=== PATIENT | female | born 1925 | race Caucasian/White ===

== ENCOUNTER 2016-10-29 12:15 | Inpatient (IN) ==
[2016-10-29] MEDS ORDERED: SODIUM CHLORIDE 0.9% 500 ML IV STA ×2 (12:40→15:45)
--- NOTE | 2016-10-29 12:51 | CT Report ---
CT of the head without contrast. Indication: Mental status change. Comparison: October 08, 2016. There is heavy calcific plaque present within the intracranial internal carotid arteries and also at the vertebral arteries. There is generalized prominence of the ventricles and sulci consistent with atrophy of aging. There is no mass effect, midline shift, or area of hemorrhage. There is basal ganglial calcification. There are prominent areas of low density in the periventricular white matter there are lacunar infarcts within the basal ganglia. There is remote cortical infarct in the right parietal lobe. Right cerebellar infarct also suspected. No new areas of infarction are identified. The calvarium is intact. The included paranasal sinuses and the mastoid air cells are clear. Impression: 1. Diffuse atrophy. 2. White matter changes likely attributable to chronic microvascular ischemia, and quite prominent. 3. Bilateral basal ganglial lacunar infarcts. 4. 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 The CT exam was performed using one or more of the following dose reduction techniques: Automated exposure control, adjustment of the mA and/or kV according to patient size, or use of iterative reconstruction technique. PROCEDURE INTERPRETED AT [facility] DEPARTMENT OF RADIOLOGY Final Report Signed by: Dr. Billie Pacheco
--- NOTE | 2016-10-29 12:54 | XRay Report ---
Portable chest Date: 10/29/2016 Clinical history: Alteration of consciousness Comparison: 09/24/2016 Technique: Portable AP sitting chest Findings: Stable cardiomegaly with uncoiling of the aorta. Diffuse arterial calcifications. Chronic scarring in the lungs with decreased parenchymal findings when compared to previous exam. Osteopenia with degenerative changes. Chronic deformity of the right shoulder. Impression: Persistent cardiomegaly with improved CHF/pneumonitis. Underlying chronic interstitial lung disease. PROCEDURE INTERPRETED AT [facility] DEPARTMENT OF RADIOLOGY Final Report Signed by: Dr. Anne Anderson
--- NOTE | 2016-10-29 12:54 | Emergency Department Note ---
Suzie Webb Gwan, am scribing for, and in the presence of, Turner Benitez MD 12:46 . Eli Webb James D, MD, personally performed the services described in this documentation, ascribed by Bethany Larsen in my presence, and it is both accurate and complete . Arrival - Arrival Chief Complaint: Altered Mental Status ED Nursing Triage Note: pt fell this am about 0200. pt has alt loc. Mode of Arrival: Stretcher Limitations: Altered Mental Status Source: Family (daughter), Old Records Reviewed, RN Notes Reviewed Time Seen by Provider: 10/29/16 12:22 - History of Present Illness HPI Narrative: Pt is a 89 y/o female who was brought into the ED via EMS for further evaluation of AMS s/p fall this 0200 this morning. Patient is a poor historian and is accompanied by family. Daughter said that pt fell last night and EMS was alerted but pt did not report to ED. Daughter then stated that pt appeared to have a constant decline prompting their visit to ED today. Patient's daughter confirmed that pt has had sxs of decreased appetite, dry cough and being lethargic with an onset of several days ago. Family continued to note that pt was dx with UTI and is currently finishing up her antibiotics. Patient is followed by Dr. Engle and Dr. Wallace. Pt has a PMHx of CHF, HTN, TIA, NIDDM and demenita. No other problems/complaints reported in ED. Onset (ago): hour(s) Consistency: constant Severity: moderate Allergies/Adverse Reactions: Allergies Allergy/AdvReac Type Severity Reaction Status Date / Time Penicillins Allergy Severe Swelling Verified 10/08/16 02:03 of Lip/Tongue/Throat zinc Allergy Severe Swelling Verified 10/08/16 02:03 of Lip/Tongue/Throat grapefruit Allergy Intermediate RASH Verified 10/08/16 02:03 Home Medications: Home Medications Medication Instructions Recorded Confirmed Type Carvedilol 6.25 mg PO BID W/MEALS 10/10/14 10/29/16 History Cholestyramine [Questran] 4 gm PO TID 10/10/14 10/29/16 History Esomeprazole Magnesium [Nexium] 40 mg PO BEDTIME 10/10/14 10/29/16 History Fenofibric Acid (Choline) 135 mg PO DAILY 10/10/14 10/29/16 History [Trilipix] Ferrous Sulfate 325 mg PO DAILY 10/10/14 10/29/16 History Furosemide 40 mg PO DAILY 10/10/14 10/29/16 History Memantine HCl [Namenda] 20 mg PO DAILY 10/10/14 10/29/16 History PARoxetine HCl [Paroxetine HCl] 30 mg PO BID 10/10/14 10/29/16 History Potassium Chloride [Klor-Con M20] 10 meq PO DAILY 10/10/14 10/29/16 History Simvastatin 40 mg PO BEDTIME 10/10/14 10/29/16 History sitaGLIPtin [Januvia] 100 mg PO BEDTIME 10/10/14 10/29/16 History Cyanocobalamin Inj [Vitamin B12 1,000 mcg IM Q30D 05/22/16 10/29/16 History Inj] clonazePAM [Klonopin] 1 mg PO BEDTIME 05/22/16 10/29/16 History Diclofenac 1% Gel [Voltaren 1% Gel] 1 applic TOP BID PRN 08/13/16 10/29/16 History Diphenoxylate HCl/Atropine 1 tablet PO BID 08/13/16 10/29/16 History [Diphenoxylate/Atropine 2.5-0.025 mg Tab] Levothyroxine Tab [Synthroid Tab] 50 mcg PO QAM 08/13/16 10/29/16 History Sulfameth/Trimeth 800-160 Tab 1 tablet PO MOWEFR 08/13/16 10/29/16 History [Bactrim DS Tab] Ascorbic Acid [Vitamin C] 1,000 mg PO QPM 09/07/16 10/29/16 History Calcium (Carb)/Vit D 600-400 1 tablet PO BID 09/07/16 10/29/16 History [Caltrate 600 + D] Ergocalciferol (Vitamin D2) 2,000 unit PO DAILY 09/07/16 10/29/16 History [Vitamin D2] Gluc Perez/Chondro Perez A/Vit C/Mn 1 each PO BID 09/07/16 10/29/16 History [Glucosamine Chondroitin Tab] Isosorbide Mononitrate [Isosorbide 30 mg PO DAILY 09/07/16 10/29/16 History Mononitrate ER] Multivit-Min/FA/Lycopen/Lutein 1 each PO DAILY 09/07/16 10/29/16 History [Centrum Silver Tablet] Selenium [Selenium Tab] 400 mcg PO DAILY 09/07/16 10/29/16 History Ubidecarenone [Coenzyme Q10] 400 mg PO QPM 09/07/16 10/29/16 History Vitamin E Cap 1,000 unit PO DAILY 09/07/16 10/29/16 History levETIRAcetam TAB [Keppra Tab] 500 mg PO BID #60 tablet 09/07/16 10/29/16 Rx Levofloxacin Tab [Levaquin Tab] 250 mg PO DAILY #7 tablet 09/24/16 10/29/16 Rx Aspirin 325 mg PO QAM 10/29/16 10/29/16 History Temazepam [Restoril] 30 mg PO BEDTIME PRN 10/29/16 10/29/16 History Review of System - Review of System ROS unobtainable: due to mental status Medical,Surgical,& Family Hx - Medical History Cardio: History of: CHF, Hypertension Neurology: History of: Dementia, TIA No history of: Seizures HEENT: History of: Ear Problem (macular degeneration), Glaucoma Endocrine: History of: Diabetes Mellitus (NIDDM) - Surgical History HEENT Surgeries: Surgical HX of: Tonsilectomy & Adenoidectomy Abdominal Surgeries: Surgical HX of: Abdominal Surgery (tummy tuck), Appendectomy Reproductive Surgeries: Surgical HX of;: Hysterectomy - Social History Smoking Status: Never smoker Frequency of Alcohol Use: None Type of Drug Use: None Exam Physical Examination: GENERAL: This is a ill-appearing white female in no apparent distress but appears to be temporal wasted and non-verbal. Patient does follow commands. VITAL SIGNS: HEENT: Head is normocephalic and atraumatic. Pupils are equally round and reactive to light. Extraocular movement are intact. Oropharynx is benign with dry mucous membranes. NECK: Neck is soft and supple without tenderness. There are no masses. There is no lymphadenopathy. LUNGS: Lungs are clear to auscultation bilaterally. Chest rises symmetrically. There is no chest wall tenderness. CV: Heart is regular rate and rhythm without murmurs, rubs, or gallops. ABDOMEN: Abdomen is soft, non-tender to palpation. There are no abnormal masses palpated. There is no organomegaly. Bowel sounds are present and active. SKIN: Skin is warm and dry. No rash. EXTREMITIES: Patient has full range of motion without tenderness. There is no pedal edema. NEUROLOGIC: Awake, alert, and oriented x4. Cranial nerves II through XII are grossly intact. There are no motorsensory deficits. PSYCHIATRIC: Normal affect. Normal mood. Vital Signs: Vital Signs Temperature 98.0 F 10/29/16 12:18 Pulse Rate 82 10/29/16 12:18 Respiratory Rate 18 10/29/16 12:18 Blood Pressure 125/58 10/29/16 12:18 O2 Sat by Pulse Oximetry 97 10/29/16 12:18 Course - Consultations Consultation #1: Discussed with hospitalist. Patient will be admitted to their service. Time: 15:46 Results - Labs CBC & BMP: 10/29/16 14:20 10/29/16 14:20 Lab Results: I have reviewed the patients labs Labs: Laboratory Tests 10/29/16 10/29/16 10/29/16 14:20 14:20 14:20 WBC 7.4 RBC 3.04 L Hgb 9.0 L Hct 29.0 L MCHC 31.0 L Plt Count 139 Neut % (Auto) 79.2 H Lymph % (Auto) 8.1 L Lymph # (Auto) 0.6 L INR 1.2 PT Patient/Control Mix 13.1 Circ Anticoag PTT 29.2 Sodium Potassium Chloride Carbon Dioxide BUN Creatinine BUN/Creatinine Ratio Glucose Calculated Osmolality AST ALT Troponin I Total Protein Albumin Albumin/Globulin Ratio Urine pH 5.0 Ur Specific [place] 1.011 Urine Protein 30 Urine Urobilinogen < 2.0 H Urine WBC <1 Laboratory Tests 10/29/16 14:20 Sodium 141 Potassium 4.1 Chloride 105 Carbon Dioxide 28 BUN 66 H Creatinine 2.20 H BUN/Creatinine Ratio 30.00 H Glucose 146 H Calcium 7.4 L AST 79 H ALT 90 H Troponin I 6.500 H Total Protein 5.2 L Albumin 2.4 L Albumin/Globulin Ratio 0.8 L Laboratory Tests 10/29/16 14:20 Urine pH 5.0 Ur Specific [place] 1.011 Urine Protein 30 Urine Urobilinogen < 2.0 H - Diagnostic Findings Procedure: Chest x-ray: image reviewed by me (Increased pulmonary markings bilaterally), CT: report reviewed by me, image reviewed by me (1. Diffuse atrophy. 2. White matter changes likely attribute to chronic microvascular ischemia, and quite prominent. 3. Bilateral basal gangdial lacunar infarcts. 4. Old infarct in the right parietal lobe and cerebellar hemispehere.) Disposition Clinical Impression: Dementia, Acute renal failure, Altered mental status Case discussed with: patient's family Disposition: Still a Patient Condition: Stable
[2016-10-29 14:31] LABS: Eosinophils # 0.2 10*3/uL (0.0-0.87); Eosinophils % 2.4 % (0.00-10.9); Immature Granulocytes % 1.5 %; Immature Granulocytes Absolute 0.11 #; Lymphocytes # 0.6 10*3/uL (1.4-4.0); Lymphocytes % 8.1 % (21.3-54.2); Mean Corpuscular Hemoglobin 30 PG (27-34); Mean Corpuscular Volume 95.4 FL (87-102); Mean Platelet Volume 11.6 FL (9.6-12.0); Monocytes # 0.7 10*3/uL (0.11-0.8); Monocytes % 8.8 % (1.7-12.7); NRBC # 0.02 10*3/uL; Neutrophils # 5.9 10*3/uL (1.4-7.4); Neutrophils % 79.2 % (38.7-73.9); Platelet Count 139 T/CUMM (130-400); Red Blood Count 3.04 MC/CUMM (3.8-5.5); Red Cell Distribution Width 14.1 % (9.3-17.3); White Blood Count 7.4 T/CUMM (4-12)
[2016-10-29 14:40] LABS: Apearance,Urine Slightly Hazy (Clear); Bacteria,Urine Occasional /HPF (Few); Bilirubin,Urine Negative (Negative); Blood, Urine Negative (Negative); Glucose,Urine (UA) Negative (Negative); Ketones,Urine Negative (Negative); Mucus,Urine Occasional /LPF (Occasional); Nitrite,Urine Negative (Negative); Protein,Urine 30 MG/DL; Urine Color Yellow (Yellow); Urine Specific Gravity 1.011 (1.001-1.035); Urine Urobilinogen < 2.0 EU/DL (0.2-1.0); WBC,Urine <1 /HPF (0-6)
[2016-10-29 14:46] LABS: INR 1.2; PT Patient Result 13.1 SECS; Partial Thromboplastin Time 29.2 SECS (0-40)
[2016-10-29 14:54] LABS: Alanine Aminotransferase 90 U/L (13-56); Albumin 2.4 G/DL (3.4-5.0); Alkaline Phosphatase 61 U/L (45-117); Aspartate Amino Transferase 79 U/L (0-37); Bilirubin,Total < 0.39 MG/DL (0.2-1.0); Blood Urea Nitrogen 66 MG/DL (7-18); Calcium 7.4 MG/DL (8.5-10.1); Glucose 146 MG/DL (74-106); Osmolality,Calculated 302.3 MOS/KG (273-304); Potassium 4.1 MMOL/L (3.5-5.1); Sodium 141 MMOL/L (136-145); Total Protein 5.2 G/DL (6.4-8.3)
[2016-10-29] MEDS ORDERED: LEVOFLOXACIN INJ 500 MG in PREMIX 1 EACH IV STA (15:45)
[2016-10-29] MEDS ORDERED: DEXTROSE 50% 25 GM/50 ML VIAL IV PRN (16:33)
[2016-10-29] MEDS ORDERED: GLUCAGON 1 MG VIAL IM PRN (16:33)
[2016-10-29] MEDS ORDERED: ACETAMINOPHEN 325 MG TABLET PO PRN (16:33)
[2016-10-29] MEDS ORDERED: DICLOFENAC 1% GEL 100 GM TUBE TOP PRN (16:41)
--- NOTE | 2016-10-29 16:46 | Hospitalist History & Physical ---
Assessment and Plan (1) Bump in troponins Status: Acute Current Visit: Yes (2) Recent urinary tract infection Status: Acute Current Visit: Yes (3) Acute renal failure Status: Acute Current Visit: Yes (4) Altered mental status Status: Acute Current Visit: Yes (5) Dementia Status: Acute Assessment and plan: Our plan for this patient will be admission to a monitored bed. I am going to draw serial cardiac enzymes. She does have a bump in troponin without symptoms. Will order EKG. Put her on some Lovenox and aspirin. She has no symptoms of acute coronary syndrome. Her altered mental status has been waxing and waning for a week and a half. There is no acute findings on CT scan of her head. We will get a culture her urine. I will continue with antibiotics for urinary tract infection that seems to be the main culprit. This could be waxing and waning of her dementia. Since she does have a troponin of 6.5 going to trend out the troponins. Will consult cardiology. Secondary to her advanced age mental status and physical ability do not feel that she would be appropriate for intervention. Current Visit: Yes History of Present Illness Chief complaint: Waxing and waning altered mental status History of present illness: Ms. Barron is a 89 year old female with multiple medical problems including heart failure, hypertension, diabetes and dementia who presents to our ER today. Apparently patient fell this morning. The fall was not the reason they came in today though. Family reports that patient for the last 2 weeks has been going to periods of decline where 1 day she is okay ambulating and eating and then the next day she is complaining about weakness and with mental status decline. Patient's family reports that it seems like it started over Easter weekend which is approximately 1-1/2 weeks ago. Seem like she recovered from her illness. But then at times patient's mental status waxes and wanes. Cornea family she has not complained about any chest pain shortness of breath or diaphoresis. At times she will go totally incoherent like she was this morning. She is currently sleeping and is a poor historian per my evaluation. She has had a cough and she has been recently treated by her her doctor for urinary tract infection. I was consulted to admit her. I am admitting her through the emergency room Home Medications Medication Instructions Recorded Confirmed Type Carvedilol 6.25 mg PO BID W/MEALS 10/10/14 10/29/16 History Cholestyramine [Questran] 4 gm PO TID 10/10/14 10/29/16 History Esomeprazole Magnesium [Nexium] 40 mg PO BEDTIME 10/10/14 10/29/16 History Fenofibric Acid (Choline) 135 mg PO DAILY 10/10/14 10/29/16 History [Trilipix] Ferrous Sulfate 325 mg PO DAILY 10/10/14 10/29/16 History Furosemide 40 mg PO DAILY 10/10/14 10/29/16 History Memantine HCl [Namenda] 20 mg PO DAILY 10/10/14 10/29/16 History PARoxetine HCl [Paroxetine HCl] 30 mg PO BID 10/10/14 10/29/16 History Potassium Chloride [Klor-Con M20] 10 meq PO DAILY 10/10/14 10/29/16 History Simvastatin 40 mg PO BEDTIME 10/10/14 10/29/16 History sitaGLIPtin [Januvia] 100 mg PO BEDTIME 10/10/14 10/29/16 History Cyanocobalamin Inj [Vitamin B12 1,000 mcg IM Q30D 05/22/16 10/29/16 History Inj] clonazePAM [Klonopin] 1 mg PO BEDTIME 05/22/16 10/29/16 History Diclofenac 1% Gel [Voltaren 1% Gel] 1 applic TOP BID PRN 08/13/16 10/29/16 History Diphenoxylate HCl/Atropine 1 tablet PO BID 08/13/16 10/29/16 History [Diphenoxylate/Atropine 2.5-0.025 mg Tab] Levothyroxine Tab [Synthroid Tab] 50 mcg PO QAM 08/13/16 10/29/16 History Sulfameth/Trimeth 800-160 Tab 1 tablet PO MOWEFR 08/13/16 10/29/16 History [Bactrim DS Tab] Ascorbic Acid [Vitamin C] 1,000 mg PO QPM 09/07/16 10/29/16 History Calcium (Carb)/Vit D 600-400 1 tablet PO BID 09/07/16 10/29/16 History [Caltrate 600 + D] Ergocalciferol (Vitamin D2) 2,000 unit PO DAILY 09/07/16 10/29/16 History [Vitamin D2] Gluc Perez/Chondro Perez A/Vit C/Mn 1 each PO BID 09/07/16 10/29/16 History [Glucosamine Chondroitin Tab] Isosorbide Mononitrate [Isosorbide 30 mg PO DAILY 09/07/16 10/29/16 History Mononitrate ER] Multivit-Min/FA/Lycopen/Lutein 1 each PO DAILY 09/07/16 10/29/16 History [Centrum Silver Tablet] Selenium [Selenium Tab] 400 mcg PO DAILY 09/07/16 10/29/16 History Ubidecarenone [Coenzyme Q10] 400 mg PO QPM 09/07/16 10/29/16 History Vitamin E Cap 1,000 unit PO DAILY 09/07/16 10/29/16 History levETIRAcetam TAB [Keppra Tab] 500 mg PO BID #60 tablet 09/07/16 10/29/16 Rx Levofloxacin Tab [Levaquin Tab] 250 mg PO DAILY #7 tablet 09/24/16 10/29/16 Rx Aspirin 325 mg PO QAM 10/29/16 10/29/16 History Temazepam [Restoril] 30 mg PO BEDTIME PRN 10/29/16 10/29/16 History Allergies Allergy/AdvReac Type Severity Reaction Status Date / Time Penicillins Allergy Severe Swelling Verified 10/08/16 02:03 of Lip/Tongue/Throat zinc Allergy Severe Swelling Verified 10/08/16 02:03 of Lip/Tongue/Throat grapefruit Allergy Intermediate RASH Verified 10/08/16 02:03 Medical,Surgical,& Family Hx - Medical History Cardio: History of: CHF, Hypertension Neurology: History of: Dementia, TIA No history of: Seizures HEENT: History of: Ear Problem (macular degeneration), Glaucoma Endocrine: History of: Diabetes Mellitus (NIDDM) - Surgical History HEENT Surgeries: Surgical HX of: Tonsilectomy & Adenoidectomy Abdominal Surgeries: Surgical HX of: Abdominal Surgery (tummy tuck), Appendectomy Reproductive Surgeries: Surgical HX of;: Hysterectomy - Family History Family History: Reports;: Family Cancer, Family Diabetes, Family Heart Disease, Family Hypertension - Social History Smoking Status: Never smoker Frequency of Alcohol Use: None Type of Drug Use: None ROS unobtainable: due to mental status Exam - Constitutional Vitals: Period Temp Pulse Resp BP Sys/[place] Pulse Ox Last 24 Hr 98.0 F 82 18 125/58 97 General appearance: normal weight - Head Head exam: Present: normal inspection - Eye Eye exam: Present: EOMI Pupils: Present: KRISTEN - ENT ENT exam: Present: normal exam - Neck Neck exam: Present: normal inspection - Respiratory Respiratory exam: Present: clear to auscultation bilaterally - Cardiovascular Cardiovascular exam: Present: regular rate and rhythm - GI/Abdominal GI/Abdominal exam: Present: normal bowel sounds - Extremities Exam Extremities exam: Present: normal inspection - Back Exam Back exam: Present: normal inspection - Neurological Exam Neurological exam: Present: other (Patient is currently sleepy) - Psychiatric Psychiatric exam: Present: flat affect - Skin Skin exam: Present: normal color Results - Labs CBC & BMP: 10/29/16 14:20 10/29/16 14:20
[2016-10-29] MEDS ORDERED: LEVOFLOXACIN INJ 100 ML IV ONE (16:57)
[2016-10-29] MEDS ORDERED: TEMAZEPAM 15 MG CAPSULE PO PRN (17:30)
[2016-10-29] MEDS: SODIUM CHLORIDE 0.9% 1,000 ML IV SCH (19:17)
[2016-10-29] MEDS: ASPIRIN 325 MG TABLET PO SCH (19:17)
[2016-10-29] MEDS: CARVEDILOL 6.25 MG TABLET PO SCH (19:17)
[2016-10-29] MEDS ORDERED: NON-FORMULARY MEDICATION (Gluc Su/Chondro Su A/Vit C/Mn [Glucosamine Chondroitin Tab] 1 EA PO SCH (21:00)
[2016-10-29] MEDS: PARoxetine 10 MG TABLET PO SCH (21:13)
[2016-10-29] MEDS: PANTOPRAZOLE 40 MG TABLET PO SCH (21:13)
[2016-10-29] MEDS: SIMVASTATIN 40 MG TABLET PO SCH (21:13)
[2016-10-29] MEDS: levETIRAcetam 500 MG TABLET PO SCH (21:13)
[2016-10-29] MEDS: clonazePAM 0.5 MG TABLET PO SCH (21:13)
[2016-10-29] MEDS: INSULIN REGULAR 100 UNIT/ML SUBCUT SCH (21:14)
[2016-10-29] MEDS: ENOXAPARIN 30 MG/0.3 ML SYRINGE SUBCUT SCH (21:14)
[2016-10-29] MEDS: DIPHENOXYLATE/ATROPINE 2.5-0.025 MG TABLET PO SCH (21:14)
[2016-10-29] MEDS: CHOLESTYRAMINE 4 GM PACK PO SCH (21:15)
[2016-10-29] MEDS: ASCORBIC ACID 500 MG TABLET PO SCH (21:15)
[2016-10-30 00:09] LABS: CKMB % 3.4 %
[2016-10-30 00:38] LABS: Troponin I Only 5.81 NG/ML (0.00-0.045)
[2016-10-30 06:33] LABS: Eosinophils # 0.3 10*3/uL (0.0-0.87); Eosinophils % 6.5 % (0.00-10.9); Hematocrit 29.1 VOL% (35.7-47.0); Hemoglobin 8.9 GM/DL (12.0-16.0); Immature Granulocytes % 1.9 %; Lymphocytes % 18.1 % (21.3-54.2); Mean Corpuscular HGB Conc 30.6 GM/DL (32-36); Mean Corpuscular Hemoglobin 29 PG (27-34); Mean Corpuscular Volume 95.7 FL (87-102); Mean Platelet Volume 11.6 FL (9.6-12.0); Monocytes # 0.7 10*3/uL (0.11-0.8); Monocytes % 12.6 % (1.7-12.7); Neutrophils # 3.2 10*3/uL (1.4-7.4); Neutrophils % 60.9 % (38.7-73.9); Platelet Count 139 T/CUMM (130-400); Red Blood Count 3.04 MC/CUMM (3.8-5.5); Red Cell Distribution Width 14.2 % (9.3-17.3); White Blood Count 5.3 T/CUMM (4-12)
[2016-10-30 07:19] LABS: Calcium 7.5 MG/DL (8.5-10.1); Osmolality,Calculated 296.5 MOS/KG (273-304); Potassium 4.5 MMOL/L (3.5-5.1)
--- NOTE | 2016-10-30 07:25 | EKG Report ---
Stationary ECG Study [facility] ER Test Date: 10/29/2016 4:58:45 PM Pat Name: WAYLON HERBERT Department: Room: 433 Gender: F Dandy Tender: : 1925 Requested by: Turner Garrison Order Number: [id number] Reading MD: TERE KHAN Intervals [place] Rate: 58 P: 56 NC: 226 QRS: -72 QRSD: 164 T: 91 QT: 507 QTc: 505 Interpretive Statements SINUS RHYTHM WITH PROLONGED NC INTERVAL POSSIBLE LEFT ATRIAL ENLARGEMENT RIGHT BUNDLE BRANCH BLOCK LEFT ANTERIOR FASCICULAR BLOCK POSSIBLE ANTERIOR MYOCARDIAL INFARCTION, OF INDETERMINATE AGE Electronically Signed On 10-31-16 15:15:35 CDT by TERE KHAN [email or web address]
[2016-10-30] MEDS: INSULIN REGULAR 100 UNIT/ML SUBCUT SCH ×3 (08:09→17:42)
[2016-10-30] MEDS: LEVOTHYROXINE 50 MCG TABLET PO SCH (09:03)
[2016-10-30] MEDS: ASPIRIN 325 MG TABLET PO SCH (09:04)
[2016-10-30] MEDS: PARoxetine 10 MG TABLET PO SCH ×2 (09:05→22:10)
[2016-10-30] MEDS: DIPHENOXYLATE/ATROPINE 2.5-0.025 MG TABLET PO SCH (09:05)
[2016-10-30] MEDS: MEMANTINE 10 MG TABLET PO SCH (09:08)
[2016-10-30] MEDS: CARVEDILOL 6.25 MG TABLET PO SCH ×2 (09:09→17:44)
[2016-10-30] MEDS: FUROSEMIDE 40 MG TABLET PO SCH (09:09)
[2016-10-30] MEDS: levETIRAcetam 500 MG TABLET PO SCH ×2 (09:11→22:14)
[2016-10-30] MEDS: FENOFIBRATE 145 MG TABLET PO SCH (09:14)
[2016-10-30] MEDS: SELENIUM 200 MCG TABLET PO SCH (09:15)
[2016-10-30] MEDS: MULTIVITAMIN (CENTRUM) TABLET PO SCH (09:17)
[2016-10-30] MEDS: FERROUS SULFATE 325 MG TABLET PO SCH (09:18)
[2016-10-30] MEDS: ISOSORBIDE MONONITRATE 30 MG TABLET PO SCH (09:19)
[2016-10-30] MEDS: POTASSIUM CHLORIDE 20 MEQ TABLET PO SCH (09:21)
--- NOTE | 2016-10-30 10:16 | XRay Report ---
XR chest 1V portable Indication: Shortness of breath Comparison: Chest x-ray 10/29/2016 Technique: Portable AP chest was performed. Findings: Cardiomediastinal silhouette is stable. Coarsened linear and reticular interstitial markings as well as scattered airspace opacities in the left lung base remain present with little suggested interval change. Trace fluid is now present within the minor fissure. Bones and soft tissues are stable. Impression: 1. Appearance of the lung parenchyma could reflect evidence of pulmonary edema and/or infection. Trace amount of fluid is now present within the minor fissure. 10/30/2016 10:13 AM PROCEDURE INTERPRETED AT [facility] DEPARTMENT OF RADIOLOGY Final Report Signed by: Dr. Gen Wilson
--- NOTE | 2016-10-30 10:18 | Hospitalist Progress Note ---
Hospitalist: Subjective Interval history: Daughter reports pt is less lethargic and confused today. No BM since 10/28. Lomotil given this am. No abd pain. No nausea or vomiting. Pt denies cp or SOB. She does not use oxygen at home. Exam - Constitutional Vitals: Period Temp Pulse Resp BP Sys/[place] Pulse Ox Last 24 Hr 96.3 F-98.1 F 52-62 16-21 92-128/47-61 92-99 Exam: Awake, alert, confused, saying a few words. NAD. Appears figitity RRR CTAB nonlabored, diminished at the bases Soft, NT, ND, +BS Warm no c/c/e. Moves all extremities Results - Labs CBC & BMP: 10/30/16 06:24 10/30/16 06:24 - Impressions (1) Elevated troponin r/o ACS Status: Acute Current Visit: Yes -troponin trending downward. Cont telemetry. Serial labs. Check ECHO and TSH. Cardiology to see. (2) Recent urinary tract infection Status: Acute Current Visit: Yes - F/U UCx. Was on antibiotics prior to admission (3) Acute renal failure- improving Status: Acute Current Visit: Yes - Avoid nephrotoxic agents - IVF -Serial labs (4) Acute metabolic and possible toxic encephalopathy in a patient with known dementia Status: Acute Current Visit: Yes - Possibly due to above. Improving per family. Follow up workup as described above. There is no acute findings on CT scan of her head. We will get a culture her urine. I will continue with antibiotics for urinary tract infection that seems to be the main culprit. This could be waxing and waning of her dementia. (5) Dementia Status: Chronic Current Visit: Yes D/W nurse and daughter at bedside. All questions answered. Specialty Discharge - Follow Up or Referrals Follow up with: Stefan Nesbitt MD [Physician] - 11/12/16 10:30 am (HAVE LAB WORK DONE AT DR CLIFFORD OFFICE ON .NOVEMBER 05 ANYTIME BETWEEN 730AM -330PM)
[2016-10-30] MEDS ORDERED: SKIN HEALING OINT (AQUAPHOR) 50 GM TUBE TOP PRN (10:19)
[2016-10-30] MEDS: CHOLESTYRAMINE 4 GM PACK PO SCH ×2 (11:01→15:01)
[2016-10-30] MEDS: SODIUM CHLORIDE 0.9% 1,000 ML IV SCH (15:31)
[2016-10-30] MEDS: LEVOFLOXACIN INJ 250 MG in PREMIX 1 EACH IV SCH (18:09)
[2016-10-30] MEDS: ALBUTEROL/IPRATROPIUM 3 ML NEB RESP TX SCH ×2 (18:10)
--- NOTE | 2016-10-30 18:14 | ECHO Report ---
Anne Barron Exam Date: 10/30/2016 15:25 Referring Physician: Technologist: Bing Dietz Age: 89 Ht (in): 64 Wt (lb): 144 Gender: F Exam Location: [facility] Echo Indications: increase troponin, CHF, UTI, acute renal failure BP: 128 / 61 HR: 56 Rhythm: Sinus Technical Quality: Good IMPRESSIONS Severely increased septal wall thickness. Moderately increased posterior wall thickness. Mild - moderate concentric left ventricular hypertrophy with diastolic dysfunction. Moderately decreased left ventricular systolic function, left ventricular ejection fraction is estimated at 40 %--in PS /LA view; in apical view, >55%. The right atrium is mildly -2+ enlarged. Severely increased left atrial diameter. Mild mitral valve sclerosis. Mild-moderate mitral valve regurgitation. Mild aortic valve sclerosis. Mild aortic valve regurgitation. Mild tricuspid valve sclerosis. Moderate tricuspid valve regurgitation. Tricuspid regurgitation velocities suggest a PAP of 33.9 mmHg + RAP. MEASUREMENTS (Male / Female) Normal Values 2D ECHO LV Diastolic Diameter PLAX 3.6 cm 4.2 - 5.9 / 3.9 - 5.3 cm LV Systolic Diameter PLAX 3.0 cm LV Fractional Shortening PLAX 15.3 % IVS Diastolic Thickness 1.9 cm 0.6 - 1.0 / 0.6 - 0.9 cm LVPW Diastolic Thickness 1.5 cm 0.6 - 1.0 / 0.6 - 0.9 cm Aortic Root Diameter 2.1 cm LA Systolic Diameter LX 5.1 cm 3.0 - 4.0 / 2.7 - 3.8 cm DOPPLER TR Peak Velocity 291.0 cm/s TR Peak Gradient 33.9 mmHg FINDINGS Left Ventricle Severely increased septal wall thickness. Moderately increased posterior wall thickness. Mild - moderate concentric left ventricular hypertrophy with diastolic dysfunction.moderately increased left ventricular cavity size. Moderately decreased left ventricular systolic function, left ventricular ejection fraction is estimated at 40 %--in PS /LA view; in apical view, >55%. Right Ventricle Mildly increased right ventricular size. Right Atrium The right atrium is mildly -2+ enlarged. Left Atrium Severely increased left atrial diameter. Mitral Valve Mild mitral valve sclerosis. Mild-moderate mitral valve regurgitation. Aortic Valve Mild aortic valve sclerosis. Mild aortic valve regurgitation. Tricuspid Valve Mild tricuspid valve sclerosis. Moderate tricuspid valve regurgitation. Tricuspid regurgitation velocities suggest a PAP of 33.9 mmHg + RAP. Pulmonic Valve Pulmonic valve not well visualized. Pericardium No pericardial effusion. Aorta Normal size aortic root and proximal ascending aorta. Flynn Geiger MD (Electronically Signed) Final Date: 30 October 2016 18:13
--- NOTE | 2016-10-30 21:23 | Cardiology Consult Note ---
I, Denise Moser RN, am scribing for, and in the presence of, Flynn Geiger MD 21:22. Assessment and Plan - Time spent with patient Time spent with patient: Greater than 30 minutes (Due to assessment, planning, documentation, medication review) (1) Bump in troponins Status: Acute Assessment and plan: She is having no symptoms of angina but he did have an increase in troponin and has known CAD. She could have had a non-STEMI. However, given her poor health , her age, multiple coronary morbidities at her AMS, she will be a poor candidate for invasive evaluation and therapy. Plan/recommendations: Conservative therapy for CAD In the course of the evaluation, it was decided the patient needed to have an echocardiogram for the pts management. It was ordered. I will review it. Using aspirin, beta-florentino, statin, if she is not contraindicated to have these Albumin is low. could be for multiple reasons. One could be from poor overall nutrition. Another from liver disease. As mentioned, will treat medically. Prognosis is guarded. I will follow along with you. I discussed the above with the patient's daughter. Thank you for allowing me to participate in this patient's care Current Visit: Yes (2) Altered mental status Status: Acute Current Visit: Yes (3) Dementia Status: Chronic Current Visit: Yes (4) Recent urinary tract infection Status: Acute Current Visit: Yes History of Present Illness - Data of Consult Patient: new to practice (Seen Dr. Guzmán in the remote past) Consult date: 10/29/16 Requesting Physician: Brian Michele - Consult Narrative Reason for consult: Elevated troponin History of present illness: Senior Clinical Consultant: Has seen Dr. Guzmán in the remote past Ms. Barron is a 89 year old female who was seen Dr. Guzmán in the remote past. She does not respond the [place] of the history is taken from the daughter. She had a history of ischemic cardiomyopathy, CAD, dyslipidemia, hypertension, TIAs , seizure, UTI, NIDDM, neuropathy, dementia, and macular degeneration. She had a heart cath Dr. Guzmán in 2010. She was noted to have single-vessel obstructive coronary artery disease with an unsuccessful attempt at PCI on the right coronary artery. There was noted to be collateral filling of this vessel from the left. Echo done in 2010 with ejection fraction of 40-45%. Other surgical history includes lip surgery, tummy tack, tonsillectomy, cholecystectomy, appendectomy, and hysterectomy. Surgical history is positive for hypertension in her brother, diabetes in sister, heart disease throughout the family, and cancer in siblings and daughter. Daughter reports she does not currently smoke, states she quit about 30 years ago. The daughter reports she had a seizure about a month ago and since that time her dementia has gotten worse. She says that 5 days ago she began not eating and was not able to walk. Also reports she has been very weak. She reports yesterday when they brought her and that she was completely incoherent. Currently she is resting in bed in no acute distress. She arouses when I talk to her, but does not wake it. The daughter reports she has been awake earlier and talking and complaining. The daughter says she has not complained of any chest pain, shortness of breath, palpitations, or dizziness. The daughter tells me that she is on blood thinner but is unsure why. She says the only known heart rhythm issue that she has ever had has been tachycardia. The daughter tells me she has had numerous falls recently, but states she has had no new non-syncope or near syncope. 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 Echocardiogram has been ordered. Vital signs have been stable. Her H&H is low at 8.9 and 29.1. Her creatinine was elevated at 2.2 on admission, it has bumped down to 1.9 today. BNP is elevated 2262. Troponin has been elevated 6.5 on admission, 5.810 last night, 4.790 this morning. She is on aspirin p.o. and Lovenox subcu. CC: Jennifer Pierce MD - Home Medications and Allergies Home Medications: Home Medications Medication Instructions Recorded Confirmed Type Carvedilol 6.25 mg PO BID W/MEALS 10/10/14 10/29/16 History Cholestyramine [Questran] 4 gm PO TID 10/10/14 10/29/16 History Esomeprazole Magnesium [Nexium] 40 mg PO BEDTIME 10/10/14 10/29/16 History Fenofibric Acid (Choline) 135 mg PO DAILY 10/10/14 10/29/16 History [Trilipix] Ferrous Sulfate 325 mg PO DAILY 10/10/14 10/29/16 History Furosemide 40 mg PO DAILY 10/10/14 10/29/16 History Memantine HCl [Namenda] 20 mg PO DAILY 10/10/14 10/29/16 History PARoxetine HCl [Paroxetine HCl] 30 mg PO BID 10/10/14 10/29/16 History Potassium Chloride [Klor-Con M20] 10 meq PO DAILY 10/10/14 10/29/16 History Simvastatin 40 mg PO BEDTIME 10/10/14 10/29/16 History sitaGLIPtin [Januvia] 100 mg PO BEDTIME 10/10/14 10/29/16 History Cyanocobalamin Inj [Vitamin B12 1,000 mcg IM Q30D 05/22/16 10/29/16 History Inj] clonazePAM [Klonopin] 1 mg PO BEDTIME 05/22/16 10/29/16 History Diclofenac 1% Gel [Voltaren 1% Gel] 1 applic TOP BID PRN 08/13/16 10/29/16 History Diphenoxylate HCl/Atropine 1 tablet PO BID 08/13/16 10/29/16 History [Diphenoxylate/Atropine 2.5-0.025 mg Tab] Levothyroxine Tab [Synthroid Tab] 50 mcg PO QAM 08/13/16 10/29/16 History Sulfameth/Trimeth 800-160 Tab 1 tablet PO MOWEFR 08/13/16 10/29/16 History [Bactrim DS Tab] Ascorbic Acid [Vitamin C] 1,000 mg PO QPM 09/07/16 10/29/16 History Calcium (Carb)/Vit D 600-400 1 tablet PO BID 09/07/16 10/29/16 History [Caltrate 600 + D] Ergocalciferol (Vitamin D2) 2,000 unit PO DAILY 09/07/16 10/29/16 History [Vitamin D2] Gluc Perez/Chondro Perez A/Vit C/Mn 1 each PO BID 09/07/16 10/29/16 History [Glucosamine Chondroitin Tab] Isosorbide Mononitrate [Isosorbide 30 mg PO DAILY 09/07/16 10/29/16 History Mononitrate ER] Multivit-Min/FA/Lycopen/Lutein 1 each PO DAILY 09/07/16 10/29/16 History [Centrum Silver Tablet] Selenium [Selenium Tab] 400 mcg PO DAILY 09/07/16 10/29/16 History Ubidecarenone [Coenzyme Q10] 400 mg PO QPM 09/07/16 10/29/16 History Vitamin E Cap 1,000 unit PO DAILY 09/07/16 10/29/16 History levETIRAcetam TAB [Keppra Tab] 500 mg PO BID #60 tablet 09/07/16 10/29/16 Rx Aspirin 325 mg PO QAM 10/29/16 10/29/16 History Temazepam [Restoril] 30 mg PO BEDTIME PRN 10/29/16 10/29/16 History Allergies/Adverse Reactions: Allergies Allergy/AdvReac Type Severity Reaction Status Date / Time Penicillins Allergy Severe Swelling Verified 10/08/16 02:03 of Lip/Tongue/Throat zinc Allergy Severe Swelling Verified 10/08/16 02:03 of Lip/Tongue/Throat grapefruit Allergy Intermediate RASH Verified 10/08/16 02:03 ROS unobtainable: due to mental status - Constitutional Constitutional: Present: as per HPI Medical,Surgical,& Family Hx - Medical History Cardio: History of: CHF, CAD, Hypertension Neurology: History of: Dementia, Seizures, TIA HEENT: History of: Ear Problem (macular degeneration), Glaucoma Endocrine: History of: Diabetes Mellitus (NIDDM) Musculoskeletal: Comment Only: Musculoskeletal Problems (Arthritis) - Surgical History Cardiac Surgeries: Sugical HX of: Cardiac Catheterization (2010) HEENT Surgeries: Surgical HX of: Tonsilectomy & Adenoidectomy Abdominal Surgeries: Surgical HX of: Abdominal Surgery (tummy tuck), Appendectomy, Cholecystectomy Reproductive Surgeries: Surgical HX of;: Hysterectomy - Family History Family History: Reports;: Family Cancer (Sisters, daughters, brother), Family Diabetes (Sisters), Family Heart Disease (Throughout the family), Family Hypertension (Brothers) - Social History Smoking Status: Former smoker (Reportedly quit 30 years ago) Have you smoked in the last 12 months: No Frequency of Alcohol Use: None Type of Drug Use: None Lives With:: Children Functional capacity: uses cane/walker Physical Examination Vital Signs Temp Pulse Resp BP Pulse Ox 98.0 F 82 18 125/58 97 10/29/16 12:18 10/29/16 12:18 10/29/16 12:18 10/29/16 12:18 10/29/16 12:18 General: Present: No Apparent Distress, Other (He will appear) HEENT: Present: PERRL, Mucus Membranes Moist Neck: Present: Supple Neck, Midline Trachea Cardiac: Present: Reg Rate and Rhythm, No Murmur, Bradycardia Lungs: Present: Normal Breath Sounds, No Wheeze, Rales, Rhonchi Neuro: Absent: Resting Tremor, Essential Tremor Abdomen: Present: Soft, Active Bowel Sounds Musculoskeletal: Present: Decreased Range of Motion, Pain in Joint Extremities: Present: No Edema, Normal Upper Extr. Pulses, Normal Lower Extr. Pulses Result/EKG - Labs CBC & BMP: 10/30/16 06:24 10/30/16 06:24 Lab Results: I have reviewed the past 24 hour labs Labs: Laboratory Results - last 24 hr 10/29/16 10/29/16 10/30/16 19:44 23:01 06:24 WBC 5.3 RBC 3.04 L Hgb 8.9 L Hct 29.1 L MCV 95.7 MCH 29 MCHC 30.6 L RDW 14.2 Plt Count 139 MPV 11.6 Neut % (Auto) 60.9 Lymph % (Auto) 18.1 L [place] % (Auto) 12.6 Eos % (Auto) 6.5 Baso % (Auto) 0.0 Neut # (Auto) 3.2 Lymph # (Auto) 1.0 L [place] # (Auto) 0.7 Eos # (Auto) 0.3 Baso # (Auto) 0.0 Immature Gran % 1.9 Nucleated RBC % 0.0 Immature Gran # 0.10 Nucleated RBCs # 0.00 Sodium Potassium Chloride Carbon Dioxide Anion Gap BUN Creatinine GFR Calculation BUN/Creatinine Ratio Glucose POC Glucose 156 H Calculated Osmolality Calcium Total Creatine Kinase 151 CK-MB (CK-2) 5.1 H CK and CKMB Interp 3.4 Troponin I 5.810 H B-Natriuretic Peptide 10/30/16 10/30/16 10/30/16 06:24 06:24 06:24 WBC RBC Hgb Hct MCV MCH MCHC RDW Plt Count MPV Neut % (Auto) Lymph % (Auto) [place] % (Auto) Eos % (Auto) Baso % (Auto) Neut # (Auto) Lymph # (Auto) [place] # (Auto) Eos # (Auto) Baso # (Auto) Immature Gran % Nucleated RBC % Immature Gran # Nucleated RBCs # Sodium 139 Potassium 4.5 Chloride 107 Carbon Dioxide 27 Anion Gap 9.5 BUN 59 H Creatinine 1.90 H GFR Calculation 23 BUN/Creatinine Ratio 31.00 H Glucose 159 H POC Glucose Calculated Osmolality 296.5 Calcium 7.5 L Total Creatine Kinase 109 D CK-MB (CK-2) 3.9 H CK and CKMB Interp Troponin I 4.790 H B-Natriuretic Peptide 2262 H 10/30/16 07:50 WBC RBC Hgb Hct MCV MCH MCHC RDW Plt Count MPV Neut % (Auto) Lymph % (Auto) [place] % (Auto) Eos % (Auto) Baso % (Auto) Neut # (Auto) Lymph # (Auto) [place] # (Auto) Eos # (Auto) Baso # (Auto) Immature Gran % Nucleated RBC % Immature Gran # Nucleated RBCs # Sodium Potassium Chloride Carbon Dioxide Anion Gap BUN Creatinine GFR Calculation BUN/Creatinine Ratio Glucose POC Glucose 143 H Calculated Osmolality Calcium Total Creatine Kinase CK-MB (CK-2) CK and CKMB Interp Troponin I B-Natriuretic Peptide - EKG EKG results: interpreted by me EKG shows: bradycardia, sinus rhythm Specialty Discharge - Follow Up or Referrals Follow up with: Rojelio Guzmán MD [Physician] - Juanjo Webb Dale, MD, personally performed the services described in this documentation, ascribed by Denise Moser RN in my presence, and it is both accurate and complete .
[2016-10-30] MEDS: PANTOPRAZOLE 40 MG TABLET PO SCH (22:12)
[2016-10-30] MEDS: SIMVASTATIN 40 MG TABLET PO SCH (22:12)
[2016-10-30] MEDS: ASCORBIC ACID 500 MG TABLET PO SCH (22:14)
[2016-10-30] MEDS: clonazePAM 0.5 MG TABLET PO SCH (22:14)
[2016-10-30] MEDS: ENOXAPARIN 30 MG/0.3 ML SYRINGE SUBCUT SCH (22:18)
[2016-10-31] MEDS: ALBUTEROL/IPRATROPIUM 3 ML NEB RESP TX SCH ×4 (00:26→20:40)
[2016-10-31 05:45] LABS: Basophils % 0.1 % (0.0-0.8); Eosinophils # 0.3 10*3/uL (0.0-0.87); Eosinophils % 4.5 % (0.00-10.9); Hematocrit 29.3 VOL% (35.7-47.0); Hemoglobin 8.7 GM/DL (12.0-16.0); Immature Granulocytes % 1.9 %; Immature Granulocytes Absolute 0.13 #; Lymphocytes # 1.5 10*3/uL (1.4-4.0); Lymphocytes % 21.9 % (21.3-54.2); Mean Corpuscular HGB Conc 29.7 GM/DL (32-36); Mean Corpuscular Hemoglobin 29 PG (27-34); Mean Corpuscular Volume 96.7 FL (87-102); Mean Platelet Volume 11.6 FL (9.6-12.0); Monocytes # 0.9 10*3/uL (0.11-0.8); Monocytes % 12.9 % (1.7-12.7); Neutrophils # 4.1 10*3/uL (1.4-7.4); Neutrophils % 58.7 % (38.7-73.9); Platelet Count 157 T/CUMM (130-400); Red Blood Count 3.03 MC/CUMM (3.8-5.5); Red Cell Distribution Width 14.3 % (9.3-17.3)
[2016-10-31 06:29] LABS: Albumin 2.3 G/DL (3.4-5.0); Calcium 7.7 MG/DL (8.5-10.1); Free T4 (Free Thyroxine) 1.09 NG/DL (0.76-1.46); Osmolality,Calculated 293.4 MOS/KG (273-304); Phosphorous 3.4 MG/DL (2.5-4.9); Potassium 4.4 MMOL/L (3.5-5.1); Thyroid Stimulating Hormone 2.76 uIU/ml (0.358-3.74)
[2016-10-31] MEDS: LEVOTHYROXINE 50 MCG TABLET PO SCH (06:45)
[2016-10-31] MEDS: INSULIN REGULAR 100 UNIT/ML SUBCUT SCH ×5 (08:15→21:58)
[2016-10-31] MEDS: CHOLESTYRAMINE 4 GM PACK PO SCH ×2 (08:16→09:40)
[2016-10-31] MEDS: DIPHENOXYLATE/ATROPINE 2.5-0.025 MG TABLET PO SCH ×2 (08:16→09:40)
[2016-10-31] MEDS: PARoxetine 10 MG TABLET PO SCH ×2 (09:12→22:06)
[2016-10-31] MEDS: ISOSORBIDE MONONITRATE 30 MG TABLET PO SCH (09:13)
[2016-10-31] MEDS: CARVEDILOL 6.25 MG TABLET PO SCH ×2 (09:14→18:15)
[2016-10-31] MEDS: FUROSEMIDE 40 MG TABLET PO SCH (09:15)
[2016-10-31] MEDS: ASPIRIN 325 MG TABLET PO SCH (09:15)
[2016-10-31] MEDS: MEMANTINE 10 MG TABLET PO SCH (09:16)
[2016-10-31] MEDS: FERROUS SULFATE 325 MG TABLET PO SCH (09:17)
[2016-10-31] MEDS: levETIRAcetam 500 MG TABLET PO SCH ×2 (09:17→22:12)
[2016-10-31] MEDS: SELENIUM 200 MCG TABLET PO SCH (09:19)
[2016-10-31] MEDS: POTASSIUM CHLORIDE 20 MEQ TABLET PO SCH (09:20)
[2016-10-31] MEDS: FENOFIBRATE 145 MG TABLET PO SCH (09:39)
[2016-10-31] MEDS: MULTIVITAMIN (CENTRUM) TABLET PO SCH (09:39)
--- NOTE | 2016-10-31 14:03 | Hospitalist Progress Note ---
Hospitalist: Subjective Interval history: Daughter states she has eaten better today than she has in days. She is more awake and alert. Daughter states she is back to her baseline. Good UOP with clear urine. No abd pain. No BM since admission. Exam - Constitutional Vitals: Period Temp Pulse Resp BP Sys/Alvarado Pulse Ox Last 24 Hr 96 F-97.8 F 55-72 16-20 108-142/50-68 92-992 Exam: Awake, alert, oriented to person, speaking freely. NAD. Less figitity RRR CTAB nonlabored, diminished at the bases Soft, NT, ND, +BS Warm no c/c/e. Moves all extremities Results - Labs CBC & BMP: 10/31/16 04:33 10/31/16 04:34 - Impressions (1) Elevated troponin possibly due to a non-ST elevation SC in a patient with known coronary artery disease Status: Acute Current Visit: Yes -troponin trending downward. Cont telemetry. Serial labs. -ECHO showed severe diastolic dysfunction with significant LVH and an EF of 40% posteriorly and 55% anteriorly with biatrial enlargement and severe mitral and tricuspid regurgitation and an RSVP of 33. - TSH was normal. Cardiology following and input appreciated. -Continue medical management with antiplatelet therapy, beta-florentino and statin/ fenofibrate and Imdur. (2) chronic systolic and diastolic congestive heart failure with an EF of 40/55 % and moderate to severe mitral and tricuspid regurgitation -Continue beta-florentino, no TAMERA or ARB due to elevated creatinine, holding Lasix for now due to elevated creatinine. Strict I's and O's and daily weights. (3) recent urinary tract infection Status: Acute Current Visit: Yes - F/U blood and UCx. Was on antibiotics prior to admission. On Levaquin currently. (3) Acute renal failure- improving Status: Acute Current Visit: Yes - Avoid nephrotoxic agents -Gentle IVF -Serial labs (4) Acute metabolic and possible toxic encephalopathy in a patient with known dementia Status: Acute Current Visit: Yes - Possibly due to above. Improving per family. Follow up workup as described above. There is no acute findings on CT scan of her head. Follow-up urine and blood cultures and continue empiric IV Levaquin. Quinolones could cause altered mental status in elderly patient so will watch for this as well. This could be waxing and waning of her dementia. (5) Dementia Status: Chronic Current Visit: Yes (6) chronic hypothyroidism -Continue Synthroid (7) chronic diarrhea -holding Lomotil and Questran for now since she has not had a bowel movement since admission -Follow clinically D/W nurse, pt, daughters and other family at bedside. All questions answered. Specialty Discharge - Follow Up or Referrals Follow up with: Rojelio Guzmán MD [Physician] -
[2016-10-31] MEDS: SODIUM CHLORIDE 0.9% 1,000 ML IV SCH (14:32)
[2016-10-31] MEDS: LEVOFLOXACIN INJ 250 MG in PREMIX 1 EACH IV SCH (18:13)
--- NOTE | 2016-10-31 21:01 | Cardiology Progress Note ---
I, Denise Moser RN, am scribing for, and in the presence of, Flynn Geiger MD 21:00. Assessment and Plan (1) Bump in troponins Status: Acute Assessment and plan: Initial assessment and plan 10/30/2016: She is having no symptoms of angina but he did have an increase in troponin and has known CAD. She could have had a non-STEMI. However, given her poor health , her age, multiple coronary morbidities at her AMS, she will be a poor candidate for invasive evaluation and therapy. Plan/recommendations: Conservative therapy for CAD In the course of the evaluation, it was decided the patient needed to have an echocardiogram for the pts management. It was ordered. I will review it. Using aspirin, beta-florentino, statin, if she is not contraindicated to have these Albumin is low. could be for multiple reasons. One could be from poor overall nutrition. Another from liver disease. As mentioned, will treat medically. Prognosis is guarded. I will follow along with you. I discussed the above with the patient's daughter. Assessment and plan 10/31/2016: No angina. Less shortness of breath. More alert. Complains of lack of taste for food We will try the original Ms Dash I discouraged her from eating or adding much salt to her diet. For her elevated troponins, she is a medical management candidate. I rediscussed this with the patient, her daughter, and her son-in-law her overall status, the plan. They voiced understanding. Current Visit: Yes (2) Altered mental status Status: Acute Current Visit: Yes (3) Dementia Status: Chronic Current Visit: Yes (4) Recent urinary tract infection Status: Acute Current Visit: Yes (5) Chronic renal insufficiency, stage III (moderate) Status: Acute Current Visit: Yes (6) CAD (coronary artery disease) Status: Acute Current Visit: Yes (7) Advanced age Status: Acute Current Visit: Yes (8) Debility Status: Acute Current Visit: Yes (9) Physical debility Status: Acute Current Visit: Yes Cardiology - PN: Subj Interval history: Manager Summer: Dr. Guzmán in the remote past Ms. Barron is seen resting in bed in no acute distress. She is awake and alert today and does talk to me. She knows who she is and that she is in [facility]. She denies any complaints of pain. She says her breathing is okay , oxygen is in use via nasal cannula. Her vital signs been stable, last blood pressure was 132/61. Today's labs are unremarkable. Echo done yesterday with ejection fraction of 40-55%. Telemetry monitoring currently is sinus rhythm with heart rates in the 60s. Exam (Progress Note) - Constitutional Vitals: Period Temp Pulse Resp BP Sys/Alvarado Pulse Ox Last 24 Hr 96 F-97.8 F 55-72 16-20 108-142/50-68 92-992 General appearance: no acute distress, under weight, other (Ill-appearing) - Head Head exam: Absent: abrasion, hematoma - Eye Eye exam: Absent: periorbital swelling, laceration to eyelids - Respiratory Respiratory exam: Present: clear to auscultation bilaterally, other (Oxygen via nasal cannula). Absent: accessory muscle use, chest wall tenderness - Cardiovascular Cardiovascular exam: Present: regular rate and rhythm. Absent: tachycardia - GI/Abdominal GI/Abdominal exam: Present: normal bowel sounds, soft. Absent: distended, tenderness - Extremities Exam Extremities exam: Absent: edema - Neurological Exam Neurological exam: Present: alert, oriented X3 - Psychiatric Psychiatric exam: Present: flat affect - Skin Skin exam: Present: warm, dry Result/EKG - Labs CBC & BMP: 10/31/16 04:33 10/31/16 04:34 Lab Results: I have reviewed the past 24 hour labs Labs: Laboratory Results - last 24 hr 10/30/16 10/30/16 10/30/16 11:46 16:19 19:41 WBC RBC Hgb Hct MCV MCH MCHC RDW Plt Count MPV Neut % (Auto) Lymph % (Auto) [place] % (Auto) Eos % (Auto) Baso % (Auto) Neut # (Auto) Lymph # (Auto) [place] # (Auto) Eos # (Auto) Baso # (Auto) Immature Gran % Nucleated RBC % Immature Gran # Nucleated RBCs # Sodium Potassium Chloride Carbon Dioxide Anion Gap BUN Creatinine GFR Calculation BUN/Creatinine Ratio Glucose POC Glucose 253 H 276 H 87 Calculated Osmolality Calcium Phosphorus Albumin Free T4 TSH 3rd Generation 10/31/16 10/31/16 10/31/16 04:33 04:34 08:16 WBC 7.0 D RBC 3.03 L Hgb 8.7 L Hct 29.3 L MCV 96.7 MCH 29 MCHC 29.7 L RDW 14.3 Plt Count 157 MPV 11.6 Neut % (Auto) 58.7 Lymph % (Auto) 21.9 [place] % (Auto) 12.9 H Eos % (Auto) 4.5 Baso % (Auto) 0.1 Neut # (Auto) 4.1 Lymph # (Auto) 1.5 [place] # (Auto) 0.9 H Eos # (Auto) 0.3 Baso # (Auto) 0.0 Immature Gran % 1.9 Nucleated RBC % 0.0 Immature Gran # 0.13 Nucleated RBCs # 0.00 Sodium 140 Potassium 4.4 Chloride 105 Carbon Dioxide 28 Anion Gap 11.4 BUN 51 H Creatinine 1.90 H GFR Calculation 23 BUN/Creatinine Ratio 26.00 H Glucose 111 H POC Glucose 104 Calculated Osmolality 293.4 Calcium 7.7 L Phosphorus 3.4 Albumin 2.3 L Free T4 1.09 TSH 3rd Generation 2.760 - EKG EKG results: interpreted by me EKG shows: sinus rhythm Specialty Discharge - Follow Up or Referrals Follow up with: Rojelio Guzmán MD [Physician] - IJuanjo Dale, MD, personally performed the services described in this documentation, ascribed by Denise Moser RN in my presence, and it is both accurate and complete .
[2016-10-31] MEDS: ENOXAPARIN 30 MG/0.3 ML SYRINGE SUBCUT SCH (22:03)
[2016-10-31] MEDS: ASCORBIC ACID 500 MG TABLET PO SCH (22:07)
[2016-10-31] MEDS: clonazePAM 0.5 MG TABLET PO SCH (22:08)
[2016-10-31] MEDS: PANTOPRAZOLE 40 MG TABLET PO SCH (22:11)
[2016-10-31] MEDS: SIMVASTATIN 40 MG TABLET PO SCH (22:12)
[2016-11-01] MEDS: ALBUTEROL/IPRATROPIUM 3 ML NEB RESP TX SCH ×4 (00:55→20:09)
[2016-11-01] MEDS: LEVOTHYROXINE 50 MCG TABLET PO SCH (06:55)
[2016-11-01] MEDS: SODIUM CHLORIDE 0.9% 1,000 ML IV SCH ×2 (07:25→11:43)
[2016-11-01 07:42] LABS: Albumin 2.1 G/DL (3.4-5.0); Calcium 7.9 MG/DL (8.5-10.1); Osmolality,Calculated 293.3 MOS/KG (273-304); Phosphorous 3.3 MG/DL (2.5-4.9); Potassium 4.6 MMOL/L (3.5-5.1)
[2016-11-01] MEDS: MEMANTINE 10 MG TABLET PO SCH (09:19)
[2016-11-01] MEDS: PARoxetine 10 MG TABLET PO SCH ×2 (09:20→21:52)
[2016-11-01] MEDS: levETIRAcetam 500 MG TABLET PO SCH ×2 (09:20→21:51)
[2016-11-01] MEDS: ASPIRIN 325 MG TABLET PO SCH (09:20)
[2016-11-01] MEDS: FERROUS SULFATE 325 MG TABLET PO SCH (09:20)
[2016-11-01] MEDS: ISOSORBIDE MONONITRATE 30 MG TABLET PO SCH (09:20)
[2016-11-01] MEDS: SELENIUM 200 MCG TABLET PO SCH (09:20)
[2016-11-01] MEDS: MULTIVITAMIN (CENTRUM) TABLET PO SCH (09:21)
[2016-11-01] MEDS: FENOFIBRATE 145 MG TABLET PO SCH (09:21)
[2016-11-01] MEDS: POTASSIUM CHLORIDE 20 MEQ TABLET PO SCH (09:21)
[2016-11-01] MEDS: CARVEDILOL 6.25 MG TABLET PO SCH ×2 (09:21→18:03)
[2016-11-01] MEDS: INSULIN REGULAR 100 UNIT/ML SUBCUT SCH ×4 (09:22→21:46)
--- NOTE | 2016-11-01 13:13 | Hospitalist Progress Note ---
Hospitalist: Subjective Interval history: Pt still has not had BM so dulcolax suppository was ordered and she was found to be impacted. Nursing disimpacted pt this afternoon. She has been eating at least 75% of meals. More alert and awake and participating with therapy. Staff reports pt's family may be interested in rehab at discharge. Exam - Constitutional Vitals: Period Temp Pulse Resp BP Sys/Alvarado Pulse Ox Last 24 Hr 97.0 F-98.4 F 61-78 18-20 111-142/52-66 93-100 Exam: Awake, alert, oriented to person, speaking freely. RRR CTAB nonlabored, diminished at the bases Soft, NT, ND, +BS Warm no c/c/e. Moves all extremities Results - Labs CBC & BMP: 10/31/16 04:33 11/01/16 06:49 - Impressions (1) Elevated troponin possibly due to a non-ST elevation RI in a patient with known coronary artery disease Status: Acute Current Visit: Yes -troponin trending downward. Cont telemetry. Serial labs. -ECHO showed severe diastolic dysfunction with significant LVH and an EF of 40% posteriorly and 55% anteriorly with biatrial enlargement and severe mitral and tricuspid regurgitation and an RSVP of 33. - TSH was normal. Cardiology following and input appreciated. -Continue medical management with antiplatelet therapy, beta-florentino and statin/ fenofibrate and Imdur. (2) chronic systolic and diastolic congestive heart failure with an EF of 40/55 % and moderate to severe mitral and tricuspid regurgitation -Continue beta-florentino, no TAMERA or ARB due to elevated creatinine, holding Lasix for now due to elevated creatinine. Strict I's and O's and daily weights. (3) recent urinary tract infection Status: Acute Current Visit: Yes - F/U blood and UCx. Was on antibiotics prior to admission. On Levaquin currently. (3) Acute renal failure- improving Status: Acute Current Visit: Yes - Avoid nephrotoxic agents -Gentle IVF -Serial labs (4) Acute metabolic and possible toxic encephalopathy in a patient with known dementia Status: Acute Current Visit: Yes - Possibly due to above. Improving per family. Follow up workup as described above. There is no acute findings on CT scan of her head. Follow-up urine and blood cultures and continue empiric IV Levaquin. Quinolones could cause altered mental status in elderly patient so will watch for this as well. This could be waxing and waning of her dementia. (5) Dementia Status: Chronic Current Visit: Yes (6) chronic hypothyroidism -Continue Synthroid (7) Constipation with fecal impaction s/p disimpaction 11/01 -holding Lomotil and Questran for now. -Follow clinically D/W nurse, pt, daughter and son-in-law and All questions answered. Specialty Discharge - Follow Up or Referrals Follow up with: Rojelio Guzmán MD [Physician] -
[2016-11-01] MEDS ORDERED: BISACODYL 10 MG SUPP RECTAL PRN (13:15)
[2016-11-01] MEDS ORDERED: BISACODYL 10 MG SUPP RECTAL ONE (13:15)
[2016-11-01] MEDS ORDERED: ZINC OXIDE 16% PASTE 57 GM TUBE TOP PRN (17:44)
[2016-11-01] MEDS: LEVOFLOXACIN INJ 250 MG in PREMIX 1 EACH IV SCH (18:04)
--- NOTE | 2016-11-01 21:35 | Cardiology Progress Note ---
I, Denise Moser RN, am scribing for, and in the presence of, Flynn Geiger MD 21:34. Assessment and Plan (1) Bump in troponins Status: Acute Assessment and plan: Initial assessment and plan 10/30/2016: She is having no symptoms of angina but he did have an increase in troponin and has known CAD. She could have had a non-STEMI. However, given her poor health , her age, multiple coronary morbidities at her AMS, she will be a poor candidate for invasive evaluation and therapy. Plan/recommendations: Conservative therapy for CAD In the course of the evaluation, it was decided the patient needed to have an echocardiogram for the pts management. It was ordered. I will review it. Using aspirin, beta-florentino, statin, if she is not contraindicated to have these Albumin is low. could be for multiple reasons. One could be from poor overall nutrition. Another from liver disease. As mentioned, will treat medically. Prognosis is guarded. I will follow along with you. I discussed the above with the patient's daughter. Assessment and plan 10/31/2016: No angina. Less shortness of breath. More alert. Complains of lack of taste for food We will try the original Ms Dash I discouraged her from eating or adding much salt to her diet. For her elevated troponins, she is a medical management candidate. I rediscussed this with the patient, her daughter, and her son-in-law her overall status, the plan. They voiced understanding. 11/01/2016: Plan/recommendation: Continue antibiotics; get out of bed as tolerated; physical therapy is helping; no overt heart failure; okay with me for her being discharged to home, to a swing bed, or to [facility] rehab when you say so Current Visit: Yes (2) Altered mental status Status: Acute Current Visit: Yes (3) Dementia Status: Chronic Current Visit: Yes (4) Recent urinary tract infection Status: Acute Current Visit: Yes Cardiology - PN: Subj Interval history: Draw Frame Operator: Dr. Guzmán in the remote past Ms. Barron is seen resting in bed in no acute distress this morning. Oxygen use via nasal cannula. She is awake and alert, and she will tell me that she is in [facility]. However when I ask about pain or her breathing, all she will tell me is that she wants tap water. Vital signs have been stable. Her kidney functions continue to improve, creatinine this morning is down to 1.6. Exam (Progress Note) - Constitutional Vitals: Period Temp Pulse Resp BP Sys/Alvarado Pulse Ox Last 24 Hr 96.1 F-98.4 F 61-78 18-20 111-162/52-67 91-100 General appearance: no acute distress, under weight, other - Head Head exam: Absent: abrasion (Ill-appearing), hematoma - Eye Eye exam: Absent: periorbital swelling, laceration to eyelids - Respiratory Respiratory exam: Present: clear to auscultation bilaterally, other (Oxygen via nasal cannula). Absent: accessory muscle use, chest wall tenderness - Cardiovascular Cardiovascular exam: Present: regular rate and rhythm. Absent: tachycardia - GI/Abdominal GI/Abdominal exam: Present: normal bowel sounds, soft. Absent: distended - Extremities Exam Extremities exam: Absent: edema - Neurological Exam Neurological exam: Present: alert, oriented X3 - Psychiatric Psychiatric exam: Present: normal affect, normal mood - Skin Skin exam: Present: warm, dry Result/EKG - Labs CBC & BMP: 10/31/16 04:33 11/01/16 06:49 Lab Results: I have reviewed the past 24 hour labs Labs: Laboratory Results - last 24 hr 10/31/16 10/31/16 10/31/16 08:16 12:02 16:43 Sodium Potassium Chloride Carbon Dioxide Anion Gap BUN Creatinine GFR Calculation BUN/Creatinine Ratio Glucose POC Glucose 104 193 H 172 H Calculated Osmolality Calcium Phosphorus Albumin 10/31/16 11/01/16 20:40 06:49 Sodium 141 Potassium 4.6 Chloride 107 Carbon Dioxide 27 Anion Gap 11.6 BUN 46 H Creatinine 1.60 H GFR Calculation 28 BUN/Creatinine Ratio 28.00 H Glucose 124 H POC Glucose 166 H Calculated Osmolality 293.3 Calcium 7.9 L Phosphorus 3.3 Albumin 2.1 L Specialty Discharge - Follow Up or Referrals Follow up with: Rojelio Guzmán MD [Physician] - Juanjo Webb Dale, MD, personally performed the services described in this documentation, ascribed by Denise Moser RN in my presence, and it is both accurate and complete .
[2016-11-01] MEDS: ENOXAPARIN 30 MG/0.3 ML SYRINGE SUBCUT SCH (21:48)
[2016-11-01] MEDS: clonazePAM 0.5 MG TABLET PO SCH (21:51)
[2016-11-01] MEDS: PANTOPRAZOLE 40 MG TABLET PO SCH (21:53)
[2016-11-01] MEDS: SIMVASTATIN 40 MG TABLET PO SCH (21:53)
[2016-11-01] MEDS: ASCORBIC ACID 500 MG TABLET PO SCH (21:53)
[2016-11-02] MEDS: ALBUTEROL/IPRATROPIUM 3 ML NEB RESP TX SCH ×4 (02:06→19:30)
[2016-11-02 05:25] LABS: Basophils % 0.1 % (0.0-0.8); Eosinophils # 0.3 10*3/uL (0.0-0.87); Eosinophils % 3.5 % (0.00-10.9); Hemoglobin 8.5 GM/DL (12.0-16.0); Immature Granulocytes % 1.5 %; Immature Granulocytes Absolute 0.12 #; Lymphocytes # 1.8 10*3/uL (1.4-4.0); Lymphocytes % 23.2 % (21.3-54.2); Mean Corpuscular HGB Conc 30.4 GM/DL (32-36); Mean Corpuscular Hemoglobin 29 PG (27-34); Mean Platelet Volume 11.3 FL (9.6-12.0); Monocytes # 0.9 10*3/uL (0.11-0.8); Monocytes % 11.8 % (1.7-12.7); Neutrophils # 4.7 10*3/uL (1.4-7.4); Neutrophils % 59.9 % (38.7-73.9); Platelet Count 196 T/CUMM (130-400); Red Blood Count 2.98 MC/CUMM (3.8-5.5); Red Cell Distribution Width 14.6 % (9.3-17.3); White Blood Count 7.8 T/CUMM (4-12)
[2016-11-02 05:53] LABS: Calcium 8.3 MG/DL (8.5-10.1); Magnesium 2.1 MG/DL (1.8-2.4); Osmolality,Calculated 294.1 MOS/KG (273-304); Potassium 4.9 MMOL/L (3.5-5.1)
[2016-11-02 06:09] LABS: Albumin 2.3 G/DL (3.4-5.0); Calcium 8.2 MG/DL (8.5-10.1); Osmolality,Calculated 292.3 MOS/KG (273-304); Phosphorous 3.3 MG/DL (2.5-4.9); Potassium 4.8 MMOL/L (3.5-5.1)
[2016-11-02] MEDS: MULTIVITAMIN (CENTRUM) TABLET PO SCH (09:17)
[2016-11-02] MEDS: LEVOTHYROXINE 50 MCG TABLET PO SCH (09:17)
[2016-11-02] MEDS: MEMANTINE 10 MG TABLET PO SCH (09:17)
[2016-11-02] MEDS: ASPIRIN 325 MG TABLET PO SCH (09:17)
[2016-11-02] MEDS: PARoxetine 10 MG TABLET PO SCH ×2 (09:17→22:48)
[2016-11-02] MEDS: ISOSORBIDE MONONITRATE 30 MG TABLET PO SCH (09:18)
[2016-11-02] MEDS: SELENIUM 200 MCG TABLET PO SCH (09:18)
[2016-11-02] MEDS: FERROUS SULFATE 325 MG TABLET PO SCH (09:18)
[2016-11-02] MEDS: FENOFIBRATE 145 MG TABLET PO SCH (09:18)
[2016-11-02] MEDS: CARVEDILOL 6.25 MG TABLET PO SCH ×2 (09:18→17:12)
[2016-11-02] MEDS: POTASSIUM CHLORIDE 20 MEQ TABLET PO SCH (09:18)
[2016-11-02] MEDS: levETIRAcetam 500 MG TABLET PO SCH ×2 (09:18→22:47)
[2016-11-02] MEDS: INSULIN REGULAR 100 UNIT/ML SUBCUT SCH ×4 (10:17→22:24)
[2016-11-02] MEDS: FUROSEMIDE 40 MG TABLET PO SCH (10:21)
[2016-11-02] MEDS: SODIUM CHLORIDE 0.9% 1,000 ML IV SCH (10:21)
[2016-11-02] MEDS: DIPHENOXYLATE/ATROPINE 2.5-0.025 MG TABLET PO SCH (10:21)
[2016-11-02] MEDS: CHOLESTYRAMINE 4 GM PACK PO SCH (10:22)
--- NOTE | 2016-11-02 12:51 | Hospitalist Progress Note ---
Hospitalist: Subjective Interval history: Pt had more hard stool this am. Slept well last night. No fever. No Cp or SOB. Nursing reports she was eating well. Exam - Constitutional Vitals: Period Temp Pulse Resp BP Sys/Alvarado Pulse Ox Last 24 Hr 95.7 F-98.9 F 64-98 16-25 109-162/55-79 93-99 Exam: Awake, alert, oriented to person, speaking freely, sitting on the edge of the bed. RRR CTAB nonlabored, diminished at the bases Soft, NT, ND, +BS Warm no c/c/e. Moves all extremities Results - Labs CBC & BMP: 11/02/16 04:22 11/02/16 04:22 - Impressions (1) Elevated troponin possibly due to a non-ST elevation MT in a patient with known coronary artery disease Status: Acute Current Visit: Yes -troponin trending downward. Cont telemetry. Serial labs. -ECHO showed severe diastolic dysfunction with significant LVH and an EF of 40% posteriorly and 55% anteriorly with biatrial enlargement and severe mitral and tricuspid regurgitation and an RSVP of 33. - TSH was normal. Cardiology following and input appreciated. -Continue medical management with antiplatelet therapy, beta-florentino and statin/ fenofibrate and Imdur. (2) chronic systolic and diastolic congestive heart failure with an EF of 40/55 % and moderate to severe mitral and tricuspid regurgitation -Continue beta-florentino, no TAMERA or ARB due to elevated creatinine, holding Lasix for now due to elevated creatinine. Strict I's and O's and daily weights. (3) recent urinary tract infection Status: Acute Current Visit: Yes - F/U blood and UCx. Was on antibiotics prior to admission. On Levaquin currently. (3) Acute renal failure- improving Status: Acute Current Visit: Yes - Avoid nephrotoxic agents -Stop IVF -Serial labs (4) Acute metabolic and possible toxic encephalopathy in a patient with known dementia Status: Acute Current Visit: Yes - Possibly due to above. Improving per family. Follow up workup as described above. There is no acute findings on CT scan of her head. Follow-up urine and blood cultures and continue empiric IV Levaquin. Quinolones could cause altered mental status in elderly patient so will watch for this as well. This could be waxing and waning of her dementia. (5) Dementia Status: Chronic Current Visit: Yes (6) chronic hypothyroidism -Continue Synthroid (7) Constipation with fecal impaction s/p disimpaction 11/01 -holding Lomotil and Questran for now. -Follow clinically D/W pt, nurse and all questions answered. Specialty Discharge - Follow Up or Referrals Follow up with: Rojelio Guzmán MD [Physician] -
--- NOTE | 2016-11-02 13:04 | XRay Report ---
Exam: XR chest 1V portable Indication: Aspiration, shortness of breath Comparison study: 10/30/2016 Findings: Cardiac silhouette is enlarged, similar to prior. Diffuse interstitial prominence is slightly increased from prior and may represent chronic scarring. Patchy basilar interstitial opacities are also slightly increased from prior may related to developing interstitial infiltrates. No definite focal consolidation is identified. There is no pneumothorax or pleural effusion. Osseous structures appear stable Impression: No definite focal consolidation. Chronic interstitial changes with suggestion of superimposed interstitial edema or developing infiltrates. Similar mild cardiomegaly. PROCEDURE INTERPRETED AT [facility] DEPARTMENT OF RADIOLOGY Final Report Signed by: Forrest Donovan
[2016-11-02 13:28] LABS: ABG Base Excess -1.1 MMOL/L (-2.5-2.5); ABG HCO3 25.3 MMOL/L (20-26); ABG Oxygen Saturation 94.2 % (95-100); ABG PCO2 49.7 MM HG (35-48); ABG PH 7.324 (7.35-7.45); ABG TCO2 26.8 MMOL/L (23-27); Allen Test Positive
[2016-11-02 14:08] LABS: Apearance,Urine CLOUDY (Clear); Bacteria,Urine Occasional /HPF (Few); Bilirubin,Urine Negative (Negative); Blood, Urine Negative (Negative); Glucose,Urine (UA) Negative (Negative); Ketones,Urine Negative (Negative); Nitrite,Urine Negative (Negative); Protein,Urine 30 MG/DL; Squamous Epithelial Cell,Urine Occasional /HPF (0-10); Urine Color Yellow (Yellow); Urine Urobilinogen < 2.0 EU/DL (0.2-1.0); WBC,Urine 270 /HPF (0-6)
[2016-11-02] MEDS: CLINDAMYCIN INJ 600 MG in PREMIX 1 EACH IV SCH ×2 (14:19→22:32)
[2016-11-02] MEDS ORDERED: cefTRIAXone 1,000 MG VIAL IM SCH (15:30)
--- NOTE | 2016-11-02 16:07 | Pulmonology Consult Note ---
Assessment and Plan (1) Aspiration syndrome Status: Acute Assessment and plan: She does have some new pulmonary infiltrate. Agree with empiric antibiotics. Will add steroids. Oxygen saturation. Would not use BiPAP since she has had nausea and vomiting as it would increase the risk for further problems. Holding her n.p.o. for now. May want to use small bore feeding tube tomorrow. Current Visit: Yes (2) Altered mental status Status: Acute Assessment and plan: She has had worsening dementia. Etiology is not clear. Current Visit: Yes (3) Bump in troponins Status: Acute Assessment and plan: Apparently had a non-ST elevation myocardial infarction. Being treated medically. Not candidate for intervention. Current Visit: Yes History of Present Illness Chief complaint: Aspiration episode History of present illness: Ms. Barron is a 89 year old female who was admitted with altered mental status and has congestive heart failure. Apparently after lunch today she vomited and aspirated and had a rapid response called. They suctioned out a good bit of stuff from her oropharynx. She was moved to intensive care. Placed on a nonrebreather mask. Facemask BiPAP was ordered but the call me and I decided that we should not do that with with the patient that was vomiting. Her oxygen saturation is now up to 97% on a nonrebreathing mask. Family has decided to make her a DO NOT INTUBATE and do not do CPR. So we will treat her with oxygen and try to diurese her a bit. She does have an element of heart failure. Also will get antibiotics. Steroids Home Medications Medication Instructions Recorded Confirmed Type Carvedilol 6.25 mg PO BID W/MEALS 10/10/14 10/29/16 History Cholestyramine [Questran] 4 gm PO TID 10/10/14 10/29/16 History Esomeprazole Magnesium [Nexium] 40 mg PO BEDTIME 10/10/14 10/29/16 History Fenofibric Acid (Choline) 135 mg PO DAILY 10/10/14 10/29/16 History [Trilipix] Ferrous Sulfate 325 mg PO DAILY 10/10/14 10/29/16 History Furosemide 40 mg PO DAILY 10/10/14 10/29/16 History Memantine HCl [Namenda] 20 mg PO DAILY 10/10/14 10/29/16 History PARoxetine HCl [Paroxetine HCl] 30 mg PO BID 10/10/14 10/29/16 History Potassium Chloride [Klor-Con M20] 10 meq PO DAILY 10/10/14 10/29/16 History Simvastatin 40 mg PO BEDTIME 10/10/14 10/29/16 History sitaGLIPtin [Januvia] 100 mg PO BEDTIME 10/10/14 10/29/16 History Cyanocobalamin Inj [Vitamin B12 1,000 mcg IM Q30D 05/22/16 10/29/16 History Inj] clonazePAM [Klonopin] 1 mg PO BEDTIME 05/22/16 10/29/16 History Diclofenac 1% Gel [Voltaren 1% Gel] 1 applic TOP BID PRN 08/13/16 10/29/16 History Diphenoxylate HCl/Atropine 1 tablet PO BID 08/13/16 10/29/16 History [Diphenoxylate/Atropine 2.5-0.025 mg Tab] Levothyroxine Tab [Synthroid Tab] 50 mcg PO QAM 08/13/16 10/29/16 History Sulfameth/Trimeth 800-160 Tab 1 tablet PO MOWEFR 08/13/16 10/29/16 History [Bactrim DS Tab] Ascorbic Acid [Vitamin C] 1,000 mg PO QPM 09/07/16 10/29/16 History Calcium (Carb)/Vit D 600-400 1 tablet PO BID 09/07/16 10/29/16 History [Caltrate 600 + D] Ergocalciferol (Vitamin D2) 2,000 unit PO DAILY 09/07/16 10/29/16 History [Vitamin D2] Gluc Perez/Chondro Perez A/Vit C/Mn 1 each PO BID 09/07/16 10/29/16 History [Glucosamine Chondroitin Tab] Isosorbide Mononitrate [Isosorbide 30 mg PO DAILY 09/07/16 10/29/16 History Mononitrate ER] Multivit-Min/FA/Lycopen/Lutein 1 each PO DAILY 09/07/16 10/29/16 History [Centrum Silver Tablet] Selenium [Selenium Tab] 400 mcg PO DAILY 09/07/16 10/29/16 History Ubidecarenone [Coenzyme Q10] 400 mg PO QPM 09/07/16 10/29/16 History Vitamin E Cap 1,000 unit PO DAILY 09/07/16 10/29/16 History levETIRAcetam TAB [Keppra Tab] 500 mg PO BID #60 tablet 09/07/16 10/29/16 Rx Aspirin 325 mg PO QAM 10/29/16 10/29/16 History Temazepam [Restoril] 30 mg PO BEDTIME PRN 10/29/16 10/29/16 History Allergies Allergy/AdvReac Type Severity Reaction Status Date / Time Penicillins Allergy Severe Swelling Verified 10/08/16 02:03 of Lip/Tongue/Throat zinc Allergy Severe Swelling Verified 10/08/16 02:03 of Lip/Tongue/Throat grapefruit Allergy Intermediate RASH Verified 10/08/16 02:03 ROS unobtainable: due to mental status Exam (Pulmonay) H&P - Constitutional Vitals: Period Temp Pulse Resp BP Sys/Alvarado Pulse Ox Last 24 Hr 95.7 F-98.2 F 64-98 14-25 106-170/48-107 93-99 Exam: Afebrile blood pressure 110 systolic. Pupils react to light. Wearing facemask oxygen. Throat clear. Neck supple no bruits. Chest shows a few rhonchi equal breath sounds. Heart normal rate rhythm no murmurs. Abdomen soft nontender no masses. Extremities no clubbing cyanosis or edema. Medical,Surgical,& Family Hx - Medical History Cardio: History of: CHF, CAD, Hypertension Neurology: History of: Dementia, Seizures, TIA HEENT: History of: Ear Problem (macular degeneration), Glaucoma Endocrine: History of: Diabetes Mellitus (NIDDM) Musculoskeletal: Comment Only: Musculoskeletal Problems (Arthritis) - Surgical History Cardiac Surgeries: Sugical HX of: Cardiac Catheterization (2010) HEENT Surgeries: Surgical HX of: Tonsilectomy & Adenoidectomy Abdominal Surgeries: Surgical HX of: Abdominal Surgery (tummy tuck), Appendectomy, Cholecystectomy Reproductive Surgeries: Surgical HX of;: Hysterectomy - Family History Family History: Reports;: Family Cancer (Sisters, daughters, brother), Family Diabetes (Sisters), Family Heart Disease (Throughout the family), Family Hypertension (Brothers) - Social History Smoking Status: Former smoker (Reportedly quit 30 years ago) Frequency of Alcohol Use: None Type of Drug Use: None Results - Labs CBC & BMP: 11/02/16 04:22 11/02/16 04:22 Lab Results: I have reviewed the past 24 hour labs - Diagnostic Findings Procedure: Chest x-ray: image reviewed by me (Cardiomegaly, patchy interstitial infiltrates bilaterally.) Specialty Discharge - Follow Up or Referrals Follow up with: Rojelio Guzmán MD [Physician] -
[2016-11-02] MEDS ORDERED: cefTRIAXone 1,000 MG in SODIUM CHLORIDE 0.9% 100 ML IV SCH (17:00)
--- NOTE | 2016-11-02 19:54 | Cardiology Progress Note ---
Assessment and Plan (1) Bump in troponins Status: Acute Assessment and plan: Initial assessment and plan 10/30/2016: She is having no symptoms of angina but he did have an increase in troponin and has known CAD. She could have had a non-STEMI. However, given her poor health , her age, multiple coronary morbidities at her AMS, she will be a poor candidate for invasive evaluation and therapy. Plan/recommendations: Conservative therapy for CAD In the course of the evaluation, it was decided the patient needed to have an echocardiogram for the pts management. It was ordered. I will review it. Using aspirin, beta-florentino, statin, if she is not contraindicated to have these Albumin is low. could be for multiple reasons. One could be from poor overall nutrition. Another from liver disease. As mentioned, will treat medically. Prognosis is guarded. I will follow along with you. I discussed the above with the patient's daughter. Assessment and plan 10/31/2016: No angina. Less shortness of breath. More alert. Complains of lack of taste for food We will try the original Ms Dash I discouraged her from eating or adding much salt to her diet. For her elevated troponins, she is a medical management candidate. I rediscussed this with the patient, her daughter, and her son-in-law her overall status, the plan. They voiced understanding. 11/01/2016: Plan/recommendation: Continue antibiotics; get out of bed as tolerated; physical therapy is helping; no overt heart failure; okay with me for her being discharged to home, to a swing bed, or to [facility] rehab when you say so 11/02/16, at 10:15 AM: Plan/recommendation: Neurologically, mild confusion. I had a long discussion with the family. The family realizes she will need in the swing bed, [facility] rehab, or the [place] or [facility]. I agree with that plan. Continue to try physical therapy. Current Visit: Yes (2) Altered mental status Status: Acute Current Visit: Yes (3) Dementia Status: Chronic Current Visit: Yes (4) Recent urinary tract infection Status: Acute Current Visit: Yes Cardiology - PN: Subj Interval history: No chest pain or shortness of breath. Mild confusion. Exam (Progress Note) - Constitutional Vitals: Period Temp Pulse Resp BP Sys/Alvarado Pulse Ox Last 24 Hr 95.7 F-98.2 F 64-98 14-25 106-170/48-107 93-99 Exam: HEENT: Pupils equal, reactive to light and accommodation Neck: NoJVD or bruit Lungs clear to auscultation Heart: Regular rhythm rate with normal S1 and S2. Apical S4 Abdomen: No hepatosplenomegaly Spine/extremities: No clubbing, cyanosis, or edema Neuro: Nonfocal Psych: No depression or anxiety Result/EKG - Labs CBC & BMP: 11/02/16 04:22 11/02/16 04:22 Lab Results: I have reviewed the past 24 hour labs Labs: Laboratory Results - last 24 hr 11/01/16 11/02/16 11/02/16 19:55 04:22 04:22 WBC 7.8 RBC 2.98 L Hgb 8.5 L Hct 28.0 L MCV 94.0 MCH 29 MCHC 30.4 L RDW 14.6 Plt Count 196 D MPV 11.3 Neut % (Auto) 59.9 Lymph % (Auto) 23.2 [place] % (Auto) 11.8 Eos % (Auto) 3.5 Baso % (Auto) 0.1 Neut # (Auto) 4.7 Lymph # (Auto) 1.8 [place] # (Auto) 0.9 H Eos # (Auto) 0.3 Baso # (Auto) 0.0 Immature Gran % 1.5 Nucleated RBC % 0.0 Immature Gran # 0.12 Nucleated RBCs # 0.00 ABG pH ABG pCO2 ABG pO2 ABG HCO3 ABG Total CO2 ABG O2 Saturation ABG Base Excess FiO2 Sodium 141 Potassium 4.8 Chloride 105 Carbon Dioxide 27 Anion Gap 13.8 BUN 43 H Creatinine 1.40 H GFR Calculation 33 BUN/Creatinine Ratio 30.00 H Glucose 111 H POC Glucose 135 H Calculated Osmolality 292.3 Calcium 8.2 L Phosphorus 3.3 Magnesium Albumin 2.3 L Urine Color Urine Appearance Urine pH Ur Specific [place] Urine Protein Urine Glucose (UA) Urine Ketones Urine Blood Urine Nitrate Urine Bilirubin Urine Urobilinogen Urine Leukocytes Urine WBC Urine WBC Clumps Ur Squamous Epith Cells Urine Bacteria Ur Culture Indicated? 11/02/16 11/02/16 11/02/16 04:22 08:20 11:42 WBC RBC Hgb Hct MCV MCH MCHC RDW Plt Count MPV Neut % (Auto) Lymph % (Auto) [place] % (Auto) Eos % (Auto) Baso % (Auto) Neut # (Auto) Lymph # (Auto) [place] # (Auto) Eos # (Auto) Baso # (Auto) Immature Gran % Nucleated RBC % Immature Gran # Nucleated RBCs # ABG pH ABG pCO2 ABG pO2 ABG HCO3 ABG Total CO2 ABG O2 Saturation ABG Base Excess FiO2 Sodium 142 Potassium 4.9 Chloride 106 Carbon Dioxide 28 Anion Gap 12.9 BUN 42 H Creatinine 1.40 H GFR Calculation 33 BUN/Creatinine Ratio 30.00 H Glucose 111 H POC Glucose 109 H 194 H Calculated Osmolality 294.1 Calcium 8.3 L Phosphorus Magnesium 2.1 Albumin Urine Color Urine Appearance Urine pH Ur Specific [place] Urine Protein Urine Glucose (UA) Urine Ketones Urine Blood Urine Nitrate Urine Bilirubin Urine Urobilinogen Urine Leukocytes Urine WBC Urine WBC Clumps Ur Squamous Epith Cells Urine Bacteria Ur Culture Indicated? 11/02/16 11/02/16 11/02/16 13:20 13:25 18:30 WBC RBC Hgb Hct MCV MCH MCHC RDW Plt Count MPV Neut % (Auto) Lymph % (Auto) [place] % (Auto) Eos % (Auto) Baso % (Auto) Neut # (Auto) Lymph # (Auto) [place] # (Auto) Eos # (Auto) Baso # (Auto) Immature Gran % Nucleated RBC % Immature Gran # Nucleated RBCs # ABG pH 7.324 L ABG pCO2 49.7 H ABG pO2 81.0 ABG HCO3 25.3 ABG Total CO2 26.8 ABG O2 Saturation 94.2 L ABG Base Excess -1.1 FiO2 100.00 Sodium Potassium Chloride Carbon Dioxide Anion Gap BUN Creatinine GFR Calculation BUN/Creatinine Ratio Glucose POC Glucose 220 H Calculated Osmolality Calcium Phosphorus Magnesium Albumin Urine Color Yellow Urine Appearance Cloudy Urine pH 6.0 Ur Specific [place] 1.010 Urine Protein 30 Urine Glucose (UA) Negative Urine Ketones Negative Urine Blood Negative Urine Nitrate Negative Urine Bilirubin Negative Urine Urobilinogen < 2.0 H Urine Leukocytes Large H Urine WBC 270 Urine WBC Clumps Many Ur Squamous Epith Cells Occasional Urine Bacteria Occasional Ur Culture Indicated? Results to follow - EKG EKG results: interpreted by me Specialty Discharge - Follow Up or Referrals Follow up with: Rojelio Guzmán MD [Physician] -
[2016-11-02] MEDS: ENOXAPARIN 30 MG/0.3 ML SYRINGE SUBCUT SCH (22:34)
[2016-11-02] MEDS: clonazePAM 0.5 MG TABLET PO SCH (22:47)
[2016-11-02] MEDS: SIMVASTATIN 40 MG TABLET PO SCH (22:48)
[2016-11-02] MEDS: ASCORBIC ACID 500 MG TABLET PO SCH (22:48)
[2016-11-03] MEDS: ALBUTEROL/IPRATROPIUM 3 ML NEB RESP TX SCH ×4 (00:55→20:07)
[2016-11-03 03:42] LABS: ABG Base Excess 3.5 MMOL/L (-2.5-2.5); ABG HCO3 27.5 MMOL/L (20-26); ABG Oxygen Saturation 94.4 % (95-100); ABG PCO2 45.2 MM HG (35-48); ABG PH 7.409 (7.35-7.45); ABG TCO2 26.5 MMOL/L (23-27); Allen Test Positive; Pt O2 Delivery Device Venturi Mask
[2016-11-03 06:24] LABS: Basophils % 0.1 % (0.0-0.8); Eosinophils # 0.2 10*3/uL (0.0-0.87); Eosinophils % 1.6 % (0.00-10.9); Hematocrit 27.8 VOL% (35.7-47.0); Hemoglobin 8.4 GM/DL (12.0-16.0); Immature Granulocytes % 0.7 %; Immature Granulocytes Absolute 0.08 #; Lymphocytes # 1.2 10*3/uL (1.4-4.0); Lymphocytes % 10.6 % (21.3-54.2); Mean Corpuscular HGB Conc 30.2 GM/DL (32-36); Mean Corpuscular Hemoglobin 29 PG (27-34); Mean Corpuscular Volume 95.5 FL (87-102); Monocytes # 1.2 10*3/uL (0.11-0.8); Monocytes % 9.9 % (1.7-12.7); Neutrophils % 77.1 % (38.7-73.9); Platelet Count 179 T/CUMM (130-400); Red Blood Count 2.91 MC/CUMM (3.8-5.5); Red Cell Distribution Width 14.6 % (9.3-17.3); White Blood Count 11.7 T/CUMM (4-12)
[2016-11-03 06:47] LABS: Albumin 2.2 G/DL (3.4-5.0); Calcium 7.9 MG/DL (8.5-10.1); Osmolality,Calculated 292.1 MOS/KG (273-304); Phosphorous 3.5 MG/DL (2.5-4.9); Potassium 4.6 MMOL/L (3.5-5.1)
[2016-11-03 06:49] LABS: Magnesium 2.1 MG/DL (1.8-2.4); Osmolality,Calculated 292.1 MOS/KG (273-304); Potassium 4.6 MMOL/L (3.5-5.1)
[2016-11-03] MEDS: CLINDAMYCIN INJ 600 MG in PREMIX 1 EACH IV SCH ×3 (07:18→21:38)
[2016-11-03] MEDS: LEVOTHYROXINE 50 MCG TABLET PO SCH (07:18)
[2016-11-03] MEDS: SODIUM CHLORIDE 0.9% 1,000 ML IV SCH (07:19)
--- NOTE | 2016-11-03 07:29 | Hospitalist Progress Note ---
Assessment and Plan - Time spent with patient Time spent with patient: Less than 30 minutes (1) Aspiration syndrome Status: Acute Assessment and plan: Patient had acute aspiration yesterday and was transferred to the ICU. Pulmonary has been consulted. We are continuing empiric IV antibiotics, pulmonary toilet, IV corticosteroids. She is hemodynamically stable at this time in maintaining her oxygen saturations on 3 L by nasal cannula. We will plan speech/swallowing evaluation in the a.m. we will need to address her nutritional needs based on these results and discussion with family. We can likely transfer to the floor today. Current Visit: Yes (2) Acute renal failure Status: Acute Assessment and plan: Patient had acute renal failure which has improved from a creatinine of 2.2 total level of 1.4 and is now stable. Continue current medical regimen and avoidance of any nephrotoxic insults or agents. Current Visit: Yes (3) Bump in troponins Status: Acute Assessment and plan: Patient had elevation of troponins and is been followed by cardiology who feel that medical management is appropriate at this time. Will continue current medical regimen. Appreciate their assistance. Current Visit: Yes (4) Recent urinary tract infection Status: Chronic Assessment and plan: Patient had a recent urinary tract infection. IV antibiotics are continuing. Blood culture and urine cultures have been negative thus far. Current Visit: Yes (5) Hypothyroidism Status: Chronic Assessment and plan: Continuing current thyroid replacement therapy. Current Visit: Yes (6) Dementia Status: Chronic Assessment and plan: Patient has dementia with some fluctuation in her mental status during her stay which may be likely to medications versus infectious process. We will continue to follow. Current Visit: Yes (7) Anemia Status: Chronic Assessment and plan: Patient has anemia which is likely chronic in nature. There is been no evidence of bleeding and her hemoglobin and hematocrit have remained stable. We will continue to follow. Current Visit: Yes Hospitalist: Subjective Interval history: Patient was evaluated this morning and chart is been reviewed. She only complains of a dry mouth this time. She denies any chest pain or shortness of breath. Her O2 requirements have been weaned and she is on 3 L by nasal cannula and maintaining her saturation. She has been followed by pulmonary and cardiology. She is otherwise hemodynamically stable and can likely be transferred back to the floor today while holding n.p.o. and obtain swallowing evaluation and addressing nutritional needs in the a.m. Exam - Constitutional Vitals: Period Temp Pulse Resp BP Sys/Alvarado Pulse Ox Last 24 Hr 95.7 F-98.7 F 60-85 10-27 106-170/48-107 93-100 General appearance: no acute distress - Head Head exam: Present: normocephalic, atraumatic - Eye Eye exam: Present: EOMI Pupils: Present: RKISTEN - ENT ENT exam: Present: normal oropharynx - Neck Neck exam: Present: normal inspection - Respiratory Respiratory exam: Present: clear to auscultation bilaterally - Cardiovascular Cardiovascular exam: Present: regular rate and rhythm. Absent: tachycardia - GI/Abdominal GI/Abdominal exam: Present: normal bowel sounds, soft. Absent: mass, tenderness , rebound - Extremities Exam Extremities exam: Absent: calf tenderness, edema - Back Exam Back exam: Present: normal inspection - Neurological Exam Neurological exam: Present: alert, CN II-XII intact. Absent: motor sensory deficit - Psychiatric Psychiatric exam: Present: normal affect, normal mood. Absent: agitated, anxious - Skin Skin exam: Present: warm, dry. Absent: erythema, rash Results - Labs CBC & BMP: 11/03/16 05:01 11/03/16 05:01 Lab Results: I have reviewed the past 24 hour labs - Diagnostic Findings Procedure: Chest x-ray: image reviewed by me Specialty Discharge - Follow Up or Referrals Follow up with: Rojelio Guzmán MD [Physician] -
--- NOTE | 2016-11-03 07:36 | Pulmonology Progress Note ---
Pulmonary - PN: Subj Interval history: This 89-year-old white female had an episode of vomiting and aspiration yesterday and was moved to intensive care. We have been able to wean her down to 3 L nasal oxygen and her oxygen saturations are in the high 90s. She is more alert. She should be able to be moved to the floor today. Not clear what we need to do nutritionally. I would not feed her by mouth right now. She needs a swallowing evaluation by speech therapy. May consider nasogastric or PEG tube feedings. For now we will just leave her on some IV fluids. She does have an apparent right lung pneumonia suspect in the superior segment. She is on antibiotics. Exam (Progress Note) - Constitutional Vitals: Period Temp Pulse Resp BP Sys/Alvarado Pulse Ox Last 24 Hr 95.7 F-98.7 F 60-85 10-27 106-170/48-107 93-100 Exam: Patient responsive but confused. Vital signs normal. Nasal oxygen 3 L. Pupils react to light. Face symmetrical. Neck supple no bruits. Chest reveals some rhonchi more on the right side. Heart normal rate, irregular rhythm no murmurs. Abdomen soft nontender no masses. Extremities no clubbing cyanosis or edema. Results - Labs CBC & BMP: 11/03/16 05:01 11/03/16 05:01 Lab Results: I have reviewed the past 24 hour labs - Diagnostic Findings Procedure: Chest x-ray: image reviewed by me (Patchy infiltrate right midlung. Otherwise little change from yesterday.) Assessment and Plan (1) Aspiration syndrome Status: Acute Assessment and plan: She does have some new pulmonary infiltrate. Agree with empiric antibiotics. Will add steroids. Oxygen saturation. Would not use BiPAP since she has had nausea and vomiting as it would increase the risk for further problems. Holding her n.p.o. for now. May want to use small bore feeding tube tomorrow. 11/03/2016 O2 sats look much better. Now on nasal oxygen 3 L. It appears she does have a small area of pneumonia in the right lung superior segment right lower lobe. Will broaden antibiotic coverage Current Visit: Yes (2) Altered mental status Status: Acute Assessment and plan: She has had worsening dementia. Etiology is not clear. 11/03/2016 she is alert but confused. Current Visit: Yes (3) Bump in troponins Status: Acute Assessment and plan: Apparently had a non-ST elevation myocardial infarction. Being treated medically. Not candidate for intervention. 11/03/2016 not candidate for cardiac intervention Current Visit: Yes Specialty Discharge - Follow Up or Referrals Follow up with: Rojelio Guzmán MD [Physician] -
[2016-11-03] MEDS: INSULIN REGULAR 100 UNIT/ML SUBCUT SCH ×4 (09:22→21:38)
[2016-11-03] MEDS: LEVOFLOXACIN INJ 500 MG in PREMIX 1 EACH IV SCH (09:55)
[2016-11-03] MEDS: CARVEDILOL 6.25 MG TABLET PO SCH ×3 (09:55→16:05)
[2016-11-03] MEDS: PARoxetine 10 MG TABLET PO SCH ×2 (09:56→10:51)
[2016-11-03] MEDS: POTASSIUM CHLORIDE 20 MEQ TABLET PO SCH ×2 (09:56→10:48)
[2016-11-03] MEDS: levETIRAcetam 500 MG TABLET PO SCH ×2 (09:56→10:50)
[2016-11-03] MEDS: FUROSEMIDE 40 MG TABLET PO SCH ×2 (09:56→10:51)
[2016-11-03] MEDS: ASPIRIN 325 MG TABLET PO SCH ×2 (09:56→10:50)
[2016-11-03] MEDS: MULTIVITAMIN (CENTRUM) TABLET PO SCH ×2 (09:56→10:50)
[2016-11-03] MEDS: ISOSORBIDE MONONITRATE 30 MG TABLET PO SCH ×2 (09:56→10:50)
[2016-11-03] MEDS: MEMANTINE 10 MG TABLET PO SCH ×2 (09:56→10:49)
[2016-11-03] MEDS: FERROUS SULFATE 325 MG TABLET PO SCH ×2 (09:56→10:50)
[2016-11-03] MEDS: FENOFIBRATE 145 MG TABLET PO SCH ×2 (09:57→10:51)
[2016-11-03] MEDS: SELENIUM 200 MCG TABLET PO SCH ×2 (09:57→10:51)
[2016-11-03] MEDS: PANTOPRAZOLE 40 MG VIAL IV SCH (09:57)
[2016-11-03] MEDS ORDERED: LORazepam 2 MG/1 ML VIAL IV PRN (10:07)
[2016-11-03] MEDS: FUROSEMIDE 40 MG/4 ML VIAL IV SCH (11:16)
[2016-11-03] MEDS: NITROGLYCERIN 2% OINT 1 INCH/GM PACK TOP SCH ×2 (11:19→18:19)
--- NOTE | 2016-11-03 11:23 | Cardiology Progress Note ---
Assessment and Plan (1) Bump in troponins Status: Acute Assessment and plan: Initial assessment and plan 10/30/2016: She is having no symptoms of angina but he did have an increase in troponin and has known CAD. She could have had a non-STEMI. However, given her poor health , her age, multiple coronary morbidities at her AMS, she will be a poor candidate for invasive evaluation and therapy. Plan/recommendations: Conservative therapy for CAD In the course of the evaluation, it was decided the patient needed to have an echocardiogram for the pts management. It was ordered. I will review it. Using aspirin, beta-florentino, statin, if she is not contraindicated to have these Albumin is low. could be for multiple reasons. One could be from poor overall nutrition. Another from liver disease. As mentioned, will treat medically. Prognosis is guarded. I will follow along with you. I discussed the above with the patient's daughter. Assessment and plan 10/31/2016: No angina. Less shortness of breath. More alert. Complains of lack of taste for food We will try the original Ms Dash I discouraged her from eating or adding much salt to her diet. For her elevated troponins, she is a medical management candidate. I rediscussed this with the patient, her daughter, and her son-in-law her overall status, the plan. They voiced understanding. 11/01/2016: Plan/recommendation: Continue antibiotics; get out of bed as tolerated; physical therapy is helping; no overt heart failure; okay with me for her being discharged to home, to a swing bed, or to [facility] rehab when you say so 11/02/16, at 10:15 AM: Plan/recommendation: Neurologically, mild confusion. I had a long discussion with the family. The family realizes she will need in the swing bed, [facility] rehab, or the [facility]. I agree with that plan. Continue to try physical therapy. 11/03/16: Assessment/plan/recommendation: Events noted. Possible aspiration. She will have a swallowing test done. Will order Mucinex 600 mg p.o. twice daily to help to see if it helps mobilize secretions. Okay with me to move out of the ICU. Current Visit: Yes (2) Altered mental status Status: Acute Current Visit: Yes (3) Dementia Status: Chronic Current Visit: Yes (4) Recent urinary tract infection Status: Chronic Current Visit: Yes (5) Advanced age Status: Acute Current Visit: Yes (6) Aspiration syndrome Status: Acute Current Visit: Yes (7) CAD (coronary artery disease) Status: Acute Current Visit: Yes (8) Debility Status: Acute Current Visit: Yes Cardiology - PN: Subj Interval history: No chest pain or shortness of breath. Events of yesterday are noted. She has difficulty coughing up phlegm that is in her respiratory tree. Exam (Progress Note) - Constitutional Vitals: Period Temp Pulse Resp BP Sys/Alvarado Pulse Ox Last 24 Hr 97.9 F-98.7 F 60-85 10-27 106-170/48-107 93-100 Exam: HEENT: Pupils equal, reactive to light and accommodation Neck: NoJVD or bruit Lungs clear to auscultation Heart: Regular rhythm rate with normal S1 and S2. Apical S4 Abdomen: No hepatosplenomegaly Spine/extremities: No clubbing, cyanosis, or edema Neuro: Nonfocal Psych: No depression or anxiety Result/EKG - Labs CBC & BMP: 11/03/16 05:01 11/03/16 05:01 Lab Results: I have reviewed the past 24 hour labs Labs: Laboratory Results - last 24 hr 11/02/16 11/02/16 11/02/16 11:42 13:20 13:25 WBC RBC Hgb Hct MCV MCH MCHC RDW Plt Count MPV Neut % (Auto) Lymph % (Auto) [place] % (Auto) Eos % (Auto) Baso % (Auto) Neut # (Auto) Lymph # (Auto) [place] # (Auto) Eos # (Auto) Baso # (Auto) Immature Gran % Nucleated RBC % Immature Gran # Nucleated RBCs # ABG pH 7.324 L ABG pCO2 49.7 H ABG pO2 81.0 ABG HCO3 25.3 ABG Total CO2 26.8 ABG O2 Saturation 94.2 L ABG Base Excess -1.1 FiO2 100.00 Sodium Potassium Chloride Carbon Dioxide Anion Gap BUN Creatinine GFR Calculation BUN/Creatinine Ratio Glucose POC Glucose 194 H Calculated Osmolality Calcium Phosphorus Magnesium Albumin Urine Color Yellow Urine Appearance Cloudy Urine pH 6.0 Ur Specific [place] 1.010 Urine Protein 30 Urine Glucose (UA) Negative Urine Ketones Negative Urine Blood Negative Urine Nitrate Negative Urine Bilirubin Negative Urine Urobilinogen < 2.0 H Urine Leukocytes Large H Urine WBC 270 Urine WBC Clumps Many Ur Squamous Epith Cells Occasional Urine Bacteria Occasional Ur Culture Indicated? Results to follow 11/02/16 11/02/16 11/03/16 18:30 20:53 03:30 WBC RBC Hgb Hct MCV MCH MCHC RDW Plt Count MPV Neut % (Auto) Lymph % (Auto) [place] % (Auto) Eos % (Auto) Baso % (Auto) Neut # (Auto) Lymph # (Auto) [place] # (Auto) Eos # (Auto) Baso # (Auto) Immature Gran % Nucleated RBC % Immature Gran # Nucleated RBCs # ABG pH 7.409 ABG pCO2 45.2 ABG pO2 71.0 L ABG HCO3 27.5 H ABG Total CO2 26.5 ABG O2 Saturation 94.4 L ABG Base Excess 3.5 H FiO2 35.00 Sodium Potassium Chloride Carbon Dioxide Anion Gap BUN Creatinine GFR Calculation BUN/Creatinine Ratio Glucose POC Glucose 220 H 158 H Calculated Osmolality Calcium Phosphorus Magnesium Albumin Urine Color Urine Appearance Urine pH Ur Specific [place] Urine Protein Urine Glucose (UA) Urine Ketones Urine Blood Urine Nitrate Urine Bilirubin Urine Urobilinogen Urine Leukocytes Urine WBC Urine WBC Clumps Ur Squamous Epith Cells Urine Bacteria Ur Culture Indicated? 11/03/16 11/03/16 11/03/16 05:01 05:01 05:01 WBC 11.7 D RBC 2.91 L Hgb 8.4 L Hct 27.8 L MCV 95.5 MCH 29 MCHC 30.2 L RDW 14.6 Plt Count 179 MPV 11.0 Neut % (Auto) 77.1 H Lymph % (Auto) 10.6 L [place] % (Auto) 9.9 Eos % (Auto) 1.6 Baso % (Auto) 0.1 Neut # (Auto) 9.0 H Lymph # (Auto) 1.2 L [place] # (Auto) 1.2 H Eos # (Auto) 0.2 Baso # (Auto) 0.0 Immature Gran % 0.7 Nucleated RBC % 0.0 Immature Gran # 0.08 Nucleated RBCs # 0.00 ABG pH ABG pCO2 ABG pO2 ABG HCO3 ABG Total CO2 ABG O2 Saturation ABG Base Excess FiO2 Sodium 142 142 Potassium 4.6 4.6 Chloride 107 107 Carbon Dioxide 27 27 Anion Gap 12.6 12.6 BUN 40 H 41 H Creatinine 1.40 H 1.40 H GFR Calculation 33 33 BUN/Creatinine Ratio 28.00 H 29.00 H Glucose 95 96 POC Glucose Calculated Osmolality 292.1 292.1 Calcium 7.9 L 8.0 L Phosphorus 3.5 Magnesium 2.1 Albumin 2.2 L Urine Color Urine Appearance Urine pH Ur Specific [place] Urine Protein Urine Glucose (UA) Urine Ketones Urine Blood Urine Nitrate Urine Bilirubin Urine Urobilinogen Urine Leukocytes Urine WBC Urine WBC Clumps Ur Squamous Epith Cells Urine Bacteria Ur Culture Indicated? Specialty Discharge - Follow Up or Referrals Follow up with: Rojelio Guzmán MD [Physician] -
[2016-11-03] MEDS ORDERED: SALIVA SUBSTITUTE SPRAY 60 ML CAN SWISH/SPIT PRN (13:14)
--- NOTE | 2016-11-03 15:35 | XRay Report ---
Exam: XR chest 1V portable Indication: Aspiration pneumonia, respiratory distress Comparison study: 11/02/2016 Findings: Cardiac silhouette is mildly enlarged, similar to prior. Diffuse interstitial opacities with patchy perihilar opacities appear essentially unchanged from prior. Elevation right hemidiaphragm is also similar to prior. There is no pneumothorax. Osseous structures appear stable. Impression: No significant change. PROCEDURE INTERPRETED AT [facility] DEPARTMENT OF RADIOLOGY Final Report Signed by: Forrest Donovan
[2016-11-03] MEDS: SIMVASTATIN 40 MG TABLET PO SCH (20:27)
[2016-11-03] MEDS: ENOXAPARIN 30 MG/0.3 ML SYRINGE SUBCUT SCH (21:38)
[2016-11-04] MEDS: ALBUTEROL/IPRATROPIUM 3 ML NEB RESP TX SCH ×4 (00:14→19:56)
[2016-11-04] MEDS: NITROGLYCERIN 2% OINT 1 INCH/GM PACK TOP SCH ×4 (00:17→17:45)
[2016-11-04] MEDS: CLINDAMYCIN INJ 600 MG in PREMIX 1 EACH IV SCH ×3 (05:09→22:07)
[2016-11-04 05:36] LABS: Basophils % 0.1 % (0.0-0.8); Eosinophils # 0.2 10*3/uL (0.0-0.87); Eosinophils % 2.6 % (0.00-10.9); Hematocrit 29.4 VOL% (35.7-47.0); Immature Granulocytes % 1.1 %; Immature Granulocytes Absolute 0.08 #; Lymphocytes # 1.1 10*3/uL (1.4-4.0); Lymphocytes % 14.4 % (21.3-54.2); Mean Corpuscular HGB Conc 30.6 GM/DL (32-36); Mean Corpuscular Hemoglobin 29 PG (27-34); Mean Corpuscular Volume 94.5 FL (87-102); Mean Platelet Volume 10.8 FL (9.6-12.0); Monocytes # 0.8 10*3/uL (0.11-0.8); Neutrophils # 5.2 10*3/uL (1.4-7.4); Neutrophils % 70.8 % (38.7-73.9); Platelet Count 182 T/CUMM (130-400); Red Blood Count 3.11 MC/CUMM (3.8-5.5); Red Cell Distribution Width 14.6 % (9.3-17.3); White Blood Count 7.4 T/CUMM (4-12)
[2016-11-04 06:08] LABS: Calcium 7.8 MG/DL (8.5-10.1); Magnesium 1.9 MG/DL (1.8-2.4); Osmolality,Calculated 288.1 MOS/KG (273-304)
[2016-11-04 06:11] LABS: Calcium 7.7 MG/DL (8.5-10.1)
[2016-11-04] MEDS: LEVOTHYROXINE 100 MCG VIAL IV SCH (07:01)
--- NOTE | 2016-11-04 07:50 | Pulmonology Progress Note ---
Pulmonary - PN: Subj Interval history: This 89-year-old white female had an episode of vomiting and aspiration yesterday and was moved to intensive care. We have been able to wean her down to 3 L nasal oxygen and her oxygen saturations are in the high 90s. She is more alert. She should be able to be moved to the floor today. Not clear what we need to do nutritionally. I would not feed her by mouth right now. She needs a swallowing evaluation by speech therapy. May consider nasogastric or PEG tube feedings. For now we will just leave her on some IV fluids. She does have an apparent right lung pneumonia suspect in the superior segment. She is on antibiotics. 11/04/2016 patient has been moved to the [facility]. She is alert asking for something to eat or drink. Family member in the room says that the patient lives with her and she watches her very closely to be sure she does not get big bites of food. She thinks that the patient just tried to eat too large of a bite of lasagna the other day when she choked on it. Speech therapy is to do a bedside swallowing evaluation. Hopefully means of nutrition can be worked out there. From a pulmonary standpoint she is much better. Oxygen saturation 99% on 2 L. She is alert. I would finish out about 5 days of IV antibiotics. She did have aspiration syndrome and probably early aspiration pneumonia. Recheck chest x- ray tomorrow. Exam (Progress Note) - Constitutional Vitals: Period Temp Pulse Resp BP Sys/Alvarado Pulse Ox Last 24 Hr 97.4 F-99.1 F 64-82 13-20 125-162/56-77 92-99 Exam: Patient responsive but confused. Vital signs normal. Nasal oxygen 2 L. Pupils react to light. Face symmetrical. Neck supple no bruits. Chest reveals some rhonchi more on the right side. Heart normal rate, irregular rhythm no murmurs. Abdomen soft nontender no masses. Extremities no clubbing cyanosis or edema. Results - Labs CBC & BMP: 11/04/16 05:03 11/04/16 05:03 Lab Results: I have reviewed the past 24 hour labs Assessment and Plan (1) Aspiration syndrome Status: Acute Assessment and plan: She does have some new pulmonary infiltrate. Agree with empiric antibiotics. Will add steroids. Oxygen saturation. Would not use BiPAP since she has had nausea and vomiting as it would increase the risk for further problems. Holding her n.p.o. for now. May want to use small bore feeding tube tomorrow. 11/03/2016 O2 sats look much better. Now on nasal oxygen 3 L. It appears she does have a small area of pneumonia in the right lung superior segment right lower lobe. Will broaden antibiotic coverage 11/04/2016 much better. O2 sat 99% on 2 L. Would finish out 5 days of IV antibiotics and probably 2 more days by mouth if she is discharged. Needs swallowing evaluation and plan for nutrition. Current Visit: Yes (2) Altered mental status Status: Acute Assessment and plan: She has had worsening dementia. Etiology is not clear. 11/03/2016 she is alert but confused. 11/04/2016 she is certainly more alert this morning. Current Visit: Yes (3) Bump in troponins Status: Acute Assessment and plan: Apparently had a non-ST elevation myocardial infarction. Being treated medically. Not candidate for intervention. 11/03/2016 not candidate for cardiac intervention Current Visit: Yes (4) Urinary tract infection Status: Acute Assessment and plan: Has positive culture for gram-negative rods. Levaquin should cover but need to check cultures. Current Visit: Yes Specialty Discharge - Follow Up or Referrals Follow up with: Rojelio Guzmán MD [Physician] -
[2016-11-04] MEDS: INSULIN REGULAR 100 UNIT/ML SUBCUT SCH ×4 (08:48→21:08)
[2016-11-04] MEDS: SODIUM CHLORIDE 0.9% 1,000 ML IV SCH (09:24)
[2016-11-04] MEDS: FUROSEMIDE 40 MG/4 ML VIAL IV SCH (09:25)
[2016-11-04] MEDS: PANTOPRAZOLE 40 MG VIAL IV SCH (09:28)
[2016-11-04] MEDS: CARVEDILOL 6.25 MG TABLET PO SCH ×2 (09:33→17:48)
[2016-11-04] MEDS: LEVOFLOXACIN INJ 500 MG in PREMIX 1 EACH IV SCH (09:33)
[2016-11-04] MEDS: POTASSIUM CHLORIDE 20 MEQ TABLET PO SCH (09:33)
[2016-11-04] MEDS: MEMANTINE 10 MG TABLET PO SCH (09:34)
--- NOTE | 2016-11-04 15:26 | Physician Query Form ---
CLICK EDIT DOCUMENT TO SELECT QUERY ANSWER --> OK --> SIGN Mandy Chinchilla RN Clinical Chemical Processing Equipment Repairer W) [phone] (f) [phone] [email or web address]: Make your selection(s) from the choices in EACH section by typing an "x" and enter comments in the comment section. Please use your independent medical judgment in providing your response. This request does not imply that any particular answer is desired or expected. CLINICAL INDICATORS: (Providers should not edit this section) Based on documentation of "Acute aspiration syndrome" "Probably early aspiration pneumonia" "suctioned out a good bit of stuff from her oropharynx. She was moved to intensive care. Placed on a nonrebreather mask." "Her oxygen saturation is now up to 97% on nonrebreathing mask" If possible, please further clarify the type and acuity of respiratory diagnosis : ACUITY: (x ) Acute ( ) Chronic ( ) Acute on Chronic TYPE: ( x) Respiratory failure with hypoxia ( ) Respiratory failure with hypercapnia ( ) Respiratory Arrest ( ) Postprocedural/postoperative respiratory failure ( ) ARDS (Adult/Acute Respiratory Distress Syndrome) ( ) Other, please specify: ( ) Clinically unable to determine Recognized criteria for respiratory failure PH <7.35 or >7.45 PO2 <60 PCO2 >50 RR >24 O2 Sat <90% on RA or <95% on O2 Use of accessory muscles Unable to speak in full sentences Intubation is not required COMMENTS: Use of terms such as suspected, likely, or probable (associated with a specific diagnosis that is being evaluated, monitored, or treated as if it exists) are acceptable and can be restated in the discharge summary if not ruled out. MTDD
--- NOTE | 2016-11-04 16:37 | Hospitalist Progress Note ---
Assessment and Plan - Time spent with patient Time spent with patient: Less than 30 minutes (1) Dementia Status: Chronic Assessment and plan: Stable. Continue Memantine. Current Visit: Yes (2) Acute renal failure Status: Acute Assessment and plan: Renal function back to baseline. Monitor. Current Visit: Yes (3) Altered mental status Status: Acute Assessment and plan: Resolved Current Visit: Yes (4) Bump in troponins Status: Acute Assessment and plan: Cardiology following. No acute cardiovascular events. Remains in Sinus mech. Current Visit: Yes (5) Recent urinary tract infection Status: Chronic Assessment and plan: E. Coli isolated. On Levofloxacin. F/U Susceptibilities. Current Visit: Yes (6) Chronic renal insufficiency, stage III (moderate) Status: Chronic Assessment and plan: Stable Current Visit: Yes (7) Aspiration syndrome Status: Acute Assessment and plan: On Clinda. Continue. No overt s/s of aspiration with bedside evaluation. Can not r/o silent asp. therefore, MBS on tomorrow. Current Visit: Yes (8) Hypothyroidism Status: Chronic Assessment and plan: Stable. Continue Synthroid. Current Visit: Yes Hospitalist: Subjective Interval history: Patient lying in bed in no distress. Family at bedside. Underwent bedside swallow eval. No s/s of overt aspiration. Silent aspiration could not be r/o. MBS recommended on tomorrow. E. Coli isolated on Ucx. Susceptibilities are pending. Currently on Levofloxacin and Clindamycin. Will f/u susceptibilities. Exam - Constitutional Vitals: Period Temp Pulse Resp BP Sys/Alvarado Pulse Ox Last 24 Hr 97.2 F-98.8 F 70-83 16-20 145-162/65-71 92-99 General appearance: no acute distress, cachectic - Head Head exam: Present: normal inspection, normocephalic, atraumatic - Eye Eye exam: Present: EOMI - Respiratory Respiratory exam: Present: rales - Cardiovascular Cardiovascular exam: Present: regular rate and rhythm, systolic murmur - GI/Abdominal GI/Abdominal exam: Present: normal bowel sounds, soft. Absent: distended, tenderness - Neurological Exam Neurological exam: Present: alert, CN II-XII intact - Psychiatric Psychiatric exam: Present: normal affect, normal mood - Skin Skin exam: Present: normal color, warm, dry Results - Labs CBC & BMP: 11/04/16 05:03 05/01/17 05:03 Specialty Discharge - Follow Up or Referrals Follow up with: Rojelio Guzmán MD [Physician] -
--- NOTE | 2016-11-04 17:27 | Cardiology Progress Note ---
Shanti Webb April RN, am scribing for, and in the presence of, Katharina Vicente DO 17 :24. Assessment and Plan - Time spent with patient Time spent with patient: Greater than 30 minutes (1) Altered mental status Status: Acute Current Visit: Yes (2) Dementia Status: Chronic Current Visit: Yes (3) Recent urinary tract infection Status: Chronic Current Visit: Yes (4) CAD (coronary artery disease) Status: Chronic Current Visit: Yes Qualifiers: Coronary Disease-Associated Artery/Lesion type: king [place] artery [place] vs. transplanted heart: king salmon heart Associated angina: without angina Qualified Code(s): I25.10 - Atherosclerotic heart disease of king salmon coronary artery without angina pectoris (5) Advanced age Status: Chronic Current Visit: Yes (6) Left ventricular hypertrophy Status: Chronic Current Visit: Yes (7) Diastolic dysfunction with chronic heart failure Status: Chronic Current Visit: Yes Cardiology - PN: Subj Interval history: Chassis Driver: Dr. Guzmán in the remote past Ms. Barron has a history of ischemic cardiomyopathy, CAD, dyslipidemia, hypertension, TIAs, seizure, UTI, NIDDM, neuropathy, dementia, and macular degeneration. In 2010 she had a heart catheter Dr. Guzmán and was noted to have single-vessel obstructive coronary artery disease with an unsuccessful attempt at PCI of the right coronary artery. She was admitted last week with altered mental status, we were consulted to see for elevated troponin. Her troponin was 6.51 admission, later checks were 5.81 and 4.790. Given her poor health, age, and multiple morbidities, it was decided she would be a poor candidate for invasive evaluation therapy. Apparently on Friday she aspirated and is being held n.p.o. for now in anticipation of a swallowing evaluation later today. Currently she is resting in bed in no acute distress. Daughter is at bedside. She is responsive, but continues to be somewhat confused. She denies chest pain , shortness of breath, palpitations, or dizziness. Oxygen is in use via nasal cannula. Her only complaint is that she is thirsty. Telemetry currently shows sinus rhythm with heart rates in the 70s. I saw and examined Ms. Barron in the presence of her son-in-law who is from [place]. Also discussed with her 2 daughters. The patient denies any chest pain. I reviewed her chart she has a creatinine clearance estimated at 36 cc/h and had troponin elevation as well as BNP elevation on admission. She has known single-vessel TECHNICAL ACCOUNT EXECUTIVE of the RCA back from heart catheterization 2010 that I reviewed. She has advanced renal insufficiency. She has a relatively poor functional status. She has had recurrent UTIs we been asked to see to address her troponin elevation. She was seen by Dr. boswell initially it was felt that given her comorbidities and her severe renal insufficiency it was best that she treated medically. I concur. I reviewed her transthoracic echocardiogram report by Dr. boswell and I have reviewed those films. She has inferior posterior wall hypokinesis but overall ejection fraction appears to be greater than 55%. She has rather significant LVH. I agree with Dr. boswell's assessment of her valvular abnormalities. Medical management is the most prudent method at this time and the patient is free of angina. Exam (Progress Note) - Constitutional Vitals: Period Temp Pulse Resp BP Sys/Alvarado Pulse Ox Last 24 Hr 97.4 F-99.1 F 67-82 13-20 125-162/56-77 92-99 General appearance: no acute distress, other (Ill-appearing, she is very frail) - Head Head exam: Absent: abrasion, hematoma - Eye Eye exam: Absent: periorbital swelling, laceration to eyelids - Respiratory Respiratory exam: Present: rhonchi, other (Oxygen via nasal cannula). Absent: accessory muscle use, chest wall tenderness - Cardiovascular Cardiovascular exam: Present: regular rate and rhythm (She has a murmur of aortic sclerosis and mitral regurgitation). Absent: rubs - GI/Abdominal GI/Abdominal exam: Present: normal bowel sounds, soft. Absent: distended, tenderness - Extremities Exam Extremities exam: Absent: calf tenderness, edema - Neurological Exam Neurological exam: Present: alert. Absent: oriented X3 - Psychiatric Psychiatric exam: Present: flat affect. Absent: agitated - Skin Skin exam: Present: warm, dry - Other Additional findings: Peripheral muscular atrophy Result/EKG - Labs CBC & BMP: 11/04/16 05:03 11/04/16 05:03 Lab Results: I have reviewed the past 24 hour labs Labs: Laboratory Results - last 24 hr 11/03/16 11/03/16 11/03/16 08:27 10:58 15:23 WBC RBC Hgb Hct MCV MCH MCHC RDW Plt Count MPV Neut % (Auto) Lymph % (Auto) [place] % (Auto) Eos % (Auto) Baso % (Auto) Neut # (Auto) Lymph # (Auto) [place] # (Auto) Eos # (Auto) Baso # (Auto) Immature Gran % Nucleated RBC % Immature Gran # Nucleated RBCs # Sodium Potassium Chloride Carbon Dioxide Anion Gap BUN Creatinine GFR Calculation BUN/Creatinine Ratio Glucose POC Glucose 112 H 112 H 110 H Calculated Osmolality Calcium Magnesium 11/03/16 11/04/16 11/04/16 20:37 05:03 05:03 WBC 7.4 D RBC 3.11 L Hgb 9.0 L Hct 29.4 L MCV 94.5 MCH 29 MCHC 30.6 L RDW 14.6 Plt Count 182 MPV 10.8 Neut % (Auto) 70.8 Lymph % (Auto) 14.4 L [place] % (Auto) 11.0 Eos % (Auto) 2.6 Baso % (Auto) 0.1 Neut # (Auto) 5.2 Lymph # (Auto) 1.1 L [place] # (Auto) 0.8 Eos # (Auto) 0.2 Baso # (Auto) 0.0 Immature Gran % 1.1 Nucleated RBC % 0.0 Immature Gran # 0.08 Nucleated RBCs # 0.00 Sodium 143 Potassium 4.0 Chloride 104 Carbon Dioxide 30 Anion Gap 13.0 BUN 31 H Creatinine 1.40 H GFR Calculation 33 BUN/Creatinine Ratio 22.00 H Glucose 94 POC Glucose 104 Calculated Osmolality 291.0 Calcium 7.7 L Magnesium 11/04/16 11/04/16 05:03 08:04 WBC RBC Hgb Hct MCV MCH MCHC RDW Plt Count MPV Neut % (Auto) Lymph % (Auto) [place] % (Auto) Eos % (Auto) Baso % (Auto) Neut # (Auto) Lymph # (Auto) [place] # (Auto) Eos # (Auto) Baso # (Auto) Immature Gran % Nucleated RBC % Immature Gran # Nucleated RBCs # Sodium 142 Potassium 4.0 Chloride 104 Carbon Dioxide 30 Anion Gap 12.0 BUN 29 H Creatinine 1.30 H GFR Calculation 36 BUN/Creatinine Ratio 22.00 H Glucose 97 POC Glucose 96 Calculated Osmolality 288.1 Calcium 7.8 L Magnesium 1.9 - EKG EKG results: interpreted by me EKG shows: sinus rhythm Specialty Discharge - Follow Up or Referrals Follow up with: Rojelio Guzmán MD [Physician] - I, Katharina Vicente DO, personally performed the services described in this documentation, ascribed by Denise Moser RN in my presence, and it is both accurate and complete .
[2016-11-04] MEDS: ASPIRIN 300 MG SUPP RECTAL SCH (18:40)
[2016-11-04] MEDS: SIMVASTATIN 40 MG TABLET PO SCH (21:08)
[2016-11-04] MEDS: ENOXAPARIN 30 MG/0.3 ML SYRINGE SUBCUT SCH (21:08)
[2016-11-05] MEDS: ALBUTEROL/IPRATROPIUM 3 ML NEB RESP TX SCH ×4 (00:02→19:38)
[2016-11-05] MEDS: NITROGLYCERIN 2% OINT 1 INCH/GM PACK TOP SCH ×4 (01:11→17:07)
[2016-11-05] MEDS: CLINDAMYCIN INJ 600 MG in PREMIX 1 EACH IV SCH (05:51)
[2016-11-05 06:26] LABS: Eosinophils # 0.2 10*3/uL (0.0-0.87); Eosinophils % 2.4 % (0.00-10.9); Hematocrit 26.7 VOL% (35.7-47.0); Hemoglobin 8.1 GM/DL (12.0-16.0); Immature Granulocytes % 0.6 %; Immature Granulocytes Absolute 0.04 #; Lymphocytes # 1.1 10*3/uL (1.4-4.0); Lymphocytes % 18.4 % (21.3-54.2); Mean Corpuscular HGB Conc 30.3 GM/DL (32-36); Mean Corpuscular Hemoglobin 29 PG (27-34); Mean Platelet Volume 10.8 FL (9.6-12.0); Monocytes # 0.9 10*3/uL (0.11-0.8); Monocytes % 14.9 % (1.7-12.7); Neutrophils # 3.9 10*3/uL (1.4-7.4); Neutrophils % 63.7 % (38.7-73.9); Platelet Count 176 T/CUMM (130-400); Red Blood Count 2.84 MC/CUMM (3.8-5.5); Red Cell Distribution Width 14.6 % (9.3-17.3); White Blood Count 6.2 T/CUMM (4-12)
[2016-11-05] MEDS: LEVOTHYROXINE 100 MCG VIAL IV SCH (06:36)
[2016-11-05 06:55] LABS: Calcium 7.5 MG/DL (8.5-10.1); Osmolality,Calculated 290.1 MOS/KG (273-304); Potassium 3.9 MMOL/L (3.5-5.1)
--- NOTE | 2016-11-05 07:23 | Hospitalist Progress Note ---
Assessment and Plan (1) Dementia Status: Chronic Current Visit: Yes Qualifiers: Dementia type: Alzheimer's disease (2) CAD (coronary artery disease) Status: Chronic Assessment and plan: Elevated cTnI on this admission with preserved global LV systolic performance. No positive chest pain history, managed medically. Current Visit: Yes Qualifiers: Coronary Disease-Associated Artery/Lesion type: [place] artery [place] vs. transplanted heart: [place] heart Associated angina: without angina Qualified Code(s): I25.10 - Atherosclerotic heart disease of [place] coronary artery without angina pectoris (3) Aspiration syndrome Status: Acute Assessment and plan: Radiographically the patient has what appears to be a chronic fibrotic lung process possibly reflective of microaspiration. She has been placed on Rocephin to replace her previous antibiotic regimen, with her history of penicillin allergy we will observe overnight I am informed that she has a retirement facility bed available. Current Visit: Yes (4) Urinary tract infection Status: Acute Assessment and plan: E. coli sensitive to cephalosporins, aminoglycosides, and carbapenems. 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 She is being managed medically. She apparently sustained a episode of aspiration of gastric contents subsequent to admission. She was admitted with pyuria with subsequent documentation of Ecoli urinary tract infection with broad resistance not covered by the pulmonary regimen ( reported penicillin allergy). To be converted to Rocephin today for pulmonary coverage and this will cover urine culture results. She is awake and mildly confused this AM with stable vital signs overnight without fever. Exam - Constitutional Vitals: Period Temp Pulse Resp BP Sys/Alvarado Pulse Ox Last 24 Hr 96.7 F-98.3 F 60-84 14-20 129-181/60-89 95-99 General appearance: normal weight - Respiratory Respiratory exam: Present: clear to auscultation bilaterally. Absent: rales, rhonchi, wheezes - Cardiovascular Cardiovascular exam: Present: regular rate and rhythm - GI/Abdominal GI/Abdominal exam: Present: normal bowel sounds. Absent: tenderness - Extremities Exam Extremities exam: Absent: edema - Neurological Exam Neurological exam: Present: alert. Absent: oriented X3 Results - Labs CBC & BMP: 11/05/16 05:31 11/05/16 05:31 Labs: magnesium 2.0 Specialty Discharge - Follow Up or Referrals Follow up with: Rojelio Guzmán MD [Physician] -
--- NOTE | 2016-11-05 08:39 | Pulmonology Progress Note ---
Pulmonary - PN: Subj Interval history: This 89-year-old white female had an episode of vomiting and aspiration yesterday and was moved to intensive care. We have been able to wean her down to 3 L nasal oxygen and her oxygen saturations are in the high 90s. She is more alert. She should be able to be moved to the floor today. Not clear what we need to do nutritionally. I would not feed her by mouth right now. She needs a swallowing evaluation by speech therapy. May consider nasogastric or PEG tube feedings. For now we will just leave her on some IV fluids. She does have an apparent right lung pneumonia suspect in the superior segment. She is on antibiotics. 11/04/2016 patient has been moved to the [facility]. She is alert asking for something to eat or drink. Family member in the room says that the patient lives with her and she watches her very closely to be sure she does not get big bites of food. She thinks that the patient just tried to eat too large of a bite of lasagna the other day when she choked on it. Speech therapy is to do a bedside swallowing evaluation. Hopefully means of nutrition can be worked out there. From a pulmonary standpoint she is much better. Oxygen saturation 99% on 2 L. She is alert. I would finish out about 5 days of IV antibiotics. She did have aspiration syndrome and probably early aspiration pneumonia. Recheck chest x- ray tomorrow. 11/05/16 patient not having any difficulty with her breathing. She is eating a pured diet with the help of a family member. Speech therapy has done a swallowing evaluation. She has urinary tract infection with E. coli. It is resistant to the Levaquin that I had started. I changed to Rocephin. Do not think she needs Cleocin any further. Would just give her whatever is required to clear up to urinary tract infection. From a pulmonary standpoint she is stable. I will sign off. Please call if needed further. Exam (Progress Note) - Constitutional Vitals: Period Temp Pulse Resp BP Sys/Alvarado Pulse Ox Last 24 Hr 96.7 F-98.2 F 60-84 14-20 129-181/60-89 95-99 Exam: Patient responsive less confused. Vital signs normal. Nasal oxygen 2 L. Pupils react to light. Face symmetrical. Neck supple no bruits. Chest reveals some rhonchi more on the right side. Heart normal rate, irregular rhythm no murmurs. Abdomen soft nontender no masses. Extremities no clubbing cyanosis or edema. Results - Labs CBC & BMP: 11/05/16 05:31 11/05/16 05:31 Lab Results: I have reviewed the past 24 hour labs Assessment and Plan (1) Aspiration syndrome Status: Acute Assessment and plan: She does have some new pulmonary infiltrate. Agree with empiric antibiotics. Will add steroids. Oxygen saturation. Would not use BiPAP since she has had nausea and vomiting as it would increase the risk for further problems. Holding her n.p.o. for now. May want to use small bore feeding tube tomorrow. 11/03/2016 O2 sats look much better. Now on nasal oxygen 3 L. It appears she does have a small area of pneumonia in the right lung superior segment right lower lobe. Will broaden antibiotic coverage 11/04/2016 much better. O2 sat 99% on 2 L. Would finish out 5 days of IV antibiotics and probably 2 more days by mouth if she is discharged. Needs swallowing evaluation and plan for nutrition. 11/05/16 does not appear to have developed pneumonia from the aspiration episode. I have stopped Cleocin. Current Visit: Yes (2) Altered mental status Status: Acute Assessment and plan: She has had worsening dementia. Etiology is not clear. 11/03/2016 she is alert but confused. 11/04/2016 she is certainly more alert this morning. 11/05/16 again she is more alert. Current Visit: Yes (3) Bump in troponins Status: Acute Assessment and plan: Apparently had a non-ST elevation myocardial infarction. Being treated medically. Not candidate for intervention. 11/03/2016 not candidate for cardiac intervention Current Visit: Yes (4) Urinary tract infection Status: Acute Assessment and plan: Has positive culture for gram-negative rods. Levaquin should cover but need to check cultures. 11/05/16 she grew E. coli. Changed to Rocephin. Could use oral Ceftin in a day or 2. Current Visit: Yes Specialty Discharge - Follow Up or Referrals Follow up with: Rojelio Guzmán MD [Physician] -
[2016-11-05] MEDS ORDERED: FUROSEMIDE 20 MG/2 ML VIAL ONE (10:25)
[2016-11-05] MEDS: INSULIN REGULAR 100 UNIT/ML SUBCUT SCH ×4 (10:30→21:43)
[2016-11-05] MEDS: cefTRIAXone 1,000 MG in SODIUM CHLORIDE 0.9% 100 ML IV SCH (10:30)
[2016-11-05] MEDS: POTASSIUM CHLORIDE 20 MEQ TABLET PO SCH (10:31)
[2016-11-05] MEDS: SODIUM CHLORIDE 0.9% 1,000 ML IV SCH (10:31)
[2016-11-05] MEDS: CARVEDILOL 6.25 MG TABLET PO SCH ×2 (10:31→17:07)
[2016-11-05] MEDS: MEMANTINE 10 MG TABLET PO SCH (10:31)
[2016-11-05] MEDS: FUROSEMIDE 40 MG/4 ML VIAL IV SCH (10:32)
[2016-11-05] MEDS: ASPIRIN 300 MG SUPP RECTAL SCH (10:32)
[2016-11-05] MEDS: PANTOPRAZOLE 40 MG VIAL IV SCH (10:48)
--- NOTE | 2016-11-05 13:47 | Cardiology Progress Note ---
Shanti Webb April, RN, am scribing for, and in the presence of, Katharina Vicente DO 13 :47. Assessment and Plan - Time spent with patient Time spent with patient: Greater than 30 minutes (Family discussion documentation and orders) (1) Altered mental status Status: Acute Current Visit: Yes (2) Dementia Status: Chronic Current Visit: Yes Qualifiers: Dementia type: Alzheimer's disease (3) Recent urinary tract infection Status: Chronic Current Visit: Yes (4) Chronic renal insufficiency, stage III (moderate) Status: Chronic Current Visit: Yes (5) CAD (coronary artery disease) Status: Chronic Current Visit: Yes Qualifiers: Coronary Disease-Associated Artery/Lesion type: [place] artery [place] vs. 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 Barron is resting in bed in no acute distress. She denies any chest pain, palpitations, or dizziness. Oxygen is in use via nasal cannula and she says her breathing is okay. Swallowing evaluation was done yesterday. A pured diet was recommended while sitting upright. Daughter who is at bedside states she is tolerating this well. Her blood pressures have been elevated some, this morning was 154/74. Her H&H this morning is down to 8.1 and 26.7. Her creatinine was 2.2 on admission, it is down to 1.3. I discussed with the patient's daughter from [place] and her son-in-law from [place]. We have nothing further to add at this time. The patient appears to be stable. We will sign off. Anticipate transfer to rehab facility soon please call if needed. The patient will follow up with Dr. Guzmán if needed after discharge from rehabilitation facility. Exam (Progress Note) - Constitutional Vitals: Period Temp Pulse Resp BP Sys/Alvarado Pulse Ox Last 24 Hr 96.7 F-98.2 F 60-84 14-20 129-181/60-89 95-99 General appearance: no acute distress - Head Head exam: Absent: abrasion, hematoma - Eye Eye exam: Absent: periorbital swelling, laceration to eyelids - Respiratory Respiratory exam: Present: accessory muscle use, chest wall tenderness, other ( Oxygen via nasal cannula) - Cardiovascular Cardiovascular exam: Present: regular rate and rhythm (She has an S4 soft murmur of aortic sclerosis). Absent: rubs - GI/Abdominal GI/Abdominal exam: Present: normal bowel sounds, soft. Absent: distended, tenderness - Extremities Exam Extremities exam: Absent: edema - Psychiatric Psychiatric exam: Present: flat affect - Skin Skin exam: Present: warm, dry Result/EKG - Labs CBC & BMP: 11/05/16 05:31 11/05/16 05:31 Lab Results: I have reviewed the past 24 hour labs Labs: Laboratory Results - last 24 hr 11/04/16 11/04/16 11/04/16 11:42 15:37 18:57 WBC RBC Hgb Hct MCV MCH MCHC RDW Plt Count MPV Neut % (Auto) Lymph % (Auto) [place] % (Auto) Eos % (Auto) Baso % (Auto) Neut # (Auto) Lymph # (Auto) [place] # (Auto) Eos # (Auto) Baso # (Auto) Immature Gran % Nucleated RBC % Immature Gran # Nucleated RBCs # Sodium Potassium Chloride Carbon Dioxide Anion Gap BUN Creatinine GFR Calculation BUN/Creatinine Ratio Glucose POC Glucose 94 102 162 H Calculated Osmolality Calcium Magnesium 11/05/16 11/05/16 11/05/16 05:31 05:31 07:52 WBC 6.2 RBC 2.84 L Hgb 8.1 L Hct 26.7 L MCV 94.0 MCH 29 MCHC 30.3 L RDW 14.6 Plt Count 176 MPV 10.8 Neut % (Auto) 63.7 Lymph % (Auto) 18.4 L [place] % (Auto) 14.9 H Eos % (Auto) 2.4 Baso % (Auto) 0.0 Neut # (Auto) 3.9 Lymph # (Auto) 1.1 L [place] # (Auto) 0.9 H Eos # (Auto) 0.2 Baso # (Auto) 0.0 Immature Gran % 0.6 Nucleated RBC % 0.0 Immature Gran # 0.04 Nucleated RBCs # 0.00 Sodium 142 Potassium 3.9 Chloride 104 Carbon Dioxide 31 Anion Gap 10.9 BUN 29 H Creatinine 1.30 H GFR Calculation 36 BUN/Creatinine Ratio 22.00 H Glucose 135 H POC Glucose 111 H Calculated Osmolality 290.1 Calcium 7.5 L Magnesium 2.0 - EKG EKG results: interpreted by me EKG shows: sinus rhythm Specialty Discharge - Follow Up or Referrals Follow up with: Rojelio Guzmán MD [Physician] - Cinthia Webb Shea, DO, personally performed the services described in this documentation, ascribed by Denise Moser RN in my presence, and it is both accurate and complete .
[2016-11-05] MEDS: SIMVASTATIN 40 MG TABLET PO SCH (21:43)
[2016-11-05] MEDS: ENOXAPARIN 30 MG/0.3 ML SYRINGE SUBCUT SCH (21:43)
[2016-11-06] MEDS: NITROGLYCERIN 2% OINT 1 INCH/GM PACK TOP SCH ×2 (01:19→06:17)
[2016-11-06 06:12] LABS: Calcium 7.6 MG/DL (8.5-10.1); Magnesium 1.8 MG/DL (1.8-2.4); Osmolality,Calculated 288.3 MOS/KG (273-304)
[2016-11-06] MEDS: LEVOTHYROXINE 100 MCG VIAL IV SCH (06:17)
[2016-11-06 06:23] LABS: Basophils % 0.2 % (0.0-0.8); Eosinophils # 0.2 10*3/uL (0.0-0.87); Eosinophils % 1.7 % (0.00-10.9); Hematocrit 29.1 VOL% (35.7-47.0); Hemoglobin 8.9 GM/DL (12.0-16.0); Immature Granulocytes % 0.4 %; Immature Granulocytes Absolute 0.04 #; Lymphocytes # 1.4 10*3/uL (1.4-4.0); Lymphocytes % 14.8 % (21.3-54.2); Mean Corpuscular HGB Conc 30.6 GM/DL (32-36); Mean Corpuscular Hemoglobin 29 PG (27-34); Mean Corpuscular Volume 93.9 FL (87-102); Monocytes % 10.9 % (1.7-12.7); Neutrophils # 6.8 10*3/uL (1.4-7.4); Platelet Count 203 T/CUMM (130-400); Red Cell Distribution Width 14.8 % (9.3-17.3); White Blood Count 9.4 T/CUMM (4-12)
[2016-11-06] MEDS: ALBUTEROL/IPRATROPIUM 3 ML NEB RESP TX SCH ×2 (06:26→07:32)
--- NOTE | 2016-11-06 07:09 | Discharge Summary ---
Hospital Course - Hospital Course Hospital Course: 89-year-old female with chronic dementia presented with increased confusion associated with elevated cardiac troponin I levels normal CPK but elevated CK- MB fraction echocardiographic study showed hypertrophic myocardial disease with preserved LV systolic performance. Patient has had a remote cardiac catheterization showed a chronic total occlusion of the right coronary artery she was managed conservatively based upon her age and overall medical status on this occasion. Her initial discharge was held after an episode of possible aspiration of gastric contents. She was evaluated by pulmonary antibiotics were initiated. The patient's options improved appropriately she remained afebrile and radiographic pattern was stable throughout. Patient also had a urinary tract infection with a broad resistance pattern. Although she had claimed a penicillin allergy she tolerated Rocephin without difficulty. Patient is to be released for a period of fpc care prior to a possible return home. Diagnosis - Discharge Diagnosis (1) Dementia Status: Chronic (2) CAD (coronary artery disease) Status: Chronic (3) Aspiration syndrome Status: Acute (4) Urinary tract infection Status: Acute Specialty Discharge - Follow Up or Referrals Follow up with: Rojelio Guzmán MD [Physician] - Discharge Plan - Discharge Data Disposition: Disch/Xfer to Snf Condition at Discharge: Stable Discharge Diet: advance to your usual diet Activity: as per physical therapy - Discharge Medications New cefTRIAXone [Rocephin] 1,000 mg IV Q24H vial Albuterol/Ipratropium Neb [Duoneb] 3 ml RESP TX RT Q6H Continue Carvedilol 6.25 mg PO BID W/MEALS Cholestyramine [Questran] 4 gm PO TID PARoxetine HCl [Paroxetine HCl] 30 mg PO BID Ferrous Sulfate 325 mg PO DAILY Memantine HCl [Namenda] 20 mg PO DAILY Fenofibric Acid (Choline) [Trilipix] 135 mg PO DAILY sitaGLIPtin [Januvia] 100 mg PO BEDTIME Esomeprazole Magnesium [Nexium] 40 mg PO BEDTIME Simvastatin 40 mg PO BEDTIME Cyanocobalamin Inj [Vitamin B12 Inj] 1,000 mcg IM Q30D clonazePAM [Klonopin] 1 mg PO BEDTIME Diphenoxylate HCl/Atropine [Diphenoxylate/Atropine 2.5-0.025 mg Tab] 1 tablet PO BID Ubidecarenone [Coenzyme Q10] 400 mg PO QPM Selenium [Selenium Tab] 400 mcg PO DAILY Gluc Perez/Chondro Perez A/Vit C/Mn [Glucosamine Chondroitin Tab] 1 each PO BID Calcium (Carb)/Vit D 600-400 [Caltrate 600 + D] 1 tablet PO BID Ascorbic Acid [Vitamin C] 1,000 mg PO QPM Isosorbide Mononitrate [Isosorbide Mononitrate ER] 30 mg PO DAILY Aspirin 325 mg PO QAM Temazepam [Restoril] 30 mg PO BEDTIME PRN PRN Reason: Sleep Diclofenac 1% Gel [Voltaren 1% Gel] 1 applic TOP BID PRN PRN Reason: Pain Levothyroxine Tab [Synthroid Tab] 50 mcg PO QAM Vitamin E Cap 1,000 unit PO DAILY Ergocalciferol (Vitamin D2) [Vitamin D2] 2,000 unit PO DAILY Multivit-Min/FA/Lycopen/Lutein [Centrum Silver Tablet] 1 each PO DAILY levETIRAcetam TAB [Keppra Tab] 500 mg PO BID #60 tablet Discontinued Potassium Chloride [Klor-Con M20] 10 meq PO DAILY Furosemide 40 mg PO DAILY Sulfameth/Trimeth 800-160 Tab [Bactrim DS Tab] 1 tablet PO MOWEFR - Follow Up or Referral Follow Up: Rojelio Guzmán MD [Physician] - - Forms/Instructions Exam - Constitutional Vitals: Period Temp Pulse Resp BP Sys/Alvarado Pulse Ox Last 24 Hr 97.1 F-98.9 F 66-83 16-20 121-170/59-84 91-99 Discharge Results Procedures and tests throughout hospitalization: Pending Orders 11/02/16 16:00 MRSA Surveillence, Inf Control Routine 11/07/16 04:00 BMP w/ Mg [Basic Metabolic Panel w/Mg] IN AM CBC [Comp Blood Count Auto Diff] IN AM 11/08/16 04:00 BMP w/ Mg [Basic Metabolic Panel w/Mg] IN AM CBC [Comp Blood Count Auto Diff] IN AM Labs on day of discharge: Labs from last 24 hours 11/06/16 11/06/16 11/05/16 04:53 04:53 19:26 WBC 9.4 D RBC 3.10 L Hgb 8.9 L Hct 29.1 L MCV 93.9 MCH 29 MCHC 30.6 L RDW 14.8 Plt Count 203 MPV 11.0 Neut % (Auto) 72.0 Lymph % (Auto) 14.8 L [place] % (Auto) 10.9 Eos % (Auto) 1.7 Baso % (Auto) 0.2 Neut # (Auto) 6.8 Lymph # (Auto) 1.4 [place] # (Auto) 1.0 H Eos # (Auto) 0.2 Baso # (Auto) 0.0 Immature Gran % 0.4 Nucleated RBC % 0.0 Immature Gran # 0.04 Nucleated RBCs # 0.00 Sodium 141 Potassium 4.0 Chloride 102 Carbon Dioxide 32 Anion Gap 11.0 BUN 28 H Creatinine 1.30 H GFR Calculation 36 BUN/Creatinine Ratio 21.00 H Glucose 143 H POC Glucose 190 H Calculated Osmolality 288.3 Calcium 7.6 L Magnesium 1.8 11/05/16 11/05/16 11:52 07:52 WBC RBC Hgb Hct MCV MCH MCHC RDW Plt Count MPV Neut % (Auto) Lymph % (Auto) [place] % (Auto) Eos % (Auto) Baso % (Auto) Neut # (Auto) Lymph # (Auto) [place] # (Auto) Eos # (Auto) Baso # (Auto) Immature Gran % Nucleated RBC % Immature Gran # Nucleated RBCs # Sodium Potassium Chloride Carbon Dioxide Anion Gap BUN Creatinine GFR Calculation BUN/Creatinine Ratio Glucose POC Glucose 150 H 111 H Calculated Osmolality Calcium Magnesium Preliminary micro results at discharge 11/02/16 16:00 MRSA Surveillance Culture - Preliminary Nares - Both Nares (Mrsa screen) No MRSA isolated. DS: Provider Date of admission: 10/29/16 15:53 Primary care physician: . No PCP Attending physician on admission: Jennifer Pierce MD Consults: 10/29/16 16:33 Consult to Physician [CONS] Routine Comment: Consulting Provider: Cardiology - [facility] Consulting Provider Notified: Yes When should Consulting Provider be notified: Now Consult to Specialist Group: Cardiology When should Consulting Provider be notified: In am Person Notified: BELL Date Notified: 10/30/16 Time Notified: 08:51 10/31/16 16:03 Consult to Occupational Therapy [CONS] Routine Reason for Occupational Therapy: Evaluate and Treat Consult to Physical Therapy [CONS] Routine Reason for Physical Therapy: Evaluate and Treat 11/01/16 13:41 Consult to Case Mgmt/Social Srvs [CONS] Routine Reason for Case Mgmt/Social Srvs: Swingbed/SNF/Snf 11/02/16 13:00 Consult to Physician [CONS] Routine Comment: Consulting Provider: Blayne Hess Consult to Specialist Group: Pulmonology When should Consulting Provider be notified: Now Person Notified: Dr Hess Date Notified: 11/02/16 Time Notified: 13:24 Consult Notification Comment: notified of consult, orders rec'd Discharging clinician: Michelet Pulido MD Expected date of discharge: 11/06/16
[2016-11-06] MEDS: INSULIN REGULAR 100 UNIT/ML SUBCUT SCH (09:30)
[2016-11-06] MEDS: cefTRIAXone 1,000 MG in SODIUM CHLORIDE 0.9% 100 ML IV SCH (09:49)
[2016-11-06] MEDS: FUROSEMIDE 40 MG/4 ML VIAL IV SCH (09:49)
[2016-11-06] MEDS: PANTOPRAZOLE 40 MG VIAL IV SCH (09:49)
[2016-11-06] MEDS: MEMANTINE 10 MG TABLET PO SCH (09:50)
[2016-11-06] MEDS: POTASSIUM CHLORIDE 20 MEQ TABLET PO SCH (09:50)
[2016-11-06] MEDS: CARVEDILOL 6.25 MG TABLET PO SCH (09:50)
[2016-11-06] MEDS: ASPIRIN 300 MG SUPP RECTAL SCH (09:51)
[2016-11-06 10:50] VITALS: BP 162/77
== END 2016-11-06 10:55 | disposition swing bed (61) | DRG 689 ==
LOC: EDUNIT# → EDBD → N.ED 12:15 → SUATTDRO 15:53 → N.EDINP 15:53 → N.4E 17:22 → N.ICU 11-02 12:59 → N.4E 11-03 14:19
PROVIDERS: ADMIT Pediatrics; ATTEND Internal Medicine Cardiovascular Disease

== ENCOUNTER 2016-11-06 19:34 | Inpatient (IN) ==
--- NOTE | 2016-11-06 20:19 | Emergency Department Note ---
Arrival - Arrival Chief Complaint: Altered Mental Status ED Nursing Triage Note: C/O "My mother wasn't acting like my mother." Onset around 1800 tonight. Pt was transferred to swing bed at 1100 today after being in the hospital for several days. Nursing staff reports that pt was difficult to wake up upon their initial assessment. Pt is awake, and alert, but confused. It is difficulty to determine what her baseline mental status. During her admission she was diagnosed with UTI and had a cardiac arrest s/p aspiration Mode of Arrival: Stretcher Time Seen by Provider: 11/06/16 20:16 - History of Present Illness HPI Narrative: Patient presents complaining of generalized decline in condition over the last several hours. She was discharged from the hospital this afternoon to the swing bed and since discharge has become more somnolent, she sleeps more frequently, and she has difficulty speaking. The family is concerned that she may be demonstrating symptoms that are similar to when she had had a seizure. The patient states she is thirsty. The hospitalization consisted of a workup and physical therapy which was to continue at the swing bed but did not due to the patient's generalized malaise and weakness generally. Date of Last Menstrual Period: na Allergies/Adverse Reactions: Allergies Allergy/AdvReac Type Severity Reaction Status Date / Time Penicillins Allergy Severe Swelling Verified 10/08/16 02:03 of Lip/Tongue/Throat zinc Allergy Severe Swelling Verified 10/08/16 02:03 of Lip/Tongue/Throat grapefruit Allergy Intermediate RASH Verified 10/08/16 02:03 Home Medications: Home Medications Medication Instructions Recorded Confirmed Type Carvedilol 6.25 mg PO BID W/MEALS 10/10/14 11/06/16 History Cholestyramine [Questran] 4 gm PO TID 10/10/14 11/06/16 History Esomeprazole Magnesium [Nexium] 40 mg PO BEDTIME 10/10/14 11/06/16 History Fenofibric Acid (Choline) 135 mg PO DAILY 10/10/14 11/06/16 History [Trilipix] Ferrous Sulfate 325 mg PO DAILY 10/10/14 11/06/16 History Memantine HCl [Namenda] 20 mg PO DAILY 10/10/14 11/06/16 History PARoxetine HCl [Paroxetine HCl] 30 mg PO BID 10/10/14 11/06/16 History Simvastatin 40 mg PO BEDTIME 10/10/14 11/06/16 History sitaGLIPtin [Januvia] 100 mg PO BEDTIME 10/10/14 11/06/16 History Cyanocobalamin Inj [Vitamin B12 1,000 mcg IM Q30D 05/22/16 11/06/16 History Inj] clonazePAM [Klonopin] 1 mg PO BEDTIME 05/22/16 11/06/16 History Diclofenac 1% Gel [Voltaren 1% Gel] 1 applic TOP BID PRN 08/13/16 11/06/16 History Diphenoxylate HCl/Atropine 1 tablet PO BID 08/13/16 11/06/16 History [Diphenoxylate/Atropine 2.5-0.025 mg Tab] Levothyroxine Tab [Synthroid Tab] 50 mcg PO QAM 08/13/16 11/06/16 History Ascorbic Acid [Vitamin C] 1,000 mg PO QPM 09/07/16 11/06/16 History Calcium (Carb)/Vit D 600-400 1 tablet PO BID 09/07/16 11/06/16 History [Caltrate 600 + D] Ergocalciferol (Vitamin D2) 2,000 unit PO DAILY 09/07/16 11/06/16 History [Vitamin D2] Gluc Perez/Chondro Perez A/Vit C/Mn 1 each PO BID 09/07/16 11/06/16 History [Glucosamine Chondroitin Tab] Isosorbide Mononitrate [Isosorbide 30 mg PO DAILY 09/07/16 11/06/16 History Mononitrate ER] Multivit-Min/FA/Lycopen/Lutein 1 each PO DAILY 09/07/16 11/06/16 History [Centrum Silver Tablet] Selenium [Selenium Tab] 400 mcg PO DAILY 09/07/16 11/06/16 History Ubidecarenone [Coenzyme Q10] 400 mg PO QPM 09/07/16 11/06/16 History Vitamin E Cap 1,000 unit PO DAILY 09/07/16 11/06/16 History levETIRAcetam TAB [Keppra Tab] 500 mg PO BID #60 tablet 09/07/16 11/06/16 Rx Aspirin 325 mg PO QAM 10/29/16 11/06/16 History Temazepam [Restoril] 30 mg PO BEDTIME PRN 10/29/16 11/06/16 History Albuterol/Ipratropium Neb [Duoneb] 3 ml RESP TX RT Q6H 11/06/16 11/06/16 Rx cefTRIAXone [Rocephin] 1,000 mg IV Q24H vial 11/06/16 11/06/16 Rx Review of System - Review of System 12 point system: reviewed and no additional remarkable complaints except as stated Medical,Surgical,& Family Hx - Medical History Cardio: History of: CHF, CAD, Hypertension Neurology: History of: Dementia, Seizures, TIA HEENT: History of: Glaucoma Endocrine: History of: Diabetes Mellitus (NIDDM) Musculoskeletal: Comment Only: Musculoskeletal Problems (Arthritis) - Surgical History Cardiac Surgeries: Sugical HX of: Cardiac Catheterization (2010) HEENT Surgeries: Surgical HX of: Tonsilectomy & Adenoidectomy Abdominal Surgeries: Surgical HX of: Abdominal Surgery (tummy tuck), Appendectomy, Cholecystectomy Reproductive Surgeries: Surgical HX of;: Hysterectomy - Family History Family History: Reports;: Family Cancer (Sisters, daughters, brother), Family Diabetes (Sisters), Family Heart Disease (Throughout the family), Family Hypertension (Brothers) - Social History Smoking Status: Former smoker Frequency of Alcohol Use: None Type of Drug Use: None Exam Physical Examination: General: Patient is well-developed and well-nourished with no acute distress noted. She is not able to speak coherently. She does slur her words. HEENT: The extraocular muscles are intact. Oropharynx is moist. There is no erythema or exudate. The tympanic membranes are shiny bilaterally. Neck: There is no adenopathy. Full range of motion is noted without pain. The trachea is midline. No JVD is present. Lungs: There is normal excursion of the chest with the lungs sounding clear bilaterally. No subcostal retractions are present. There is no point tenderness present. Heart: The heart has a regular rate and rhythm with no gallops or murmurs. Abdomen: The abdomen is nontender and nondistended with no rebound, guarding, or masses. Bowel sounds are normal. Back: The back demonstrates a normal appearance with no evidence of trauma. Genitourinary: Not examined. Extremities: The extremities demonstrate no clubbing, cyanosis, or edema. The visualized range of motion is normal. They appear atraumatic. Neuro: Cranial nerves II through XII are checked and do not demonstrate any asymmetry although exam is somewhat difficult due to the patient's generalized mentation. There is no focal motor or sensory deficit seen in the extremities. Skin: Skin is warm and dry with no evidence of rash. Vital Signs: Vital Signs Temperature 98.7 F 11/06/16 19:34 Pulse Rate 80 11/06/16 19:34 Respiratory Rate 16 11/06/16 19:34 Blood Pressure 164/91 11/06/16 19:34 O2 Sat by Pulse Oximetry 90 L 11/06/16 19:34 Course - Consultations Consultation #1: Dr. Estevez we will evaluate and admit the patient. Time: 21:17 Results - Labs CBC & BMP: 11/06/16 19:42 11/06/16 19:42 Lab Results: I have reviewed the patients labs - Diagnostic Findings Procedure: Chest x-ray: image reviewed by me (Mild volume overload not dissimilar from previous studies), CT: image reviewed by me (No acute intracranial process old parietal infarct) Disposition Clinical Impression: CHF (congestive heart failure), Malaise and fatigue, Failure to thrive, Dementia, Recent urinary tract infection Case discussed with: patient, patient's family Disposition: Still a Patient Condition: Stable Instructions: Dementia (ED) Time of Disposition: 21:17
[2016-11-06 20:24] LABS: Basophils % 0.2 % (0.0-0.8); Eosinophils # 0.2 10*3/uL (0.0-0.87); Eosinophils % 1.9 % (0.00-10.9); Hemoglobin 9.6 GM/DL (12.0-16.0); Immature Granulocytes % 0.4 %; Immature Granulocytes Absolute 0.04 #; Lymphocytes # 1.8 10*3/uL (1.4-4.0); Lymphocytes % 17.8 % (21.3-54.2); Mean Corpuscular Hemoglobin 29 PG (27-34); Mean Corpuscular Volume 93.4 FL (87-102); Mean Platelet Volume 10.7 FL (9.6-12.0); Monocytes % 9.9 % (1.7-12.7); Neutrophils # 7.2 10*3/uL (1.4-7.4); Neutrophils % 69.8 % (38.7-73.9); Platelet Count 216 T/CUMM (130-400); Red Blood Count 3.32 MC/CUMM (3.8-5.5); Red Cell Distribution Width 14.6 % (9.3-17.3); White Blood Count 10.2 T/CUMM (4-12)
[2016-11-06 20:33] LABS: Calcium 8.2 MG/DL (8.5-10.1); Magnesium 1.9 MG/DL (1.8-2.4); Osmolality,Calculated 285.7 MOS/KG (273-304); Potassium 4.1 MMOL/L (3.5-5.1)
--- NOTE | 2016-11-06 21:08 | CT Report ---
CT head/brain wo con INDICATION: acute mental status changes The total DLP is 997 mGy*cm. COMPARISON: Noncontrast CT head dated 10/29/2016 Technique: Serial axial tomographic images of the brain were obtained without the use of intravenous contrast. Dose reduction: This CT exam was performed using one or more of the following dose reduction techniques: Automated exposure control, automated adjustment of the mA and/or KV according to patient size, or use of iterative reconstruction technique. Findings: Moderate generalized atrophy with prominence of sulci and ventricles is noted, which is grossly unchanged from prior. Prominent periventricular white matter hypodensity changes are noted bilaterally which do not demonstrate mass effect and are nonspecific but favored to represent sequela of chronic microvascular ischemia. There is a focal hypodensity likely representing a remote infarct within the right posterior parietal lobe is again noted. Similar hypodensity within the right cerebral hemisphere also likely represents remote infarct. Remote lacunar infarcts within the bilateral basal ganglia are also unchanged. There is no evidence of vascular territory infarct or acute intracranial hemorrhage. The weaver-white matter differentiation is generally maintained. There is no hydrocephalus. The basilar cisterns are patent. The visualized paranasal sinuses, mastoid air cells and middle ear cavities are predominantly clear. The included orbits and their contents appear within normal limits. The visualized osseous structures and overlying soft tissues of the skull and face demonstrate no acute abnormality. IMPRESSION: No acute intracranial abnormality. 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 PROCEDURE INTERPRETED AT [facility] DEPARTMENT OF RADIOLOGY Final Report Signed by: Forrest Donovan
[2016-11-06 21:17] LABS: Apearance,Urine CLEAR (Clear); Bilirubin,Urine Negative (Negative); Blood, Urine Negative (Negative); Glucose,Urine (UA) Negative (Negative); Ketones,Urine Negative (Negative); Nitrite,Urine Negative (Negative); Protein,Urine 30 MG/DL; Squamous Epithelial Cell,Urine Occasional /HPF (0-10); Urine Color Straw (Yellow); Urine Specific Gravity 1.009 (1.001-1.035); Urine Urobilinogen < 2.0 EU/DL (0.2-1.0); WBC,Urine 2 /HPF (0-6)
--- NOTE | 2016-11-06 22:33 | XRay Report ---
Exam: XR chest 1V portable Indication: Chest pain Shortness of breath Comparison study: 11/03/2016 Findings: Cardiac silhouette is enlarged diffuse interstitial prominence is similar prior although there are patchy areas of interstitial opacities in the perihilar regions and right upper lobe which may represent developing infiltrates and/or pulmonary edema changes. There is no pneumothorax. Mild elevation right hemidiaphragm is similar to prior. Impression: Cardiomegaly and chronic interstitial changes with suggestion of superimposed interstitial infiltrates and/or edema changes. PROCEDURE INTERPRETED AT [facility] DEPARTMENT OF RADIOLOGY Final Report Signed by: Forrest Donovan
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
[2016-11-07] MEDS: TEMAZEPAM 15 MG CAPSULE PO PRN ×2 (01:49→21:26)
[2016-11-07] MEDS: PARoxetine 10 MG TABLET PO SCH ×2 (09:04→21:26)
[2016-11-07] MEDS: GLUCOSAMINE 500 MG TABLET PO SCH ×2 (09:04→21:26)
[2016-11-07] MEDS: MULTIVITAMIN (CENTRUM) TABLET PO SCH (09:04)
[2016-11-07] MEDS: CHOLECALCIFEROL 1,000 UNIT TABLET PO SCH (09:04)
[2016-11-07] MEDS: FERROUS SULFATE 325 MG TABLET PO SCH (09:04)
[2016-11-07] MEDS: FENOFIBRATE 145 MG TABLET PO SCH (09:04)
--- NOTE | 2016-11-07 10:12 | Case Mgmt Physician Query Form ---
TB Signs and Symptoms Screening ([place]) INSTRUCTIONS: To be completed annually on residents/staff with a significant Tuberculin Skin Test (TST) upon admission/hire or a prior significant TST. To be completed on all staff at hire. Please respond to each listed symptom with an (X) in either the "YES" or "NO" box. Do you currently have any of the following symptoms: YES NO ( ) ( x) A cough If yes, is it: ( ) Productive ( ) Non- productive ( ) ( x) Hemoptysis (spitting up blood) ( ) ( x) Chest pains ( ) ( x) Weight Loss ( ) ( x) Fever ( ) ( x) Night Sweats (x ) ( ) Weakness ( ) (x ) Loss of Appetite ( ) (x ) Difficulty Breathing If you answered YES" to any of the above questions, how long have symptoms been present? Weakness developed during hospitalization Comments: If you have any questions, please contact me . Thank you, Catherine BRIAN Email: [email or web address]
--- NOTE | 2016-11-07 10:28 | Hospitalist Progress Note ---
Assessment and Plan (1) Debility Status: Acute Current Visit: No (2) Seizure disorder Status: Chronic Current Visit: No (3) Failure to thrive Status: Acute Current Visit: Yes Hospitalist: Subjective Interval history: No acute events overnight. Patient reports that she is sleepy but otherwise feels ok. Daughter in room attempts to answer all questions for patient. When asked what happened yesterday to cause patient to be transferred back to the hospital, the daughter starts with a long list of complaints against the swing bed yesterday. She also reports that patient became unresponsive yesterday, but recovered in the ambulance on the way to the hospital. She says that she had to make a scene in order to get her transferred to the ED from the swing bed. This morning patient remains alert and oriented. Afebrile, no leukocytosis, UA looks good. Will monitor for any repeat episodes. Long discussion with daughter about all test results and plans for the next step in patient's care. She seems to understand that the patient does need intense rehab before she can go home. Social work has been consulted for assistance. Exam - Constitutional Vitals: Period Temp Pulse Resp BP Sys/Alvarado Pulse Ox Last 24 Hr 96.3 F-97.7 F 73-92 18-22 103-165/57-83 90-95 General appearance: under weight - Head Head exam: Present: normocephalic, atraumatic - Eye Eye exam: Present: EOMI Pupils: Present: KRISTEN - ENT ENT exam: Present: normal exam - Neck Neck exam: Present: normal inspection - Respiratory Respiratory exam: Present: clear to auscultation bilaterally. Absent: rhonchi, wheezes - Cardiovascular Cardiovascular exam: Present: regular rate and rhythm - GI/Abdominal GI/Abdominal exam: Present: normal bowel sounds, soft. Absent: tenderness, rebound - Extremities Exam Extremities exam: Present: normal inspection - Back Exam Back exam: Present: normal inspection - Neurological Exam Neurological exam: Present: alert, oriented X3 - Psychiatric Psychiatric exam: Present: normal affect, normal mood - Skin Skin exam: Present: warm, intact Results - Labs CBC & BMP: 11/06/16 19:42 11/06/16 19:42 Specialty Discharge - Follow Up or Referrals
[2016-11-07] MEDS ORDERED: TUBERCULIN SKIN TEST 0.1 ML SYRINGE INTRADERM ONE (13:30)
[2016-11-07] MEDS: COENZYME Q10 100 MG CAPSULE PO SCH (18:20)
[2016-11-07] MEDS: PANTOPRAZOLE 40 MG TABLET PO SCH (21:26)
[2016-11-08] MEDS: PARoxetine 10 MG TABLET PO SCH ×2 (09:54→20:18)
[2016-11-08] MEDS: FERROUS SULFATE 325 MG TABLET PO SCH (09:55)
[2016-11-08] MEDS: CHOLECALCIFEROL 1,000 UNIT TABLET PO SCH (09:55)
[2016-11-08] MEDS: GLUCOSAMINE 500 MG TABLET PO SCH ×2 (09:55→20:18)
[2016-11-08] MEDS: MULTIVITAMIN (CENTRUM) TABLET PO SCH (09:55)
[2016-11-08] MEDS: FENOFIBRATE 145 MG TABLET PO SCH (09:55)
--- NOTE | 2016-11-08 12:38 | Hospitalist Progress Note ---
Assessment and Plan (1) Debility Status: Acute Current Visit: No (2) Seizure disorder Status: Chronic Current Visit: No (3) Failure to thrive Status: Acute Current Visit: Yes Hospitalist: Subjective Interval history: No acute events overnight. Patient without complaints today. Plan is for discharge to [facility] tomorrow. Exam - Constitutional Vitals: Period Temp Pulse Resp BP Sys/Alvarado Pulse Ox Last 24 Hr 96.9 F-98.4 F 75-83 16-18 139-166/70-87 94-98 General appearance: under weight - Head Head exam: Present: normocephalic, atraumatic - Eye Eye exam: Present: EOMI Pupils: Present: KRISTEN - ENT ENT exam: Present: normal exam - Neck Neck exam: Present: normal inspection - Respiratory Respiratory exam: Present: clear to auscultation bilaterally - Cardiovascular Cardiovascular exam: Present: regular rate and rhythm - GI/Abdominal GI/Abdominal exam: Present: normal bowel sounds, soft. Absent: tenderness, rebound - Back Exam Back exam: Present: normal inspection - Neurological Exam Neurological exam: Present: alert - Psychiatric Psychiatric exam: Present: normal affect, normal mood - Skin Skin exam: Present: warm, intact Results - Labs CBC & BMP: 11/06/16 19:42 11/06/16 19:42 Specialty Discharge - Follow Up or Referrals
[2016-11-08] MEDS: levETIRAcetam 500 MG TABLET PO SCH ×2 (13:33→20:18)
[2016-11-08] MEDS: ALBUTEROL/IPRATROPIUM 3 ML NEB RESP TX SCH ×2 (13:46→19:29)
[2016-11-08] MEDS: CHOLESTYRAMINE 4 GM PACK PO SCH ×2 (16:22→20:18)
[2016-11-08] MEDS: CARVEDILOL 6.25 MG TABLET PO SCH (18:12)
[2016-11-08] MEDS: COENZYME Q10 100 MG CAPSULE PO SCH (18:12)
[2016-11-08] MEDS: SIMVASTATIN 40 MG TABLET PO SCH (20:18)
[2016-11-08] MEDS: PANTOPRAZOLE 40 MG TABLET PO SCH (20:18)
[2016-11-08] MEDS: TEMAZEPAM 15 MG CAPSULE PO PRN (20:26)
[2016-11-08] MEDS ORDERED: clonazePAM 0.5 MG TABLET PO SCH (21:00)
[2016-11-09] MEDS: ALBUTEROL/IPRATROPIUM 3 ML NEB RESP TX SCH ×2 (00:29→07:35)
--- NOTE | 2016-11-09 08:25 | Discharge Summary ---
<Latasha Ugaldeda - Last Filed: 11/09/16 08:28> Hospital Course - Hospital Course Hospital Course: This is a very unfortunate 89 year old female that presented to the ED at [facility] on 11/06 from [facility] for evaluation of altered mental status. The patient has a very extensive medical history of dementia, hypothyroidism, congestive heart failure, coronary artery disease, anemia, chronic urinary tract infection. At the time of presentation, the patient had discharged from [facility] earlier that day to [facility] for rehabilitation. Apparently, the daughter became concerned regarding the patient's status. She reports that the patient had been sleeping more and had difficulty speaking; which she attributed to possible seizure activity. The patient was not able to actively participate in physical therapy as a result of status. The patient was subsequently admitted to the hospitalist services for continuation of care. A full neurological work-up was conducted which was essentially benign. Urine was collected and analyzed; which too was benign. At the time of admission, the patient was alert and appropriate according to her baseline. Her condition is stable. Today, we feel that she is appropriate for discharge. Specialty Discharge - Follow Up or Referrals Discharge Plan - Discharge Data Disposition: Disch/Xfer to Snf - Discharge Medications Continue Carvedilol 6.25 mg PO BID W/MEALS Cholestyramine [Questran] 4 gm PO TID PARoxetine HCl [Paroxetine HCl] 30 mg PO BID Ferrous Sulfate 325 mg PO DAILY Memantine HCl [Namenda] 20 mg PO DAILY Fenofibric Acid (Choline) [Trilipix] 135 mg PO DAILY sitaGLIPtin [Januvia] 100 mg PO BEDTIME Esomeprazole Magnesium [Nexium] 40 mg PO BEDTIME Simvastatin 40 mg PO BID Cyanocobalamin Inj [Vitamin B12 Inj] 1,000 mcg IM Q30D clonazePAM [Klonopin] 1 mg PO BEDTIME Diphenoxylate HCl/Atropine [Diphenoxylate/Atropine 2.5-0.025 mg Tab] 1 tablet PO BID Ubidecarenone [Coenzyme Q10] 400 mg PO QPM Selenium [Selenium Tab] 400 mcg PO DAILY Gluc Perez/Chondro Perez A/Vit C/Mn [Glucosamine Chondroitin Tab] 1 each PO BID Calcium (Carb)/Vit D 600-400 [Caltrate 600 + D] 1 tablet PO BID Ascorbic Acid [Vitamin C] 1,000 mg PO QPM Isosorbide Mononitrate [Isosorbide Mononitrate ER] 30 mg PO DAILY Aspirin 325 mg PO QAM Temazepam [Restoril] 30 mg PO BEDTIME PRN PRN Reason: Sleep Diclofenac 1% Gel [Voltaren 1% Gel] 1 applic TOP BID PRN PRN Reason: Pain Levothyroxine Tab [Synthroid Tab] 50 mcg PO QAM Vitamin E Cap 1,000 unit PO DAILY Ergocalciferol (Vitamin D2) [Vitamin D2] 2,000 unit PO DAILY Multivit-Min/FA/Lycopen/Lutein [Centrum Silver Tablet] 1 each PO DAILY levETIRAcetam TAB [Keppra Tab] 500 mg PO BID #60 tablet Albuterol/Ipratropium Neb [Duoneb] 3 ml RESP TX RT Q6H Discontinued cefTRIAXone [Rocephin] 1,000 mg IV Q24H vial Sulfameth/Trimeth 800-160 Tab [Bactrim DS Tab] 1 tablet PO DIRECTED Potassium Chloride [Klor-Con] 10 meq PO DAILY Furosemide Tab [Lasix Tab] 40 mg PO DAILY - Follow Up or Referral - Forms/Instructions Instructions: Heart Failure (DC), Dementia (ED), Dysuria (GEN) Exam - Constitutional Vitals: Period Temp Pulse Resp BP Sys/Alvarado Pulse Ox Last 24 Hr 96.9 F-98.1 F 64-86 14-20 133-155/71-87 88-100 DS: Provider Date of admission: 11/06/16 23:34 Primary care physician: . No PCP Attending physician on admission: José Miguel Estevez MD Consults: 11/07/16 02:12 Consult to Dietitian [CONS] Routine Reason for Dietitian: Dietary Consult Discharging clinician: Maggi Ugalde CNP <Denisse Paige - Last Filed: 11/09/16 08:52> Hospital Course - Hospital Course Hospital Course: Patient seen and examined independently of FRANCISCA Ugalde, agree with hospital course as documented. Patient with no repeat episodes of altered mental status during admission. Infectious work-up was negative. She has now reached maximum benefit of inpatient stay and will be discharged to [facility]. - Time spent with patient Time with patient DS: Less than 30 minutes Diagnosis - Discharge Diagnosis (1) Debility Status: Acute (2) Seizure disorder Status: Chronic (3) Failure to thrive Status: Acute Discharge Plan - Discharge Data Condition at Discharge: Stable Discharge Diet: advance to your usual diet Activity: as per physical therapy Hygiene: no restrictions Weight Bearing at Discharge: weight bear as tolerated Contact your physician if you experience:: fever over 101 Exam - Constitutional General appearance: under weight - Head Head exam: Present: normocephalic, atraumatic - Eye Eye exam: Present: EOMI Pupils: Present: KRISTEN - ENT ENT exam: Present: normal exam - Neck Neck exam: Present: normal inspection - Respiratory Respiratory exam: Present: clear to auscultation bilaterally. Absent: rhonchi, wheezes - Cardiovascular Cardiovascular exam: Present: regular rate and rhythm - GI/Abdominal GI/Abdominal exam: Present: normal bowel sounds, soft. Absent: tenderness, rebound - Extremities Exam Extremities exam: Present: normal inspection - Back Exam Back exam: Present: normal inspection - Neurological Exam Neurological exam: Present: alert, oriented X3 - Psychiatric Psychiatric exam: Present: normal affect, normal mood - Skin Skin exam: Present: warm, intact
[2016-11-09] MEDS: levETIRAcetam 500 MG TABLET PO SCH (08:39)
[2016-11-09] MEDS: PARoxetine 10 MG TABLET PO SCH (08:39)
[2016-11-09] MEDS: FERROUS SULFATE 325 MG TABLET PO SCH (08:39)
[2016-11-09] MEDS: GLUCOSAMINE 500 MG TABLET PO SCH (08:39)
[2016-11-09] MEDS: CHOLESTYRAMINE 4 GM PACK PO SCH (08:39)
[2016-11-09] MEDS: CARVEDILOL 6.25 MG TABLET PO SCH (08:39)
[2016-11-09] MEDS: SIMVASTATIN 40 MG TABLET PO SCH (08:40)
[2016-11-09] MEDS: MULTIVITAMIN (CENTRUM) TABLET PO SCH (08:40)
[2016-11-09] MEDS: CHOLECALCIFEROL 1,000 UNIT TABLET PO SCH (08:40)
[2016-11-09] MEDS: FENOFIBRATE 145 MG TABLET PO SCH (08:40)
[2016-11-09] MEDS ORDERED: MEMANTINE 10 MG TABLET PO SCH (09:00)
[2016-11-09] MEDS ORDERED: ISOSORBIDE MONONITRATE 30 MG TABLET PO SCH (09:00)
[2016-11-09] MEDS ORDERED: LEVOTHYROXINE 50 MCG TABLET PO SCH (09:00)
[2016-11-09] MEDS ORDERED: ASPIRIN 325 MG TABLET PO SCH (09:00)
[2016-11-09 10:16] VITALS: BP 151/96
== END 2016-11-09 11:30 | DRG 884 ==
LOC: EDUNIT# → N.ED 19:34 → N.EDINP 23:34 → SUATTDRO 23:34 → N.5E 11-07 00:35
PROVIDERS: ADMIT Internal Medicine Infectious Disease; ATTEND Internal Medicine

== ENCOUNTER 2016-12-30 18:15 | Inpatient (IN) ==
[2016-12-30] MEDS ORDERED: LEVOFLOXACIN INJ 750 MG in PREMIX 1 EACH IV STA (18:43)
[2016-12-30] MEDS ORDERED: FUROSEMIDE 100 MG/10 ML VIAL IV STA (18:43)
[2016-12-30] MEDS ORDERED: methylPREDNISolone SOD SUC 125 MG/2 ML VIAL IV STA (18:43)
--- NOTE | 2016-12-30 18:49 | Emergency Department Note ---
Arrival - Arrival Chief Complaint: Upper Respiratory ED Nursing Triage Note: [facility] was [facility] for cough and ?pneumonia per xray taken friday. pt ahs been taken off lasix. pt has swelling to both legs Mode of Arrival: Stretcher Limitations: Altered Mental Status Source: Family, Old Records Reviewed Time Seen by Provider: 12/30/16 18:43 - History of Present Illness HPI Narrative: This 89-year-old white female [facility] resident with dense dementia presents with information stating she has had increased cough with questionable pneumonia on chest x-ray done Friday at the [facility]. The family member states that the patient has been swelling and developing a wet cough ever since she was discharged from the hospital as she has not been continued on her diuretics. She has not been noted to have chills, fever, or hypoxia at the [facility] prior to presentation. The patient is fairly stuporous at this time. The family member also relates that she does have problems with recurrent urinary tract infections and does not know if this is a complicating factor. The patient is a DNR. Onset (ago): day(s) (Progressive symptoms over several days) Allergies/Adverse Reactions: Allergies Allergy/AdvReac Type Severity Reaction Status Date / Time Penicillins Allergy Severe Swelling Verified 10/08/16 02:03 of Lip/Tongue/Throat zinc Allergy Severe Swelling Verified 10/08/16 02:03 of Lip/Tongue/Throat grapefruit Allergy Intermediate RASH Verified 10/08/16 02:03 Home Medications: Home Medications Medication Instructions Recorded Confirmed Type Carvedilol 6.25 mg PO BID W/MEALS 10/10/14 11/06/16 History Cholestyramine [Questran] 4 gm PO TID 10/10/14 11/06/16 History Esomeprazole Magnesium [Nexium] 40 mg PO BEDTIME 10/10/14 11/06/16 History Fenofibric Acid (Choline) 135 mg PO DAILY 10/10/14 11/06/16 History [Trilipix] Ferrous Sulfate 325 mg PO DAILY 10/10/14 11/06/16 History Memantine HCl [Namenda] 20 mg PO DAILY 10/10/14 11/06/16 History PARoxetine HCl [Paroxetine HCl] 30 mg PO BID 10/10/14 11/06/16 History Simvastatin 40 mg PO BID 10/10/14 11/07/16 History sitaGLIPtin [Januvia] 100 mg PO BEDTIME 10/10/14 11/06/16 History Cyanocobalamin Inj [Vitamin B12 1,000 mcg IM Q30D 05/22/16 11/07/16 History Inj] clonazePAM [Klonopin] 1 mg PO BEDTIME 05/22/16 11/06/16 History Diclofenac 1% Gel [Voltaren 1% Gel] 1 applic TOP BID PRN 08/13/16 11/06/16 History Diphenoxylate HCl/Atropine 1 tablet PO BID 08/13/16 11/06/16 History [Diphenoxylate/Atropine 2.5-0.025 mg Tab] Levothyroxine Tab [Synthroid Tab] 50 mcg PO QAM 08/13/16 11/06/16 History Ascorbic Acid [Vitamin C] 1,000 mg PO QPM 09/07/16 11/06/16 History Calcium (Carb)/Vit D 600-400 1 tablet PO BID 09/07/16 11/06/16 History [Caltrate 600 + D] Ergocalciferol (Vitamin D2) 2,000 unit PO DAILY 09/07/16 11/06/16 History [Vitamin D2] Gluc Perez/Chondro Perez A/Vit C/Mn 1 each PO BID 09/07/16 11/06/16 History [Glucosamine Chondroitin Tab] Isosorbide Mononitrate [Isosorbide 30 mg PO DAILY 09/07/16 11/06/16 History Mononitrate ER] Multivit-Min/FA/Lycopen/Lutein 1 each PO DAILY 09/07/16 11/06/16 History [Centrum Silver Tablet] Selenium [Selenium Tab] 400 mcg PO DAILY 09/07/16 11/06/16 History Ubidecarenone [Coenzyme Q10] 400 mg PO QPM 09/07/16 11/06/16 History Vitamin E Cap 1,000 unit PO DAILY 09/07/16 11/06/16 History levETIRAcetam TAB [Keppra Tab] 500 mg PO BID #60 tablet 09/07/16 11/06/16 Rx Aspirin 325 mg PO QAM 10/29/16 11/06/16 History Albuterol/Ipratropium Neb [Duoneb] 3 ml RESP TX RT Q6H 11/06/16 11/06/16 Rx Temazepam [Restoril] 30 mg PO BEDTIME PRN #30 tablet 11/09/16 Rx Review of System - Review of System ROS unobtainable: due to mental status Medical,Surgical,& Family Hx - Medical History Cardio: History of: CHF, CAD, Hypertension Neurology: History of: Dementia, Seizures, TIA HEENT: History of: Glaucoma Endocrine: History of: Diabetes Mellitus (NIDDM) Gastrointestinal: History of: GERD, GI Problems (hernia bulging left lower side) Musculoskeletal: Comment Only: Musculoskeletal Problems (Arthritis) - Surgical History Cardiac Surgeries: Sugical HX of: Cardiac Catheterization (2010) HEENT Surgeries: Surgical HX of: Tonsilectomy & Adenoidectomy Abdominal Surgeries: Surgical HX of: Abdominal Surgery (tummy tuck), Appendectomy, Cholecystectomy Reproductive Surgeries: Surgical HX of;: Hysterectomy - Family History Family History: Reports;: Family Cancer (Sisters, daughters, brother), Family Diabetes (Sisters), Family Heart Disease (Throughout the family), Family Hypertension (Brothers) - Social History Smoking Status: Former smoker Frequency of Alcohol Use: None Type of Drug Use: None Exam Physical Examination: GENERAL: Fragile thin chronically ill-appearing white female with positive O sign HEENT: Normocephalic. No trauma. Moist mucous membranes. EOMI. PERRLA. ENT NML NECK: Supple. No adenopathy. CARDIAC: Regular. No murmurs. Heart rate 83 CHEST: Bibasilar inspiratory rales and anterior expiratory rhonchi. No respiratory distress. O2 sat 96% ABDOMEN: Soft. Nontender. Active bowel sounds. EXTREMITIES: No trauma. Normal ROM. 2+ pedal edema. SKIN: No diaphoresis. No rash. NEURO: Stuporous, withdraws to noxious stimuli. Vital Signs: Vital Signs Temperature 98.3 F 12/30/16 18:23 Pulse Rate 83 12/30/16 19:23 Respiratory Rate 19 12/30/16 19:23 Blood Pressure 117/74 12/30/16 18:23 O2 Sat by Pulse Oximetry 95 12/30/16 19:23 Course - Reevaluation(s) Reevaluation #1: Advise family that patient would have to be admitted once again. - Consultations Consultation #1: Discussed with hospitalist service who will admit for further evaluation treatment. Results - Labs CBC & BMP: 12/30/16 19:05 12/30/16 19:05 Lab Results: I have reviewed the patients labs Labs: I reviewed the laboratory and noted the diffuse abnormalities. - Impressions EKG: Sinus rhythm with prolonged [place] interval and right bundle branch block at rate of 82. Old inferior CT and anteroseptal CT with diffuse ST changes of ischemia. No acute injury pattern noted. - Diagnostic Findings Procedure: Chest x-ray: image reviewed by me, report reviewed by me ( Cardiomegaly with bilateral pleural effusions and moderate pulmonary edema) Disposition Clinical Impression: Congestive heart failure, Renal insufficiency, dense dementia Case discussed with: patient's family Disposition: Still a Patient Condition: Guarded Time of Disposition: 19:59
[2016-12-30] MEDS ORDERED: ALBUTEROL 2.5 MG/3 ML NEB RESP TX SCH (19:00)
[2016-12-30 19:26] LABS: Hematocrit 33.2 VOL% (35.7-47.0); Hemoglobin 10.4 GM/DL (12.0-16.0); Immature Granulocytes % 0.5 %; Immature Granulocytes Absolute 0.03 #; Lymphocytes # 0.3 10*3/uL (1.4-4.0); Lymphocytes % 5.2 % (21.3-54.2); Mean Corpuscular HGB Conc 31.3 GM/DL (32-36); Mean Corpuscular Hemoglobin 30 PG (27-34); Mean Corpuscular Volume 96.8 FL (87-102); Mean Platelet Volume 12.3 FL (9.6-12.0); Monocytes # 0.3 10*3/uL (0.11-0.8); Monocytes % 5.7 % (1.7-12.7); Neutrophils # 5.3 10*3/uL (1.4-7.4); Neutrophils % 88.6 % (38.7-73.9); Platelet Count 151 T/CUMM (130-400); Red Blood Count 3.43 MC/CUMM (3.8-5.5); Red Cell Distribution Width 21.4 % (9.3-17.3)
[2016-12-30 19:37] LABS: INR 1.9; PT Patient Result 20.8 SECS
[2016-12-30 19:45] LABS: Alanine Aminotransferase 129 U/L (13-56); Albumin 2.4 G/DL (3.4-5.0); Alkaline Phosphatase 38 U/L (45-117); Aspartate Amino Transferase 396 U/L (0-37); Blood Urea Nitrogen 61 MG/DL (7-18); Calcium 7.6 MG/DL (8.5-10.1); Glucose 237 MG/DL (74-106); Osmolality,Calculated 314.6 MOS/KG (273-304); Potassium 4.2 MMOL/L (3.5-5.1); Sodium 146 MMOL/L (136-145); Total Protein 6.1 G/DL (6.4-8.3)
[2016-12-30 19:46] LABS: Troponin I Only 0.139 NG/ML (0.00-0.045)
[2016-12-30] MEDS ORDERED: LEVOFLOXACIN INJ 150 ML IV ONE (19:47)
[2016-12-30] MEDS ORDERED: methylPREDNISolone SOD SUC 125 MG/2 ML VIAL ONE (19:47)
[2016-12-30] MEDS ORDERED: FUROSEMIDE 100 MG/10 ML VIAL ONE (19:47)
--- NOTE | 2016-12-30 19:52 | XRay Report ---
Portable chest Date: 12/30/2016 Clinical history: Shortness of breath Comparison: 11/06/2016 Technique: Portable AP sitting chest Findings: Progressive cardiomegaly and diffuse parenchymal findings with enlarging moderate right and smaller pleural effusions. More prominent pulmonary vasculature/sage with degenerative changes. Persistent relative elevation of the right hemidiaphragm. Impression: Progressive cardiomegaly and moderate pulmonary edema. There is associated atelectasis/infiltration with moderate right and small left pleural effusions. PROCEDURE INTERPRETED AT [facility] DEPARTMENT OF RADIOLOGY Final Report Signed by: Dr. Anne Anderson
[2016-12-30 20:52] LABS: Apearance,Urine CLOUDY (Clear); Bacteria,Urine Many /HPF (Few); Bilirubin,Urine Negative (Negative); Blood, Urine Negative (Negative); Glucose,Urine (UA) Negative (Negative); Ketones,Urine Negative (Negative); Mucus,Urine Many /LPF (Occasional); Nitrite,Urine Negative (Negative); Protein,Urine 100 MG/DL; RBC,Urine 46 /HPF (0-4); Urine Color Amber (Yellow); Urine Specific Gravity 1.014 (1.001-1.035); Urine Urobilinogen < 2.0 EU/DL (0.2-1.0); WBC,Urine 509 /HPF (0-6)
--- NOTE | 2016-12-30 21:22 | Hospitalist History & Physical ---
Assessment and Plan (1) Dementia Status: Chronic Assessment and plan: The patient is admitted to the hospital with near terminal state. The patient is swollen and dehydrated. The patient will be admitted for comfort care we will use morphine to help her with shortness of breath, pain, and congestion. The patient has pyuria and will be treated with IV Levaquin. We will obtain pulmonary consultation with Dr. Craft who has known her for many years. DO NOT RESUSCITATE status is appropriate and ordered. Current Visit: No Qualifiers: Dementia type: Alzheimer's disease (2) Recent urinary tract infection Status: Chronic Current Visit: No (3) Chronic renal insufficiency, stage III (moderate) Status: Chronic Current Visit: No (4) Advanced age Status: Chronic Current Visit: No (5) Aspiration syndrome Status: Acute Current Visit: No History of Present Illness Chief complaint: Shortness of breath and increased congestion History of present illness: Ms. Barron is an 89 year old female with failing health in the last year. The patient has dementia. The patient has chronic systolic congestive heart failure with reduced ejection fraction. The patient has had previous strokes and has chronic aspiration. The patient has failing nutrition and despite pleural effusions and edema the patient is dehydrated due to diuretic medication. I had discussion with her daughter at the bedside concerning end-of -life care. The patient appears to have conflicting medical disorders with no apparent solution. The patient's daughter is her decision-maker and we discussed CODE STATUS for 7 minutes. She agreed to DNR status and this was continued. The patient does not smoke tobacco. The patient has profound nutritional deficit and worsening edema and pleural effusions due to hypoalbuminemia. The patient's symptoms of shortness of breath and congestion or moderate to severe, continuous, and worsening. The patient is admitted to the hospital for comfort care and for consultation with Dr. Craft. Home Medications Medication Instructions Recorded Confirmed Type Carvedilol 6.25 mg PO BID W/MEALS 10/10/14 11/06/16 History Cholestyramine [Questran] 4 gm PO TID 10/10/14 11/06/16 History Esomeprazole Magnesium [Nexium] 40 mg PO BEDTIME 10/10/14 11/06/16 History Fenofibric Acid (Choline) 135 mg PO DAILY 10/10/14 11/06/16 History [Trilipix] Ferrous Sulfate 325 mg PO DAILY 10/10/14 11/06/16 History Memantine HCl [Namenda] 20 mg PO DAILY 10/10/14 11/06/16 History PARoxetine HCl [Paroxetine HCl] 30 mg PO BID 10/10/14 11/06/16 History Simvastatin 40 mg PO BID 10/10/14 11/07/16 History sitaGLIPtin [Januvia] 100 mg PO BEDTIME 10/10/14 11/06/16 History Cyanocobalamin Inj [Vitamin B12 1,000 mcg IM Q30D 05/22/16 11/07/16 History Inj] clonazePAM [Klonopin] 1 mg PO BEDTIME 05/22/16 11/06/16 History Diclofenac 1% Gel [Voltaren 1% Gel] 1 applic TOP BID PRN 08/13/16 11/06/16 History Diphenoxylate HCl/Atropine 1 tablet PO BID 08/13/16 11/06/16 History [Diphenoxylate/Atropine 2.5-0.025 mg Tab] Levothyroxine Tab [Synthroid Tab] 50 mcg PO QAM 08/13/16 11/06/16 History Ascorbic Acid [Vitamin C] 1,000 mg PO QPM 09/07/16 11/06/16 History Calcium (Carb)/Vit D 600-400 1 tablet PO BID 09/07/16 11/06/16 History [Caltrate 600 + D] Ergocalciferol (Vitamin D2) 2,000 unit PO DAILY 09/07/16 11/06/16 History [Vitamin D2] Gluc Perez/Chondro Perez A/Vit C/Mn 1 each PO BID 09/07/16 11/06/16 History [Glucosamine Chondroitin Tab] Isosorbide Mononitrate [Isosorbide 30 mg PO DAILY 09/07/16 11/06/16 History Mononitrate ER] Multivit-Min/FA/Lycopen/Lutein 1 each PO DAILY 09/07/16 11/06/16 History [Centrum Silver Tablet] Selenium [Selenium Tab] 400 mcg PO DAILY 09/07/16 11/06/16 History Ubidecarenone [Coenzyme Q10] 400 mg PO QPM 09/07/16 11/06/16 History Vitamin E Cap 1,000 unit PO DAILY 09/07/16 11/06/16 History levETIRAcetam TAB [Keppra Tab] 500 mg PO BID #60 tablet 09/07/16 11/06/16 Rx Aspirin 325 mg PO QAM 10/29/16 11/06/16 History Albuterol/Ipratropium Neb [Duoneb] 3 ml RESP TX RT Q6H 11/06/16 11/06/16 Rx Temazepam [Restoril] 30 mg PO BEDTIME PRN #30 tablet 11/09/16 Rx Allergies Allergy/AdvReac Type Severity Reaction Status Date / Time Penicillins Allergy Severe Swelling Verified 10/08/16 02:03 of Lip/Tongue/Throat zinc Allergy Severe Swelling Verified 10/08/16 02:03 of Lip/Tongue/Throat grapefruit Allergy Intermediate RASH Verified 10/08/16 02:03 Medical,Surgical,& Family Hx - Medical History Cardio: History of: CHF, CAD, Hypertension Neurology: History of: Dementia, Seizures, TIA HEENT: History of: Ear Problem (macular degeneration), Glaucoma Endocrine: History of: Diabetes Mellitus (NIDDM) Gastrointestinal: History of: GERD, GI Problems (hernia bulging left lower side) Musculoskeletal: Comment Only: Musculoskeletal Problems (Arthritis) - Surgical History Cardiac Surgeries: Sugical HX of: Cardiac Catheterization (2010) HEENT Surgeries: Surgical HX of: Tonsilectomy & Adenoidectomy Abdominal Surgeries: Surgical HX of: Abdominal Surgery (tummy tuck), Appendectomy, Cholecystectomy Reproductive Surgeries: Surgical HX of;: Hysterectomy - Family History Family History: Reports;: Family Cancer (Sisters, daughters, brother), Family Diabetes (Sisters), Family Heart Disease (Throughout the family), Family Hypertension (Brothers) - Social History Smoking Status: Former smoker Frequency of Alcohol Use: None Type of Drug Use: None Marital Status: Lives With:: Children Functional capacity: bed bound 12 point system: reviewed and no additional remarkable complaints except as stated Exam - Constitutional Vitals: Period Temp Pulse Resp BP Sys/Alvarado Pulse Ox Last 24 Hr 98.3 F-98.3 F 83-83 18-19 117-117/74-74 95-96 Exam: Constitutional System: Moderate distress on account of chest congestion. No tremulousness. The patient is blind. The patient complains of thirst Head: Normocephalic, atraumatic. Ears, Nose and Throat System: No evidence of Otitis or Mastoiditis. No epistaxis or discharge Eyes System: Pupils equal, round, and reactive. Extraocular muscles intact. Neck: Supple, without adenopathy, 2+ jugular venous distention. No thyromegaly , neck mass, or prior surgery apparent. Respiratory System: Chest moderate upper airway congestion to auscultation. There are reduced chest sounds on the right-hand side consistent with effusion Cardiovascular System: Heart with regular rate and rhythm. 2+ systolic murmur. GI System: Abdomen soft, nontender. Hypo-active bowel sounds present. Musculoskeletal System: limbs with 2+ pedal edema. Reduced distal pulses. Neurological System: No discernable sensory deficit. No aphasia Psychiatric System: Conversation is consistent with dementia Results - Labs CBC & BMP: 12/30/16 19:05 12/30/16 19:05 Lab Results: I have reviewed the past 24 hour labs - Diagnostic Findings Procedure: KUB x-ray: image reviewed by me, report reviewed by me (The patient has cardiomegaly consistent with systolic congestive heart failure. The patient has right pleural effusion and pulmonary edema)
[2016-12-30] MEDS ORDERED: MORPHINE 2 MG/1 ML SYRINGE IV PRN (21:26)
[2016-12-30] MEDS ORDERED: ONDANSETRON 4 MG/2 ML VIAL IV PRN (21:26)
[2016-12-30] MEDS: ENOXAPARIN 30 MG/0.3 ML SYRINGE SUBCUT SCH (23:50)
[2016-12-31 04:54] LABS: Hematocrit 31.3 VOL% (35.7-47.0); Hemoglobin 9.6 GM/DL (12.0-16.0); Immature Granulocytes % 0.7 %; Immature Granulocytes Absolute 0.04 #; Lymphocytes # 0.3 10*3/uL (1.4-4.0); Lymphocytes % 4.7 % (21.3-54.2); Mean Corpuscular HGB Conc 30.7 GM/DL (32-36); Mean Corpuscular Hemoglobin 29 PG (27-34); Mean Corpuscular Volume 95.7 FL (87-102); Mean Platelet Volume 12.8 FL (9.6-12.0); Monocytes # 0.1 10*3/uL (0.11-0.8); Neutrophils # 5.5 10*3/uL (1.4-7.4); Neutrophils % 92.6 % (38.7-73.9); Platelet Count 142 T/CUMM (130-400); Red Blood Count 3.27 MC/CUMM (3.8-5.5); Red Cell Distribution Width 21.2 % (9.3-17.3); White Blood Count 5.9 T/CUMM (4-12)
[2016-12-31 05:17] LABS: Band Neutrophils 4 % (0-10); Lymphocytes 2 % (20-55); Segmented Neutrophils 92 % (50-85); Total Cells Counted 100
[2016-12-31 05:18] LABS: Hypochromasia 1+; Macrocytosis 1+
[2016-12-31 05:19] LABS: Platelet Estimate Adequate
[2016-12-31 05:29] LABS: Calcium 7.8 MG/DL (8.5-10.1); Magnesium 2.1 MG/DL (1.8-2.4); Osmolality,Calculated 314.6 MOS/KG (273-304); Potassium 4.1 MMOL/L (3.5-5.1)
[2016-12-31 05:33] LABS: Troponin I Only 0.099 NG/ML (0.00-0.045)
--- NOTE | 2016-12-31 05:58 | EKG Report ---
Stationary ECG Study [facility] ER Test Date: 12/30/2016 7:11:53 PM Pat Name: WAYLON HERBERT Department: Room: 223 Gender: F Senior Client Advisor: : [id number] Requested by: Jong Coburn Order Number: [id number] Reading MD: SUNNY REESE Intervals [place] Rate: 82 P: 77 RI: 244 QRS: -68 QRSD: 144 T: 108 QT: 417 QTc: 456 Interpretive Statements SINUS RHYTHM WITH 1ST DEGREE AVB RIGHT BUNDLE BRANCH BLOCK INFERIOR MYOCARDIAL INFARCTION, OF INDETERMINATE AGE ANTEROSEPTAL MYOCARDIAL INFARCTION, OF INDETERMINATE AGE MODERATE T-WAVE ABNORMALITY, CONSIDER ISCHEMIA Electronically Signed On 12-31-16 09:53:04 CDT by SUNNY REESE [email or web address]
--- NOTE | 2016-12-31 08:40 | Pulmonology Consult Note ---
History of Present Illness History of present illness: Ms. Barron is a 89 year old female Home Medications Medication Instructions Recorded Confirmed Type Carvedilol 6.25 mg PO BID W/MEALS 10/10/14 12/31/16 History Esomeprazole Magnesium [Nexium] 40 mg PO BEDTIME 10/10/14 12/31/16 History Fenofibric Acid (Choline) 135 mg PO DAILY 10/10/14 12/31/16 History [Trilipix] Ferrous Sulfate 325 mg PO DAILY 10/10/14 12/31/16 History Memantine HCl [Namenda] 20 mg PO DAILY 10/10/14 12/31/16 History PARoxetine HCl [Paroxetine HCl] 30 mg PO BID 10/10/14 12/31/16 History sitaGLIPtin [Januvia] 100 mg PO BEDTIME 10/10/14 12/31/16 History Cyanocobalamin Inj [Vitamin B12 1,000 mcg IM Q30D 05/22/16 12/31/16 History Inj] clonazePAM [Klonopin] 1 mg PO BEDTIME 05/22/16 12/31/16 History Diclofenac 1% Gel [Voltaren 1% Gel] 1 applic TOP BID PRN 08/13/16 12/31/16 History Levothyroxine Tab [Synthroid Tab] 50 mcg PO QAM 08/13/16 12/31/16 History Ascorbic Acid [Vitamin C] 1,000 mg PO QPM 09/07/16 12/31/16 History Calcium (Carb)/Vit D 600-400 1 tablet PO BID 09/07/16 12/31/16 History [Caltrate 600 + D] Ergocalciferol (Vitamin D2) 2,000 unit PO DAILY 09/07/16 12/31/16 History [Vitamin D2] Gluc Perez/Chondro Perez A/Vit C/Mn 1 each PO BID 09/07/16 12/31/16 History [Glucosamine Chondroitin Tab] Isosorbide Mononitrate [Isosorbide 30 mg PO DAILY 09/07/16 12/31/16 History Mononitrate ER] Multivit-Min/FA/Lycopen/Lutein 1 each PO DAILY 09/07/16 12/31/16 History [Centrum Silver Tablet] Selenium [Selenium Tab] 400 mcg PO DAILY 09/07/16 12/31/16 History Ubidecarenone [Coenzyme Q10] 400 mg PO QPM 09/07/16 12/31/16 History Vitamin E Cap 1,000 unit PO DAILY 09/07/16 12/31/16 History Aspirin 325 mg PO QAM 10/29/16 12/31/16 History Albuterol/Ipratropium Neb [Duoneb] 3 ml RESP TX RT Q6H 11/06/16 12/31/16 Rx Temazepam [Restoril] 30 mg PO BEDTIME PRN #30 tablet 11/09/16 12/31/16 Rx Donepezil [Aricept] 5 mg PO BEDTIME 12/31/16 12/31/16 History Furosemide Tab [Lasix Tab] 20 mg PO BID 12/31/16 12/31/16 History Loratadine [Claritin] 10 mg PO DAILY 12/31/16 12/31/16 History Megestrol Acetate [Megace] 5 ml PO BID 12/31/16 12/31/16 History Nitrofurantoin Macro/[place] 100 mg PO BID 12/31/16 12/31/16 History [Macrobid] Polyethylene Glycol Powder 17 gm PO DAILY 12/31/16 12/31/16 History [Miralax] Potassium Chloride Cap/Tab [Micro 8 meq PO DAILY 12/31/16 12/31/16 History K] Simvastatin 20 mg PO BEDTIME 12/31/16 12/31/16 History Sulfameth/Trimeth 800-160 Tab 1 tablet PO BID 12/31/16 12/31/16 History [Bactrim DS Tab] levETIRAcetam [Levetiracetam] 250 mg PO DAILY 12/31/16 12/31/16 History levETIRAcetam [Levetiracetam] 500 mg PO BEDTIME 12/31/16 12/31/16 History Allergies Allergy/AdvReac Type Severity Reaction Status Date / Time Penicillins Allergy Severe Swelling Verified 10/08/16 02:03 of Lip/Tongue/Throat zinc Allergy Severe Swelling Verified 10/08/16 02:03 of Lip/Tongue/Throat grapefruit Allergy Intermediate RASH Verified 10/08/16 02:03 Exam (Pulmonay) H&P - Constitutional Vitals: Period Temp Pulse Resp BP Sys/[place] Pulse Ox Last 24 Hr 97.2 F-98.3 F 76-83 18-20 117-131/66-74 90-97 Medical,Surgical,& Family Hx - Medical History Cardio: History of: CHF, CAD, Hypertension Neurology: History of: Dementia, Seizures, TIA HEENT: History of: Ear Problem (macular degeneration), Glaucoma, 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) Endocrine: History of: Diabetes Mellitus (NIDDM) Genitourinary: History of: Recurring Urinary Tract Infections Gastrointestinal: History of: GERD, GI Problems (hernia bulging left lower side) Musculoskeletal: Comment Only: Musculoskeletal Problems (Arthritis) - Surgical History Cardiac Surgeries: Sugical HX of: Cardiac Catheterization (2010) HEENT Surgeries: Surgical HX of: Tonsilectomy & Adenoidectomy Abdominal Surgeries: Surgical HX of: Abdominal Surgery (tummy tuck), Appendectomy, Cholecystectomy Reproductive Surgeries: Surgical HX of;: Hysterectomy - Family History Family History: Reports;: Family Cancer (brother, breast- mother, sister, daughter), Family Diabetes (Sisters), Family Heart Disease (Throughout the family), Family Hypertension (Brothers), Family Stroke (sister, daughter) - Social History Smoking Status: Former smoker Frequency of Alcohol Use: None Type of Drug Use: None Results - Labs CBC & BMP: 12/31/16 04:10 12/31/16 04:10
--- NOTE | 2016-12-31 09:21 | Hospitalist Progress Note ---
Assessment and Plan (1) Diastolic dysfunction with chronic heart failure Status: Chronic Assessment and plan: Impression: Acute on chronic diastolic congestive heart failure Dementia Acute kidney injury Probable aspiration pneumonia Plan: Pulmonary is going to see the patient. Management of the fluid status will be difficult due to competing needs of the acute kidney injury and the diastolic heart failure. Await results of cultures. She had 1 dose of Levaquin in the emergency room. I have reconciled her other home medications Prognosis is extremely poor. I discussed this with the family. This note was completed using EUD[employer] voice recognition software. There may be early years teacher errors as a result. Current Visit: No Hospitalist: Subjective Interval history: Follow-up acute on chronic diastolic heart failure, acute kidney injury, dementia, possible aspiration. Extensive history is obtained from the family. They report that the patient was in pretty good health except for some dementia for 12 years. About 3 months ago, she had a urinary tract infection complicated by seizures and aspiration. She has been in and out of the hospital, as well as in and out of swing bed situations ever since then. She has continued to fail to thrive. The daughter reports that the patient's urinary infections have not cleared despite multiple antibiotics. The dementia has progressed fairly quickly since the seizures started 3 months ago. The patient is bedbound, and has had some difficulty with worsening fluid retention over the past month or so. She came to the emergency room for some worsening edema in all extremities, worsening cough, and general failure to thrive. Dr. Munroe discussed the situation with the daughter, and the daughter has made the patient "do not attempt resuscitation." Exam - Constitutional Vitals: Period Temp Pulse Resp BP Sys/Alvarado Pulse Ox Last 24 Hr 97.2 F-98.3 F 76-83 18-20 117-131/66-74 90-97 Vital signs are noted above. Heart is regular with a 2/6 holosystolic murmur at the apex. There are rhonchi all over. She has decreased breath sounds in both bases. Abdomen is soft without any mass. She has a millimeter or so of bilateral pretibial edema. She does not communicate with me. Results - Labs CBC & BMP: 12/31/16 04:10 12/31/16 04:10 Lab Results: I have reviewed the past 24 hour labs
[2016-12-31] MEDS ORDERED: DEXTROSE 50% 25 GM/50 ML VIAL IV PRN (09:42)
[2016-12-31] MEDS ORDERED: GLUCAGON 1 MG VIAL IM PRN (09:42)
[2016-12-31] MEDS ORDERED: CYANOCOBALAMIN 1000 MCG/1 ML VIAL IM ONE (09:43)
--- NOTE | 2016-12-31 10:03 | Pulmonology Consult Note ---
History of Present Illness Chief complaint: Congestive heart failure. Mitral regurgitation. Aortic insufficiency. HD History of present illness: Ms. Barron is a 89 year old white female whom I been asked to see in pulmonary consultation. This patient was seen along with her daughter Melinda Michelle and Suresh Mclean nurse practitioner. Mrs. Barron has been a patient of mine for a number of years and her read Anderson was a patient of mine years ago. He is . This patient was admitted with recurrent congestive heart failure. She was here in October and then was at a swing bed and apparently she had a cardiac arrest on several occasions but this is really hard to be certain about based on history that her daughter gave. Patient has been made a DO NOT RESUSCITATE. The daughter tells me that she wants the patient treated if there is anything possible that can be done. This patient has significant congestive heart failure. I will treat her with salt poor albumin followed by Lasix every 8 hours. Will follow x-ray and lab. Daughter says that the patient is cognitive ability is her usual. The remainder the review of systems is negative. Allergies. Penicillin. Zinc. " most antibiotics". Immunizations. Pneumovax 04/29/2011. Yearly flu shots. Past history. Tummy tuck by Dr. Avalos. Hernia repair by Dr. Panda. High blood pressure. Hyperlipidemia. Diabetes type 2. Heart disease with a past history of congestive heart failure and ischemic cardiomyopathy. Chronic renal insufficiency. Hypothyroidism is not. Peripheral neuropathy. Asthma. Degenerative joint disease. Gastroesophageal reflux disease. Irritable bowel syndrome. Obstructive sleep apnea. Mild cognitive impairment. History of depression. History of TIAs. Hypothyroidism. Angiodysplasia of the cecum. This was seen on the colonoscope by Dr. Joshua Sanchez done in 2003. Pernicious anemia secondary to B12 deficiency Social history. Patient quit smoking around 1989. She denies alcohol. She lives with her daughter. Her is Family history. Positive for asthma, diabetes, high blood pressure, heart disease. Echocardiogram done 08/22/[address] Austin Rodriguez showed severe left ventricular hypokinesis and ejection fraction of 2025% range. There was +1 mitral regurgitation. Pulmonary artery pressures were 32 mmHg. Cardiac catheterization 08/10/[address] Rojelio Guzmán showed. 1. Single vessel obstructive coronary disease with occlusion of the right coronary artery in its mid section. 30% occlusion of the circumflex. 2. Unsuccessful attempted dilatation of right coronary artery. 3. Severe cardiomyopathy with ejection fraction 20--25%. Echocardiogram 10/29/2016. Read by Dr. Geiger. Moderately decreased left ventricular systolic function. Left ventricular ejection fraction estimated to be 40%. In the apical view was estimated to be greater than 55%. There was a severely enlarged left atrium with mild to moderate mitral regurgitation. There was mild aortic valve regurgitation. Pulmonary artery pressures were 33.9 mmHg. There was moderate tricuspid regurgitation. Chest x-ray. 12/30/2016. My interpretation. Severe cardiomegaly. Engorged pulmonary arteries. Aortic knob calcification. Bilateral pleural effusions and bilateral interstitial edema all compatible with congestive heart failure. Lab. Natruretic peptide is greater than 5000. Creatinine is 2.4 with a BUN of 65. Sodium is 146. Chloride is 108. Potassium is 4.1. Troponin was 0.139. Total protein and albumin are 6.1 and 2.4 respectively. White blood cell count is 5900 with 92.6 segs. H&H is 9.6/31.3. Calcium is 7.8. Magnesium is 2.1. Urine shows bacteria. Alkaline [place] is normal. AST is elevated at 396. ALT is elevated at 129. Total bilirubin is 0.40. Physical exam. Vital signs. See below. Psychiatric. Arousable and seems to be aware of what is going on. Neurologic. Cranial nerves are grossly intact with decreased hearing acuity. Patient moves all fours. Face. Symmetrical. Lungs no swelling of the lips or tongue. Neck. Symmetrical. No mass. Thyroid was not palpated. No meningismus. Lymphatics. No submandibular cervical supraclavicular or epitrochlear adenopathy. Chest. Generalized rales Heart. Far lateral PMI with a gallop and a grade 2/6 systolic ejection murmur at the left sternal border. Breasts. Deferred Abdomen. Nontender Skin. Appropriate on dorsum of arms. Sacral edema. Edema of the hands. Arterial carotids are decreased and mainly traversed behind the sternocleidomastoid muscles. I hear no bruits. Upper extremity pulses are palpable. Lower extremity pulses cannot be palpated. Venous exam of the neck and upper extremities are normal there is mild chronic venous stasis of the lower extremities. The remainder the exam is noncontributory. Impression. 1. Acute congestive heart failure secondary to heart disease and valvular disease. 2. History of cardiomyopathy. 3. Mild to moderate mitral regurgitation with elevated pulmonary artery pressures and tricuspid regurgitation 4. Aortic valve insufficiency. 5. Chronic renal failure. Note that in November 2016 the patient's creatinine was 1.30. Today it is 2.40. 6. History of asthma. 7. Obstructive sleep apnea 8. Mild to moderate cognitive impairment 9. 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 Diabetes mellitus 11. Hyperlipidemia 12. High blood pressure 13. 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 History of colon polyps. 14. Past history of TIAs 15. Acute urinary tract infection with an unidentified gram-negative carmelo Plan. 1. Patient's daughter has made her DO NOT RESUSCITATE but she wants everything done that is reasonable and she would like to also keep her comfortable. 2. Salt poor albumin, 25 g IV piggyback every 8 hours followed by 20 mg of Lasix IV push every 8 hours. 3. Daily BMP, BNP, chest x-ray 4. This patient with a creatinine of 2.5 at the time of admission got 750 mg of Levaquin IV push in the emergency room on 12/30/2016. Tomorrow I will start 250 IV piggyback once a day and will adjust according to what the creatinine does. 5. I have added back a number of the patient's medicines including her nitrate , Keppra, thyroid, Protonix. 6. Sliding scale insulin. 7. See orders 8. Other things to consider would be a follow-up echocardiogram and cardiology consult if indicated. Home Medications Medication Instructions Recorded Confirmed Type Carvedilol 6.25 mg PO BID W/MEALS 10/10/14 12/31/16 History Esomeprazole Magnesium [Nexium] 40 mg PO BEDTIME 10/10/14 12/31/16 History Fenofibric Acid (Choline) 135 mg PO DAILY 10/10/14 12/31/16 History [Trilipix] Ferrous Sulfate 325 mg PO DAILY 10/10/14 12/31/16 History Memantine HCl [Namenda] 20 mg PO DAILY 10/10/14 12/31/16 History PARoxetine HCl [Paroxetine HCl] 30 mg PO BID 10/10/14 12/31/16 History sitaGLIPtin [Januvia] 100 mg PO BEDTIME 10/10/14 12/31/16 History Cyanocobalamin Inj [Vitamin B12 1,000 mcg IM Q30D 05/22/16 12/31/16 History Inj] clonazePAM [Klonopin] 1 mg PO BEDTIME 05/22/16 12/31/16 History Diclofenac 1% Gel [Voltaren 1% Gel] 1 applic TOP BID PRN 08/13/16 12/31/16 History Levothyroxine Tab [Synthroid Tab] 50 mcg PO QAM 08/13/16 12/31/16 History Ascorbic Acid [Vitamin C] 1,000 mg PO QPM 09/07/16 12/31/16 History Calcium (Carb)/Vit D 600-400 1 tablet PO BID 09/07/16 12/31/16 History [Caltrate 600 + D] Ergocalciferol (Vitamin D2) 2,000 unit PO DAILY 09/07/16 12/31/16 History [Vitamin D2] Gluc Perez/Chondro Perez A/Vit C/Mn 1 each PO BID 09/07/16 12/31/16 History [Glucosamine Chondroitin Tab] Isosorbide Mononitrate [Isosorbide 30 mg PO DAILY 09/07/16 12/31/16 History Mononitrate ER] Multivit-Min/FA/Lycopen/Lutein 1 each PO DAILY 09/07/16 12/31/16 History [Centrum Silver Tablet] Selenium [Selenium Tab] 400 mcg PO DAILY 09/07/16 12/31/16 History Ubidecarenone [Coenzyme Q10] 400 mg PO QPM 09/07/16 12/31/16 History Vitamin E Cap 1,000 unit PO DAILY 09/07/16 12/31/16 History Aspirin 325 mg PO QAM 10/29/16 12/31/16 History Albuterol/Ipratropium Neb [Duoneb] 3 ml RESP TX RT Q6H 11/06/16 12/31/16 Rx Temazepam [Restoril] 30 mg PO BEDTIME PRN #30 tablet 11/09/16 12/31/16 Rx Donepezil [Aricept] 5 mg PO BEDTIME 12/31/16 12/31/16 History Furosemide Tab [Lasix Tab] 20 mg PO BID 12/31/16 12/31/16 History Loratadine [Claritin] 10 mg PO DAILY 12/31/16 12/31/16 History Megestrol Acetate [Megace] 5 ml PO BID 12/31/16 12/31/16 History Nitrofurantoin Macro/[place] 100 mg PO BID 12/31/16 12/31/16 History [Macrobid] Polyethylene Glycol Powder 17 gm PO DAILY 12/31/16 12/31/16 History [Miralax] Potassium Chloride Cap/Tab [Micro 8 meq PO DAILY 12/31/16 12/31/16 History K] Simvastatin 20 mg PO BEDTIME 12/31/16 12/31/16 History Sulfameth/Trimeth 800-160 Tab 1 tablet PO BID 12/31/16 12/31/16 History [Bactrim DS Tab] levETIRAcetam [Levetiracetam] 250 mg PO DAILY 12/31/16 12/31/16 History levETIRAcetam [Levetiracetam] 500 mg PO BEDTIME 12/31/16 12/31/16 History Allergies Allergy/AdvReac Type Severity Reaction Status Date / Time Penicillins Allergy Severe Swelling Verified 10/08/16 02:03 of Lip/Tongue/Throat zinc Allergy Severe Swelling Verified 10/08/16 02:03 of Lip/Tongue/Throat grapefruit Allergy Intermediate RASH Verified 10/08/16 02:03 Exam (Pulmonay) H&P - Constitutional Vitals: Period Temp Pulse Resp BP Sys/[place] Pulse Ox Last 24 Hr 97.2 F-98.3 F 76-83 18-20 117-131/66-74 90-97 Medical,Surgical,& Family Hx - Medical History Cardio: History of: CHF, CAD, Hypertension Neurology: History of: Dementia, Seizures, TIA HEENT: History of: Ear Problem (macular degeneration), Glaucoma, 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) Endocrine: History of: Diabetes Mellitus (NIDDM) Genitourinary: History of: Recurring Urinary Tract Infections Gastrointestinal: History of: GERD, GI Problems (hernia bulging left lower side) Musculoskeletal: Comment Only: Musculoskeletal Problems (Arthritis) - Surgical History Cardiac Surgeries: Sugical HX of: Cardiac Catheterization (2010) HEENT Surgeries: Surgical HX of: Tonsilectomy & Adenoidectomy Abdominal Surgeries: Surgical HX of: Abdominal Surgery (tummy tuck), Appendectomy, Cholecystectomy Reproductive Surgeries: Surgical HX of;: Hysterectomy - Family History Family History: Reports;: Family Cancer (brother, breast- mother, sister, daughter), Family Diabetes (Sisters), Family Heart Disease (Throughout the family), Family Hypertension (Brothers), Family Stroke (sister, daughter) - Social History Smoking Status: Former smoker Frequency of Alcohol Use: None Type of Drug Use: None Results - Labs CBC & BMP: 12/31/16 04:10 12/31/16 04:10
[2016-12-31] MEDS: levETIRAcetam 250 MG TABLET PO SCH (10:25)
[2016-12-31] MEDS: FUROSEMIDE 20 MG/2 ML VIAL IV SCH ×2 (10:26→18:15)
[2016-12-31] MEDS: ISOSORBIDE MONONITRATE 30 MG TABLET PO SCH (10:26)
[2016-12-31] MEDS: LEVOTHYROXINE 50 MCG TABLET PO SCH (10:26)
[2016-12-31] MEDS: PANTOPRAZOLE 40 MG TABLET PO SCH (10:26)
[2016-12-31] MEDS: MEGESTROL 400 MG/10 ML UDCUP PO SCH ×2 (10:26→22:33)
[2016-12-31] MEDS: ALBUMIN 25% 25 GM in PREMIX 1 EACH IV SCH ×2 (11:30→17:11)
[2016-12-31] MEDS: INSULIN REGULAR 100 UNIT/ML SUBCUT SCH ×3 (12:50→22:25)
[2016-12-31] MEDS ORDERED: SKIN HEALING OINT (AQUAPHOR) 50 GM TUBE TOP PRN (15:23)
[2016-12-31] MEDS: SIMVASTATIN 20 MG TABLET PO SCH (22:33)
[2016-12-31] MEDS: DONEPEZIL 5 MG TABLET PO SCH (22:33)
[2016-12-31] MEDS: ENOXAPARIN 30 MG/0.3 ML SYRINGE SUBCUT SCH (22:33)
[2016-12-31] MEDS: levETIRAcetam 500 MG TABLET PO SCH (22:34)
[2017-01-01] MEDS: ALBUMIN 25% 25 GM in PREMIX 1 EACH IV SCH ×3 (03:07→17:40)
[2017-01-01] MEDS: FUROSEMIDE 20 MG/2 ML VIAL IV SCH ×3 (03:11→18:13)
[2017-01-01 06:47] LABS: Calcium 8.2 MG/DL (8.5-10.1); Free T4 (Free Thyroxine) 1.17 NG/DL (0.76-1.46); Magnesium 2.2 MG/DL (1.8-2.4); Osmolality,Calculated 310.8 MOS/KG (273-304); Thyroid Stimulating Hormone 1.27 uIU/ml (0.358-3.74)
--- NOTE | 2017-01-01 07:16 | XRay Report ---
Exam: XR chest 1V portable Date: 01/01/2017 4:00 AM Indication: CHF Comparison: 12/30/2016 Technical: AP portable Findings: Cardiomegaly is present. External cardiac leads are noted. Arthritic changes are present over the shoulders with high riding appearance bilaterally. Low volume effusion present on the right. Mild shunt vascularity and ASVD. Impression: 1. Cardiomegaly with component of underlying interstitial edema CHF similar to previous exam with low volume effusions bilaterally. PROCEDURE INTERPRETED AT [facility] DEPARTMENT OF RADIOLOGY Final Report Signed by: Dr. Stefan Cole
--- NOTE | 2017-01-01 08:38 | Hospitalist Progress Note ---
Assessment and Plan (1) Diastolic dysfunction with chronic heart failure Status: Chronic Assessment and plan: Impression: Acute on chronic diastolic congestive heart failure Dementia Acute kidney injury Probable aspiration pneumonia Plan: Await identification of organism in the urine, and continue Levaquin for now. Continue diuretics with albumin, and follow kidney function. This note was completed using [employer] voice recognition software. There may be trenching machine operator errors as a result. Current Visit: No Hospitalist: Subjective Interval history: Follow-up acute on chronic kidney disease, urinary tract infection, dementia, and deconditioning. The patient is eating breakfast. She says that she is not hungry, but she continues to eat. 1 of 2 blood cultures is positive for gram-positive cocci. Her urine is growing gram-negative rods which have yet to be identified further. Pulmonary has seen the patient, and we appreciate their assistance. Her creatinine is trending up. Exam - Constitutional Vitals: Period Temp Pulse Resp BP Sys/[place] Pulse Ox Last 24 Hr 97.1 F-98.2 F 79-95 18-20 126-144/56-91 90-95 Vital signs are noted above. Heart is regular with distant tones and no murmur. She has a wet cough with some scattered rhonchi. There is no significant peripheral edema. She is awake and conversant. Results - Labs CBC & BMP: 12/31/16 04:10 01/01/17 04:53 Lab Results: I have reviewed the past 24 hour labs (Creatinine is trending up. This is likely due to diuretics.)
--- NOTE | 2017-01-01 09:25 | Pulmonology Progress Note ---
Pulmonary - PN: Subj Interval history: This 89-year-old white female longtime patient of mine whom I saw in pulmonary consultation on 12/31/2016. My impressions were. #1. Acute congestive heart failure secondary to heart disease and valvular disease. 2. History of cardiomyopathy. 3. Mild to moderate mitral regurgitation with elevated pulmonary artery pressures and tricuspid regurgitation 4. Aortic valve insufficiency. 5. Chronic renal failure. Note that in November 2016 the patient's creatinine was 1.30. Today it is 2.40. 6. History of asthma. 7. Obstructive sleep apnea 8. Mild to moderate cognitive impairment 9. 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 Diabetes mellitus 11. Hyperlipidemia 12. High blood pressure 13. 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 History of colon polyps. 14. Past history of TIAs 15. Acute urinary tract infection with an unidentified gram-negative carmelo 01/01/2017. Patient chest x-ray is improved. She still has congestive heart failure but this is good bit better than it was one day ago. Creatinine is increased from 2.4 to 2.9. Several months ago her creatinine was 1.3. Typically in my office her creatinine has been 1.8. She is on salt poor albumin 25 g IV piggyback every 8 hours followed by Lasix 20 mg IV push every 8 hours. I am going to ask renal to see the patient. Her natruretic peptide is greater than 5000. She has underlying heart disease. Electrolytes are normal. Patient has blood culture drawn 12/30/2016 positive for gram-positive cocci which is yet to be identified. She also has a urine culture which is growing a gram-negative carmelo, gram-positive cocci and the micro Streptococcus. Patient received a huge dose of Levaquin at the time of admission. Today we will start Levaquin 250 mg every 48 hours. Ultrasounds of the kidneys have been ordered. Today the patient is a little more alert breathing is much easier. Her daughter is not present. Physical exam. Vital signs. See below. Face. Symmetrical. No edema of the lips or tongue. Neck. Symmetrical. No meningismus. Psychiatric. Arousable. Can follow instructions when she wants to. Neurologic. Cranial nerves are intact with decreased hearing acuity bilaterally. Long track motor function is intact. Sensory exam was not done in gait was not tested. Chest. Previously very prominent rales. Now nearly resolved. Heart. Lateral diffuse PMI Abdomen. Nondistended. Rare bowel sounds. Extremities. Only a trace of pedal edema. Lymphatics. No submandibular cervical supraclavicular or epitrochlear adenopathy. The remainder the physical exam is noncontributory and negative Plan. 12/31/2016 1. Patient's daughter has made her DO NOT RESUSCITATE but she wants everything done that is reasonable and she would like to also keep her comfortable. 2. Salt poor albumin, 25 g IV piggyback every 8 hours followed by 20 mg of Lasix IV push every 8 hours. 3. Daily BMP, BNP, chest x-ray 4. This patient with a creatinine of 2.5 at the time of admission got 750 mg of Levaquin IV push in the emergency room on 12/30/2016. Tomorrow I will start 250 IV piggyback once a day and will adjust according to what the creatinine does. 5. I have added back a number of the patient's medicines including her nitrate , Keppra, thyroid, Protonix. 6. Sliding scale insulin. 7. See orders 8. Other things to consider would be a follow-up echocardiogram and cardiology consult if indicated. 01/01/2017. 1. Ultrasound of the kidneys. 2. Renal consultation. 3. Check urine and blood cultures when available 4. Levaquin. Renal dose. 5. Daily lab and chest x-ray. 6. See today's note above. Exam (Progress Note) - Constitutional Vitals: Period Temp Pulse Resp BP Sys/[place]var[place] Pulse Ox Last 24 Hr 97.1 F-98.2 F 79-95 18-20 126-144/56-91 90-95 Results - Labs CBC & BMP: 12/31/16 04:10 01/01/17 04:53
[2017-01-01] MEDS ORDERED: ALBUTEROL/IPRATROPIUM 3 ML NEB RESP TX PRN (09:28)
[2017-01-01] MEDS: PANTOPRAZOLE 40 MG TABLET PO SCH (09:28)
[2017-01-01] MEDS: ISOSORBIDE MONONITRATE 30 MG TABLET PO SCH (09:28)
[2017-01-01] MEDS: LEVOTHYROXINE 50 MCG TABLET PO SCH (09:28)
[2017-01-01] MEDS: levETIRAcetam 250 MG TABLET PO SCH (09:29)
[2017-01-01] MEDS: LORATADINE 10 MG TABLET PO SCH (09:29)
[2017-01-01] MEDS: MEGESTROL 400 MG/10 ML UDCUP PO SCH ×2 (09:29→20:17)
[2017-01-01] MEDS: POLYETHYLENE GLYCOL POWDER 17 GM PACK PO SCH (09:30)
[2017-01-01] MEDS: INSULIN REGULAR 100 UNIT/ML SUBCUT SCH ×4 (09:56→21:32)
[2017-01-01] MEDS ORDERED: LEVOFLOXACIN INJ 250 MG in PREMIX 1 EACH IV SCH ×2 (10:00→21:00)
[2017-01-01] MEDS: ALBUTEROL/IPRATROPIUM 3 ML NEB RESP TX SCH ×2 (13:49→19:50)
--- NOTE | 2017-01-01 16:10 | Nephrology Consult Note ---
History of Present Illness Chief complaint: Acute renal failure acute on chronic renal failure History of present illness: Ms. Barron is a 89 year old female history of hypertension diabetes cardiomyopathy presented with CHF exacerbation was also found to have urinary tract infection and positive blood cultures. There is been no evidence of hypotension during this hospitalization however patient serum creatinine is noted to be trended up to 2.9. There is no history of NSAID medication. However nephrology is been consulted for acute renal failure. Patient is nonverbal unable to give any further history no seizure activity today. Home Medications Medication Instructions Recorded Confirmed Type Carvedilol 6.25 mg PO BID W/MEALS 10/10/14 12/31/16 History Esomeprazole Magnesium [Nexium] 40 mg PO BEDTIME 10/10/14 12/31/16 History Fenofibric Acid (Choline) 135 mg PO DAILY 10/10/14 12/31/16 History [Trilipix] Ferrous Sulfate 325 mg PO DAILY 10/10/14 12/31/16 History Memantine HCl [Namenda] 20 mg PO DAILY 10/10/14 12/31/16 History PARoxetine HCl [Paroxetine HCl] 30 mg PO BID 10/10/14 12/31/16 History sitaGLIPtin [Januvia] 100 mg PO BEDTIME 10/10/14 12/31/16 History Cyanocobalamin Inj [Vitamin B12 1,000 mcg IM Q30D 05/22/16 12/31/16 History Inj] clonazePAM [Klonopin] 1 mg PO BEDTIME 05/22/16 12/31/16 History Diclofenac 1% Gel [Voltaren 1% Gel] 1 applic TOP BID PRN 08/13/16 12/31/16 History Levothyroxine Tab [Synthroid Tab] 50 mcg PO QAM 08/13/16 12/31/16 History Ascorbic Acid [Vitamin C] 1,000 mg PO QPM 09/07/16 12/31/16 History Calcium (Carb)/Vit D 600-400 1 tablet PO BID 09/07/16 12/31/16 History [Caltrate 600 + D] Ergocalciferol (Vitamin D2) 2,000 unit PO DAILY 09/07/16 12/31/16 History [Vitamin D2] Gluc Perez/Chondro Perez A/Vit C/Mn 1 each PO BID 09/07/16 12/31/16 History [Glucosamine Chondroitin Tab] Isosorbide Mononitrate [Isosorbide 30 mg PO DAILY 09/07/16 12/31/16 History Mononitrate ER] Multivit-Min/FA/Lycopen/Lutein 1 each PO DAILY 09/07/16 12/31/16 History [Centrum Silver Tablet] Selenium [Selenium Tab] 400 mcg PO DAILY 09/07/16 12/31/16 History Ubidecarenone [Coenzyme Q10] 400 mg PO QPM 09/07/16 12/31/16 History Vitamin E Cap 1,000 unit PO DAILY 09/07/16 12/31/16 History Aspirin 325 mg PO QAM 10/29/16 12/31/16 History Albuterol/Ipratropium Neb [Duoneb] 3 ml RESP TX RT Q6H 11/06/16 12/31/16 Rx Temazepam [Restoril] 30 mg PO BEDTIME PRN #30 tablet 11/09/16 12/31/16 Rx Donepezil [Aricept] 5 mg PO BEDTIME 12/31/16 12/31/16 History Furosemide Tab [Lasix Tab] 20 mg PO BID 12/31/16 12/31/16 History Loratadine [Claritin] 10 mg PO DAILY 12/31/16 12/31/16 History Megestrol Acetate [Megace] 5 ml PO BID 12/31/16 12/31/16 History Nitrofurantoin Macro/[place]way 100 mg PO BID 12/31/16 12/31/16 History [Macrobid] Polyethylene Glycol Powder 17 gm PO DAILY 12/31/16 12/31/16 History [Miralax] Potassium Chloride Cap/Tab [Micro 8 meq PO DAILY 12/31/16 12/31/16 History K] Simvastatin 20 mg PO BEDTIME 12/31/16 12/31/16 History Sulfameth/Trimeth 800-160 Tab 1 tablet PO BID 12/31/16 12/31/16 History [Bactrim DS Tab] levETIRAcetam [Levetiracetam] 250 mg PO DAILY 12/31/16 12/31/16 History levETIRAcetam [Levetiracetam] 500 mg PO BEDTIME 12/31/16 12/31/16 History Allergies Allergy/AdvReac Type Severity Reaction Status Date / Time Penicillins Allergy Severe Swelling Verified 10/08/16 02:03 of Lip/Tongue/Throat zinc Allergy Severe Swelling Verified 10/08/16 02:03 of Lip/Tongue/Throat grapefruit Allergy Intermediate RASH Verified 10/08/16 02:03 Medical,Surgical,& Family Hx - Medical History Cardio: History of: CHF, CAD, Hypertension Neurology: History of: Dementia, Seizures, TIA HEENT: History of: Ear Problem (macular degeneration), Glaucoma, 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) Endocrine: History of: Diabetes Mellitus (NIDDM) Genitourinary: History of: Recurring Urinary Tract Infections Gastrointestinal: History of: GERD, GI Problems (hernia bulging left lower side) Musculoskeletal: Comment Only: Musculoskeletal Problems (Arthritis) - Surgical History Cardiac Surgeries: Sugical HX of: Cardiac Catheterization (2010) HEENT Surgeries: Surgical HX of: Tonsilectomy & Adenoidectomy Abdominal Surgeries: Surgical HX of: Abdominal Surgery (tummy tuck), Appendectomy, Cholecystectomy Reproductive Surgeries: Surgical HX of;: Hysterectomy - Family History Family History: Reports;: Family Cancer (brother, breast- mother, sister, daughter), Family Diabetes (Sisters), Family Heart Disease (Throughout the family), Family Hypertension (Brothers), Family Stroke (sister, daughter) - Social History Smoking Status: Former smoker Frequency of Alcohol Use: None Type of Drug Use: None Review of Systems ROS unobtainable: due to mental status Exam - Vital Signs Vital signs: Period Temp Pulse Resp BP Sys/Alvarado Pulse Ox Last 24 Hr 97.1 F-98.2 F 79-95 18-30 128-144/56-92 88-98 - General Appearance General appearance: well-developed Neck: supple Respiratory: clear Cardiology: edema (1+), regular rate, regular rhythm Gastrointestinal: normoactive bowel sounds, no tenderness, no guarding Results - Labs CBC & BMP: 12/31/16 04:10 01/01/17 04:53 Assessment and Plan (1) Dementia Status: Chronic Current Visit: No Qualifiers: Dementia type: Alzheimer's disease (2) Recent urinary tract infection Status: Chronic Assessment and plan: Currently patient on broad-spectrum antibiotics. Current Visit: No (3) Chronic renal insufficiency, stage III (moderate) Status: Chronic Assessment and plan: Process of acute on chronic renal failure. Will get renal ultrasound. Avoid nephrotoxic agents. BMP in a.m. Will follow along. Current Visit: No (4) Advanced age Status: Chronic Current Visit: No (5) Debility Status: Chronic Current Visit: No (6) CHF (congestive heart failure) Status: Acute Current Visit: No Qualifiers: Congestive heart failure type: combined
--- NOTE | 2017-01-01 18:16 | Ultrasound Report ---
Exam: US renal Bilateral Date: 01/01/2017 4:02 PM Comparison: 12/05/2009 Indication: Elevated creatinine Technique:[Portable transabdominal real-time scans were obtained of the kidneys. Ultrasound images were captured and stored.] Findings: Right kidney measures 102 x 50 x 42 mm compared to 102 x 38 x 37 mm. Left kidney measures 97 x 34 x 33 mm compared to 98 x 50 x 48 mm. 6 mm upper pole, 12 mm midpole, and 16 mm lower pole simple appearing left renal cysts. No hydronephrosis. Inhomogeneous echogenicity in the kidneys. Impression: No significant change in the size of the kidneys with persistent cortical loss and small left renal cysts. No hydronephrosis. Inhomogeneous echogenicity which can be seen with possible medical renal disease. PROCEDURE INTERPRETED AT [facility] DEPARTMENT OF RADIOLOGY Final Report Signed by: Dr. Anne Anderson
[2017-01-01] MEDS: ENOXAPARIN 30 MG/0.3 ML SYRINGE SUBCUT SCH (20:16)
[2017-01-01] MEDS: SIMVASTATIN 20 MG TABLET PO SCH (20:17)
[2017-01-01] MEDS: levETIRAcetam 500 MG TABLET PO SCH (20:17)
[2017-01-01] MEDS: DONEPEZIL 5 MG TABLET PO SCH (20:17)
[2017-01-02] MEDS: ALBUTEROL/IPRATROPIUM 3 ML NEB RESP TX SCH ×4 (00:21→19:00)
[2017-01-02] MEDS: FUROSEMIDE 20 MG/2 ML VIAL IV SCH ×3 (01:48→22:49)
[2017-01-02] MEDS: ALBUMIN 25% 25 GM in PREMIX 1 EACH IV SCH ×3 (01:48→22:17)
[2017-01-02 07:27] LABS: Calcium 7.8 MG/DL (8.5-10.1); Magnesium 2.4 MG/DL (1.8-2.4); Osmolality,Calculated 319.6 MOS/KG (273-304); Potassium 3.9 MMOL/L (3.5-5.1)
--- NOTE | 2017-01-02 07:39 | XRay Report ---
Exam: XR chest 1V portable Date: 01/02/2017 4:00 AM Indication: CHF follow-up Comparison: None Technical: AP portable Findings: Cardiomegaly present. ASVD is present. Low volume effusions are present. Underlying alveolar interstitial edema present bilaterally superimposed on chronic lung disease. External cardiac leads are present. Prior cholecystectomy. No pneumothorax. Mild levoscoliotic curve present. Impression: 1. Slight increasing effusions in both bases with component of CHF superimposed on chronic lung disease.. Overall findings appear slightly worse when compared to previous exam PROCEDURE INTERPRETED AT [facility] DEPARTMENT OF RADIOLOGY Final Report Signed by: Dr. Stefan Cole
[2017-01-02] MEDS: INSULIN REGULAR 100 UNIT/ML SUBCUT SCH ×4 (08:42→20:59)
[2017-01-02] MEDS: MEGESTROL 400 MG/10 ML UDCUP PO SCH ×2 (08:42→20:59)
[2017-01-02] MEDS: POLYETHYLENE GLYCOL POWDER 17 GM PACK PO SCH (08:42)
[2017-01-02] MEDS: ISOSORBIDE MONONITRATE 30 MG TABLET PO SCH (08:43)
[2017-01-02] MEDS: LEVOTHYROXINE 50 MCG TABLET PO SCH (08:43)
[2017-01-02] MEDS: LORATADINE 10 MG TABLET PO SCH (08:43)
[2017-01-02] MEDS: PANTOPRAZOLE 40 MG TABLET PO SCH (08:44)
[2017-01-02] MEDS: levETIRAcetam 250 MG TABLET PO SCH (08:44)
--- NOTE | 2017-01-02 08:56 | Hospitalist Progress Note ---
Assessment and Plan (1) Diastolic dysfunction with chronic heart failure Status: Chronic Assessment and plan: Impression: Acute on chronic diastolic congestive heart failure Dementia Acute kidney injury Probable aspiration pneumonia Bacteremia Urinary tract infection Plan: Antibiotics have been adjusted for the organism in the urine. Wait on identification of the organism in the blood culture; unless it is MRSA, the Ancef should be adequate. I am not sure what to make of the elevated BNP in the face of the rising creatinine. Her chest x-ray appears stable with regard to pulmonary vascular congestion. Continue current diuretic regimen. This note was completed using [employer] voice recognition software. There may be environmental services supervisor errors as a result. Current Visit: No Hospitalist: Subjective Interval history: Follow-up acute on chronic diastolic congestive heart failure, dementia, urinary tract infection, possible aspiration pneumonia. The patient is sitting up in the bed. She offers no complaints. There is no family in the room. Her chest x-ray does not show any significant change from the past couple of days. Urine cultures growing E. coli, and it is resistant to Levaquin. Now both blood cultures are growing gram-positive cocci, these have yet to be further identified. Exam - Constitutional Vitals: Period Temp Pulse Resp BP Sys/Alvarado Pulse Ox Last 24 Hr 96.4 F-97.6 F 81-95 16-30 128-144/68-92 88-98 Heart is irregular with distant tones. She has decreased breath sounds and some scattered rales throughout the lung olivera. She has some edema in the lower extremities, mostly confined to the thighs. She is awake and conversant Results - Labs CBC & BMP: 12/31/16 04:10 01/02/17 05:54 Lab Results: I have reviewed the past 24 hour labs (Creatinine is trending up. BNP remains greater than 5000)
--- NOTE | 2017-01-02 09:30 | Pulmonology Progress Note ---
Pulmonary - PN: Subj Interval history: This 89-year-old white female longtime patient of mine whom I saw in pulmonary consultation on 12/31/2016. My impressions were. #1. Acute congestive heart failure secondary to heart disease and valvular disease. 2. History of cardiomyopathy. 3. Mild to moderate mitral regurgitation with elevated pulmonary artery pressures and tricuspid regurgitation 4. Aortic valve insufficiency. 5. Chronic renal failure. Note that in November 2016 the patient's creatinine was 1.30. Today it is 2.40. 6. History of asthma. 7. Obstructive sleep apnea 8. Mild to moderate cognitive impairment 9. 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 Diabetes mellitus 11. Hyperlipidemia 12. High blood pressure 13. 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 History of colon polyps. 14. Past history of TIAs 15. Acute urinary tract infection with an unidentified gram-negative carmelo 01/01/2017. Patient chest x-ray is improved. She still has congestive heart failure but this is good bit better than it was one day ago. Creatinine is increased from 2.4 to 2.9. Several months ago her creatinine was 1.3. Typically in my office her creatinine has been 1.8. She is on salt poor albumin 25 g IV piggyback every 8 hours followed by Lasix 20 mg IV push every 8 hours. I am going to ask renal to see the patient. Her natruretic peptide is greater than 5000. She has underlying heart disease. Electrolytes are normal. Patient has blood culture drawn 12/30/2016 positive for gram-positive cocci which is yet to be identified. She also has a urine culture which is growing a gram-negative carmelo, gram-positive cocci and the micro Streptococcus. Patient received a huge dose of Levaquin at the time of admission. Today we will start Levaquin 250 mg every 48 hours. Ultrasounds of the kidneys have been ordered. Today the patient is a little more alert breathing is much easier. Her daughter is not present. 01/01/2017. Patient's daughter is not present. Patient sitting up in bed she is talkative. She says she feels better than before. Today's chest x-ray is the same as yesterday. There is still residual congestive heart failure but this is markedly improved. Urine cultures from 12/30/2016 grown E. coli and that is being treated based on sensitivities. Blood cultures from 12/30/2016 and 12/31/2016 growing a gram-positive cocci which is yet to be identified.. Dr. Chan is seeing the patient in renal consultation and I appreciate his help. Creatinine is 3.10 with a BUN of 86. Electrolytes are normal. Natruretic peptide remains greater than 5000. Thyroid function tests are normal. Overall the patient is better from a current congestive heart failure standpoint and a level of alertness standpoint. Kidneys continue to be a problem. Physical exam. Vital signs. See below. Face. Symmetrical. No edema of the lips or tongue. Neck. Symmetrical. No meningismus. Psychiatric. Arousable. Alert. Will answer questions. Can follow instructions when she wants to. Neurologic. Cranial nerves are intact with decreased hearing acuity bilaterally. Long track motor function is intact. Sensory exam was not done in gait was not tested. Chest. Previously very prominent rales. Now nearly resolved. Heart. Lateral diffuse PMI Abdomen. Nondistended. Rare bowel sounds. Extremities. Only a trace of pedal edema. Lymphatics. No submandibular cervical supraclavicular or epitrochlear adenopathy. The remainder the physical exam is noncontributory and negative Plan. 12/31/2016 1. Patient's daughter has made her DO NOT RESUSCITATE but she wants everything done that is reasonable and she would like to also keep her comfortable. 2. Salt poor albumin, 25 g IV piggyback every 8 hours followed by 20 mg of Lasix IV push every 8 hours. 3. Daily BMP, BNP, chest x-ray 4. This patient with a creatinine of 2.5 at the time of admission got 750 mg of Levaquin IV push in the emergency room on 12/30/2016. Tomorrow I will start 250 IV piggyback once a day and will adjust according to what the creatinine does. 5. I have added back a number of the patient's medicines including her nitrate , Keppra, thyroid, Protonix. 6. Sliding scale insulin. 7. See orders 8. Other things to consider would be a follow-up echocardiogram and cardiology consult if indicated. 01/01/2017. 1. Ultrasound of the kidneys. 2. Renal consultation. 3. Check urine and blood cultures when available 4. Levaquin. Renal dose. 5. Daily lab and chest x-ray. 6. See today's note above. 01/02/2017. 1. Appreciate renal consultation. 2. See my note above. 3. Follow-up chest x-ray and lab. Exam (Progress Note) - Constitutional Vitals: Period Temp Pulse Resp BP Sys/Alvarado Pulse Ox Last 24 Hr 96.4 F-97.6 F 81-95 16-30 128-144/68-92 88-98 Results - Labs CBC & BMP: 12/31/16 04:10 01/02/17 05:54
--- NOTE | 2017-01-02 10:47 | Nephrology Progress Note ---
Nephrology - PN: Subj Interval history: The patient is awake and more alert today. Serum creatinine noted to be elevated at 3.1. Nonoliguric. No fevers or chills. Continue to monitor for renal recovery. Exam (PN)-Nephrology - Vital Signs Vital signs: Period Temp Pulse Resp BP Sys/Alvarado Pulse Ox Last 24 Hr 96.4 F-97.6 F 81-95 16-30 128-144/68-92 88-98 - General Appearance General appearance: well-developed, frail EENT: ATNC Neck: supple Respiratory: clear Cardiology: no edema, regular rate, regular rhythm Gastrointestinal: normoactive bowel sounds, no tenderness Integumentary: no rash - Lab 12/31/16 04:10 01/02/17 05:54 Most recent lab results Calcium 7.8 MG/DL (8.5-10.1) L 01/02/17 05:54 Magnesium 2.4 MG/DL (1.8-2.4) 01/02/17 05:54 Assessment and Plan (1) Dementia Status: Chronic Current Visit: No Qualifiers: Dementia type: Alzheimer's disease (2) Recent urinary tract infection Status: Chronic Assessment and plan: Currently patient on broad-spectrum antibiotics. Current Visit: No (3) Chronic renal insufficiency, stage III (moderate) Status: Chronic Assessment and plan: Process of acute on chronic renal failure. Avoid nephrotoxic agents. BMP in a.m. Will follow along. Current Visit: No (4) Advanced age Status: Chronic Current Visit: No (5) Debility Status: Chronic Current Visit: No (6) CHF (congestive heart failure) Status: Acute Current Visit: No Qualifiers: Congestive heart failure type: combined
[2017-01-02] MEDS ORDERED: VANCOMYCIN INJ 1,000 MG in SODIUM CHLORIDE 0.9% 250 ML IV PRN (14:54)
[2017-01-02] MEDS ORDERED: VANCOMYCIN INJ 1,750 MG in SODIUM CHLORIDE 0.9% 500 ML IV ONE (15:00)
[2017-01-02] MEDS: DESITIN 4OZ/NYSTATIN 15 GRAM MIXTURE PASTE TOP SCH ×2 (16:42→20:59)
[2017-01-02] MEDS: ENOXAPARIN 30 MG/0.3 ML SYRINGE SUBCUT SCH (20:58)
[2017-01-02] MEDS: DONEPEZIL 5 MG TABLET PO SCH (20:59)
[2017-01-02] MEDS: SIMVASTATIN 20 MG TABLET PO SCH (20:59)
[2017-01-02] MEDS: levETIRAcetam 500 MG TABLET PO SCH (20:59)
[2017-01-03] MEDS: ALBUTEROL/IPRATROPIUM 3 ML NEB RESP TX SCH ×4 (00:02→19:33)
[2017-01-03 04:17] LABS: Calcium 8.1 MG/DL (8.5-10.1); Magnesium 2.2 MG/DL (1.8-2.4); Osmolality,Calculated 321.4 MOS/KG (273-304); Potassium 3.4 MMOL/L (3.5-5.1)
[2017-01-03] MEDS: ALBUMIN 25% 25 GM in PREMIX 1 EACH IV SCH ×3 (05:11→21:38)
[2017-01-03] MEDS: FUROSEMIDE 20 MG/2 ML VIAL IV SCH ×3 (06:11→22:42)
--- NOTE | 2017-01-03 06:55 | XRay Report ---
Exam: XR chest 1V portable Date: 01/03/2017 4:00 AM Indication: CHF Comparison: 01/02/2017 Technical: AP portable Findings: External cardiac leads oxygen tubing are present. Cardiomegaly is present. Low volume effusions are present bilaterally with mild shunt vascularity interstitial edema alveolar edema present bilaterally. Some underlying atelectatic changes also suspected. No obvious pneumothorax. ASVD is present. Impression: 1. Cardiomegaly with component of underlying CHF and effusions and alveolar edema interstitial edema slightly worse when compared to previous exam PROCEDURE INTERPRETED AT [facility] DEPARTMENT OF RADIOLOGY Final Report Signed by: Dr. Stefan Cole
--- NOTE | 2017-01-03 09:23 | Hospitalist Progress Note ---
Assessment and Plan (1) Diastolic dysfunction with chronic heart failure Status: Chronic Assessment and plan: Impression: Acute on chronic diastolic congestive heart failure Dementia Acute kidney injury Probable aspiration pneumonia Bacteremia; organisms identified may be contaminants Urinary tract infection Plan: Antibiotics have been adjusted for the organism in the urine. I think the organisms in the blood are contaminants, and we should consider discontinuing the vancomycin. I am not sure what to make of the elevated BNP in the face of the rising creatinine. Her chest x-ray appears worse with regard to pulmonary vascular congestion. Continue current diuretic regimen. This note was completed using [employer] voice recognition software. There may be substance abuse rn errors as a result. Current Visit: No Hospitalist: Subjective Interval history: Follow-up acute on chronic diastolic heart failure, acute on chronic kidney disease, urinary tract infection, bacteremia, dementia. The patient looks worse today. She has a wet cough. She is poorly responsive. Despite diuresis, her chest x-ray continues to deteriorate, and her kidney function has shown no sign of improvement. She is growing 2 different staph species and her blood cultures; these may both be contaminants. E. coli in the urine is covered by the cefazolin. Exam - Constitutional Vitals: Period Temp Pulse Resp BP Sys/Alvarado Pulse Ox Last 24 Hr 97 F-97.7 F 83-95 16-24 127-147/80-97 91-99 Vital signs are noted above. Heart is regular with distant tones. She has rales all over the chest. She is poorly responsive, and exhibits a wet cough. Results - Labs CBC & BMP: 12/31/16 04:10 01/03/17 03:24 Lab Results: I have reviewed the past 24 hour labs
--- NOTE | 2017-01-03 09:51 | Pulmonology Progress Note ---
Pulmonary - PN: Subj Interval history: This 89-year-old white female longtime patient of mine whom I saw in pulmonary consultation on 12/31/2016. My impressions were. #1. Acute congestive heart failure secondary to heart disease and valvular disease. 2. History of cardiomyopathy. 3. Mild to moderate mitral regurgitation with elevated pulmonary artery pressures and tricuspid regurgitation 4. Aortic valve insufficiency. 5. Chronic renal failure. Note that in November 2016 the patient's creatinine was 1.30. Today it is 2.40. 6. History of asthma. 7. Obstructive sleep apnea 8. Mild to moderate cognitive impairment 9. 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 Diabetes mellitus 11. Hyperlipidemia 12. High blood pressure 13. 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 History of colon polyps. 14. Past history of TIAs 15. Acute urinary tract infection with an unidentified gram-negative carmelo 01/01/2017. Patient chest x-ray is improved. She still has congestive heart failure but this is good bit better than it was one day ago. Creatinine is increased from 2.4 to 2.9. Several months ago her creatinine was 1.3. Typically in my office her creatinine has been 1.8. She is on salt poor albumin 25 g IV piggyback every 8 hours followed by Lasix 20 mg IV push every 8 hours. I am going to ask renal to see the patient. Her natruretic peptide is greater than 5000. She has underlying heart disease. Electrolytes are normal. Patient has blood culture drawn 12/30/2016 positive for gram-positive cocci which is yet to be identified. She also has a urine culture which is growing a gram-negative carmelo, gram-positive cocci and the micro Streptococcus. Patient received a huge dose of Levaquin at the time of admission. Today we will start Levaquin 250 mg every 48 hours. Ultrasounds of the kidneys have been ordered. Today the patient is a little more alert breathing is much easier. Her daughter is not present. 01/02/2017. Patient's daughter is not present. Patient sitting up in bed she is talkative. She says she feels better than before. Today's chest x-ray is the same as yesterday. There is still residual congestive heart failure but this is markedly improved. Urine cultures from 12/30/2016 grown E. coli and that is being treated based on sensitivities. Blood cultures from 12/30/2016 and 12/31/2016 growing a gram-positive cocci which is yet to be identified.. Dr. Chan is seeing the patient in renal consultation and I appreciate his help. Creatinine is 3.10 with a BUN of 86. Electrolytes are normal. Natruretic peptide remains greater than 5000. Thyroid function tests are normal. Overall the patient is better from a current congestive heart failure standpoint and a level of alertness standpoint. Kidneys continue to be a problem. 01/03/2017. Patient's daughter was present today and I went over the case with her. Patient has maintain the improvement in her level of alertness that I observed yesterday. Her chest x-ray looks worse today but is is grossly underpenetrated. She still has congestive heart failure but she appears much more comfortable with her breathing. Creatinine is dropped from 3.1-3.0 with a BUN of 89. Sodium is 147. Potassium is 3.4. Chloride is 108. Natruretic peptide is greater than 5000. Dr. Chan to see in her in renal consultation. Blood cultures have grown E. coli. Urine cultures have grown E. coli, staph hominis, staph hemolyticus. Patient is covered with present antibiotics. I think we should continue to treat reversible findings. This is a daughter's request. And I agree. Physical exam. Vital signs. See below. Face. Symmetrical. No edema of the lips or tongue. Neck. Symmetrical. No meningismus. Psychiatric. Arousable. Alert. Will answer questions. Can follow instructions when she wants to. Neurologic. Cranial nerves are intact with decreased hearing acuity bilaterally. Long track motor function is intact. Sensory exam was not done in gait was not tested. Chest. Previously very prominent rales. Now nearly resolved. Heart. Lateral diffuse PMI Abdomen. Nondistended. Rare bowel sounds. Extremities. Only a trace of pedal edema. Lymphatics. No submandibular cervical supraclavicular or epitrochlear adenopathy. The remainder the physical exam is noncontributory and negative Plan. 12/31/2016 1. Patient's daughter has made her DO NOT RESUSCITATE but she wants everything done that is reasonable and she would like to also keep her comfortable. 2. Salt poor albumin, 25 g IV piggyback every 8 hours followed by 20 mg of Lasix IV push every 8 hours. 3. Daily BMP, BNP, chest x-ray 4. This patient with a creatinine of 2.5 at the time of admission got 750 mg of Levaquin IV push in the emergency room on 12/30/2016. Tomorrow I will start 250 IV piggyback once a day and will adjust according to what the creatinine does. 5. I have added back a number of the patient's medicines including her nitrate , Keppra, thyroid, Protonix. 6. Sliding scale insulin. 7. See orders 8. Other things to consider would be a follow-up echocardiogram and cardiology consult if indicated. 01/01/2017. 1. Ultrasound of the kidneys. 2. Renal consultation. 3. Check urine and blood cultures when available 4. Levaquin. Renal dose. 5. Daily lab and chest x-ray. 6. See today's note above. 01/02/2017. 1. Appreciate renal consultation. 2. See my note above. 3. Follow-up chest x-ray and lab. 01/03/2017. 1. See my note above. 2. Chest x-ray in the morning and daily lab. Exam (Progress Note) - Constitutional Vitals: Period Temp Pulse Resp BP Sys/Alvarado Pulse Ox Last 24 Hr 97 F-97.7 F 83-95 16-24 127-147/80-97 91-99 Results - Labs CBC & BMP: 12/31/16 04:10 01/03/17 03:24
--- NOTE | 2017-01-03 09:59 | Nephrology Progress Note ---
Nephrology - PN: Subj Interval history: Patient is resting comfortably. Serum creatinine is noted to be 3.0. Metabolic 's are stable. No other acute changes. Exam (PN)-Nephrology - Vital Signs Vital signs: Period Temp Pulse Resp BP Sys/Alvarado Pulse Ox Last 24 Hr 97 F-97.7 F 83-95 16-24 127-147/80-97 91-99 - General Appearance General appearance: frail EENT: ATNC Cardiology: no edema, regular rate, regular rhythm Gastrointestinal: normoactive bowel sounds - Lab 12/31/16 04:10 01/03/17 03:24 Most recent lab results Calcium 8.1 MG/DL (8.5-10.1) L 01/03/17 03:24 Magnesium 2.2 MG/DL (1.8-2.4) 01/03/17 03:24 Assessment and Plan (1) Dementia Status: Chronic Current Visit: No Qualifiers: Dementia type: Alzheimer's disease (2) Recent urinary tract infection Status: Chronic Assessment and plan: Currently patient on broad-spectrum antibiotics. Current Visit: No (3) Chronic renal insufficiency, stage III (moderate) Status: Chronic Assessment and plan: Process of acute on chronic renal failure. Avoid nephrotoxic agents. BMP in a.m. Current Visit: No (4) Advanced age Status: Chronic Current Visit: No (5) Debility Status: Chronic Current Visit: No (6) CHF (congestive heart failure) Status: Acute Current Visit: No Qualifiers: Congestive heart failure type: combined
[2017-01-03] MEDS: INSULIN REGULAR 100 UNIT/ML SUBCUT SCH ×4 (10:12→20:43)
[2017-01-03] MEDS: PANTOPRAZOLE 40 MG TABLET PO SCH (10:15)
[2017-01-03] MEDS: levETIRAcetam 250 MG TABLET PO SCH (10:15)
[2017-01-03] MEDS: LORATADINE 10 MG TABLET PO SCH (10:15)
[2017-01-03] MEDS: POLYETHYLENE GLYCOL POWDER 17 GM PACK PO SCH (10:16)
[2017-01-03] MEDS: ISOSORBIDE MONONITRATE 30 MG TABLET PO SCH (10:16)
[2017-01-03] MEDS: MEGESTROL 400 MG/10 ML UDCUP PO SCH ×2 (10:16→20:21)
[2017-01-03] MEDS: DESITIN 4OZ/NYSTATIN 15 GRAM MIXTURE PASTE TOP SCH ×2 (10:18→20:27)
[2017-01-03] MEDS: LEVOTHYROXINE 50 MCG TABLET PO SCH (10:27)
[2017-01-03] MEDS: DONEPEZIL 5 MG TABLET PO SCH (20:21)
[2017-01-03] MEDS: ENOXAPARIN 30 MG/0.3 ML SYRINGE SUBCUT SCH (20:21)
[2017-01-03] MEDS: SIMVASTATIN 20 MG TABLET PO SCH (20:22)
[2017-01-03] MEDS: levETIRAcetam 500 MG TABLET PO SCH (20:22)
[2017-01-04] MEDS: ALBUTEROL/IPRATROPIUM 3 ML NEB RESP TX SCH ×4 (01:08→18:50)
[2017-01-04 03:14] LABS: Calcium 8.2 MG/DL (8.5-10.1); Potassium 3.2 MMOL/L (3.5-5.1)
[2017-01-04] MEDS: ALBUMIN 25% 25 GM in PREMIX 1 EACH IV SCH ×2 (05:39→17:44)
[2017-01-04] MEDS: FUROSEMIDE 20 MG/2 ML VIAL IV SCH (06:37)
[2017-01-04] MEDS ORDERED: VANCOMYCIN INJ 1,000 MG in SODIUM CHLORIDE 0.9% 250 ML IV ONE (08:00)
[2017-01-04] MEDS: INSULIN REGULAR 100 UNIT/ML SUBCUT SCH ×4 (08:20→21:00)
[2017-01-04] MEDS: LORATADINE 10 MG TABLET PO SCH (08:30)
[2017-01-04] MEDS: ISOSORBIDE MONONITRATE 30 MG TABLET PO SCH (08:31)
[2017-01-04] MEDS: levETIRAcetam 250 MG TABLET PO SCH (08:31)
--- NOTE | 2017-01-04 08:31 | Hospitalist Progress Note ---
Assessment and Plan (1) Diastolic dysfunction with chronic heart failure Status: Chronic Assessment and plan: Impression: Acute on chronic diastolic congestive heart failure Dementia Acute kidney injury, gradually worsening Probable aspiration pneumonia Bacteremia; organisms identified may be contaminants Urinary tract infection Plan: The hypernatremia and hypokalemia are likely due to the ongoing diuresis. I will replace her potassium, and defer diuretic adjustment to pulmonary and nephrology. I suspect that the organisms in the blood cultures are contaminants , and I think we should consider discontinuing the vancomycin. This note was completed using [employer] voice recognition software. There may be twist packer errors as a result. Current Visit: No Hospitalist: Subjective Interval history: Follow-up acute on chronic diastolic heart failure, possible aspiration pneumonia, possible bacteremia, dementia, and acute kidney injury. The patient seems more alert today. She does not report any complaints. She has eaten some of her breakfast. Family is not in the room this morning. She denies any dyspnea. Exam - Constitutional Vitals: Period Temp Pulse Resp BP Sys/Alvarado Pulse Ox Last 24 Hr 97.0 F-99.0 F 82-98 18-20 135-154/79-96 92-99 Vital signs are noted above. Heart is regular with distant tones and no murmur. She has a few rales in the chest. Her lungs sound clearer than they did yesterday. There is a scant amount of peripheral edema. She is awake and conversant. Results - Labs CBC & BMP: 12/31/16 04:10 01/04/17 02:31 Lab Results: I have reviewed the past 24 hour labs
[2017-01-04] MEDS: MEGESTROL 400 MG/10 ML UDCUP PO SCH ×2 (08:32→20:38)
[2017-01-04] MEDS: PANTOPRAZOLE 40 MG TABLET PO SCH (08:33)
[2017-01-04] MEDS: LEVOTHYROXINE 50 MCG TABLET PO SCH (08:33)
[2017-01-04] MEDS: POLYETHYLENE GLYCOL POWDER 17 GM PACK PO SCH (08:33)
[2017-01-04] MEDS: DESITIN 4OZ/NYSTATIN 15 GRAM MIXTURE PASTE TOP SCH ×2 (08:34→21:06)
[2017-01-04] MEDS: POTASSIUM CHLORIDE 10 MEQ TABLET PO SCH ×2 (08:39→20:37)
[2017-01-04] MEDS ORDERED: POTASSIUM CHLORIDE 10 MEQ TABLET PO SCH (09:00)
--- NOTE | 2017-01-04 09:43 | Pulmonology Progress Note ---
Pulmonary - PN: Subj Interval history: This 89-year-old white female longtime patient of mine whom I saw in pulmonary consultation on 12/31/2016. My impressions were. #1. Acute congestive heart failure secondary to heart disease and valvular disease. 2. History of cardiomyopathy. 3. Mild to moderate mitral regurgitation with elevated pulmonary artery pressures and tricuspid regurgitation 4. Aortic valve insufficiency. 5. Chronic renal failure. Note that in November 2016 the patient's creatinine was 1.30. Today it is 2.40. 6. History of asthma. 7. Obstructive sleep apnea 8. Mild to moderate cognitive impairment 9. 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 Diabetes mellitus 11. Hyperlipidemia 12. High blood pressure 13. 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 History of colon polyps. 14. Past history of TIAs 15. Acute urinary tract infection with an unidentified gram-negative carmleo 01/01/2017. Patient chest x-ray is improved. She still has congestive heart failure but this is good bit better than it was one day ago. Creatinine is increased from 2.4 to 2.9. Several months ago her creatinine was 1.3. Typically in my office her creatinine has been 1.8. She is on salt poor albumin 25 g IV piggyback every 8 hours followed by Lasix 20 mg IV push every 8 hours. I am going to ask renal to see the patient. Her natruretic peptide is greater than 5000. She has underlying heart disease. Electrolytes are normal. Patient has blood culture drawn 12/30/2016 positive for gram-positive cocci which is yet to be identified. She also has a urine culture which is growing a gram-negative carmelo, gram-positive cocci and the micro Streptococcus. Patient received a huge dose of Levaquin at the time of admission. Today we will start Levaquin 250 mg every 48 hours. Ultrasounds of the kidneys have been ordered. Today the patient is a little more alert breathing is much easier. Her daughter is not present. 01/02/2017. Patient's daughter is not present. Patient sitting up in bed she is talkative. She says she feels better than before. Today's chest x-ray is the same as yesterday. There is still residual congestive heart failure but this is markedly improved. Urine cultures from 12/30/2016 grown E. coli and that is being treated based on sensitivities. Blood cultures from 12/30/2016 and 12/31/2016 growing a gram-positive cocci which is yet to be identified.. Dr. Chan is seeing the patient in renal consultation and I appreciate his help. Creatinine is 3.10 with a BUN of 86. Electrolytes are normal. Natruretic peptide remains greater than 5000. Thyroid function tests are normal. Overall the patient is better from a current congestive heart failure standpoint and a level of alertness standpoint. Kidneys continue to be a problem. 01/03/2017. Patient's daughter was present today and I went over the case with her. Patient has maintain the improvement in her level of alertness that I observed yesterday. Her chest x-ray looks worse today but is is grossly underpenetrated. She still has congestive heart failure but she appears much more comfortable with her breathing. Creatinine is dropped from 3.1-3.0 with a BUN of 89. Sodium is 147. Potassium is 3.4. Chloride is 108. Natruretic peptide is greater than 5000. Dr. Chan to see in her in renal consultation. Blood cultures have grown E. coli. Urine cultures have grown E. coli, staph hominis, staph hemolyticus. Patient is covered with present antibiotics. I think we should continue to treat reversible findings. This is a daughter's request. And I agree. 01/04/2017. Patient's daughter was not present today. Chest x-ray was not done. Patient is much less distress and she is being cared for by the nurses. She seems less short of breath. Sodium is 150, potassium is 3.2, creatinine is 3.10 and BUN is 91. Serum osmolality is 330. Random vancomycin level is 14.2 this is being monitored by pharmacology. Keppra level was 35.7. Most recent natruretic peptide is greater than 5000. Physical exam. Vital signs. See below. Face. Symmetrical. No edema of the lips or tongue. Neck. Symmetrical. No meningismus. Psychiatric. Arousable. Alert. Will answer questions. Can follow instructions when she wants to. Neurologic. Cranial nerves are intact with decreased hearing acuity bilaterally. Long track motor function is intact. Sensory exam was not done in gait was not tested. Chest. Previously very prominent rales. Now nearly resolved. Heart. Lateral diffuse PMI Abdomen. Nondistended. Rare bowel sounds. Extremities. Only a trace of pedal edema. Lymphatics. No submandibular cervical supraclavicular or epitrochlear adenopathy. The remainder the physical exam is noncontributory and negative Plan. 12/31/2016 1. Patient's daughter has made her DO NOT RESUSCITATE but she wants everything done that is reasonable and she would like to also keep her comfortable. 2. Salt poor albumin, 25 g IV piggyback every 8 hours followed by 20 mg of Lasix IV push every 8 hours. 3. Daily BMP, BNP, chest x-ray 4. This patient with a creatinine of 2.5 at the time of admission got 750 mg of Levaquin IV push in the emergency room on 12/30/2016. Tomorrow I will start 250 IV piggyback once a day and will adjust according to what the creatinine does. 5. I have added back a number of the patient's medicines including her nitrate , Keppra, thyroid, Protonix. 6. Sliding scale insulin. 7. See orders 8. Other things to consider would be a follow-up echocardiogram and cardiology consult if indicated. 01/01/2017. 1. Ultrasound of the kidneys. 2. Renal consultation. 3. Check urine and blood cultures when available 4. Levaquin. Renal dose. 5. Daily lab and chest x-ray. 6. See today's note above. 01/02/2017. 1. Appreciate renal consultation. 2. See my note above. 3. Follow-up chest x-ray and lab. 01/03/2017. 1. See my note above. 2. Chest x-ray in the morning and daily lab. 01/04/2017. 1. See my note above. 2. Daily chest x-ray and lab. 3. Renal ultrasound the case Exam (Progress Note) - Constitutional Vitals: Period Temp Pulse Resp BP Sys/Alvarado Pulse Ox Last 24 Hr 97.0 F-99.0 F 82-98 12-20 101-154/53-96 92-99 Results - Labs CBC & BMP: 12/31/16 04:10 01/04/17 02:31
--- NOTE | 2017-01-04 11:59 | Nephrology Progress Note ---
Nephrology - PN: Subj Interval history: Ms. Barron is seen in follow-up of her acute renal impairment. She is a chronically ill lady who has multiple problems. Her serum creatinine is 3.1 which is only slightly above where she has been. She has a good bit of peripheral edema in her thighs and her chest x-ray appears wet. She seems to aspirate when she tries to eat but that is not a consistent finding. She is in no distress but her cough is very wet. She does need diuresis with both her peripheral and pulmonary changes. I think will change her diuretics to 80 mg twice daily of Lasix and change the albumin to match those diuretic doses. Her serum albumin earlier this week was 2.6. She may be able to do without the albumin in a day or so. She is very fragile and there is probably not a clear answer to her problems but I think an attempted diuresis is reasonable. Exam (PN)-Nephrology - Vital Signs Vital signs: Period Temp Pulse Resp BP Sys/Alvarado Pulse Ox Last 24 Hr 97.0 F-99.0 F 82-98 12-20 101-154/53-96 92-99 - Lab 12/31/16 04:10 01/04/17 02:31 Most recent lab results Calcium 8.2 MG/DL (8.5-10.1) L 01/04/17 02:31 Magnesium 2.2 MG/DL (1.8-2.4) 01/03/17 03:24
[2017-01-04] MEDS ORDERED: FUROSEMIDE 40 MG/4 ML VIAL IV SCH (12:02)
[2017-01-04] MEDS: FUROSEMIDE 40 MG/4 ML VIAL IV SCH (18:44)
[2017-01-04] MEDS: DONEPEZIL 5 MG TABLET PO SCH (20:31)
[2017-01-04] MEDS: ENOXAPARIN 30 MG/0.3 ML SYRINGE SUBCUT SCH (20:36)
[2017-01-04] MEDS: SIMVASTATIN 20 MG TABLET PO SCH (20:37)
[2017-01-04] MEDS: levETIRAcetam 500 MG TABLET PO SCH (20:37)
[2017-01-05] MEDS: ALBUTEROL/IPRATROPIUM 3 ML NEB RESP TX SCH ×4 (00:20→19:50)
[2017-01-05] MEDS: ALBUMIN 25% 25 GM in PREMIX 1 EACH IV SCH (05:45)
[2017-01-05 06:15] LABS: Calcium 8.8 MG/DL (8.5-10.1); Osmolality,Calculated 327.1 MOS/KG (273-304); Potassium 3.4 MMOL/L (3.5-5.1)
[2017-01-05] MEDS: FUROSEMIDE 40 MG/4 ML VIAL IV SCH ×2 (07:00→18:05)
--- NOTE | 2017-01-05 09:20 | Hospitalist Progress Note ---
Assessment and Plan (1) Diastolic dysfunction with chronic heart failure Status: Chronic Assessment and plan: Impression: Acute on chronic diastolic congestive heart failure Dementia Acute kidney injury, gradually worsening Probable aspiration pneumonia Bacteremia; organisms identified may be contaminants Urinary tract infection Plan: Continue current care. Discontinue vancomycin. This note was completed using [employer] voice recognition software. There may be manager sign errors as a result. Current Visit: No Hospitalist: Subjective Interval history: Follow-up acute on chronic diastolic heart failure, acute kidney injury, possible aspiration pneumonia, possible urinary tract infection, and dementia. The patient is awake and conversant, but obviously demented. She offers no new complaints today, and denies any dyspnea or pain. Nephrology and pulmonary are managing her albumin supplementation and diuretics. Clinical course appears stagnant. Exam - Constitutional Vitals: Period Temp Pulse Resp BP Sys/Alvarado Pulse Ox Last 24 Hr 97.1 F-98.1 F 91-100 14-28 132-159/85-100 92-98 Vital signs are noted above. Heart is regular with a few skips. She has a few rhonchi in the chest, but she has less cough than she did over the past few days. Abdomen is soft with no mass or tenderness. She has some edema of the thighs unchanged from the past day or so. She is awake and conversant. Results - Labs CBC & BMP: 12/31/16 04:10 01/05/17 05:22
[2017-01-05] MEDS: INSULIN REGULAR 100 UNIT/ML SUBCUT SCH ×4 (09:26→21:00)
[2017-01-05] MEDS: LORATADINE 10 MG TABLET PO SCH (09:34)
[2017-01-05] MEDS: POTASSIUM CHLORIDE 10 MEQ TABLET PO SCH ×2 (09:34→20:41)
[2017-01-05] MEDS: ISOSORBIDE MONONITRATE 30 MG TABLET PO SCH (09:34)
[2017-01-05] MEDS: levETIRAcetam 250 MG TABLET PO SCH (09:35)
[2017-01-05] MEDS: MEGESTROL 400 MG/10 ML UDCUP PO SCH ×2 (09:35→20:41)
[2017-01-05] MEDS: LEVOTHYROXINE 50 MCG TABLET PO SCH (09:36)
[2017-01-05] MEDS: DESITIN 4OZ/NYSTATIN 15 GRAM MIXTURE PASTE TOP SCH ×2 (09:36→20:40)
[2017-01-05] MEDS: POLYETHYLENE GLYCOL POWDER 17 GM PACK PO SCH (09:36)
[2017-01-05] MEDS: PANTOPRAZOLE 40 MG TABLET PO SCH (09:36)
--- NOTE | 2017-01-05 09:59 | XRay Report ---
History: Patient on ventilator Date: 01/05/2017 Study: Chest x-ray AP portable Comparison exam: January 03, 2017 There is continued cardiomegaly. The mediastinal contours are stable. The pulmonary vasculature is slightly prominent. There is some patchy and hazy pulmonary edema/infiltrate throughout both lungs. There is mild right greater than left pleural effusion. There is no pneumothorax. Osseous structures are unchanged. Impression: Continued diffuse bilateral pulmonary edema/infiltrate, the same or slightly improved PROCEDURE INTERPRETED AT [facility] DEPARTMENT OF RADIOLOGY Final Report Signed by: Dr. Camelia Ba
--- NOTE | 2017-01-05 10:20 | Nephrology Progress Note ---
Nephrology - PN: Subj Interval history: Ms. Barron is seen in follow-up of her chronic kidney disease and fluid overload. There is considerable edema particularly around her thighs and chest x-ray recently appeared quite with it. Her creatinine is stable at 3.1 and serum sodium is 149. She is in no distress but we are going to increase her Lasix dose a bit since she is not diuresing vigorously Exam (PN)-Nephrology - Vital Signs Vital signs: Period Temp Pulse Resp BP Sys/Alvarado Pulse Ox Last 24 Hr 97.1 F-98.1 F 91-100 14-28 132-159/85-100 92-98 - Lab 12/31/16 04:10 01/05/17 05:22 Most recent lab results Calcium 8.8 MG/DL (8.5-10.1) 01/05/17 05:22 Magnesium 2.2 MG/DL (1.8-2.4) 01/03/17 03:24
--- NOTE | 2017-01-05 13:03 | Pulmonology Progress Note ---
Pulmonary - PN: Subj Interval history: This 89-year-old white female longtime patient of mine whom I saw in pulmonary consultation on 12/31/2016. My impressions were. #1. Acute congestive heart failure secondary to heart disease and valvular disease. 2. History of cardiomyopathy. 3. Mild to moderate mitral regurgitation with elevated pulmonary artery pressures and tricuspid regurgitation 4. Aortic valve insufficiency. 5. Chronic renal failure. Note that in November 2016 the patient's creatinine was 1.30. Today it is 2.40. 6. History of asthma. 7. Obstructive sleep apnea 8. Mild to moderate cognitive impairment 9. 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 Diabetes mellitus 11. Hyperlipidemia 12. High blood pressure 13. 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 History of colon polyps. 14. Past history of TIAs 15. Acute urinary tract infection with an unidentified gram-negative carmelo 01/01/2017. Patient chest x-ray is improved. She still has congestive heart failure but this is good bit better than it was one day ago. Creatinine is increased from 2.4 to 2.9. Several months ago her creatinine was 1.3. Typically in my office her creatinine has been 1.8. She is on salt poor albumin 25 g IV piggyback every 8 hours followed by Lasix 20 mg IV push every 8 hours. I am going to ask renal to see the patient. Her natruretic peptide is greater than 5000. She has underlying heart disease. Electrolytes are normal. Patient has blood culture drawn 12/30/2016 positive for gram-positive cocci which is yet to be identified. She also has a urine culture which is growing a gram-negative carmelo, gram-positive cocci and the micro Streptococcus. Patient received a huge dose of Levaquin at the time of admission. Today we will start Levaquin 250 mg every 48 hours. Ultrasounds of the kidneys have been ordered. Today the patient is a little more alert breathing is much easier. Her daughter is not present. 01/02/2017. Patient's daughter is not present. Patient sitting up in bed she is talkative. She says she feels better than before. Today's chest x-ray is the same as yesterday. There is still residual congestive heart failure but this is markedly improved. Urine cultures from 12/30/2016 grown E. coli and that is being treated based on sensitivities. Blood cultures from 12/30/2016 and 12/31/2016 growing a gram-positive cocci which is yet to be identified.. Dr. Chan is seeing the patient in renal consultation and I appreciate his help. Creatinine is 3.10 with a BUN of 86. Electrolytes are normal. Natruretic peptide remains greater than 5000. Thyroid function tests are normal. Overall the patient is better from a current congestive heart failure standpoint and a level of alertness standpoint. Kidneys continue to be a problem. 01/03/2017. Patient's daughter was present today and I went over the case with her. Patient has maintain the improvement in her level of alertness that I observed yesterday. Her chest x-ray looks worse today but is is grossly underpenetrated. She still has congestive heart failure but she appears much more comfortable with her breathing. Creatinine is dropped from 3.1-3.0 with a BUN of 89. Sodium is 147. Potassium is 3.4. Chloride is 108. Natruretic peptide is greater than 5000. Dr. Chan to see in her in renal consultation. Blood cultures have grown E. coli. Urine cultures have grown E. coli, staph hominis, staph hemolyticus. Patient is covered with present antibiotics. I think we should continue to treat reversible findings. This is a daughter's request. And I agree. 01/04/2017. Patient's daughter was not present today. Chest x-ray was not done. Patient is much less distress and she is being cared for by the nurses. She seems less short of breath. Sodium is 150, potassium is 3.2, creatinine is 3.10 and BUN is 91. Serum osmolality is 330. Random vancomycin level is 14.2 this is being monitored by pharmacology. Keppra level was 35.7. Most recent natruretic peptide is greater than 5000. 01/05/2017. Today's chest x-ray shows cardiomegaly and calcification of the aortic bulb no hilar adenopathy mediastinum is normal evidence of congestive heart failure is beginning to show some good improvement. Patient's breathing comfortably lying in a 30 angle. Creatinine is 3.10. BUN is 96. Sodium 149. Potassium 3.4. Natruretic peptide is greater than 5000. Dr. Becerra has increased her Lasix dose and I agree with this. Physical exam. Vital signs. See below. Face. Symmetrical. No edema of the lips or tongue. Neck. Symmetrical. No meningismus. Psychiatric. Arousable. Alert. Will answer questions. Can follow instructions when she wants to. Neurologic. Cranial nerves are intact with decreased hearing acuity bilaterally. Long track motor function is intact. Sensory exam was not done in gait was not tested. Chest. Previously very prominent rales. Now nearly resolved. Heart. Lateral diffuse PMI Abdomen. Nondistended. Rare bowel sounds. Extremities. Only a trace of pedal edema. Lymphatics. No submandibular cervical supraclavicular or epitrochlear adenopathy. The remainder the physical exam is noncontributory and negative Plan. 12/31/2016 1. Patient's daughter has made her DO NOT RESUSCITATE but she wants everything done that is reasonable and she would like to also keep her comfortable. 2. Salt poor albumin, 25 g IV piggyback every 8 hours followed by 20 mg of Lasix IV push every 8 hours. 3. Daily BMP, BNP, chest x-ray 4. This patient with a creatinine of 2.5 at the time of admission got 750 mg of Levaquin IV push in the emergency room on 12/30/2016. Tomorrow I will start 250 IV piggyback once a day and will adjust according to what the creatinine does. 5. I have added back a number of the patient's medicines including her nitrate , Keppra, thyroid, Protonix. 6. Sliding scale insulin. 7. See orders 8. Other things to consider would be a follow-up echocardiogram and cardiology consult if indicated. 01/01/2017. 1. Ultrasound of the kidneys. 2. Renal consultation. 3. Check urine and blood cultures when available 4. Levaquin. Renal dose. 5. Daily lab and chest x-ray. 6. See today's note above. 01/02/2017. 1. Appreciate renal consultation. 2. See my note above. 3. Follow-up chest x-ray and lab. 01/03/2017. 1. See my note above. 2. Chest x-ray in the morning and daily lab. 01/04/2017. 1. See my note above. 2. Daily chest x-ray and lab. 3. Renal is on the case 01/05/2017. 1. See my note above 2. Continue daily chest x-ray and lab. 3. Agree with Dr. Becerra's decision to increase lysed Exam (Progress Note) - Constitutional Vitals: Period Temp Pulse Resp BP Sys/Alvarado Pulse Ox Last 24 Hr 97.1 F-98.1 F 91-100 14-28 132-159/85-100 92-99 Results - Labs CBC & BMP: 12/31/16 04:10 01/05/17 05:22
[2017-01-05] MEDS: ENOXAPARIN 30 MG/0.3 ML SYRINGE SUBCUT SCH (20:40)
[2017-01-05] MEDS: SIMVASTATIN 20 MG TABLET PO SCH (20:41)
[2017-01-05] MEDS: DONEPEZIL 5 MG TABLET PO SCH (20:41)
[2017-01-05] MEDS: levETIRAcetam 500 MG TABLET PO SCH (20:41)
[2017-01-06] MEDS: ALBUTEROL/IPRATROPIUM 3 ML NEB RESP TX SCH ×4 (01:06→20:07)
[2017-01-06] MEDS: FUROSEMIDE 40 MG/4 ML VIAL IV SCH ×2 (06:21→18:15)
[2017-01-06 06:31] LABS: Calcium 8.6 MG/DL (8.5-10.1); Osmolality,Calculated 340.6 MOS/KG (273-304); Potassium 3.2 MMOL/L (3.5-5.1)
--- NOTE | 2017-01-06 07:43 | Pulmonology Progress Note ---
Pulmonary - PN: Subj Interval history: This 89-year-old white female longtime patient of mine whom I saw in pulmonary consultation on 12/31/2016. My impressions were. #1. Acute congestive heart failure secondary to heart disease and valvular disease. 2. History of cardiomyopathy. 3. Mild to moderate mitral regurgitation with elevated pulmonary artery pressures and tricuspid regurgitation 4. Aortic valve insufficiency. 5. Chronic renal failure. Note that in November 2016 the patient's creatinine was 1.30. Today it is 2.40. 6. History of asthma. 7. Obstructive sleep apnea 8. Mild to moderate cognitive impairment 9. 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 Diabetes mellitus 11. Hyperlipidemia 12. High blood pressure 13. 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 History of colon polyps. 14. Past history of TIAs 15. Acute urinary tract infection with an unidentified gram-negative carmelo 01/01/2017. Patient chest x-ray is improved. She still has congestive heart failure but this is good bit better than it was one day ago. Creatinine is increased from 2.4 to 2.9. Several months ago her creatinine was 1.3. Typically in my office her creatinine has been 1.8. She is on salt poor albumin 25 g IV piggyback every 8 hours followed by Lasix 20 mg IV push every 8 hours. I am going to ask renal to see the patient. Her natruretic peptide is greater than 5000. She has underlying heart disease. Electrolytes are normal. Patient has blood culture drawn 12/30/2016 positive for gram-positive cocci which is yet to be identified. She also has a urine culture which is growing a gram-negative carmelo, gram-positive cocci and the micro Streptococcus. Patient received a huge dose of Levaquin at the time of admission. Today we will start Levaquin 250 mg every 48 hours. Ultrasounds of the kidneys have been ordered. Today the patient is a little more alert breathing is much easier. Her daughter is not present. 01/02/2017. Patient's daughter is not present. Patient sitting up in bed she is talkative. She says she feels better than before. Today's chest x-ray is the same as yesterday. There is still residual congestive heart failure but this is markedly improved. Urine cultures from 12/30/2016 grown E. coli and that is being treated based on sensitivities. Blood cultures from 12/30/2016 and 12/31/2016 growing a gram-positive cocci which is yet to be identified.. Dr. Chan is seeing the patient in renal consultation and I appreciate his help. Creatinine is 3.10 with a BUN of 86. Electrolytes are normal. Natruretic peptide remains greater than 5000. Thyroid function tests are normal. Overall the patient is better from a current congestive heart failure standpoint and a level of alertness standpoint. Kidneys continue to be a problem. 01/03/2017. Patient's daughter was present today and I went over the case with her. Patient has maintain the improvement in her level of alertness that I observed yesterday. Her chest x-ray looks worse today but is is grossly underpenetrated. She still has congestive heart failure but she appears much more comfortable with her breathing. Creatinine is dropped from 3.1-3.0 with a BUN of 89. Sodium is 147. Potassium is 3.4. Chloride is 108. Natruretic peptide is greater than 5000. Dr. Chan to see in her in renal consultation. Blood cultures have grown E. coli. Urine cultures have grown E. coli, staph hominis, staph hemolyticus. Patient is covered with present antibiotics. I think we should continue to treat reversible findings. This is a daughter's request. And I agree. 01/04/2017. Patient's daughter was not present today. Chest x-ray was not done. Patient is much less distress and she is being cared for by the nurses. She seems less short of breath. Sodium is 150, potassium is 3.2, creatinine is 3.10 and BUN is 91. Serum osmolality is 330. Random vancomycin level is 14.2 this is being monitored by pharmacology. Keppra level was 35.7. Most recent natruretic peptide is greater than 5000. 01/05/2017. Today's chest x-ray shows cardiomegaly and calcification of the aortic bulb no hilar adenopathy mediastinum is normal evidence of congestive heart failure is beginning to show some good improvement. Patient's breathing comfortably lying in a 30 angle. Creatinine is 3.10. BUN is 96. Sodium 149. Potassium 3.4. Natruretic peptide is greater than 5000. Dr. Becerra has increased her Lasix dose and I agree with this. No family is present. 01/06/2017. Chest x-ray today shows congestive heart failure. Overall this is better than we were a few days back but is still present. She is being diuresed. Her sodium is 153. Potassium is low at 3.2 and is being replaced. Her usual creatinine in my office is about 1.8-2.2. Presently creatinine is 3.10 with a BUN of 103. Natruretic peptide remains elevated greater than 5000. Random vancomycin level is 15.5 and is being monitored by pharmacology. Patient has had positive blood cultures for staph hemolyticus and staph hominis. She is a urine cultures positive for E. coli and Streptococcus mitis. The E. coli was covered with the cephalosporin. Patient is fairly comfortable lying flat in bed. No family is present. Physical exam. Vital signs. See below. Face. Symmetrical. No edema of the lips or tongue. Neck. Symmetrical. No meningismus. Psychiatric. Arousable. Alert. Will answer questions. Can follow instructions when she wants to. Neurologic. Cranial nerves are intact with decreased hearing acuity bilaterally. Long track motor function is intact. Sensory exam was not done in gait was not tested. Chest. Previously very prominent rales. Now nearly resolved. Heart. Lateral diffuse PMI Abdomen. Nondistended. Rare bowel sounds. Extremities. Only a trace of pedal edema. Lymphatics. No submandibular cervical supraclavicular or epitrochlear adenopathy. The remainder the physical exam is noncontributory and negative Plan. 12/31/2016 1. Patient's daughter has made her DO NOT RESUSCITATE but she wants everything done that is reasonable and she would like to also keep her comfortable. 2. Salt poor albumin, 25 g IV piggyback every 8 hours followed by 20 mg of Lasix IV push every 8 hours. 3. Daily BMP, BNP, chest x-ray 4. This patient with a creatinine of 2.5 at the time of admission got 750 mg of Levaquin IV push in the emergency room on 12/30/2016. Tomorrow I will start 250 IV piggyback once a day and will adjust according to what the creatinine does. 5. I have added back a number of the patient's medicines including her nitrate , Keppra, thyroid, Protonix. 6. Sliding scale insulin. 7. See orders 8. Other things to consider would be a follow-up echocardiogram and cardiology consult if indicated. 01/01/2017. 1. Ultrasound of the kidneys. 2. Renal consultation. 3. Check urine and blood cultures when available 4. Levaquin. Renal dose. 5. Daily lab and chest x-ray. 6. See today's note above. 01/02/2017. 1. Appreciate renal consultation. 2. See my note above. 3. Follow-up chest x-ray and lab. 01/03/2017. 1. See my note above. 2. Chest x-ray in the morning and daily lab. 01/04/2017. 1. See my note above. 2. Daily chest x-ray and lab. 3. Renal is on the case 01/05/2017. 1. See my note above 2. Continue daily chest x-ray and lab. 3. Agree with Dr. Becerra's decision to increase lysed 01/06/2017. 1. See today's note above. 2. Continue present treatment 3. Follow lab and chest x-ray. 4. The patient is a DO NOT RESUSCITATE. Daughter wants treatable things with possibility of reversibility treated Exam (Progress Note) - Constitutional Vitals: Period Temp Pulse Resp BP Sys/Alvarado Pulse Ox Last 24 Hr 96.5 F-97.9 F 85-100 18-20 148-166/87-99 93-99 Results - Labs CBC & BMP: 12/31/16 04:10 01/06/17 05:15
--- NOTE | 2017-01-06 07:52 | XRay Report ---
Exam: XR chest 1V portable Date: 01/06/2017 4:00 AM Indication: Extubation follow-up Comparison: 01/05/2017 Technical: AP portable Findings: Cardiomegaly is present with bilateral effusions. Alveolar interstitial infiltrates are present in the lung olivera bilaterally with ASVD. There is calcification in tracheobronchial tree. Bony structures reveal moderate levoscoliotic curve. No pneumothorax present. External cardiac leads are present. Impression: 1. Cardiomegaly 2. Shunt vascularity and component of cardiac decompensation with bilateral effusions. 3. No endotracheal tube noted PROCEDURE INTERPRETED AT [facility] DEPARTMENT OF RADIOLOGY Final Report Signed by: Dr. Stefan Cole
[2017-01-06] MEDS: ISOSORBIDE MONONITRATE 30 MG TABLET PO SCH (09:44)
[2017-01-06] MEDS: INSULIN REGULAR 100 UNIT/ML SUBCUT SCH ×4 (09:44→20:56)
[2017-01-06] MEDS: LEVOTHYROXINE 50 MCG TABLET PO SCH (09:46)
[2017-01-06] MEDS: PANTOPRAZOLE 40 MG TABLET PO SCH (09:47)
[2017-01-06] MEDS: LORATADINE 10 MG TABLET PO SCH (09:47)
[2017-01-06] MEDS: levETIRAcetam 250 MG TABLET PO SCH (09:47)
[2017-01-06] MEDS: MEGESTROL 400 MG/10 ML UDCUP PO SCH ×2 (09:48→20:54)
[2017-01-06] MEDS: POTASSIUM CHLORIDE 10 MEQ TABLET PO SCH ×3 (09:48→20:54)
[2017-01-06 09:52] LABS: Basophils % 0.1 % (0.0-0.8); Eosinophils % 0.1 % (0.00-10.9); Hematocrit 37.2 VOL% (35.7-47.0); Hemoglobin 11.9 GM/DL (12.0-16.0); Immature Granulocytes % 0.7 %; Immature Granulocytes Absolute 0.08 #; Lymphocytes # 1.3 10*3/uL (1.4-4.0); Lymphocytes % 11.3 % (21.3-54.2); Mean Corpuscular Hemoglobin 30 PG (27-34); Mean Corpuscular Volume 92.1 FL (87-102); Mean Platelet Volume 13.9 FL (9.6-12.0); Monocytes # 1.4 10*3/uL (0.11-0.8); Monocytes % 11.7 % (1.7-12.7); NRBC # 0.04 10*3/uL; Neutrophils # 8.8 10*3/uL (1.4-7.4); Neutrophils % 76.1 % (38.7-73.9); Platelet Count 114 T/CUMM (130-400); Red Blood Count 4.04 MC/CUMM (3.8-5.5); Red Cell Distribution Width 22.5 % (9.3-17.3); White Blood Count 11.6 T/CUMM (4-12)
[2017-01-06] MEDS: DESITIN 4OZ/NYSTATIN 15 GRAM MIXTURE PASTE TOP SCH ×2 (10:00→20:55)
[2017-01-06 10:19] LABS: Hypochromasia 1+; Ovalocytes Slight; Target Cells Few
[2017-01-06 10:20] LABS: Microcytosis 1+; Platelet Estimate Decreased; Polychromasia Slight
[2017-01-06] MEDS: POLYETHYLENE GLYCOL POWDER 17 GM PACK PO SCH (10:37)
--- NOTE | 2017-01-06 15:41 | Hospitalist Progress Note ---
Assessment and Plan (1) Acute renal failure Status: Acute Assessment and plan: -renal following - will monitor Current Visit: No (2) Aspiration pneumonia Status: Acute Assessment and plan: - Pulmonary following -IV antibiotics - will monitor Current Visit: No (3) CHF (congestive heart failure) Status: Acute Assessment and plan: - telemetry - oxygen - continue diuresing - Renal and Pulmonary following Current Visit: No Qualifiers: Congestive heart failure type: combined (4) Urinary tract infection Status: Acute Assessment and plan: - Urine culture show Strep and E. Coli - Continue IV antibiotics - Will monitor Current Visit: No (5) Hypokalemia Status: Acute Assessment and plan: - oral replacement Current Visit: Yes Hospitalist: Subjective Interval history: Ms. Barron is a 89 y/o female with a history of CHF, CAD, HTN, Dementia, TIA, Seizures, and GERD that was admitted to the hospitalist service for chronic diastolic, CHF, bilateral cellulitis, and UTI. Patient reports feeling better but is not bnack to her baseline. No new complaints. Exam - Constitutional Vitals: Period Temp Pulse Resp BP Sys/Alvarado Pulse Ox Last 24 Hr 96.5 F-97.9 F 80-97 18-20 148-166/78-99 93-98 General appearance: no acute distress, morbidly obese - Head Head exam: Present: normal inspection - Eye Eye exam: Present: EOMI - Respiratory Respiratory exam: Present: decreased breath sounds, other (coarse breath sounds) - Cardiovascular Cardiovascular exam: Present: bradycardia - GI/Abdominal GI/Abdominal exam: Present: normal bowel sounds, soft. Absent: tenderness - Extremities Exam Extremities exam: Present: edema (pitting edema of extremities and some blisters ; erythema of bilateral lower extremities) - Neurological Exam Neurological exam: Present: alert, oriented X3 Results - Labs CBC & BMP: 01/06/17 09:31 01/06/17 05:15
--- NOTE | 2017-01-06 17:30 | Nephrology Progress Note ---
Nephrology - PN: Subj Interval history: Patient is resting no acute changes. Serum creatinine has been stable at 3.1. Of note patient was noted to be elevated at 153. Her daughter is at the bedside and is encouraging her to eat and drink. Continue with free water intake. Exam (PN)-Nephrology - Vital Signs Vital signs: Period Temp Pulse Resp BP Sys/Alvarado Pulse Ox Last 24 Hr 96.5 F-97.9 F 80-97 18-24 129-166/71-99 93-98 - General Appearance General appearance: well-developed, frail EENT: ATNC Neck: supple Respiratory: clear Cardiology: regular rate, regular rhythm Gastrointestinal: normoactive bowel sounds, no tenderness Integumentary: no rash Musculoskeletal: no deformities - Lab 01/06/17 09:31 01/06/17 05:15 Most recent lab results Calcium 8.6 MG/DL (8.5-10.1) 01/06/17 05:15 Magnesium 2.2 MG/DL (1.8-2.4) 01/06/17 05:15 Assessment and Plan (1) Dementia Status: Chronic Current Visit: No Qualifiers: Dementia type: Alzheimer's disease (2) Recent urinary tract infection Status: Chronic Assessment and plan: Currently patient on broad-spectrum antibiotics. Current Visit: No (3) Chronic renal insufficiency, stage III (moderate) Status: Chronic Assessment and plan: Process of acute on chronic renal failure. Avoid nephrotoxic agents. BMP in a.m. Current Visit: No (4) Advanced age Status: Chronic Current Visit: No (5) Debility Status: Chronic Current Visit: No (6) CHF (congestive heart failure) Status: Acute Current Visit: No Qualifiers: Congestive heart failure type: combined
[2017-01-06] MEDS: SIMVASTATIN 20 MG TABLET PO SCH (20:54)
[2017-01-06] MEDS: DONEPEZIL 5 MG TABLET PO SCH (20:54)
[2017-01-06] MEDS: levETIRAcetam 500 MG TABLET PO SCH (20:54)
[2017-01-06] MEDS: ENOXAPARIN 30 MG/0.3 ML SYRINGE SUBCUT SCH (20:55)
[2017-01-07] MEDS: ALBUTEROL/IPRATROPIUM 3 ML NEB RESP TX SCH ×4 (00:10→19:21)
--- NOTE | 2017-01-07 06:23 | XRay Report ---
History is respiratory distress Comparison 01/06/2017 The heart remains enlarged with diffuse prominence the thoracic aorta Moderate to severe diffuse bilateral hazy and reticular pulmonary opacities with small to moderate right greater than left pleural effusions unchanged Impression: No significant change in diffuse bilateral pulmonary opacities and right greater than left effusions PROCEDURE INTERPRETED AT [facility] DEPARTMENT OF RADIOLOGY Final Report Signed by: Dr. Jamee Pacheco
[2017-01-07 06:24] LABS: Basophils % 0.2 % (0.0-0.8); Eosinophils % 0.1 % (0.00-10.9); Hematocrit 37.3 VOL% (35.7-47.0); Hemoglobin 11.8 GM/DL (12.0-16.0); Immature Granulocytes % 0.6 %; Immature Granulocytes Absolute 0.07 #; Lymphocytes % 9.4 % (21.3-54.2); Mean Corpuscular HGB Conc 31.6 GM/DL (32-36); Mean Corpuscular Hemoglobin 29 PG (27-34); Mean Corpuscular Volume 90.8 FL (87-102); Mean Platelet Volume 12.9 FL (9.6-12.0); Monocytes % 9.1 % (1.7-12.7); NRBC # 0.03 10*3/uL; Neutrophils # 8.7 10*3/uL (1.4-7.4); Neutrophils % 80.6 % (38.7-73.9); Platelet Count 108 T/CUMM (130-400); Red Blood Count 4.11 MC/CUMM (3.8-5.5); Red Cell Distribution Width 22.8 % (9.3-17.3); White Blood Count 10.8 T/CUMM (4-12)
[2017-01-07] MEDS: FUROSEMIDE 40 MG/4 ML VIAL IV SCH (06:24)
[2017-01-07 06:53] LABS: Bilirubin,Total 1.7 MG/DL (0.2-1.0); Calcium 8.5 MG/DL (8.5-10.1); Osmolality,Calculated 349.2 MOS/KG (273-304); Total Protein 6.6 G/DL (6.4-8.3)
[2017-01-07 07:06] LABS: Platelet Estimate Decreased
--- NOTE | 2017-01-07 09:10 | Nephrology Progress Note ---
Nephrology - PN: Subj Interval history: Patient's condition is about the same. Serum sodium noted to be trending up. Serum creatinine is 3.0. We will give more free water through IV fluids. D5W at 75 cc an hour for the next 24 hours. Exam (PN)-Nephrology - Vital Signs Vital signs: Period Temp Pulse Resp BP Sys/Alvarado Pulse Ox Last 24 Hr 96.5 F-98.0 F 80-103 18-25 129-148/70-88 90-98 - General Appearance General appearance: well-developed, fatigue, frail Neck: supple Respiratory: clear Cardiology: no edema, regular rate, regular rhythm Gastrointestinal: normoactive bowel sounds, no tenderness Musculoskeletal: no deformities - Lab 01/07/17 05:09 01/07/17 05:09 Most recent lab results Calcium 8.5 MG/DL (8.5-10.1) 01/07/17 05:09 Magnesium 2.2 MG/DL (1.8-2.4) 01/07/17 05:09 Assessment and Plan (1) Dementia Status: Chronic Current Visit: No Qualifiers: Dementia type: Alzheimer's disease (2) Recent urinary tract infection Status: Chronic Assessment and plan: Currently patient on broad-spectrum antibiotics. Current Visit: No (3) Chronic renal insufficiency, stage III (moderate) Status: Chronic Assessment and plan: Process of acute on chronic renal failure. Avoid nephrotoxic agents. Current Visit: No (4) Advanced age Status: Chronic Current Visit: No (5) Debility Status: Chronic Current Visit: No (6) CHF (congestive heart failure) Status: Acute Current Visit: No Qualifiers: Congestive heart failure type: combined (7) Hypernatremia Status: Acute Assessment and plan: D5W 75 cc an hour for the next 24 hours. Understand patient has congestive heart failure and being very cautious about fluid volume given. Current Visit: Yes
--- NOTE | 2017-01-07 09:16 | Pulmonology Progress Note ---
Pulmonary - PN: Subj Interval history: This 89-year-old lady came in with congestive heart failure and renal failure. Creatinine is still a little over 3 and she is being followed by renal. Her chest x-ray is improved with diuretics. She has been getting salt poor albumin followed by Lasix. She does feel a little better. She does have some dementia and difficult to get answers from her. Exam (Progress Note) - Constitutional Vitals: Period Temp Pulse Resp BP Sys/Alvarado Pulse Ox Last 24 Hr 96.5 F-98.0 F 80-103 18-25 129-148/70-88 90-98 Exam: She is thin and frail. She is responsive but her answers do not make a lot of sense. Seems comfortable. Wearing nasal oxygen. Vital signs normal. Pupils react to light. Throat is clear. Neck supple no bruits. Chest reveals some bilateral rhonchi and rales. Heart normal rate and rhythm no murmurs. Abdomen soft nontender she does have flank edema. Extremities no clubbing or cyanosis she has peripheral edema. Calves nontender. Results - Labs CBC & BMP: 01/07/17 05:09 01/07/17 05:09 Lab Results: I have reviewed the past 24 hour labs - Diagnostic Findings Procedure: Chest x-ray: image reviewed by me (Cardiomegaly with small pleural effusions and bilateral infiltrates, improved from before. Consistent with improving congestive heart failure.) Assessment and Plan (1) Dementia Status: Chronic Assessment and plan: Patient able to say a few words but not answer questions well. Advanced dementia. Current Visit: No Qualifiers: Dementia type: Alzheimer's disease (2) Diastolic dysfunction with chronic heart failure Status: Chronic Assessment and plan: Symptoms improved with diuresis. Watching renal failure closely. Current Visit: No (3) Debility Status: Chronic Assessment and plan: Very weak and frail. May need physical therapy if improved from a cardiac standpoint. Current Visit: No (4) CHF (congestive heart failure) Status: Acute Assessment and plan: Gradually offloading fluid with diuretics. Renal function has gotten a little worse but is now improving again. Current Visit: No Qualifiers: Congestive heart failure type: combined
[2017-01-07] MEDS: INSULIN REGULAR 100 UNIT/ML SUBCUT SCH ×4 (10:21→21:47)
[2017-01-07] MEDS: ISOSORBIDE MONONITRATE 30 MG TABLET PO SCH (10:21)
[2017-01-07] MEDS: LEVOTHYROXINE 50 MCG TABLET PO SCH (10:21)
[2017-01-07] MEDS: LORATADINE 10 MG TABLET PO SCH (10:21)
[2017-01-07] MEDS: PANTOPRAZOLE 40 MG TABLET PO SCH (10:22)
[2017-01-07] MEDS: POLYETHYLENE GLYCOL POWDER 17 GM PACK PO SCH (10:22)
[2017-01-07] MEDS: DESITIN 4OZ/NYSTATIN 15 GRAM MIXTURE PASTE TOP SCH (10:22)
[2017-01-07] MEDS: levETIRAcetam 250 MG TABLET PO SCH (10:22)
[2017-01-07] MEDS: MEGESTROL 400 MG/10 ML UDCUP PO SCH ×2 (10:22→21:48)
[2017-01-07] MEDS: POTASSIUM CHLORIDE 10 MEQ TABLET PO SCH (10:23)
[2017-01-07] MEDS: POTASSIUM CHLORIDE 20 MEQ TABLET PO SCH ×2 (11:18→19:26)
--- NOTE | 2017-01-07 11:24 | Hospitalist Progress Note ---
Assessment and Plan (1) Acute renal failure Status: Acute Assessment and plan: -renal following - will monitor Current Visit: No (2) Aspiration pneumonia Status: Acute Assessment and plan: - Pulmonary following -IV Cefazolin; Added Flagyl - will monitor Current Visit: No (3) CHF (congestive heart failure) Status: Acute Assessment and plan: - telemetry - oxygen - continue diuresing - Renal and Pulmonary following Current Visit: No Qualifiers: Congestive heart failure type: combined (4) Urinary tract infection Status: Acute Assessment and plan: - Urine culture show Strep and E. Coli - Continue IV Cefazolin - Will monitor Current Visit: No (5) Hypokalemia Status: Acute Assessment and plan: - oral replacement Current Visit: Yes (6) Hypernatremia Status: Acute Assessment and plan: - D5 started per renal - will monitor Current Visit: Yes Hospitalist: Subjective Interval history: Ms. Barron is a 89 y/o female with a history of CHF, CAD, HTN, Dementia, TIA, Seizures, and GERD that was admitted to the hospitalist service for chronic diastolic, CHF, bilateral cellulitis, and UTI. Patient reports feeling a little better . No new complaints. Exam - Constitutional Vitals: Period Temp Pulse Resp BP Sys/Alvarado Pulse Ox Last 24 Hr 96.5 F-98.0 F 88-103 18-25 129-148/70-88 90-98 General appearance: normal weight - Head Head exam: Present: normal inspection - Eye Eye exam: Present: EOMI - Respiratory Respiratory exam: Present: other (coarse breath sound throughout) - Cardiovascular Cardiovascular exam: Present: regular rate and rhythm - GI/Abdominal GI/Abdominal exam: Present: normal bowel sounds, soft. Absent: tenderness - Extremities Exam Extremities exam: Present: edema (pitting edema in bilateral extremities) - Neurological Exam Neurological exam: Absent: alert (Somnolent; arousable; responds to question) - Skin Skin exam: Present: normal color Results - Labs CBC & BMP: 01/07/17 05:09 01/07/17 05:09
[2017-01-07] MEDS: DEXTROSE 5% 1,000 ML IV SCH (11:38)
[2017-01-07] MEDS: metroNIDAZOLE INJ 500 MG in PREMIX 1 EACH IV SCH ×2 (12:41→21:47)
[2017-01-07] MEDS: DONEPEZIL 5 MG TABLET PO SCH (21:48)
[2017-01-07] MEDS: SIMVASTATIN 20 MG TABLET PO SCH (21:48)
[2017-01-07] MEDS: levETIRAcetam 500 MG TABLET PO SCH (21:48)
[2017-01-07] MEDS: ENOXAPARIN 30 MG/0.3 ML SYRINGE SUBCUT SCH (21:48)
[2017-01-08] MEDS: DESITIN 4OZ/NYSTATIN 15 GRAM MIXTURE PASTE TOP SCH ×3 (00:05→21:33)
[2017-01-08] MEDS: ALBUTEROL/IPRATROPIUM 3 ML NEB RESP TX SCH ×4 (00:32→18:40)
[2017-01-08] MEDS: DEXTROSE 5% 1,000 ML IV SCH ×2 (03:05→18:15)
[2017-01-08] MEDS: metroNIDAZOLE INJ 500 MG in PREMIX 1 EACH IV SCH ×3 (03:06→21:20)
[2017-01-08 06:25] LABS: Basophils % 0.1 % (0.0-0.8); Hematocrit 39.2 VOL% (35.7-47.0); Hemoglobin 12.1 GM/DL (12.0-16.0); Immature Granulocytes % 0.6 %; Immature Granulocytes Absolute 0.07 #; Lymphocytes # 1.1 10*3/uL (1.4-4.0); Lymphocytes % 9.5 % (21.3-54.2); Mean Corpuscular HGB Conc 30.9 GM/DL (32-36); Mean Corpuscular Hemoglobin 29 PG (27-34); Mean Corpuscular Volume 92.5 FL (87-102); Monocytes % 8.5 % (1.7-12.7); NRBC # 0.04 10*3/uL; Neutrophils # 9.4 10*3/uL (1.4-7.4); Neutrophils % 81.3 % (38.7-73.9); Platelet Count 114 T/CUMM (130-400); Red Blood Count 4.24 MC/CUMM (3.8-5.5); White Blood Count 11.5 T/CUMM (4-12)
--- NOTE | 2017-01-08 06:47 | XRay Report ---
XR chest 1V portable Indication: Pneumonia Comparison: Chest x-ray 01/07/2017 Technique: Portable AP chest was performed. Findings: The cardiomediastinal silhouette is stable. Diffusely distributed airspace disease bilaterally present has changed little since comparison study and appears to be superimposed on linear and reticular interstitial markings, also unchanged. Small bilateral pleural effusions are present. Bones and soft tissues are stable. Impression: 1. No adverse interval change in the chest. Findings are considered compatible with provided history. 2. Bilateral pleural effusions are stable. 01/08/2017 6:43 AM PROCEDURE INTERPRETED AT [facility] DEPARTMENT OF RADIOLOGY Final Report Signed by: Dr. Gen Wilson
[2017-01-08 06:51] LABS: Hypochromasia 1+; Platelet Estimate Decreased
[2017-01-08 06:52] LABS: Microcytosis Slight; Ovalocytes Slight
[2017-01-08 06:57] LABS: Albumin 3.7 G/DL (3.4-5.0); Bilirubin,Total 2.1 MG/DL (0.2-1.0); Calcium 8.6 MG/DL (8.5-10.1); Magnesium 2.3 MG/DL (1.8-2.4); Osmolality,Calculated 347.3 MOS/KG (273-304); Total Protein 6.6 G/DL (6.4-8.3)
--- NOTE | 2017-01-08 07:49 | Hospitalist Progress Note ---
Assessment and Plan - Time spent with patient Time spent with patient: Less than 30 minutes (1) Chronic renal insufficiency, stage III (moderate) Status: Chronic Assessment and plan: Patient has chronic kidney disease with an acute component to it. Nephrology is following and assisting with adjustment in her fluids. Creatinine is 3.0 today. We will continue to follow and avoid any further nephrotoxic insults or injury. Current Visit: No (2) Diastolic dysfunction with chronic heart failure Status: Chronic Assessment and plan: Patient has a history of CHF was apparently secondary to diastolic dysfunction. Continuing to optimize medical therapy while watching other organ systems as well. Current Visit: No (3) Hypernatremia Status: Acute Assessment and plan: She continues to be hyponatremic. She was placed on D5W yesterday and is being followed by nephrology. Will allow them to continue to adjust fluids and electrolytes while watching renal function closely. Current Visit: Yes (4) Dementia Status: Chronic Current Visit: No Qualifiers: Dementia type: Alzheimer's disease (5) Aspiration syndrome Status: Acute Assessment and plan: Apparent history of aspiration. She is continuing to receive O2, nebs, IV antibiotics. Current Visit: No (6) DNR status Status: Acute Current Visit: Yes (7) Advanced age Status: Chronic Current Visit: No Hospitalist: Subjective Interval history: Chart reviewed and patient examined. 89-year-old female with acute on chronic congestive heart failure secondary to diastolic dysfunction as well as acute on chronic kidney injury. She is also hyponatremic. She has been seen by pulmonary and nephrology. She is a DNR. She has some dementia and does not provide me with much information. Exam - Constitutional Vitals: Period Temp Pulse Resp BP Sys/Alvarado Pulse Ox Last 24 Hr 96 F-97.0 F 61-103 16-26 147-173/77-97 89-98 General appearance: no acute distress - Head Head exam: Present: normocephalic, atraumatic - ENT ENT exam: Present: normal oropharynx - Neck Neck exam: Present: normal inspection - Respiratory Respiratory exam: Present: rhonchi (Scattered rhonchi bilaterally) - Cardiovascular Cardiovascular exam: Present: regular rate and rhythm. Absent: systolic murmur - GI/Abdominal GI/Abdominal exam: Present: normal bowel sounds, soft. Absent: tenderness - Extremities Exam Extremities exam: Present: calf tenderness, edema (Edema of her right upper extremity) - Back Exam Back exam: Present: normal inspection - Neurological Exam Neurological exam: Present: alert - Skin Skin exam: Present: warm, dry Results - Labs CBC & BMP: 01/08/17 05:21 01/08/17 05:21 Lab Results: I have reviewed the past 24 hour labs - Diagnostic Findings Procedure: Chest x-ray: report reviewed by me
--- NOTE | 2017-01-08 09:30 | Pulmonology Progress Note ---
Pulmonary - PN: Subj Interval history: This 89-year-old white female longtime patient of mine whom I saw in pulmonary consultation on 12/31/2016. My impressions were. #1. Acute congestive heart failure secondary to heart disease and valvular disease. 2. History of cardiomyopathy. 3. Mild to moderate mitral regurgitation with elevated pulmonary artery pressures and tricuspid regurgitation 4. Aortic valve insufficiency. 5. Chronic renal failure. Note that in November 2016 the patient's creatinine was 1.30. Today it is 2.40. 6. History of asthma. 7. Obstructive sleep apnea 8. Mild to moderate cognitive impairment 9. 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 Diabetes mellitus 11. Hyperlipidemia 12. High blood pressure 13. 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 History of colon polyps. 14. Past history of TIAs 15. Acute urinary tract infection with an unidentified gram-negative carmelo 01/01/2017. Patient chest x-ray is improved. She still has congestive heart failure but this is good bit better than it was one day ago. Creatinine is increased from 2.4 to 2.9. Several months ago her creatinine was 1.3. Typically in my office her creatinine has been 1.8. She is on salt poor albumin 25 g IV piggyback every 8 hours followed by Lasix 20 mg IV push every 8 hours. I am going to ask renal to see the patient. Her natruretic peptide is greater than 5000. She has underlying heart disease. Electrolytes are normal. Patient has blood culture drawn 12/30/2016 positive for gram-positive cocci which is yet to be identified. She also has a urine culture which is growing a gram-negative carmelo, gram-positive cocci and the micro Streptococcus. Patient received a huge dose of Levaquin at the time of admission. Today we will start Levaquin 250 mg every 48 hours. Ultrasounds of the kidneys have been ordered. Today the patient is a little more alert breathing is much easier. Her daughter is not present. 01/02/2017. Patient's daughter is not present. Patient sitting up in bed she is talkative. She says she feels better than before. Today's chest x-ray is the same as yesterday. There is still residual congestive heart failure but this is markedly improved. Urine cultures from 12/30/2016 grown E. coli and that is being treated based on sensitivities. Blood cultures from 12/30/2016 and 12/31/2016 growing a gram-positive cocci which is yet to be identified.. Dr. Chan is seeing the patient in renal consultation and I appreciate his help. Creatinine is 3.10 with a BUN of 86. Electrolytes are normal. Natruretic peptide remains greater than 5000. Thyroid function tests are normal. Overall the patient is better from a current congestive heart failure standpoint and a level of alertness standpoint. Kidneys continue to be a problem. 01/03/2017. Patient's daughter was present today and I went over the case with her. Patient has maintain the improvement in her level of alertness that I observed yesterday. Her chest x-ray looks worse today but is is grossly underpenetrated. She still has congestive heart failure but she appears much more comfortable with her breathing. Creatinine is dropped from 3.1-3.0 with a BUN of 89. Sodium is 147. Potassium is 3.4. Chloride is 108. Natruretic peptide is greater than 5000. Dr. Chan to see in her in renal consultation. Blood cultures have grown E. coli. Urine cultures have grown E. coli, staph hominis, staph hemolyticus. Patient is covered with present antibiotics. I think we should continue to treat reversible findings. This is a daughter's request. And I agree. 01/04/2017. Patient's daughter was not present today. Chest x-ray was not done. Patient is much less distress and she is being cared for by the nurses. She seems less short of breath. Sodium is 150, potassium is 3.2, creatinine is 3.10 and BUN is 91. Serum osmolality is 330. Random vancomycin level is 14.2 this is being monitored by pharmacology. Keppra level was 35.7. Most recent natruretic peptide is greater than 5000. 01/05/2017. Today's chest x-ray shows cardiomegaly and calcification of the aortic bulb no hilar adenopathy mediastinum is normal evidence of congestive heart failure is beginning to show some good improvement. Patient's breathing comfortably lying in a 30 angle. Creatinine is 3.10. BUN is 96. Sodium 149. Potassium 3.4. Natruretic peptide is greater than 5000. Dr. Becerra has increased her Lasix dose and I agree with this. No family is present. 01/06/2017. Chest x-ray today shows congestive heart failure. Overall this is better than we were a few days back but is still present. She is being diuresed. Her sodium is 153. Potassium is low at 3.2 and is being replaced. Her usual creatinine in my office is about 1.8-2.2. Presently creatinine is 3.10 with a BUN of 103. Natruretic peptide remains elevated greater than 5000. Random vancomycin level is 15.5 and is being monitored by pharmacology. Patient has had positive blood cultures for staph hemolyticus and staph hominis. She is a urine cultures positive for E. coli and Streptococcus mitis. The E. coli was covered with the cephalosporin. Patient is fairly comfortable lying flat in bed. No family is present. 01/08/2017. No family was present. Patient's chest x-ray shows improvement. She has mild residual compensated congestive heart failure. She is also salt poor albumin. She is on Lasix 120 mg once a day. Creatinine appears to have stabilized at 3.0 with a BUN of 110. Sodium is now 155. Potassium is 4.0. Nephrology is on the case per. Previous urine cultures have grown E. coli and Streptococcus middle. Blood cultures have grown staph hominis and staph hemolyticus. White blood cell count is 11,500 with 81 segs 9.5 lymphs and 8.5 monocytes. We will repeat urinalysis. Will also repeat urine cultures. The last recorded fever was 99 and this was on 01/03/2017. This patient may be a care home candidate. I have not seen the daughter and a number of days but we should ask her. Physical exam. Vital signs. See below. Face. Symmetrical. No edema of the lips or tongue. Neck. Symmetrical. No meningismus. Psychiatric. Arousable. Alert. Will answer questions. Can follow instructions when she wants to. Neurologic. Cranial nerves are intact with decreased hearing acuity bilaterally. Long track motor function is intact. Sensory exam was not done in gait was not tested. Chest. Previously very prominent rales. Now nearly resolved. Heart. Lateral diffuse PMI Abdomen. Nondistended. Rare bowel sounds. Extremities. Only a trace of pedal edema. Lymphatics. No submandibular cervical supraclavicular or epitrochlear adenopathy. The remainder the physical exam is noncontributory and negative Plan. 12/31/2016 1. Patient's daughter has made her DO NOT RESUSCITATE but she wants everything done that is reasonable and she would like to also keep her comfortable. 2. Salt poor albumin, 25 g IV piggyback every 8 hours followed by 20 mg of Lasix IV push every 8 hours. 3. Daily BMP, BNP, chest x-ray 4. This patient with a creatinine of 2.5 at the time of admission got 750 mg of Levaquin IV push in the emergency room on 12/30/2016. Tomorrow I will start 250 IV piggyback once a day and will adjust according to what the creatinine does. 5. I have added back a number of the patient's medicines including her nitrate , Keppra, thyroid, Protonix. 6. Sliding scale insulin. 7. See orders 8. Other things to consider would be a follow-up echocardiogram and cardiology consult if indicated. 01/01/2017. 1. Ultrasound of the kidneys. 2. Renal consultation. 3. Check urine and blood cultures when available 4. Levaquin. Renal dose. 5. Daily lab and chest x-ray. 6. See today's note above. 01/02/2017. 1. Appreciate renal consultation. 2. See my note above. 3. Follow-up chest x-ray and lab. 01/03/2017. 1. See my note above. 2. Chest x-ray in the morning and daily lab. 01/04/2017. 1. See my note above. 2. Daily chest x-ray and lab. 3. Renal is on the case 01/05/2017. 1. See my note above 2. Continue daily chest x-ray and lab. 3. Agree with Dr. Becerra's decision to increase lysed 01/06/2017. 1. See today's note above. 2. Continue present treatment 3. Follow lab and chest x-ray. 4. The patient is a DO NOT RESUSCITATE. Daughter wants treatable things with possibility of reversibility treated 01/08/2017. 1. See today's note above. 2. Repeat urine 3. Repeat urine culture 4. We need to asked the daughter about the possibility of a care home versus going home with home health. 5. Note sodium of 155 Exam (Progress Note) - Constitutional Vitals: Period Temp Pulse Resp BP Sys/Alvarado Pulse Ox Last 24 Hr 96 F-97.0 F 61-103 16-26 147-173/77-97 89-98 Results - Labs CBC & BMP: 01/08/17 05:21 01/08/17 05:21
[2017-01-08] MEDS: INSULIN REGULAR 100 UNIT/ML SUBCUT SCH ×4 (10:37→21:46)
[2017-01-08] MEDS: LEVOTHYROXINE 50 MCG TABLET PO SCH (10:41)
[2017-01-08] MEDS: MEGESTROL 400 MG/10 ML UDCUP PO SCH ×2 (10:41→21:32)
[2017-01-08] MEDS: PANTOPRAZOLE 40 MG TABLET PO SCH (10:42)
[2017-01-08] MEDS: levETIRAcetam 250 MG TABLET PO SCH (10:42)
[2017-01-08] MEDS: POTASSIUM CHLORIDE 20 MEQ TABLET PO SCH ×3 (10:42→18:14)
[2017-01-08] MEDS: LORATADINE 10 MG TABLET PO SCH (10:42)
[2017-01-08] MEDS: ISOSORBIDE MONONITRATE 30 MG TABLET PO SCH (10:42)
[2017-01-08] MEDS: FUROSEMIDE 40 MG/4 ML VIAL IV SCH (10:43)
[2017-01-08] MEDS: POLYETHYLENE GLYCOL POWDER 17 GM PACK PO SCH (12:31)
--- NOTE | 2017-01-08 16:37 | Nephrology Progress Note ---
Nephrology - PN: Subj Interval history: Patient condition is about the same. Serum sodium is noted to be 155. Continue with IV fluids. Serum creatinine is 3.0. Exam (PN)-Nephrology - Vital Signs Vital signs: Period Temp Pulse Resp BP Sys/Alvarado Pulse Ox Last 24 Hr 96 F-97.3 F 61-100 16-26 144-164/77-95 89-98 - General Appearance General appearance: fatigue, frail EENT: ATNC Neck: supple Respiratory: clear Cardiology: regular rate, regular rhythm Gastrointestinal: normoactive bowel sounds, no tenderness, no guarding Integumentary: no rash Musculoskeletal: no clubbing - Lab 01/08/17 05:21 01/08/17 05:21 Most recent lab results Calcium 8.6 MG/DL (8.5-10.1) 01/08/17 05:21 Magnesium 2.3 MG/DL (1.8-2.4) 01/08/17 05:21 Assessment and Plan (1) Dementia Status: Chronic Current Visit: No Qualifiers: Dementia type: Alzheimer's disease (2) Recent urinary tract infection Status: Chronic Assessment and plan: Currently patient on broad-spectrum antibiotics. Current Visit: No (3) Chronic renal insufficiency, stage III (moderate) Status: Chronic Assessment and plan: Process of acute on chronic renal failure. Avoid nephrotoxic agents. Current Visit: No (4) Advanced age Status: Chronic Current Visit: No (5) Debility Status: Chronic Current Visit: No (6) CHF (congestive heart failure) Status: Acute Current Visit: No Qualifiers: Congestive heart failure type: combined (7) Hypernatremia Status: Acute Assessment and plan: D5W 75 cc an hour for the next 24 hours. Understand patient has congestive heart failure and being very cautious about fluid volume given. Current Visit: Yes
[2017-01-08 17:36] LABS: Apearance,Urine CLOUDY (Clear); Bilirubin,Urine Negative (Negative); Blood, Urine Small mg/dL (Negative); Glucose,Urine (UA) Negative (Negative); Ketones,Urine Negative (Negative); Mucus,Urine Occasional /LPF (Occasional); Nitrite,Urine Negative (Negative); Protein,Urine 30 MG/DL; RBC,Urine 5 /HPF (0-4); Urine Color Yellow (Yellow); Urine Specific Gravity 1.006 (1.001-1.035); Urine Urobilinogen < 2.0 EU/DL (0.2-1.0); WBC,Urine 7 /HPF (0-6)
[2017-01-08] MEDS: ENOXAPARIN 30 MG/0.3 ML SYRINGE SUBCUT SCH (21:31)
[2017-01-08] MEDS: SIMVASTATIN 20 MG TABLET PO SCH (21:32)
[2017-01-08] MEDS: levETIRAcetam 500 MG TABLET PO SCH (21:32)
[2017-01-08] MEDS: DONEPEZIL 5 MG TABLET PO SCH (21:32)
[2017-01-09] MEDS: ALBUTEROL/IPRATROPIUM 3 ML NEB RESP TX SCH ×4 (00:30→19:25)
[2017-01-09] MEDS: metroNIDAZOLE INJ 500 MG in PREMIX 1 EACH IV SCH ×3 (04:23→21:27)
[2017-01-09 06:01] LABS: Calcium 8.6 MG/DL (8.5-10.1); Magnesium 2.1 MG/DL (1.8-2.4); Osmolality,Calculated 339.7 MOS/KG (273-304); Potassium 3.1 MMOL/L (3.5-5.1)
--- NOTE | 2017-01-09 07:27 | Nephrology Progress Note ---
Nephrology - PN: Subj Interval history: The patient's condition is about the same. Serum sodium is now 152. Creatinine is 2.7. Continue with IV fluids will decrease to 50 cc an hour. Patient's daughter is at the bedside and updated. BMP in a.m. Will also supplement the potassium Exam (PN)-Nephrology - Vital Signs Vital signs: Period Temp Pulse Resp BP Sys/Alvarado Pulse Ox Last 24 Hr 96.4 F-97.3 F 57-100 18-26 144-163/83-95 89-96 - General Appearance General appearance: fatigue, frail EENT: ATNC Neck: supple Respiratory: clear Cardiology: regular rate, regular rhythm Gastrointestinal: normoactive bowel sounds, no tenderness Integumentary: no rash - Lab 01/08/17 05:21 01/09/17 05:07 Most recent lab results Calcium 8.6 MG/DL (8.5-10.1) 01/09/17 05:07 Magnesium 2.1 MG/DL (1.8-2.4) 01/09/17 05:07 Assessment and Plan (1) Dementia Status: Chronic Current Visit: No Qualifiers: Dementia type: Alzheimer's disease (2) Recent urinary tract infection Status: Chronic Assessment and plan: Currently patient on broad-spectrum antibiotics. Current Visit: No (3) Chronic renal insufficiency, stage III (moderate) Status: Chronic Assessment and plan: Process of acute on chronic renal failure. Avoid nephrotoxic agents. Current Visit: No (4) Advanced age Status: Chronic Current Visit: No (5) Debility Status: Chronic Current Visit: No (6) CHF (congestive heart failure) Status: Acute Current Visit: No Qualifiers: Congestive heart failure type: combined (7) Hypernatremia Status: Acute Assessment and plan: D5W 75 cc an hour for the next 24 hours. This is slowly improving with a serum sodium of 152. Understand patient has congestive heart failure and being very cautious about fluid volume given. Current Visit: Yes
[2017-01-09] MEDS: INSULIN REGULAR 100 UNIT/ML SUBCUT SCH ×4 (07:56→21:27)
[2017-01-09] MEDS: FUROSEMIDE 40 MG/4 ML VIAL IV SCH (09:24)
[2017-01-09] MEDS: POTASSIUM CHLORIDE 20 MEQ TABLET PO SCH ×3 (09:24→16:24)
[2017-01-09] MEDS: LORATADINE 10 MG TABLET PO SCH (09:24)
[2017-01-09] MEDS: levETIRAcetam 250 MG TABLET PO SCH (09:24)
[2017-01-09] MEDS: ISOSORBIDE MONONITRATE 30 MG TABLET PO SCH (09:24)
[2017-01-09] MEDS: MEGESTROL 400 MG/10 ML UDCUP PO SCH ×2 (09:25→20:32)
[2017-01-09] MEDS: POLYETHYLENE GLYCOL POWDER 17 GM PACK PO SCH (09:25)
[2017-01-09] MEDS: PANTOPRAZOLE 40 MG TABLET PO SCH (09:25)
[2017-01-09] MEDS: LEVOTHYROXINE 50 MCG TABLET PO SCH (09:25)
[2017-01-09] MEDS: DESITIN 4OZ/NYSTATIN 15 GRAM MIXTURE PASTE TOP SCH ×2 (09:25→20:34)
--- NOTE | 2017-01-09 10:04 | Pulmonology Progress Note ---
Pulmonary - PN: Subj Interval history: This 89-year-old white female longtime patient of mine whom I saw in pulmonary consultation on 12/31/2016. My impressions were. #1. Acute congestive heart failure secondary to heart disease and valvular disease. 2. History of cardiomyopathy. 3. Mild to moderate mitral regurgitation with elevated pulmonary artery pressures and tricuspid regurgitation 4. Aortic valve insufficiency. 5. Chronic renal failure. Note that in November 2016 the patient's creatinine was 1.30. Today it is 2.40. 6. History of asthma. 7. Obstructive sleep apnea 8. Mild to moderate cognitive impairment 9. 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 Diabetes mellitus 11. Hyperlipidemia 12. High blood pressure 13. 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 History of colon polyps. 14. Past history of TIAs 15. Acute urinary tract infection with an unidentified gram-negative carmelo 01/01/2017. Patient chest x-ray is improved. She still has congestive heart failure but this is good bit better than it was one day ago. Creatinine is increased from 2.4 to 2.9. Several months ago her creatinine was 1.3. Typically in my office her creatinine has been 1.8. She is on salt poor albumin 25 g IV piggyback every 8 hours followed by Lasix 20 mg IV push every 8 hours. I am going to ask renal to see the patient. Her natruretic peptide is greater than 5000. She has underlying heart disease. Electrolytes are normal. Patient has blood culture drawn 12/30/2016 positive for gram-positive cocci which is yet to be identified. She also has a urine culture which is growing a gram-negative carmelo, gram-positive cocci and the micro Streptococcus. Patient received a huge dose of Levaquin at the time of admission. Today we will start Levaquin 250 mg every 48 hours. Ultrasounds of the kidneys have been ordered. Today the patient is a little more alert breathing is much easier. Her daughter is not present. 01/02/2017. Patient's daughter is not present. Patient sitting up in bed she is talkative. She says she feels better than before. Today's chest x-ray is the same as yesterday. There is still residual congestive heart failure but this is markedly improved. Urine cultures from 12/30/2016 grown E. coli and that is being treated based on sensitivities. Blood cultures from 12/30/2016 and 12/31/2016 growing a gram-positive cocci which is yet to be identified.. Dr. Chan is seeing the patient in renal consultation and I appreciate his help. Creatinine is 3.10 with a BUN of 86. Electrolytes are normal. Natruretic peptide remains greater than 5000. Thyroid function tests are normal. Overall the patient is better from a current congestive heart failure standpoint and a level of alertness standpoint. Kidneys continue to be a problem. 01/03/2017. Patient's daughter was present today and I went over the case with her. Patient has maintain the improvement in her level of alertness that I observed yesterday. Her chest x-ray looks worse today but is is grossly underpenetrated. She still has congestive heart failure but she appears much more comfortable with her breathing. Creatinine is dropped from 3.1-3.0 with a BUN of 89. Sodium is 147. Potassium is 3.4. Chloride is 108. Natruretic peptide is greater than 5000. Dr. Chan to see in her in renal consultation. Blood cultures have grown E. coli. Urine cultures have grown E. coli, staph hominis, staph hemolyticus. Patient is covered with present antibiotics. I think we should continue to treat reversible findings. This is a daughter's request. And I agree. 01/04/2017. Patient's daughter was not present today. Chest x-ray was not done. Patient is much less distress and she is being cared for by the nurses. She seems less short of breath. Sodium is 150, potassium is 3.2, creatinine is 3.10 and BUN is 91. Serum osmolality is 330. Random vancomycin level is 14.2 this is being monitored by pharmacology. Keppra level was 35.7. Most recent natruretic peptide is greater than 5000. 01/05/2017. Today's chest x-ray shows cardiomegaly and calcification of the aortic bulb no hilar adenopathy mediastinum is normal evidence of congestive heart failure is beginning to show some good improvement. Patient's breathing comfortably lying in a 30 angle. Creatinine is 3.10. BUN is 96. Sodium 149. Potassium 3.4. Natruretic peptide is greater than 5000. Dr. Becerra has increased her Lasix dose and I agree with this. No family is present. 01/06/2017. Chest x-ray today shows congestive heart failure. Overall this is better than we were a few days back but is still present. She is being diuresed. Her sodium is 153. Potassium is low at 3.2 and is being replaced. Her usual creatinine in my office is about 1.8-2.2. Presently creatinine is 3.10 with a BUN of 103. Natruretic peptide remains elevated greater than 5000. Random vancomycin level is 15.5 and is being monitored by pharmacology. Patient has had positive blood cultures for staph hemolyticus and staph hominis. She is a urine cultures positive for E. coli and Streptococcus mitis. The E. coli was covered with the cephalosporin. Patient is fairly comfortable lying flat in bed. No family is present. 01/08/2017. No family was present. Patient's chest x-ray shows improvement. She has mild residual compensated congestive heart failure. She is also salt poor albumin. She is on Lasix 120 mg once a day. Creatinine appears to have stabilized at 3.0 with a BUN of 110. Sodium is now 155. Potassium is 4.0. Nephrology is on the case per. Previous urine cultures have grown E. coli and Streptococcus middle. Blood cultures have grown staph hominis and staph hemolyticus. White blood cell count is 11,500 with 81 segs 9.5 lymphs and 8.5 monocytes. We will repeat urinalysis. Will also repeat urine cultures. The last recorded fever was 99 and this was on 01/03/2017. This patient may be a group home candidate. I have not seen the daughter and a number of days but we should ask her. 01/09/2017. Patient's daughter was present today. She was seen along with Suresh Mclean nurse practitioner and Flako Becerra RN. Patient's a lot better and she is breathing comfortably. She occasionally has a cough. She has some significant problems with swallowing at times. I have asked for swallowing studies. I talked to the daughter about the fact that we need to decide if she is going to a swing bed or group home or back to home. The daughter says she gets conflicted messages from people out in the community and people her veterans etc. I told her that we should go by what social services manager says. creative services writer has already talked to the daughter but I have asked him to come back and go through things with her again and hopefully we can get all of her questions answered. Patient's urine shows her urinary tract infection is cleared up. She has a yeast and I will start Diflucan. She was septic and we can continue her antibiotics a few more days but she has had good treatment. Patient is comfortable lying flat in bed Physical exam. Vital signs. See below. Face. Symmetrical. No edema of the lips or tongue. Neck. Symmetrical. No meningismus. Psychiatric. Arousable. Alert. Will answer questions. Can follow instructions when she wants to. Neurologic. Cranial nerves are intact with decreased hearing acuity bilaterally. Long track motor function is intact. Sensory exam was not done in gait was not tested. Chest. Previously very prominent rales. Now nearly resolved. Heart. Lateral diffuse PMI Abdomen. Nondistended. Rare bowel sounds. Extremities. Only a trace of pedal edema. Lymphatics. No submandibular cervical supraclavicular or epitrochlear adenopathy. The remainder the physical exam is noncontributory and negative Plan. 12/31/2016 1. Patient's daughter has made her DO NOT RESUSCITATE but she wants everything done that is reasonable and she would like to also keep her comfortable. 2. Salt poor albumin, 25 g IV piggyback every 8 hours followed by 20 mg of Lasix IV push every 8 hours. 3. Daily BMP, BNP, chest x-ray 4. This patient with a creatinine of 2.5 at the time of admission got 750 mg of Levaquin IV push in the emergency room on 12/30/2016. Tomorrow I will start 250 IV piggyback once a day and will adjust according to what the creatinine does. 5. I have added back a number of the patient's medicines including her nitrate , Keppra, thyroid, Protonix. 6. Sliding scale insulin. 7. See orders 8. Other things to consider would be a follow-up echocardiogram and cardiology consult if indicated. 01/01/2017. 1. Ultrasound of the kidneys. 2. Renal consultation. 3. Check urine and blood cultures when available 4. Levaquin. Renal dose. 5. Daily lab and chest x-ray. 6. See today's note above. 01/02/2017. 1. Appreciate renal consultation. 2. See my note above. 3. Follow-up chest x-ray and lab. 01/03/2017. 1. See my note above. 2. Chest x-ray in the morning and daily lab. 01/04/2017. 1. See my note above. 2. Daily chest x-ray and lab. 3. Renal is on the case 01/05/2017. 1. See my note above 2. Continue daily chest x-ray and lab. 3. Agree with Dr. Becerra's decision to increase lysed 01/06/2017. 1. See today's note above. 2. Continue present treatment 3. Follow lab and chest x-ray. 4. The patient is a DO NOT RESUSCITATE. Daughter wants treatable things with possibility of reversibility treated 01/08/2017. 1. See today's note above. 2. Repeat urine 3. Repeat urine culture 4. We need to asked the daughter about the possibility of a group home versus going home with home health. 5. Note sodium of 155 01/09/2017. 1. See today's note above. 2. Diflucan 3. DC antibiotics in the next day or 2. 4. creative services writer. 5. Talked with daughter Exam (Progress Note) - Constitutional Vitals: Period Temp Pulse Resp BP Sys/Alvarado Pulse Ox Last 24 Hr 96.2 F-97.3 F 57-100 18-26 144-163/75-95 89-100 Results - Labs CBC & BMP: 01/08/17 05:21 01/09/17 05:07
[2017-01-09] MEDS: FLUCONAZOLE 100 MG TABLET PO SCH (11:14)
[2017-01-09] MEDS: DEXTROSE 5% 1,000 ML IV SCH ×2 (14:01→17:06)
--- NOTE | 2017-01-09 14:54 | Hospitalist Progress Note ---
Assessment and Plan (1) Dementia Status: Chronic Current Visit: No Qualifiers: Dementia type: Alzheimer's disease (2) Chronic renal insufficiency, stage III (moderate) Status: Chronic Assessment and plan: Nephrology assisting Current Visit: No (3) Diastolic dysfunction with chronic heart failure Status: Chronic Current Visit: No (4) Aspiration pneumonia Status: Acute Assessment and plan: Swallow study today Current Visit: No (5) Hypernatremia Status: Acute Assessment and plan: Improving Nephrology assisting, on D5 Current Visit: Yes Hospitalist: Subjective Interval history: No acute events overnight. Patient looks comfortable lying in bed. RUE with redness and edema. Will obtain doppler. Exam - Constitutional Vitals: Period Temp Pulse Resp BP Sys/Alvarado Pulse Ox Last 24 Hr 96.2 F-97.3 F 57-100 18-24 144-163/75-95 94-100 General appearance: normal weight - Head Head exam: Present: normocephalic, atraumatic - Eye Eye exam: Present: EOMI Pupils: Present: KRISTEN - ENT ENT exam: Present: normal exam - Neck Neck exam: Present: normal inspection - Respiratory Respiratory exam: Present: clear to auscultation bilaterally - Cardiovascular Cardiovascular exam: Present: regular rate and rhythm - GI/Abdominal GI/Abdominal exam: Present: normal bowel sounds, soft. Absent: tenderness, rebound - Extremities Exam Extremities exam: Present: normal inspection - Back Exam Back exam: Present: normal inspection - Neurological Exam Neurological exam: Present: alert - Psychiatric Psychiatric exam: Present: normal affect, normal mood - Skin Skin exam: Present: warm, intact Results - Labs CBC & BMP: 01/08/17 05:21 01/09/17 05:07
--- NOTE | 2017-01-09 15:51 | Ultrasound Report ---
Exam: US venous doppler UE RT Date: 01/09/2017 2:45 PM Indication: Right upper extremity pain and swelling Comparison: None Findings: Grayscale color flow Doppler duplex imaging was performed with spectral waveform analysis the with real-time ultrasound imaging with image stored and captured. The right internal jugular, subclavian, axillary, brachial veins are patent with normal augmentation and compression. The cephalic vein basilic vein and radial ulnar forearm veins are not well visualized. Impression: 1. No DVT on the submitted images however the basilic and cephalic veins are not well seen on the radial ulnar vessels. PROCEDURE INTERPRETED AT [facility] DEPARTMENT OF RADIOLOGY Final Report Signed by: Dr. Stefan Cole
[2017-01-09] MEDS: ENOXAPARIN 30 MG/0.3 ML SYRINGE SUBCUT SCH (20:32)
[2017-01-09] MEDS: DONEPEZIL 5 MG TABLET PO SCH (20:32)
[2017-01-09] MEDS: SIMVASTATIN 20 MG TABLET PO SCH (20:32)
[2017-01-09] MEDS: levETIRAcetam 500 MG TABLET PO SCH (20:32)
[2017-01-10] MEDS: ALBUTEROL/IPRATROPIUM 3 ML NEB RESP TX SCH ×4 (00:42→19:29)
--- NOTE | 2017-01-10 05:49 | Pulmonology Progress Note ---
Pulmonary - PN: Subj Interval history: This 89-year-old white female longtime patient of mine whom I saw in pulmonary consultation on 12/31/2016. My impressions were. #1. Acute congestive heart failure secondary to heart disease and valvular disease. 2. History of cardiomyopathy. 3. Mild to moderate mitral regurgitation with elevated pulmonary artery pressures and tricuspid regurgitation 4. Aortic valve insufficiency. 5. Chronic renal failure. Note that in November 2016 the patient's creatinine was 1.30. Today it is 2.40. 6. History of asthma. 7. Obstructive sleep apnea 8. Mild to moderate cognitive impairment 9. 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 Diabetes mellitus 11. Hyperlipidemia 12. High blood pressure 13. 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 History of colon polyps. 14. Past history of TIAs 15. Acute urinary tract infection with an unidentified gram-negative carmelo 01/01/2017. Patient chest x-ray is improved. She still has congestive heart failure but this is good bit better than it was one day ago. Creatinine is increased from 2.4 to 2.9. Several months ago her creatinine was 1.3. Typically in my office her creatinine has been 1.8. She is on salt poor albumin 25 g IV piggyback every 8 hours followed by Lasix 20 mg IV push every 8 hours. I am going to ask renal to see the patient. Her natruretic peptide is greater than 5000. She has underlying heart disease. Electrolytes are normal. Patient has blood culture drawn 12/30/2016 positive for gram-positive cocci which is yet to be identified. She also has a urine culture which is growing a gram-negative carmelo, gram-positive cocci and the micro Streptococcus. Patient received a huge dose of Levaquin at the time of admission. Today we will start Levaquin 250 mg every 48 hours. Ultrasounds of the kidneys have been ordered. Today the patient is a little more alert breathing is much easier. Her daughter is not present. 01/02/2017. Patient's daughter is not present. Patient sitting up in bed she is talkative. She says she feels better than before. Today's chest x-ray is the same as yesterday. There is still residual congestive heart failure but this is markedly improved. Urine cultures from 12/30/2016 grown E. coli and that is being treated based on sensitivities. Blood cultures from 12/30/2016 and 12/31/2016 growing a gram-positive cocci which is yet to be identified.. Dr. Chan is seeing the patient in renal consultation and I appreciate his help. Creatinine is 3.10 with a BUN of 86. Electrolytes are normal. Natruretic peptide remains greater than 5000. Thyroid function tests are normal. Overall the patient is better from a current congestive heart failure standpoint and a level of alertness standpoint. Kidneys continue to be a problem. 01/03/2017. Patient's daughter was present today and I went over the case with her. Patient has maintain the improvement in her level of alertness that I observed yesterday. Her chest x-ray looks worse today but is is grossly underpenetrated. She still has congestive heart failure but she appears much more comfortable with her breathing. Creatinine is dropped from 3.1-3.0 with a BUN of 89. Sodium is 147. Potassium is 3.4. Chloride is 108. Natruretic peptide is greater than 5000. Dr. Chan to see in her in renal consultation. Blood cultures have grown E. coli. Urine cultures have grown E. coli, staph hominis, staph hemolyticus. Patient is covered with present antibiotics. I think we should continue to treat reversible findings. This is a daughter's request. And I agree. 01/04/2017. Patient's daughter was not present today. Chest x-ray was not done. Patient is much less distress and she is being cared for by the nurses. She seems less short of breath. Sodium is 150, potassium is 3.2, creatinine is 3.10 and BUN is 91. Serum osmolality is 330. Random vancomycin level is 14.2 this is being monitored by pharmacology. Keppra level was 35.7. Most recent natruretic peptide is greater than 5000. 01/05/2017. Today's chest x-ray shows cardiomegaly and calcification of the aortic bulb no hilar adenopathy mediastinum is normal evidence of congestive heart failure is beginning to show some good improvement. Patient's breathing comfortably lying in a 30 angle. Creatinine is 3.10. BUN is 96. Sodium 149. Potassium 3.4. Natruretic peptide is greater than 5000. Dr. Becerra has increased her Lasix dose and I agree with this. No family is present. 01/06/2017. Chest x-ray today shows congestive heart failure. Overall this is better than we were a few days back but is still present. She is being diuresed. Her sodium is 153. Potassium is low at 3.2 and is being replaced. Her usual creatinine in my office is about 1.8-2.2. Presently creatinine is 3.10 with a BUN of 103. Natruretic peptide remains elevated greater than 5000. Random vancomycin level is 15.5 and is being monitored by pharmacology. Patient has had positive blood cultures for staph hemolyticus and staph hominis. She is a urine cultures positive for E. coli and Streptococcus mitis. The E. coli was covered with the cephalosporin. Patient is fairly comfortable lying flat in bed. No family is present. 01/08/2017. No family was present. Patient's chest x-ray shows improvement. She has mild residual compensated congestive heart failure. She is also salt poor albumin. She is on Lasix 120 mg once a day. Creatinine appears to have stabilized at 3.0 with a BUN of 110. Sodium is now 155. Potassium is 4.0. Nephrology is on the case per. Previous urine cultures have grown E. coli and Streptococcus middle. Blood cultures have grown staph hominis and staph hemolyticus. White blood cell count is 11,500 with 81 segs 9.5 lymphs and 8.5 monocytes. We will repeat urinalysis. Will also repeat urine cultures. The last recorded fever was 99 and this was on 01/03/2017. This patient may be a [place] [facility] [place]. I have not seen the daughter and a number of days but we should ask her. 01/09/2017. Patient's daughter was present today. She was seen along with Suresh Mclean nurse practitioner and Flako Becerra RN. Patient's a lot better and she is breathing comfortably. She occasionally has a cough. She has some significant problems with swallowing at times. I have asked for swallowing studies. I talked to the daughter about the fact that we need to decide if she is going to a swing bed or [place] [facility] [place] or back to home. The daughter says she gets conflicted messages from people out in the community and people her veterans etc. I told her that we should go by what clinical social work aide says. services program manager has already talked to the daughter but I have asked him to come back and go through things with her again and hopefully we can get all of her questions answered. Patient's urine shows her urinary tract infection is cleared up. She has a yeast and I will start Diflucan. She was septic and we can continue her antibiotics a few more days but she has had good treatment. Patient is comfortable lying flat in bed 01/10/2017. No family is present. Patient passed her swallowing test. Pured diet recommended. This patient had congestive heart failure. This is improved significantly by chest x-ray and clinical criteria. She is breathing comfortably lying flat in bed. She also has chronic renal failure and her creatinine has now dropped to 2.70. In the past she has typically run a creatinine of 1.8-2.4. Potassium was low at 3.1 in each replacement. Sodium is elevated 152. Renal is on the case. Bacterial urinary tract infection has resolved. Patient now has yeast and is being treated with Diflucan. She was previously septic.. She is also for some and Flagyl we can stop these in the next day or 2. services program manager is on the case. Her daughter has had the patient's options presented to her peer Physical exam. Vital signs. See below. Face. Symmetrical. No edema of the lips or tongue. Neck. Symmetrical. No meningismus. Psychiatric. Arousable. Alert. Will answer questions. Can follow instructions when she wants to. Neurologic. Cranial nerves are intact with decreased hearing acuity bilaterally. Long track motor function is intact. Sensory exam was not done in gait was not tested. Chest. Previously very prominent rales. Now nearly resolved. Heart. Lateral diffuse PMI Abdomen. Nondistended. Rare bowel sounds. Extremities. Only a trace of pedal edema. Lymphatics. No submandibular cervical supraclavicular or epitrochlear adenopathy. The remainder the physical exam is noncontributory and negative Plan. 12/31/2016 1. Patient's daughter has made her DO NOT RESUSCITATE but she wants everything done that is reasonable and she would like to also keep her comfortable. 2. Salt poor albumin, 25 g IV piggyback every 8 hours followed by 20 mg of Lasix IV push every 8 hours. 3. Daily BMP, BNP, chest x-ray 4. This patient with a creatinine of 2.5 at the time of admission got 750 mg of Levaquin IV push in the emergency room on 12/30/2016. Tomorrow I will start 250 IV piggyback once a day and will adjust according to what the creatinine does. 5. I have added back a number of the patient's medicines including her nitrate , Keppra, thyroid, Protonix. 6. Sliding scale insulin. 7. See orders 8. Other things to consider would be a follow-up echocardiogram and cardiology consult if indicated. 01/01/2017. 1. Ultrasound of the kidneys. 2. Renal consultation. 3. Check urine and blood cultures when available 4. Levaquin. Renal dose. 5. Daily lab and chest x-ray. 6. See today's note above. 01/02/2017. 1. Appreciate renal consultation. 2. See my note above. 3. Follow-up chest x-ray and lab. 01/03/2017. 1. See my note above. 2. Chest x-ray in the morning and daily lab. 01/04/2017. 1. See my note above. 2. Daily chest x-ray and lab. 3. Renal is on the case 01/05/2017. 1. See my note above 2. Continue daily chest x-ray and lab. 3. Agree with Dr. Becerra's decision to increase lysed 01/06/2017. 1. See today's note above. 2. Continue present treatment 3. Follow lab and chest x-ray. 4. The patient is a DO NOT RESUSCITATE. Daughter wants treatable things with possibility of reversibility treated 01/08/2017. 1. See today's note above. 2. Repeat urine 3. Repeat urine culture 4. We need to asked the daughter about the possibility of a [place] [facility] [place] versus going home with home health. 5. Note sodium of 155 01/09/2017. 1. See today's note above. 2. Diflucan 3. DC antibiotics in the next day or 2. 4. services program manager. 5. Talked with daughter 01/10/2017. 1. See today's note above. 2. Daughter and clinical social work aide or discussing options. 3. Renal failure slightly improved 4. Congestive heart failure resolved. 5. Sodium 152, potassium 3.1. Renal to address Exam (Progress Note) - Constitutional Vitals: Period Temp Pulse Resp BP Sys/Alvarado Pulse Ox Last 24 Hr 96.1 F-97.3 F 75-100 17-24 126-154/72-88 94-100 Results - Labs CBC & BMP: 01/08/17 05:21 01/09/17 05:07
[2017-01-10 07:12] LABS: Calcium 9.1 MG/DL (8.5-10.1); Magnesium 2.2 MG/DL (1.8-2.4); Osmolality,Calculated 338.4 MOS/KG (273-304); Potassium 3.8 MMOL/L (3.5-5.1)
[2017-01-10] MEDS: metroNIDAZOLE INJ 500 MG in PREMIX 1 EACH IV SCH ×3 (07:55→16:38)
[2017-01-10] MEDS: LORATADINE 10 MG TABLET PO SCH (08:29)
[2017-01-10] MEDS: POTASSIUM CHLORIDE 20 MEQ TABLET PO SCH ×3 (08:29→17:35)
[2017-01-10] MEDS: LEVOTHYROXINE 50 MCG TABLET PO SCH (08:29)
[2017-01-10] MEDS: POLYETHYLENE GLYCOL POWDER 17 GM PACK PO SCH (08:29)
[2017-01-10] MEDS: MEGESTROL 400 MG/10 ML UDCUP PO SCH ×2 (08:30→21:09)
[2017-01-10] MEDS: levETIRAcetam 250 MG TABLET PO SCH (08:30)
[2017-01-10] MEDS: FLUCONAZOLE 100 MG TABLET PO SCH (08:50)
[2017-01-10] MEDS: ISOSORBIDE MONONITRATE 30 MG TABLET PO SCH (08:51)
[2017-01-10] MEDS: FUROSEMIDE 40 MG/4 ML VIAL IV SCH (09:43)
[2017-01-10] MEDS: DESITIN 4OZ/NYSTATIN 15 GRAM MIXTURE PASTE TOP SCH ×2 (11:18→21:09)
[2017-01-10] MEDS: INSULIN REGULAR 100 UNIT/ML SUBCUT SCH ×4 (11:19→21:08)
[2017-01-10] MEDS: PANTOPRAZOLE 40 MG TABLET PO SCH (11:28)
--- NOTE | 2017-01-10 12:20 | Nephrology Progress Note ---
Nephrology - PN: Subj Interval history: The patient's condition is about the same although a little more awake today. She has been able to tolerate a swallowing evaluation. Serum sodium continues to improve now 154. Serum creatinine is now 2.5. Exam (PN)-Nephrology - Vital Signs Vital signs: Period Temp Pulse Resp BP Sys/Alvarado Pulse Ox Last 24 Hr 96.1 F-98.0 F 85-100 17-24 126-153/72-90 91-100 - General Appearance General appearance: appears started age, fatigue, frail EENT: ATNC Respiratory: rales Cardiology: regular rate, regular rhythm Gastrointestinal: normoactive bowel sounds, no tenderness Integumentary: no rash - Lab 01/08/17 05:21 01/10/17 06:24 Most recent lab results Calcium 9.1 MG/DL (8.5-10.1) 01/10/17 06:24 Magnesium 2.2 MG/DL (1.8-2.4) 01/10/17 06:24 Assessment and Plan (1) Dementia Status: Chronic Current Visit: No Qualifiers: Dementia type: Alzheimer's disease (2) Recent urinary tract infection Status: Chronic Assessment and plan: Currently patient on broad-spectrum antibiotics. Current Visit: No (3) Chronic renal insufficiency, stage III (moderate) Status: Chronic Assessment and plan: Process of acute on chronic renal failure. Avoid nephrotoxic agents. Current Visit: No (4) Advanced age Status: Chronic Current Visit: No (5) Debility Status: Chronic Current Visit: No (6) CHF (congestive heart failure) Status: Acute Current Visit: No Qualifiers: Congestive heart failure type: combined (7) Hypernatremia Status: Acute Assessment and plan: This is slowly improving with a serum sodium of 152. Understand patient has congestive heart failure and being very cautious about fluid volume given. Continue to do encourage free water. Current Visit: Yes
--- NOTE | 2017-01-10 14:29 | Case Mgmt Physician Query Form ---
TB Signs and Symptoms Screening ([place]) INSTRUCTIONS: To be completed annually on residents/staff with a significant Tuberculin Skin Test (TST) upon admission/hire or a prior significant TST. To be completed on all staff at hire. Please respond to each listed symptom with an (X) in either the "YES" or "NO" box. Do you currently have any of the following symptoms: YES NO ( ) ( x) A cough If yes, is it: ( ) Productive ( ) Non- productive ( ) ( x) Hemoptysis (spitting up blood) ( ) ( x) Chest pains ( ) ( x) Weight Loss ( ) ( x) Fever ( ) ( x) Night Sweats ( ) ( x) Weakness ( ) ( x) Loss of Appetite ( ) ( x) Difficulty Breathing If you answered YES" to any of the above questions, how long have symptoms been present? Comments: BRENDA
--- NOTE | 2017-01-10 16:24 | Hospitalist Progress Note ---
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 Dopplers negative yesterday. Working on placement. Exam - Constitutional Vitals: Period Temp Pulse Resp BP Sys/Alvarado Pulse Ox Last 24 Hr 96.1 F-98.0 F 85-103 17-24 126-153/64-90 88-100 General appearance: normal weight - Head Head exam: Present: normocephalic, atraumatic - Eye Eye exam: Present: EOMI Pupils: Present: KRISTEN - ENT ENT exam: Present: normal exam - Neck Neck exam: Present: normal inspection - Respiratory Respiratory exam: Present: clear to auscultation bilaterally. Absent: rhonchi, wheezes - Cardiovascular Cardiovascular exam: Present: regular rate and rhythm - GI/Abdominal GI/Abdominal exam: Present: normal bowel sounds, soft. Absent: tenderness, rebound - Extremities Exam Extremities exam: Present: normal inspection - Back Exam Back exam: Present: normal inspection - Neurological Exam Neurological exam: Present: alert, oriented X3 - Psychiatric Psychiatric exam: Present: normal affect, normal mood - Skin Skin exam: Present: warm, intact Results - Labs CBC & BMP: 01/08/17 05:21 01/10/17 06:24
[2017-01-10] MEDS ORDERED: TUBERCULIN SKIN TEST 0.1 ML SYRINGE INTRADERM ONE (17:00)
[2017-01-10] MEDS: DEXTROSE 5% 1,000 ML IV SCH (19:57)
[2017-01-10] MEDS: levETIRAcetam 500 MG TABLET PO SCH (21:08)
[2017-01-10] MEDS: DONEPEZIL 5 MG TABLET PO SCH (21:08)
[2017-01-10] MEDS: SIMVASTATIN 20 MG TABLET PO SCH (21:08)
[2017-01-10] MEDS: ENOXAPARIN 30 MG/0.3 ML SYRINGE SUBCUT SCH (21:08)
[2017-01-11] MEDS: metroNIDAZOLE INJ 500 MG in PREMIX 1 EACH IV SCH ×3 (00:13→16:45)
[2017-01-11] MEDS: ALBUTEROL/IPRATROPIUM 3 ML NEB RESP TX SCH ×4 (02:28→19:24)
[2017-01-11 05:54] LABS: Basophils % 0.1 % (0.0-0.8); Hematocrit 38.1 VOL% (35.7-47.0); Hemoglobin 11.6 GM/DL (12.0-16.0); Immature Granulocytes % 0.8 %; Immature Granulocytes Absolute 0.11 #; Lymphocytes # 1.1 10*3/uL (1.4-4.0); Lymphocytes % 7.9 % (21.3-54.2); Mean Corpuscular HGB Conc 30.4 GM/DL (32-36); Mean Corpuscular Hemoglobin 29 PG (27-34); Mean Corpuscular Volume 94.1 FL (87-102); Monocytes # 0.8 10*3/uL (0.11-0.8); Monocytes % 5.8 % (1.7-12.7); Neutrophils # 12.3 10*3/uL (1.4-7.4); Neutrophils % 85.4 % (38.7-73.9); Platelet Count 87 T/CUMM (130-400); Red Blood Count 4.05 MC/CUMM (3.8-5.5); Red Cell Distribution Width 23.9 % (9.3-17.3); White Blood Count 14.3 T/CUMM (4-12)
[2017-01-11 06:15] LABS: Calcium 8.8 MG/DL (8.5-10.1); Magnesium 2.2 MG/DL (1.8-2.4); Osmolality,Calculated 344.9 MOS/KG (273-304); Potassium 4.3 MMOL/L (3.5-5.1)
[2017-01-11 08:09] LABS: Hypochromasia Slight; Macrocytosis Slight; Microcytosis Slight; Platelet Estimate Decreased; Target Cells 1+
[2017-01-11] MEDS ORDERED: FUROSEMIDE 100 MG/10 ML VIAL IV SCH (09:00)
--- NOTE | 2017-01-11 09:44 | Nephrology Progress Note ---
Nephrology - PN: Subj Interval history: Patient mumbled incoherently otherwise minimal interaction Physical exam general the patient is chronically ill-appearing, heart is regular rate and rhythm, she has no pretibial edema, lungs reveal some upper airway noises worse on the right than the left, abdomen is soft with positive bowel sounds Assessment/plan 1. Hyponatremia-patient's sodium is up to 159 from 154 yesterday, I am going to stop her Lasix and give her D5W at 60 cc an hour 2. Congestive heart failure-this patient's heart failure is much improved her review of pulmonary medicine's note yesterday 3. Chronic kidney disease stage III-this patient's creatinine stable 4. Anemia-patient's hematocrit on admission was around 31% she is now up to around 37%, she did not receive any transfusion this may represent some heme concentration. Exam (PN)-Nephrology - Vital Signs Vital signs: Period Temp Pulse Resp BP Sys/Alvarado Pulse Ox Last 24 Hr 96.1 F-97.4 F 93-108 16-24 142-158/64-106 88-100 - Lab 01/11/17 04:31 01/11/17 04:31 Most recent lab results Calcium 8.8 MG/DL (8.5-10.1) 01/11/17 04:31 Magnesium 2.2 MG/DL (1.8-2.4) 01/11/17 04:31
[2017-01-11] MEDS: LEVOTHYROXINE 50 MCG TABLET PO SCH (09:45)
[2017-01-11] MEDS: levETIRAcetam 250 MG TABLET PO SCH (09:45)
[2017-01-11] MEDS: LORATADINE 10 MG TABLET PO SCH (09:45)
[2017-01-11] MEDS: PANTOPRAZOLE 40 MG TABLET PO SCH (09:45)
[2017-01-11] MEDS: ISOSORBIDE MONONITRATE 30 MG TABLET PO SCH (09:46)
[2017-01-11] MEDS: POTASSIUM CHLORIDE 20 MEQ TABLET PO SCH ×3 (09:46→16:45)
[2017-01-11] MEDS: FLUCONAZOLE 100 MG TABLET PO SCH (09:46)
[2017-01-11] MEDS: MEGESTROL 400 MG/10 ML UDCUP PO SCH ×2 (09:47→22:27)
[2017-01-11] MEDS: POLYETHYLENE GLYCOL POWDER 17 GM PACK PO SCH (09:48)
[2017-01-11] MEDS: INSULIN REGULAR 100 UNIT/ML SUBCUT SCH ×4 (10:33→21:49)
[2017-01-11] MEDS: DESITIN 4OZ/NYSTATIN 15 GRAM MIXTURE PASTE TOP SCH ×2 (10:38→22:27)
[2017-01-11] MEDS: DEXTROSE 5% 1,000 ML IV SCH (10:38)
--- NOTE | 2017-01-11 11:01 | Pulmonology Progress Note ---
Pulmonary - PN: Subj Interval history: PAtient with pulmonary edema from heart failure, has been aggressively diuresed , and pulmonary status back to baseline. She is sleepy and not really answering questions well this morning. No issues per nursing staff overnight Exam (Progress Note) - Constitutional Vitals: Period Temp Pulse Resp BP Sys/Alvarado Pulse Ox Last 24 Hr 96.1 F-97.4 F 93-108 16-24 142-158/64-106 88-100 General appearance: no acute distress, under weight - Head Head exam: Present: normal inspection - Respiratory Respiratory exam: Present: clear to auscultation bilaterally - GI/Abdominal GI/Abdominal exam: Present: normal bowel sounds Results - Labs CBC & BMP: 01/11/17 04:31 01/11/17 04:31 Lab Results: I have reviewed the past 24 hour labs Assessment and Plan (1) CHF (congestive heart failure) Status: Acute Assessment and plan: Patient with normal O2 sats now, in no distress, appears to have been diuresed enough at this point for optimal pulmonary function. Will be available tomorrow for questions, otherwise Dr Wallace will return on Friday to resume care Current Visit: No Qualifiers: Congestive heart failure type: combined (2) Hypernatremia Status: Acute Assessment and plan: Likely secondary to overdiuresis with poor PO intake. Nephro following and addressing Current Visit: Yes
--- NOTE | 2017-01-11 13:51 | Hospitalist Progress Note ---
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 Patient will wake up and mumble, unable to understand her. Daughter present in room today, updated on current course. Exam - Constitutional Vitals: Period Temp Pulse Resp BP Sys/Alvarado Pulse Ox Last 24 Hr 96.1 F-97.4 F 97-108 16-30 142-158/64-106 88-100 General appearance: normal weight - Head Head exam: Present: normocephalic, atraumatic - Eye Eye exam: Present: EOMI Pupils: Present: KRISTEN - ENT ENT exam: Present: normal exam - Neck Neck exam: Present: normal inspection - Respiratory Respiratory exam: Present: clear to auscultation bilaterally. Absent: wheezes - Cardiovascular Cardiovascular exam: Present: regular rate and rhythm - GI/Abdominal GI/Abdominal exam: Present: normal bowel sounds, soft. Absent: tenderness, rebound - Extremities Exam Extremities exam: Present: edema - Back Exam Back exam: Present: normal inspection - Psychiatric Psychiatric exam: Present: normal affect, normal mood - Skin Skin exam: Present: warm, intact Results - Labs CBC & BMP: 01/11/17 04:31 01/11/17 04:31
[2017-01-11] MEDS: levETIRAcetam 500 MG TABLET PO SCH (21:50)
[2017-01-11] MEDS: SIMVASTATIN 20 MG TABLET PO SCH (21:50)
[2017-01-11] MEDS: DONEPEZIL 5 MG TABLET PO SCH (21:50)
[2017-01-11] MEDS: ENOXAPARIN 30 MG/0.3 ML SYRINGE SUBCUT SCH (21:51)
[2017-01-12] MEDS: metroNIDAZOLE INJ 500 MG in PREMIX 1 EACH IV SCH ×3 (00:53→17:03)
[2017-01-12] MEDS: ALBUTEROL/IPRATROPIUM 3 ML NEB RESP TX SCH ×4 (01:11→19:28)
[2017-01-12 05:16] LABS: Hematocrit 35.4 VOL% (35.7-47.0); Hemoglobin 10.6 GM/DL (12.0-16.0); Immature Granulocytes % 0.5 %; Immature Granulocytes Absolute 0.05 #; Lymphocytes # 0.8 10*3/uL (1.4-4.0); Lymphocytes % 7.5 % (21.3-54.2); Mean Corpuscular HGB Conc 29.9 GM/DL (32-36); Mean Corpuscular Hemoglobin 29 PG (27-34); Mean Corpuscular Volume 96.7 FL (87-102); Monocytes # 0.6 10*3/uL (0.11-0.8); Monocytes % 5.7 % (1.7-12.7); NRBC # 0.02 10*3/uL; Neutrophils # 9.3 10*3/uL (1.4-7.4); Neutrophils % 86.3 % (38.7-73.9); Platelet Count 74 T/CUMM (130-400); Red Blood Count 3.66 MC/CUMM (3.8-5.5); Red Cell Distribution Width 24.3 % (9.3-17.3); White Blood Count 10.8 T/CUMM (4-12)
[2017-01-12 05:39] LABS: Calcium 8.7 MG/DL (8.5-10.1); Potassium 5.5 MMOL/L (3.5-5.1)
[2017-01-12 06:07] LABS: Band Neutrophils 8 % (0-10); Lymphocytes 6 % (20-55); Segmented Neutrophils 80 % (50-85); Total Cells Counted 100
[2017-01-12 06:08] LABS: Platelet Estimate Decreased; Schistocytes Few
[2017-01-12] MEDS: LEVOTHYROXINE 50 MCG TABLET PO SCH (09:30)
[2017-01-12] MEDS: levETIRAcetam 250 MG TABLET PO SCH (09:31)
[2017-01-12] MEDS: LORATADINE 10 MG TABLET PO SCH (09:31)
[2017-01-12] MEDS: ISOSORBIDE MONONITRATE 30 MG TABLET PO SCH (09:31)
[2017-01-12] MEDS: FLUCONAZOLE 100 MG TABLET PO SCH (09:31)
[2017-01-12] MEDS: PANTOPRAZOLE 40 MG TABLET PO SCH (09:32)
[2017-01-12] MEDS: INSULIN REGULAR 100 UNIT/ML SUBCUT SCH ×4 (09:32→20:53)
[2017-01-12] MEDS: MEGESTROL 400 MG/10 ML UDCUP PO SCH ×2 (09:32→20:56)
--- NOTE | 2017-01-12 09:37 | Nephrology Progress Note ---
Nephrology - PN: Subj Interval history: Patient is in her usual state of health, she did seem to indicate to me that she was breathing okay when asked. Physical exam general the patient is chronically ill-appearing, heart is regular rate and rhythm, she has trace to 1+ pretibial edema, lungs reveal crackles in upper airway noises throughout she also has audible wheezing heard without a stethoscope, abdomen is soft with positive bowel sounds Assessment/plan 1. Chronic kidney disease stage III-patient's creatinine is fairly stable 2. Hypernatremia-patient's sodium improved slightly with the D5W 3. Congestive heart failure and fluid overload-I am going to restart the patient's Lasix 120 mg IV given to her twice daily 4. Hyperkalemia-patient's potassium is increased to 5.5 the Lasix should help with this. Exam (PN)-Nephrology - Vital Signs Vital signs: Period Temp Pulse Resp BP Sys/Alvarado Pulse Ox Last 24 Hr 97 F-97.7 F 97-113 16-30 147-160/77-89 85-100 - Lab 01/12/17 03:36 01/12/17 03:36 Most recent lab results Calcium 8.7 MG/DL (8.5-10.1) 01/12/17 03:36 Magnesium 2.0 MG/DL (1.8-2.4) 01/12/17 03:36
[2017-01-12] MEDS: POLYETHYLENE GLYCOL POWDER 17 GM PACK PO SCH (09:46)
[2017-01-12] MEDS: DESITIN 4OZ/NYSTATIN 15 GRAM MIXTURE PASTE TOP SCH ×2 (10:58→20:55)
--- NOTE | 2017-01-12 11:02 | Hospitalist Progress Note ---
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 Potassium up some today. Exam - Constitutional Vitals: Period Temp Pulse Resp BP Sys/Alvarado Pulse Ox Last 24 Hr 97 F-97.7 F 97-113 16-30 147-160/77-89 85-100 General appearance: under weight - Head Head exam: Present: normocephalic, atraumatic - Eye Eye exam: Present: EOMI Pupils: Present: KRISTEN - ENT ENT exam: Present: normal exam - Neck Neck exam: Present: normal inspection - Respiratory Respiratory exam: Present: clear to auscultation bilaterally. Absent: rhonchi, wheezes - Cardiovascular Cardiovascular exam: Present: regular rate and rhythm - GI/Abdominal GI/Abdominal exam: Present: normal bowel sounds, soft. Absent: tenderness, rebound - Extremities Exam Extremities exam: Present: normal inspection - Back Exam Back exam: Present: normal inspection - Neurological Exam Neurological exam: Present: alert - Psychiatric Psychiatric exam: Present: normal affect, normal mood - Skin Skin exam: Present: warm, intact Results - Labs CBC & BMP: 01/12/17 03:36 01/12/17 03:36
[2017-01-12] MEDS: FUROSEMIDE 40 MG/4 ML VIAL IV SCH ×2 (12:52→18:23)
[2017-01-12] MEDS: POTASSIUM CHLORIDE 20 MEQ TABLET PO SCH ×3 (12:52→17:09)
[2017-01-12] MEDS: DEXTROSE 5% 1,000 ML IV SCH (12:58)
[2017-01-12] MEDS: ENOXAPARIN 30 MG/0.3 ML SYRINGE SUBCUT SCH (20:54)
[2017-01-12] MEDS: levETIRAcetam 500 MG TABLET PO SCH (20:55)
[2017-01-12] MEDS: SIMVASTATIN 20 MG TABLET PO SCH (20:55)
[2017-01-12] MEDS: DONEPEZIL 5 MG TABLET PO SCH (20:55)
[2017-01-13] MEDS: ALBUTEROL/IPRATROPIUM 3 ML NEB RESP TX SCH ×4 (00:14→19:42)
[2017-01-13] MEDS: metroNIDAZOLE INJ 500 MG in PREMIX 1 EACH IV SCH ×2 (01:06→09:13)
[2017-01-13 06:13] LABS: Calcium 8.8 MG/DL (8.5-10.1); Magnesium 2.2 MG/DL (1.8-2.4); Osmolality,Calculated 351.3 MOS/KG (273-304)
[2017-01-13 06:18] LABS: Potassium 6.1 MMOL/L (3.5-5.1)
[2017-01-13] MEDS ORDERED: FUROSEMIDE 100 MG/10 ML VIAL ONE (08:56)
[2017-01-13] MEDS ORDERED: FUROSEMIDE 20 MG/2 ML VIAL ONE (08:58)
[2017-01-13] MEDS: POLYETHYLENE GLYCOL POWDER 17 GM PACK PO SCH (09:10)
[2017-01-13] MEDS: FUROSEMIDE 40 MG/4 ML VIAL IV SCH ×2 (09:11→15:50)
[2017-01-13] MEDS: MEGESTROL 400 MG/10 ML UDCUP PO SCH ×2 (09:11→21:43)
[2017-01-13] MEDS: LEVOTHYROXINE 50 MCG TABLET PO SCH (09:12)
[2017-01-13] MEDS: DESITIN 4OZ/NYSTATIN 15 GRAM MIXTURE PASTE TOP SCH ×2 (09:12→21:44)
[2017-01-13] MEDS: INSULIN REGULAR 100 UNIT/ML SUBCUT SCH ×4 (09:12→21:43)
[2017-01-13] MEDS: LORATADINE 10 MG TABLET PO SCH (09:12)
[2017-01-13] MEDS: PANTOPRAZOLE 40 MG TABLET PO SCH (09:12)
[2017-01-13] MEDS: ISOSORBIDE MONONITRATE 30 MG TABLET PO SCH (09:13)
[2017-01-13] MEDS: FLUCONAZOLE 100 MG TABLET PO SCH (09:13)
[2017-01-13] MEDS: levETIRAcetam 250 MG TABLET PO SCH (09:13)
--- NOTE | 2017-01-13 10:06 | Pulmonology Progress Note ---
Pulmonary - PN: Subj Interval history: This 89-year-old white female longtime patient of mine whom I saw in pulmonary consultation on 12/31/2016. My impressions were. #1. Acute congestive heart failure secondary to heart disease and valvular disease. 2. History of cardiomyopathy. 3. Mild to moderate mitral regurgitation with elevated pulmonary artery pressures and tricuspid regurgitation 4. Aortic valve insufficiency. 5. Chronic renal failure. Note that in November 2016 the patient's creatinine was 1.30. Today it is 2.40. 6. History of asthma. 7. Obstructive sleep apnea 8. Mild to moderate cognitive impairment 9. 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 Diabetes mellitus 11. Hyperlipidemia 12. High blood pressure 13. 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 History of colon polyps. 14. Past history of TIAs 15. Acute urinary tract infection with an unidentified gram-negative carmelo 01/01/2017. Patient chest x-ray is improved. She still has congestive heart failure but this is good bit better than it was one day ago. Creatinine is increased from 2.4 to 2.9. Several months ago her creatinine was 1.3. Typically in my office her creatinine has been 1.8. She is on salt poor albumin 25 g IV piggyback every 8 hours followed by Lasix 20 mg IV push every 8 hours. I am going to ask renal to see the patient. Her natruretic peptide is greater than 5000. She has underlying heart disease. Electrolytes are normal. Patient has blood culture drawn 12/30/2016 positive for gram-positive cocci which is yet to be identified. She also has a urine culture which is growing a gram-negative carmelo, gram-positive cocci and the micro Streptococcus. Patient received a huge dose of Levaquin at the time of admission. Today we will start Levaquin 250 mg every 48 hours. Ultrasounds of the kidneys have been ordered. Today the patient is a little more alert breathing is much easier. Her daughter is not present. 01/02/2017. Patient's daughter is not present. Patient sitting up in bed she is talkative. She says she feels better than before. Today's chest x-ray is the same as yesterday. There is still residual congestive heart failure but this is markedly improved. Urine cultures from 12/30/2016 grown E. coli and that is being treated based on sensitivities. Blood cultures from 12/30/2016 and 12/31/2016 growing a gram-positive cocci which is yet to be identified.. Dr. Chan is seeing the patient in renal consultation and I appreciate his help. Creatinine is 3.10 with a BUN of 86. Electrolytes are normal. Natruretic peptide remains greater than 5000. Thyroid function tests are normal. Overall the patient is better from a current congestive heart failure standpoint and a level of alertness standpoint. Kidneys continue to be a problem. 01/03/2017. Patient's daughter was present today and I went over the case with her. Patient has maintain the improvement in her level of alertness that I observed yesterday. Her chest x-ray looks worse today but is is grossly underpenetrated. She still has congestive heart failure but she appears much more comfortable with her breathing. Creatinine is dropped from 3.1-3.0 with a BUN of 89. Sodium is 147. Potassium is 3.4. Chloride is 108. Natruretic peptide is greater than 5000. Dr. Chan to see in her in renal consultation. Blood cultures have grown E. coli. Urine cultures have grown E. coli, staph hominis, staph hemolyticus. Patient is covered with present antibiotics. I think we should continue to treat reversible findings. This is a daughter's request. And I agree. 01/04/2017. Patient's daughter was not present today. Chest x-ray was not done. Patient is much less distress and she is being cared for by the nurses. She seems less short of breath. Sodium is 150, potassium is 3.2, creatinine is 3.10 and BUN is 91. Serum osmolality is 330. Random vancomycin level is 14.2 this is being monitored by pharmacology. Keppra level was 35.7. Most recent natruretic peptide is greater than 5000. 01/05/2017. Today's chest x-ray shows cardiomegaly and calcification of the aortic bulb no hilar adenopathy mediastinum is normal evidence of congestive heart failure is beginning to show some good improvement. Patient's breathing comfortably lying in a 30 angle. Creatinine is 3.10. BUN is 96. Sodium 149. Potassium 3.4. Natruretic peptide is greater than 5000. Dr. Becerra has increased her Lasix dose and I agree with this. No family is present. 01/06/2017. Chest x-ray today shows congestive heart failure. Overall this is better than we were a few days back but is still present. She is being diuresed. Her sodium is 153. Potassium is low at 3.2 and is being replaced. Her usual creatinine in my office is about 1.8-2.2. Presently creatinine is 3.10 with a BUN of 103. Natruretic peptide remains elevated greater than 5000. Random vancomycin level is 15.5 and is being monitored by pharmacology. Patient has had positive blood cultures for staph hemolyticus and staph hominis. She is a urine cultures positive for E. coli and Streptococcus mitis. The E. coli was covered with the cephalosporin. Patient is fairly comfortable lying flat in bed. No family is present. 01/08/2017. No family was present. Patient's chest x-ray shows improvement. She has mild residual compensated congestive heart failure. She is also salt poor albumin. She is on Lasix 120 mg once a day. Creatinine appears to have stabilized at 3.0 with a BUN of 110. Sodium is now 155. Potassium is 4.0. Nephrology is on the case per. Previous urine cultures have grown E. coli and Streptococcus middle. Blood cultures have grown staph hominis and staph hemolyticus. White blood cell count is 11,500 with 81 segs 9.5 lymphs and 8.5 monocytes. We will repeat urinalysis. Will also repeat urine cultures. The last recorded fever was 99 and this was on 01/03/2017. This patient may be a correction candidate. I have not seen the daughter and a number of days but we should ask her. 01/09/2017. Patient's daughter was present today. She was seen along with Suresh Mclean nurse practitioner and Flako Becerra RN. Patient's a lot better and she is breathing comfortably. She occasionally has a cough. She has some significant problems with swallowing at times. I have asked for swallowing studies. I talked to the daughter about the fact that we need to decide if she is going to a swing bed or correction or back to home. The daughter says she gets conflicted messages from people out in the community and people her veterans etc. I told her that we should go by what social work administrator says. library services dean has already talked to the daughter but I have asked him to come back and go through things with her again and hopefully we can get all of her questions answered. Patient's urine shows her urinary tract infection is cleared up. She has a yeast and I will start Diflucan. She was septic and we can continue her antibiotics a few more days but she has had good treatment. Patient is comfortable lying flat in bed 01/10/2017. No family is present. Patient passed her swallowing test. Pured diet recommended. This patient had congestive heart failure. This is improved significantly by chest x-ray and clinical criteria. She is breathing comfortably lying flat in bed. She also has chronic renal failure and her creatinine has now dropped to 2.70. In the past she has typically run a creatinine of 1.8-2.4. Potassium was low at 3.1 in each replacement. Sodium is elevated 152. Renal is on the case. Bacterial urinary tract infection has resolved. Patient now has yeast and is being treated with Diflucan. She was previously septic.. She is also for some and Flagyl we can stop these in the next day or 2. library services dean is on the case. Her daughter has had the patient's options presented to her peer 01/13/2017. Patient's potassium was up to 6.1. I have stopped her potassium replacement will follow this. Creatinine is 3.10 with a BUN of 117. Patient is comfortable with no shortness of breath lying nearly flat in bed. No family is present. Physical exam. Vital signs. See below. Face. Symmetrical. No edema of the lips or tongue. Neck. Symmetrical. No meningismus. Psychiatric. Arousable. Alert. Will answer questions. Can follow instructions when she wants to. Neurologic. Cranial nerves are intact with decreased hearing acuity bilaterally. Long track motor function is intact. Sensory exam was not done in gait was not tested. Chest. Previously very prominent rales. Now nearly resolved. Heart. Lateral diffuse PMI Abdomen. Nondistended. Rare bowel sounds. Extremities. Only a trace of pedal edema. Lymphatics. No submandibular cervical supraclavicular or epitrochlear adenopathy. The remainder the physical exam is noncontributory and negative Plan. 12/31/2016 1. Patient's daughter has made her DO NOT RESUSCITATE but she wants everything done that is reasonable and she would like to also keep her comfortable. 2. Salt poor albumin, 25 g IV piggyback every 8 hours followed by 20 mg of Lasix IV push every 8 hours. 3. Daily BMP, BNP, chest x-ray 4. This patient with a creatinine of 2.5 at the time of admission got 750 mg of Levaquin IV push in the emergency room on 12/30/2016. Tomorrow I will start 250 IV piggyback once a day and will adjust according to what the creatinine does. 5. I have added back a number of the patient's medicines including her nitrate , Keppra, thyroid, Protonix. 6. Sliding scale insulin. 7. See orders 8. Other things to consider would be a follow-up echocardiogram and cardiology consult if indicated. 01/01/2017. 1. Ultrasound of the kidneys. 2. Renal consultation. 3. Check urine and blood cultures when available 4. Levaquin. Renal dose. 5. Daily lab and chest x-ray. 6. See today's note above. 01/02/2017. 1. Appreciate renal consultation. 2. See my note above. 3. Follow-up chest x-ray and lab. 01/03/2017. 1. See my note above. 2. Chest x-ray in the morning and daily lab. 01/04/2017. 1. See my note above. 2. Daily chest x-ray and lab. 3. Renal is on the case 01/05/2017. 1. See my note above 2. Continue daily chest x-ray and lab. 3. Agree with Dr. Becerra's decision to increase lysed 01/06/2017. 1. See today's note above. 2. Continue present treatment 3. Follow lab and chest x-ray. 4. The patient is a DO NOT RESUSCITATE. Daughter wants treatable things with possibility of reversibility treated 01/08/2017. 1. See today's note above. 2. Repeat urine 3. Repeat urine culture 4. We need to asked the daughter about the possibility of a correction versus going home with home health. 5. Note sodium of 155 01/09/2017. 1. See today's note above. 2. Diflucan 3. DC antibiotics in the next day or 2. 4. library services dean. 5. Talked with daughter 01/10/2017. 1. See today's note above. 2. Daughter and social work administrator or discussing options. 3. Renal failure slightly improved 4. Congestive heart failure resolved. 5. Sodium 152, potassium 3.1. Renal to address 01/13/2017. 1. See my note above. 2. Stop potassium replacement. 3. Daily lab Exam (Progress Note) - Constitutional Vitals: Period Temp Pulse Resp BP Sys/Alvarado Pulse Ox Last 24 Hr 96 F-97.8 F 89-108 18-28 129-149/75-99 90-98 Results - Labs CBC & BMP: 01/12/17 03:36 01/13/17 05:09
--- NOTE | 2017-01-13 11:01 | Hospitalist Progress Note ---
Assessment and Plan (1) Dementia Status: Chronic Current Visit: No Qualifiers: Dementia type: Alzheimer's disease (2) Chronic renal insufficiency, stage III (moderate) Status: Chronic Assessment and plan: Nephrology assisting Current Visit: No (3) Diastolic dysfunction with chronic heart failure Status: Chronic Assessment and plan: Lasix restarted yesterday at 120 BID Current Visit: No (4) Hypernatremia Status: Acute Assessment and plan: Slightly better today Nephrology assisting Lasix restarted, difficult to balance with volume overload as well Current Visit: Yes (5) Hyperkalemia Status: Acute Assessment and plan: Secondary to supplements Discontinued Will monitor closely, also on lasix Current Visit: Yes Hospitalist: Subjective Interval history: No acute events overnight. Patient still not very interactive. Potassium increasing, appears that she was K supplements, which have now been stopped. Exam - Constitutional Vitals: Period Temp Pulse Resp BP Sys/Alvarado Pulse Ox Last 24 Hr 96 F-97.8 F 89-108 18-28 129-149/75-99 90-98 General appearance: normal weight - Head Head exam: Present: normocephalic, atraumatic - Eye Eye exam: Present: EOMI Pupils: Present: KRISTEN - ENT ENT exam: Present: normal exam - Neck Neck exam: Present: normal inspection - Respiratory Respiratory exam: Present: clear to auscultation bilaterally. Absent: rhonchi, wheezes - Cardiovascular Cardiovascular exam: Present: regular rate and rhythm - GI/Abdominal GI/Abdominal exam: Present: normal bowel sounds, soft. Absent: tenderness, rebound - Extremities Exam Extremities exam: Present: normal inspection - Back Exam Back exam: Present: normal inspection - Neurological Exam Neurological exam: Present: alert - Psychiatric Psychiatric exam: Present: normal affect, normal mood - Skin Skin exam: Present: warm, intact Results - Labs CBC & BMP: 01/12/17 03:36 01/13/17 05:09
--- NOTE | 2017-01-13 13:45 | Nephrology Progress Note ---
Nephrology - PN: Subj Interval history: Patient is resting. Serum creatinine is 3.1. Of note potassium noted to be 6.1 and supplements have been discontinued. No other acute changes. Exam (PN)-Nephrology - Vital Signs Vital signs: Period Temp Pulse Resp BP Sys/Alvarado Pulse Ox Last 24 Hr 96 F-97.8 F 89-108 18-28 129-149/69-99 90-98 - General Appearance General appearance: well-developed, fatigue, frail EENT: ATNC Neck: supple Respiratory: clear Cardiology: regular rate, regular rhythm Gastrointestinal: normoactive bowel sounds, no tenderness, no guarding - Lab 01/12/17 03:36 01/13/17 05:09 Most recent lab results Calcium 8.8 MG/DL (8.5-10.1) 01/13/17 05:09 Magnesium 2.2 MG/DL (1.8-2.4) 01/13/17 05:09 Assessment and Plan (1) Dementia Status: Chronic Current Visit: No Qualifiers: Dementia type: Alzheimer's disease (2) Recent urinary tract infection Status: Chronic Assessment and plan: Currently patient on broad-spectrum antibiotics. Current Visit: No (3) Chronic renal insufficiency, stage III (moderate) Status: Chronic Assessment and plan: Process of acute on chronic renal failure. Avoid nephrotoxic agents. Current Visit: No (4) Advanced age Status: Chronic Current Visit: No (5) Debility Status: Chronic Current Visit: No (6) CHF (congestive heart failure) Status: Acute Current Visit: No Qualifiers: Congestive heart failure type: combined (7) Hypernatremia Status: Acute Assessment and plan: This is slowly improving with a serum sodium of 152. Understand patient has congestive heart failure and being very cautious about fluid volume given. Continue to do encourage free water. Current Visit: Yes
[2017-01-13] MEDS: levETIRAcetam 500 MG TABLET PO SCH (21:42)
[2017-01-13] MEDS: DONEPEZIL 5 MG TABLET PO SCH (21:42)
[2017-01-13] MEDS: ENOXAPARIN 30 MG/0.3 ML SYRINGE SUBCUT SCH (21:43)
[2017-01-13] MEDS: SIMVASTATIN 20 MG TABLET PO SCH (21:43)
[2017-01-14] MEDS: ALBUTEROL/IPRATROPIUM 3 ML NEB RESP TX SCH ×4 (01:37→19:28)
[2017-01-14 07:30] LABS: Calcium 8.8 MG/DL (8.5-10.1); Magnesium 2.1 MG/DL (1.8-2.4); Osmolality,Calculated 347.3 MOS/KG (273-304); Potassium 4.1 MMOL/L (3.5-5.1)
--- NOTE | 2017-01-14 08:45 | XRay Report ---
Exam: XR chest 1V portable Date: 01/14/2017 7:55 AM Indication: CHF Comparison: 01/08/2017 Technical: AP portable Findings: Levoscoliotic curve present in the thoracic spine. Cardiomegaly is present with mild interstitial shunt vascularity. Tiny low volume effusions are present. External cardiac leads are present. No pneumothorax. Mediastinum reveals no acute findings with some small calcified nodes present. Impression: 1. Cardiomegaly with mild interstitial edema shunt vascularity and tiny low volume effusions slightly improved when compared to previous exam. 2. ASVD 3. Levoscoliosis thoracic spine PROCEDURE INTERPRETED AT [facility] DEPARTMENT OF RADIOLOGY Final Report Signed by: Dr. Stefan Cole
[2017-01-14] MEDS: FUROSEMIDE 40 MG/4 ML VIAL IV SCH ×2 (09:47→16:06)
[2017-01-14] MEDS: MEGESTROL 400 MG/10 ML UDCUP PO SCH ×2 (09:48→22:02)
[2017-01-14] MEDS: LORATADINE 10 MG TABLET PO SCH (09:48)
[2017-01-14] MEDS: LEVOTHYROXINE 50 MCG TABLET PO SCH (09:48)
[2017-01-14] MEDS: POLYETHYLENE GLYCOL POWDER 17 GM PACK PO SCH (09:49)
[2017-01-14] MEDS: PANTOPRAZOLE 40 MG TABLET PO SCH (09:49)
[2017-01-14] MEDS: levETIRAcetam 250 MG TABLET PO SCH (09:54)
[2017-01-14] MEDS: FLUCONAZOLE 100 MG TABLET PO SCH (09:54)
[2017-01-14] MEDS: ISOSORBIDE MONONITRATE 30 MG TABLET PO SCH (09:54)
[2017-01-14] MEDS: INSULIN REGULAR 100 UNIT/ML SUBCUT SCH ×4 (09:55→22:00)
[2017-01-14] MEDS: DESITIN 4OZ/NYSTATIN 15 GRAM MIXTURE PASTE TOP SCH ×2 (09:59→22:03)
[2017-01-14] MEDS: DEXTROSE 5% 1,000 ML IV SCH ×2 (10:00→23:00)
--- NOTE | 2017-01-14 10:01 | Pulmonology Progress Note ---
Pulmonary - PN: Subj Interval history: This 89-year-old white female longtime patient of mine whom I saw in pulmonary consultation on 12/31/2016. My impressions were. #1. Acute congestive heart failure secondary to heart disease and valvular disease. 2. History of cardiomyopathy. 3. Mild to moderate mitral regurgitation with elevated pulmonary artery pressures and tricuspid regurgitation 4. Aortic valve insufficiency. 5. Chronic renal failure. Note that in November 2016 the patient's creatinine was 1.30. Today it is 2.40. 6. History of asthma. 7. Obstructive sleep apnea 8. Mild to moderate cognitive impairment 9. 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 Diabetes mellitus 11. Hyperlipidemia 12. High blood pressure 13. 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 History of colon polyps. 14. Past history of TIAs 15. Acute urinary tract infection with an unidentified gram-negative carmelo 01/01/2017. Patient chest x-ray is improved. She still has congestive heart failure but this is good bit better than it was one day ago. Creatinine is increased from 2.4 to 2.9. Several months ago her creatinine was 1.3. Typically in my office her creatinine has been 1.8. She is on salt poor albumin 25 g IV piggyback every 8 hours followed by Lasix 20 mg IV push every 8 hours. I am going to ask renal to see the patient. Her natruretic peptide is greater than 5000. She has underlying heart disease. Electrolytes are normal. Patient has blood culture drawn 12/30/2016 positive for gram-positive cocci which is yet to be identified. She also has a urine culture which is growing a gram-negative carmelo, gram-positive cocci and the micro Streptococcus. Patient received a huge dose of Levaquin at the time of admission. Today we will start Levaquin 250 mg every 48 hours. Ultrasounds of the kidneys have been ordered. Today the patient is a little more alert breathing is much easier. Her daughter is not present. 01/02/2017. Patient's daughter is not present. Patient sitting up in bed she is talkative. She says she feels better than before. Today's chest x-ray is the same as yesterday. There is still residual congestive heart failure but this is markedly improved. Urine cultures from 12/30/2016 grown E. coli and that is being treated based on sensitivities. Blood cultures from 12/30/2016 and 12/31/2016 growing a gram-positive cocci which is yet to be identified.. Dr. Chan is seeing the patient in renal consultation and I appreciate his help. Creatinine is 3.10 with a BUN of 86. Electrolytes are normal. Natruretic peptide remains greater than 5000. Thyroid function tests are normal. Overall the patient is better from a current congestive heart failure standpoint and a level of alertness standpoint. Kidneys continue to be a problem. 01/03/2017. Patient's daughter was present today and I went over the case with her. Patient has maintain the improvement in her level of alertness that I observed yesterday. Her chest x-ray looks worse today but is is grossly underpenetrated. She still has congestive heart failure but she appears much more comfortable with her breathing. Creatinine is dropped from 3.1-3.0 with a BUN of 89. Sodium is 147. Potassium is 3.4. Chloride is 108. Natruretic peptide is greater than 5000. Dr. Chan to see in her in renal consultation. Blood cultures have grown E. coli. Urine cultures have grown E. coli, staph hominis, staph hemolyticus. Patient is covered with present antibiotics. I think we should continue to treat reversible findings. This is a daughter's request. And I agree. 01/04/2017. Patient's daughter was not present today. Chest x-ray was not done. Patient is much less distress and she is being cared for by the nurses. She seems less short of breath. Sodium is 150, potassium is 3.2, creatinine is 3.10 and BUN is 91. Serum osmolality is 330. Random vancomycin level is 14.2 this is being monitored by pharmacology. Keppra level was 35.7. Most recent natruretic peptide is greater than 5000. 01/05/2017. Today's chest x-ray shows cardiomegaly and calcification of the aortic bulb no hilar adenopathy mediastinum is normal evidence of congestive heart failure is beginning to show some good improvement. Patient's breathing comfortably lying in a 30 angle. Creatinine is 3.10. BUN is 96. Sodium 149. Potassium 3.4. Natruretic peptide is greater than 5000. Dr. Becerra has increased her Lasix dose and I agree with this. No family is present. 01/06/2017. Chest x-ray today shows congestive heart failure. Overall this is better than we were a few days back but is still present. She is being diuresed. Her sodium is 153. Potassium is low at 3.2 and is being replaced. Her usual creatinine in my office is about 1.8-2.2. Presently creatinine is 3.10 with a BUN of 103. Natruretic peptide remains elevated greater than 5000. Random vancomycin level is 15.5 and is being monitored by pharmacology. Patient has had positive blood cultures for staph hemolyticus and staph hominis. She is a urine cultures positive for E. coli and Streptococcus mitis. The E. coli was covered with the cephalosporin. Patient is fairly comfortable lying flat in bed. No family is present. 01/08/2017. No family was present. Patient's chest x-ray shows improvement. She has mild residual compensated congestive heart failure. She is also salt poor albumin. She is on Lasix 120 mg once a day. Creatinine appears to have stabilized at 3.0 with a BUN of 110. Sodium is now 155. Potassium is 4.0. Nephrology is on the case per. Previous urine cultures have grown E. coli and Streptococcus middle. Blood cultures have grown staph hominis and staph hemolyticus. White blood cell count is 11,500 with 81 segs 9.5 lymphs and 8.5 monocytes. We will repeat urinalysis. Will also repeat urine cultures. The last recorded fever was 99 and this was on 01/03/2017. This patient may be a [facility] candidate. I have not seen the daughter and a number of days but we should ask her. 01/09/2017. Patient's daughter was present today. She was seen along with Suresh Mclean nurse practitioner and Flako Becerra RN. Patient's a lot better and she is breathing comfortably. She occasionally has a cough. She has some significant problems with swallowing at times. I have asked for swallowing studies. I talked to the daughter about the fact that we need to decide if she is going to a swing bed or [facility] or back to home. The daughter says she gets conflicted messages from people out in the community and people her veterans etc. I told her that we should go by what rn social work says. statement services representative has already talked to the daughter but I have asked him to come back and go through things with her again and hopefully we can get all of her questions answered. Patient's urine shows her urinary tract infection is cleared up. She has a yeast and I will start Diflucan. She was septic and we can continue her antibiotics a few more days but she has had good treatment. Patient is comfortable lying flat in bed 01/10/2017. No family is present. Patient passed her swallowing test. Pured diet recommended. This patient had congestive heart failure. This is improved significantly by chest x-ray and clinical criteria. She is breathing comfortably lying flat in bed. She also has chronic renal failure and her creatinine has now dropped to 2.70. In the past she has typically run a creatinine of 1.8-2.4. Potassium was low at 3.1 in each replacement. Sodium is elevated 152. Renal is on the case. Bacterial urinary tract infection has resolved. Patient now has yeast and is being treated with Diflucan. She was previously septic.. She is also for some and Flagyl we can stop these in the next day or 2. statement services representative is on the case. Her daughter has had the patient's options presented to her peer 01/13/2017. Patient's potassium was up to 6.1. I have stopped her potassium replacement will follow this. Creatinine is 3.10 with a BUN of 117. Patient is comfortable with no shortness of breath lying nearly flat in bed. No family is present. 01/14/2017. Today's chest x-ray shows mild compensated congestive heart failure which represents an improvement compared to previous chest x-rays per. Sodium is elevated at 155. Potassium is dropped to 4.1. Chloride is 113. Creatinine is 2.90 with a BUN of 118. Renal will review. No family was present Physical exam. Vital signs. See below. Face. Symmetrical. No edema of the lips or tongue. Neck. Symmetrical. No meningismus. Psychiatric. Arousable. Alert. Will answer questions. Can follow instructions when she wants to. Neurologic. Cranial nerves are intact with decreased hearing acuity bilaterally. Long track motor function is intact. Sensory exam was not done in gait was not tested. Chest. Previously very prominent rales. Now nearly resolved. Heart. Lateral diffuse PMI Abdomen. Nondistended. Rare bowel sounds. Extremities. Only a trace of pedal edema. Lymphatics. No submandibular cervical supraclavicular or epitrochlear adenopathy. The remainder the physical exam is noncontributory and negative Plan. 12/31/2016 1. Patient's daughter has made her DO NOT RESUSCITATE but she wants everything done that is reasonable and she would like to also keep her comfortable. 2. Salt poor albumin, 25 g IV piggyback every 8 hours followed by 20 mg of Lasix IV push every 8 hours. 3. Daily BMP, BNP, chest x-ray 4. This patient with a creatinine of 2.5 at the time of admission got 750 mg of Levaquin IV push in the emergency room on 12/30/2016. Tomorrow I will start 250 IV piggyback once a day and will adjust according to what the creatinine does. 5. I have added back a number of the patient's medicines including her nitrate , Keppra, thyroid, Protonix. 6. Sliding scale insulin. 7. See orders 8. Other things to consider would be a follow-up echocardiogram and cardiology consult if indicated. 01/01/2017. 1. Ultrasound of the kidneys. 2. Renal consultation. 3. Check urine and blood cultures when available 4. Levaquin. Renal dose. 5. Daily lab and chest x-ray. 6. See today's note above. 01/02/2017. 1. Appreciate renal consultation. 2. See my note above. 3. Follow-up chest x-ray and lab. 01/03/2017. 1. See my note above. 2. Chest x-ray in the morning and daily lab. 01/04/2017. 1. See my note above. 2. Daily chest x-ray and lab. 3. Renal is on the case 01/05/2017. 1. See my note above 2. Continue daily chest x-ray and lab. 3. Agree with Dr. Becerra's decision to increase lysed 01/06/2017. 1. See today's note above. 2. Continue present treatment 3. Follow lab and chest x-ray. 4. The patient is a DO NOT RESUSCITATE. Daughter wants treatable things with possibility of reversibility treated 01/08/2017. 1. See today's note above. 2. Repeat urine 3. Repeat urine culture 4. We need to asked the daughter about the possibility of a [facility] versus going home with home health. 5. Note sodium of 155 01/09/2017. 1. See today's note above. 2. Diflucan 3. DC antibiotics in the next day or 2. 4. statement services representative. 5. Talked with daughter 01/10/2017. 1. See today's note above. 2. Daughter and rn social work or discussing options. 3. Renal failure slightly improved 4. Congestive heart failure resolved. 5. Sodium 152, potassium 3.1. Renal to address 01/13/2017. 1. See my note above. 2. Stop potassium replacement. 3. Daily lab 01/14/2017. 1. See today's note above 2. statement services representative on the case. I do not see a recent note. Exam (Progress Note) - Constitutional Vitals: Period Temp Pulse Resp BP Sys/Alvarado Pulse Ox Last 24 Hr 96.4 F-97.4 F 97-109 18-24 136-148/69-88 90-100 Results - Labs CBC & BMP: 01/12/17 03:36 01/14/17 06:09
--- NOTE | 2017-01-14 11:13 | Hospitalist Progress Note ---
Assessment and Plan (1) Dementia Status: Chronic Current Visit: No Qualifiers: Dementia type: Alzheimer's disease (2) Chronic renal insufficiency, stage III (moderate) Status: Chronic Assessment and plan: Nephrology assisting Stable Current Visit: No (3) Diastolic dysfunction with chronic heart failure Status: Chronic Assessment and plan: Lasix 120 IV BID Current Visit: No (4) Hypernatremia Status: Acute Assessment and plan: Stable Nephrology assisting Lasix restarted, difficult to balance with volume overload as well Current Visit: Yes (5) Hyperkalemia Status: Resolved Assessment and plan: Secondary to supplements Discontinued Will monitor closely, also on lasix Current Visit: Yes Hospitalist: Subjective Interval history: No acute events overnight. Patient asleep but will wake up and interact. Daughter not present at time of my exam. Social work is assisting with placement. If not accepted she will have to go home with her daughter, she is aware of this. She is currently on lasix 120 iv bid. We will need to get her on a good outpatient regimen before discharge. Exam - Constitutional Vitals: Period Temp Pulse Resp BP Sys/Alvarado Pulse Ox Last 24 Hr 96.4 F-97.4 F 97-109 18-24 136-148/69-88 90-100 General appearance: normal weight - Head Head exam: Present: normocephalic, atraumatic - Eye Eye exam: Present: EOMI Pupils: Present: KRISTEN - ENT ENT exam: Present: normal exam - Neck Neck exam: Present: normal inspection - Respiratory Respiratory exam: Present: clear to auscultation bilaterally. Absent: rhonchi, wheezes - Cardiovascular Cardiovascular exam: Present: regular rate and rhythm - GI/Abdominal GI/Abdominal exam: Present: normal bowel sounds, soft. Absent: tenderness, rebound - Extremities Exam Extremities exam: Present: normal inspection - Back Exam Back exam: Present: normal inspection - Neurological Exam Neurological exam: Present: alert, oriented X3 - Psychiatric Psychiatric exam: Present: normal affect, normal mood - Skin Skin exam: Present: warm, intact Results - Labs CBC & BMP: 01/12/17 03:36 01/14/17 06:09
--- NOTE | 2017-01-14 17:11 | Nephrology Progress Note ---
Nephrology - PN: Subj Interval history: Patient's condition is about the same. Urine output is acceptable. Serum creatinine is 2.9. At this time will adjust Lasix 200 mg by mouth twice daily. Continue to increase free water. Exam (PN)-Nephrology - Vital Signs Vital signs: Period Temp Pulse Resp BP Sys/Alvarado Pulse Ox Last 24 Hr 96.4 F-97.4 F 101-110 18-24 136-151/77-90 87-100 - General Appearance General appearance: fatigue, frail EENT: ATNC Neck: supple Respiratory: clear Cardiology: regular rate, regular rhythm Gastrointestinal: normoactive bowel sounds, no tenderness, no guarding Musculoskeletal: no clubbing - Lab 01/12/17 03:36 01/14/17 06:09 Most recent lab results Calcium 8.8 MG/DL (8.5-10.1) 01/14/17 06:09 Magnesium 2.1 MG/DL (1.8-2.4) 01/14/17 06:09 Assessment and Plan (1) Dementia Status: Chronic Current Visit: No Qualifiers: Dementia type: Alzheimer's disease (2) Recent urinary tract infection Status: Chronic Assessment and plan: Currently patient on broad-spectrum antibiotics. Current Visit: No (3) Chronic renal insufficiency, stage III (moderate) Status: Chronic Assessment and plan: Process of acute on chronic renal failure. Avoid nephrotoxic agents. Lasix 100 mg p.o. twice daily. Current Visit: No (4) Advanced age Status: Chronic Current Visit: No (5) Debility Status: Chronic Current Visit: No (6) CHF (congestive heart failure) Status: Acute Current Visit: No Qualifiers: Congestive heart failure type: combined (7) Hypernatremia Status: Acute Assessment and plan: Continue to do encourage free water. Current Visit: Yes
[2017-01-14] MEDS: ENOXAPARIN 30 MG/0.3 ML SYRINGE SUBCUT SCH (22:00)
[2017-01-14] MEDS: DONEPEZIL 5 MG TABLET PO SCH (22:03)
[2017-01-14] MEDS: levETIRAcetam 500 MG TABLET PO SCH (22:03)
[2017-01-14] MEDS: SIMVASTATIN 20 MG TABLET PO SCH (22:03)
[2017-01-15] MEDS: ALBUTEROL/IPRATROPIUM 3 ML NEB RESP TX SCH ×5 (00:13→23:59)
[2017-01-15 05:35] LABS: Calcium 8.2 MG/DL (8.5-10.1); Magnesium 2.1 MG/DL (1.8-2.4); Osmolality,Calculated 350.6 MOS/KG (273-304); Potassium 3.4 MMOL/L (3.5-5.1)
[2017-01-15] MEDS: LORATADINE 10 MG TABLET PO SCH (09:54)
[2017-01-15] MEDS: levETIRAcetam 250 MG TABLET PO SCH ×2 (09:55→17:47)
[2017-01-15] MEDS: POLYETHYLENE GLYCOL POWDER 17 GM PACK PO SCH (09:55)
[2017-01-15] MEDS: ISOSORBIDE MONONITRATE 30 MG TABLET PO SCH (09:55)
[2017-01-15] MEDS: PANTOPRAZOLE 40 MG TABLET PO SCH (09:55)
[2017-01-15] MEDS: LEVOTHYROXINE 50 MCG TABLET PO SCH (09:55)
[2017-01-15] MEDS: FLUCONAZOLE 100 MG TABLET PO SCH (09:55)
[2017-01-15] MEDS: MEGESTROL 400 MG/10 ML UDCUP PO SCH ×2 (09:55→22:02)
[2017-01-15] MEDS: FUROSEMIDE 80 MG TABLET PO SCH ×2 (09:56→18:01)
[2017-01-15] MEDS: INSULIN REGULAR 100 UNIT/ML SUBCUT SCH ×4 (09:56→21:59)
[2017-01-15] MEDS: FUROSEMIDE 20 MG TABLET PO SCH ×2 (09:57→18:01)
[2017-01-15] MEDS: DESITIN 4OZ/NYSTATIN 15 GRAM MIXTURE PASTE TOP SCH ×2 (09:57→22:01)
--- NOTE | 2017-01-15 10:09 | Hospitalist Progress Note ---
<Maggi Ugalde - Last Filed: 01/15/17 10:03> Assessment and Plan (1) Hypernatremia Status: Acute Assessment and plan: Sodium noted at 153 today down from 155 on yesterday. We will continue dextrose 5% as previously ordered. Current Visit: Yes (2) Hypokalemia Status: Acute Assessment and plan: Potassium noted at 3.4. We will continue to monitor. Nephrology to evaluate. Current Visit: Yes (3) Chronic renal insufficiency, stage III (moderate) Status: Chronic Assessment and plan: BUN and creatinine noted at 124 and 2.90 which is a noted increase from 118 and 2.90 on yesterday. Nephrology has been consulted in assisting with the management. We appreciate the input. We will continue Lasix as previously ordered per nephrology recommendation. Current Visit: No Hospitalist: Subjective Interval history: Patient seen and examined; no significant overnight events reported. Case management has been consulted to assist with possible placement. Discharge planning is in progress Exam - Constitutional Vitals: Period Temp Pulse Resp BP Sys/Alvarado Pulse Ox Last 24 Hr 96.1 F-96.8 F 101-115 18-24 119-157/69-90 87-97 General appearance: normal weight, no acute distress - Head Head exam: Present: normal inspection, normocephalic, atraumatic - Eye Eye exam: Present: EOMI, conjunctival injection Pupils: Present: KRISTEN, normal accommodation - ENT ENT exam: Present: normal exam, normal external ear exam, normal oropharynx - Neck Neck exam: Present: normal inspection. Absent: lymphadenopathy, meningismus, tenderness, thyromegaly - Respiratory Respiratory exam: Present: clear to auscultation bilaterally. Absent: rales, rhonchi, stridor, wheezes - Cardiovascular Cardiovascular exam: Present: regular rate and rhythm. Absent: carotid bruit, diastolic murmur, gallop, JVD, rubs, systolic murmur - GI/Abdominal GI/Abdominal exam: Present: normal bowel sounds, soft - Extremities Exam Extremities exam: Present: normal inspection, normal capillary refill. Absent: edema - Back Exam Back exam: Present: normal inspection - Neurological Exam Neurological exam: Present: alert, oriented X3 - Psychiatric Psychiatric exam: Present: normal affect, normal mood - Skin Skin exam: Present: normal color, warm, dry Results - Labs CBC & BMP: 01/12/17 03:36 01/15/17 04:47 Lab Results: I have reviewed the past 24 hour labs <Denisse Paige - Last Filed: 01/15/17 11:26> Assessment and Plan (1) Dementia Status: Chronic Current Visit: No Qualifiers: Dementia type: Alzheimer's disease (2) Chronic renal insufficiency, stage III (moderate) Status: Chronic Current Visit: No (3) Diastolic dysfunction with chronic heart failure Status: Chronic Current Visit: No (4) Hypernatremia Status: Acute Current Visit: Yes (5) Hyperkalemia Status: Resolved Current Visit: Yes Hospitalist: Subjective Interval history: Patient seen and examined independently of OUTREACH AND EDUCATION SOCIAL WORKER [employer], agree with assessment and plan as documented. Patient discussed with nursing staff, she is no longer taking her po medications. She is also not eating. She mostly sleeps now. Her prognosis is very poor. Her daughter is not present this morning during my exam. When she arrives I will discuss this with her as well as the possibility of hospice. Exam - Constitutional Vitals: Period Temp Pulse Resp BP Sys/Alvarado Pulse Ox Last 24 Hr 96.1 F-96.8 F 101-115 18-24 119-157/69-90 87-97 Results - Labs CBC & BMP: 01/15/17 10:40 01/15/17 04:47
--- NOTE | 2017-01-15 10:41 | Pulmonology Progress Note ---
Pulmonary - PN: Subj Interval history: This 89-year-old white female longtime patient of mine whom I saw in pulmonary consultation on 12/31/2016. My impressions were. #1. Acute congestive heart failure secondary to heart disease and valvular disease. 2. History of cardiomyopathy. 3. Mild to moderate mitral regurgitation with elevated pulmonary artery pressures and tricuspid regurgitation 4. Aortic valve insufficiency. 5. Chronic renal failure. Note that in November 2016 the patient's creatinine was 1.30. Today it is 2.40. 6. History of asthma. 7. Obstructive sleep apnea 8. Mild to moderate cognitive impairment 9. 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 Diabetes mellitus 11. Hyperlipidemia 12. High blood pressure 13. 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 History of colon polyps. 14. Past history of TIAs 15. Acute urinary tract infection with an unidentified gram-negative carmelo 01/01/2017. Patient chest x-ray is improved. She still has congestive heart failure but this is good bit better than it was one day ago. Creatinine is increased from 2.4 to 2.9. Several months ago her creatinine was 1.3. Typically in my office her creatinine has been 1.8. She is on salt poor albumin 25 g IV piggyback every 8 hours followed by Lasix 20 mg IV push every 8 hours. I am going to ask renal to see the patient. Her natruretic peptide is greater than 5000. She has underlying heart disease. Electrolytes are normal. Patient has blood culture drawn 12/30/2016 positive for gram-positive cocci which is yet to be identified. She also has a urine culture which is growing a gram-negative carmelo, gram-positive cocci and the micro Streptococcus. Patient received a huge dose of Levaquin at the time of admission. Today we will start Levaquin 250 mg every 48 hours. Ultrasounds of the kidneys have been ordered. Today the patient is a little more alert breathing is much easier. Her daughter is not present. 01/02/2017. Patient's daughter is not present. Patient sitting up in bed she is talkative. She says she feels better than before. Today's chest x-ray is the same as yesterday. There is still residual congestive heart failure but this is markedly improved. Urine cultures from 12/30/2016 grown E. coli and that is being treated based on sensitivities. Blood cultures from 12/30/2016 and 12/31/2016 growing a gram-positive cocci which is yet to be identified.. Dr. Chan is seeing the patient in renal consultation and I appreciate his help. Creatinine is 3.10 with a BUN of 86. Electrolytes are normal. Natruretic peptide remains greater than 5000. Thyroid function tests are normal. Overall the patient is better from a current congestive heart failure standpoint and a level of alertness standpoint. Kidneys continue to be a problem. 01/03/2017. Patient's daughter was present today and I went over the case with her. Patient has maintain the improvement in her level of alertness that I observed yesterday. Her chest x-ray looks worse today but is is grossly underpenetrated. She still has congestive heart failure but she appears much more comfortable with her breathing. Creatinine is dropped from 3.1-3.0 with a BUN of 89. Sodium is 147. Potassium is 3.4. Chloride is 108. Natruretic peptide is greater than 5000. Dr. Chan to see in her in renal consultation. Blood cultures have grown E. coli. Urine cultures have grown E. coli, staph hominis, staph hemolyticus. Patient is covered with present antibiotics. I think we should continue to treat reversible findings. This is a daughter's request. And I agree. 01/04/2017. Patient's daughter was not present today. Chest x-ray was not done. Patient is much less distress and she is being cared for by the nurses. She seems less short of breath. Sodium is 150, potassium is 3.2, creatinine is 3.10 and BUN is 91. Serum osmolality is 330. Random vancomycin level is 14.2 this is being monitored by pharmacology. Keppra level was 35.7. Most recent natruretic peptide is greater than 5000. 01/05/2017. Today's chest x-ray shows cardiomegaly and calcification of the aortic bulb no hilar adenopathy mediastinum is normal evidence of congestive heart failure is beginning to show some good improvement. Patient's breathing comfortably lying in a 30 angle. Creatinine is 3.10. BUN is 96. Sodium 149. Potassium 3.4. Natruretic peptide is greater than 5000. Dr. Becerra has increased her Lasix dose and I agree with this. No family is present. 01/06/2017. Chest x-ray today shows congestive heart failure. Overall this is better than we were a few days back but is still present. She is being diuresed. Her sodium is 153. Potassium is low at 3.2 and is being replaced. Her usual creatinine in my office is about 1.8-2.2. Presently creatinine is 3.10 with a BUN of 103. Natruretic peptide remains elevated greater than 5000. Random vancomycin level is 15.5 and is being monitored by pharmacology. Patient has had positive blood cultures for staph hemolyticus and staph hominis. She is a urine cultures positive for E. coli and Streptococcus mitis. The E. coli was covered with the cephalosporin. Patient is fairly comfortable lying flat in bed. No family is present. 01/08/2017. No family was present. Patient's chest x-ray shows improvement. She has mild residual compensated congestive heart failure. She is also salt poor albumin. She is on Lasix 120 mg once a day. Creatinine appears to have stabilized at 3.0 with a BUN of 110. Sodium is now 155. Potassium is 4.0. Nephrology is on the case per. Previous urine cultures have grown E. coli and Streptococcus middle. Blood cultures have grown staph hominis and staph hemolyticus. White blood cell count is 11,500 with 81 segs 9.5 lymphs and 8.5 monocytes. We will repeat urinalysis. Will also repeat urine cultures. The last recorded fever was 99 and this was on 01/03/2017. This patient may be a snf candidate. I have not seen the daughter and a number of days but we should ask her. 01/09/2017. Patient's daughter was present today. She was seen along with Suresh Mclean nurse practitioner and Flako Becerra RN. Patient's a lot better and she is breathing comfortably. She occasionally has a cough. She has some significant problems with swallowing at times. I have asked for swallowing studies. I talked to the daughter about the fact that we need to decide if she is going to a swing bed or snf or back to home. The daughter says she gets conflicted messages from people out in the community and people her veterans etc. I told her that we should go by what geriatric social worker says. gate services supervisor has already talked to the daughter but I have asked him to come back and go through things with her again and hopefully we can get all of her questions answered. Patient's urine shows her urinary tract infection is cleared up. She has a yeast and I will start Diflucan. She was septic and we can continue her antibiotics a few more days but she has had good treatment. Patient is comfortable lying flat in bed 01/10/2017. No family is present. Patient passed her swallowing test. Pured diet recommended. This patient had congestive heart failure. This is improved significantly by chest x-ray and clinical criteria. She is breathing comfortably lying flat in bed. She also has chronic renal failure and her creatinine has now dropped to 2.70. In the past she has typically run a creatinine of 1.8-2.4. Potassium was low at 3.1 in each replacement. Sodium is elevated 152. Renal is on the case. Bacterial urinary tract infection has resolved. Patient now has yeast and is being treated with Diflucan. She was previously septic.. She is also for some and Flagyl we can stop these in the next day or 2. gate services supervisor is on the case. Her daughter has had the patient's options presented to her peer 01/13/2017. Patient's potassium was up to 6.1. I have stopped her potassium replacement will follow this. Creatinine is 3.10 with a BUN of 117. Patient is comfortable with no shortness of breath lying nearly flat in bed. No family is present. 01/14/2017. Today's chest x-ray shows mild compensated congestive heart failure which represents an improvement compared to previous chest x-rays per. Sodium is elevated at 155. Potassium is dropped to 4.1. Chloride is 113. Creatinine is 2.90 with a BUN of 118. Renal will review. No family was present 01/15/2017. Patient is lying in bed and is fairly comfortable with her breathing. She sleeps most of the time. Today's chest x-ray shows that she still has an element of congestive heart failure. I am not sure that we are going to be able to totally resolve this. I have reviewed Dr. Chan's renal note and I agree with his plan. Patient's been turned down by [facility]. Sodium is 153. Potassium 3.4. Creatinine is 2.90 with a BUN of 124. Patient' s prognosis is poor Physical exam. Vital signs. See below. Face. Symmetrical. No edema of the lips or tongue. Neck. Symmetrical. No meningismus. Psychiatric. Arousable. Alert. Will answer questions. Can follow instructions when she wants to. Neurologic. Cranial nerves are intact with decreased hearing acuity bilaterally. Long track motor function is intact. Sensory exam was not done in gait was not tested. Chest. Previously very prominent rales. Now nearly resolved. Heart. Lateral diffuse PMI Abdomen. Nondistended. Rare bowel sounds. Extremities. Only a trace of pedal edema. Lymphatics. No submandibular cervical supraclavicular or epitrochlear adenopathy. The remainder the physical exam is noncontributory and negative Plan. 12/31/2016 1. Patient's daughter has made her DO NOT RESUSCITATE but she wants everything done that is reasonable and she would like to also keep her comfortable. 2. Salt poor albumin, 25 g IV piggyback every 8 hours followed by 20 mg of Lasix IV push every 8 hours. 3. Daily BMP, BNP, chest x-ray 4. This patient with a creatinine of 2.5 at the time of admission got 750 mg of Levaquin IV push in the emergency room on 12/30/2016. Tomorrow I will start 250 IV piggyback once a day and will adjust according to what the creatinine does. 5. I have added back a number of the patient's medicines including her nitrate , Keppra, thyroid, Protonix. 6. Sliding scale insulin. 7. See orders 8. Other things to consider would be a follow-up echocardiogram and cardiology consult if indicated. 01/01/2017. 1. Ultrasound of the kidneys. 2. Renal consultation. 3. Check urine and blood cultures when available 4. Levaquin. Renal dose. 5. Daily lab and chest x-ray. 6. See today's note above. 01/02/2017. 1. Appreciate renal consultation. 2. See my note above. 3. Follow-up chest x-ray and lab. 01/03/2017. 1. See my note above. 2. Chest x-ray in the morning and daily lab. 01/04/2017. 1. See my note above. 2. Daily chest x-ray and lab. 3. Renal is on the case 01/05/2017. 1. See my note above 2. Continue daily chest x-ray and lab. 3. Agree with Dr. Becerra's decision to increase lysed 01/06/2017. 1. See today's note above. 2. Continue present treatment 3. Follow lab and chest x-ray. 4. The patient is a DO NOT RESUSCITATE. Daughter wants treatable things with possibility of reversibility treated 01/08/2017. 1. See today's note above. 2. Repeat urine 3. Repeat urine culture 4. We need to asked the daughter about the possibility of a snf versus going home with home health. 5. Note sodium of 155 01/09/2017. 1. See today's note above. 2. Diflucan 3. DC antibiotics in the next day or 2. 4. gate services supervisor. 5. Talked with daughter 01/10/2017. 1. See today's note above. 2. Daughter and geriatric social worker or discussing options. 3. Renal failure slightly improved 4. Congestive heart failure resolved. 5. Sodium 152, potassium 3.1. Renal to address 01/13/2017. 1. See my note above. 2. Stop potassium replacement. 3. Daily lab 01/14/2017. 1. See today's note above 2. gate services supervisor on the case. I do not see a recent note. 01/15/2017. 1. See today's note above 2. Social service notes indicate patient's been turned down by [facility] Exam (Progress Note) - Constitutional Vitals: Period Temp Pulse Resp BP Sys/Alvarado Pulse Ox Last 24 Hr 96.1 F-96.8 F 101-115 18-24 119-157/69-90 87-97 Results - Labs CBC & BMP: 01/12/17 03:36 01/15/17 04:47
[2017-01-15 10:48] LABS: Basophils % 0.2 % (0.0-0.8); Hematocrit 37.4 VOL% (35.7-47.0); Hemoglobin 11.2 GM/DL (12.0-16.0); Immature Granulocytes % 0.5 %; Immature Granulocytes Absolute 0.03 #; Lymphocytes # 0.6 10*3/uL (1.4-4.0); Lymphocytes % 8.9 % (21.3-54.2); Mean Corpuscular HGB Conc 29.9 GM/DL (32-36); Mean Corpuscular Hemoglobin 29 PG (27-34); Mean Corpuscular Volume 95.2 FL (87-102); Monocytes # 0.6 10*3/uL (0.11-0.8); Monocytes % 8.6 % (1.7-12.7); NRBC # 0.02 10*3/uL; Neutrophils # 5.3 10*3/uL (1.4-7.4); Neutrophils % 81.8 % (38.7-73.9); Red Blood Count 3.93 MC/CUMM (3.8-5.5); Red Cell Distribution Width 23.9 % (9.3-17.3)
--- NOTE | 2017-01-15 10:49 | XRay Report ---
Exam: XR chest 1V portable Date: 01/15/2017 8:29 AM Indication: Shortness of breath Comparison: 01/14/2017 Technical: AP portable Findings: Cardiomegaly is present. Shunt vascularity is present. Low volume effusions are present. Bony demineralization is present. ASVD is present. External cardiac leads are present. No pneumothorax. Telemetry leads are present. Impression: 1. Cardiomegaly with component of CHF with worsening findings compared to previous exam. Underlying infiltrates cannot be totally excluded. Low volume effusions are present. 2. 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 PROCEDURE INTERPRETED AT [facility] DEPARTMENT OF RADIOLOGY Final Report Signed by: Dr. Stefan Cole
[2017-01-15 10:52] LABS: Platelet Count 71 T/CUMM (130-400); White Blood Count 6.5 T/CUMM (4-12)
[2017-01-15 11:33] LABS: Band Neutrophils 2 % (0-10); Hypochromasia 1+; Lymphocytes 6 % (20-55); Nucleated Red Blood Cells 2 (0-5); Segmented Neutrophils 87 % (50-85); Total Cells Counted 100
[2017-01-15 11:34] LABS: Acanthocytes Few; Anisocytosis 1+; Microcytosis 1+; Ovalocytes Slight
[2017-01-15 11:35] LABS: Platelet Estimate Decreased
[2017-01-15] MEDS ORDERED: FUROSEMIDE 100 MG/10 ML VIAL IV ONE (13:00)
[2017-01-15] MEDS ORDERED: POTASSIUM CHLORIDE 20 MEQ TABLET PO ONE (13:00)
[2017-01-15] MEDS ORDERED: metOLazone 5 MG TABLET PO SCH (13:00)
--- NOTE | 2017-01-15 13:08 | Nephrology Progress Note ---
Nephrology - PN: Subj Interval history: Patient's condition is about the same. Serum creatinine is 2.9. We will continue with p.o. Lasix. Will also add metolazone 5 mg. Exam (PN)-Nephrology - Vital Signs Vital signs: Period Temp Pulse Resp BP Sys/Alvarado Pulse Ox Last 24 Hr 96.1 F-97.4 F 92-115 18-26 119-157/58-90 87-97 - General Appearance General appearance: fatigue, frail EENT: ATNC Neck: supple Respiratory: rales Cardiology: regular rate, regular rhythm Gastrointestinal: normoactive bowel sounds, no guarding Integumentary: warm and dry - Lab 01/15/17 10:40 01/15/17 04:47 Most recent lab results Calcium 8.2 MG/DL (8.5-10.1) L 01/15/17 04:47 Magnesium 2.1 MG/DL (1.8-2.4) 01/15/17 04:47 Assessment and Plan (1) Dementia Status: Chronic Current Visit: No Qualifiers: Dementia type: Alzheimer's disease (2) Recent urinary tract infection Status: Chronic Assessment and plan: Currently patient on broad-spectrum antibiotics. Current Visit: No (3) Chronic renal insufficiency, stage III (moderate) Status: Chronic Assessment and plan: Process of acute on chronic renal failure. Avoid nephrotoxic agents. Lasix 100 mg p.o. twice daily. Also add metolazone 5 mg daily Current Visit: No (4) Advanced age Status: Chronic Current Visit: No (5) Debility Status: Chronic Current Visit: No (6) CHF (congestive heart failure) Status: Acute Current Visit: No Qualifiers: Congestive heart failure type: combined (7) Hypernatremia Status: Acute Assessment and plan: Continue to do encourage free water. Current Visit: Yes
--- NOTE | 2017-01-15 15:59 | Event Note ---
Long discussion with patient's daughter this evening about patient's poor prognosis. The daughter would like to make patient comfort care. This has been initiated. We will pursue outpatient hospice options.
[2017-01-15] MEDS: DEXTROSE 5% 1,000 ML IV SCH (17:47)
[2017-01-15] MEDS: ENOXAPARIN 30 MG/0.3 ML SYRINGE SUBCUT SCH (22:00)
[2017-01-15] MEDS: DONEPEZIL 5 MG TABLET PO SCH (22:02)
[2017-01-15] MEDS: levETIRAcetam 500 MG TABLET PO SCH (22:02)
[2017-01-15] MEDS ORDERED: MORPHINE 2 MG/1 ML SYRINGE IV PRN (23:21)
[2017-01-15] MEDS ORDERED: LORazepam 2 MG/1 ML VIAL IV PRN (23:21)
[2017-01-16] MEDS: ALBUTEROL/IPRATROPIUM 3 ML NEB RESP TX SCH ×4 (07:05→23:51)
--- NOTE | 2017-01-16 08:01 | Case Mgmt Physician Query Form ---
LONG STAY PHYSICIAN RECERTIFICATION *This form is to be completed for all Medicare patients before they reach day 20 of their hospitalization. Please complete each section as appropriate.* I certify that hospitalization, and continued hospitalization, for this patient is medically necessary as follows: 1) Reasons of either continued hospitalization of the patient for medical treatment or medically required diagnostic study or special or unusual services for cost outlier cases are as follows: 2) Estimated time patient will need to remain in hospital: 3) Plan for Post Hospital Care: ( ) Home with Primary Care Follow up ( ) Home with Home Health Follow up ( ) LTACH/ Acute Care Rehab/ SNF/Half-Way (x ) Other: hospice If you have any questions, please contact me. Thank you, Therese Powers R.N. Case Management P: [phone] F: [phone] E: [email or web address] If you have any questions, please contact me. Thank you, Mandy BRIAN Email:[email or web address]
[2017-01-16] MEDS ORDERED: POTASSIUM CHLORIDE 20 MEQ TABLET PO SCH (09:00)
--- NOTE | 2017-01-16 09:38 | Hospitalist Progress Note ---
<Maggi Ugalde - Last Filed: 01/16/17 09:35> Assessment and Plan (1) Hypernatremia Status: Acute Assessment and plan: Sodium noted at 153 today down from 155 on yesterday. We will continue dextrose 5% as previously ordered. 01/16-the patient has been made comfort measures only. Family has requested that all labs be discontinued. Current Visit: Yes (2) Hypokalemia Status: Acute Assessment and plan: Potassium noted at 3.4. We will continue to monitor. Nephrology to evaluate. 01/16-patient has been made comfort care only family's request that all labs be discontinued. Current Visit: Yes (3) Chronic renal insufficiency, stage III (moderate) Status: Chronic Assessment and plan: BUN and creatinine noted at 124 and 2.90 which is a noted increase from 118 and 2.90 on yesterday. Nephrology has been consulted in assisting with the management. We appreciate the input. We will continue Lasix as previously ordered per nephrology recommendation. 01/16-patient has been made comfort care only family's request that all labs be discontinued. Current Visit: No (4) Comfort measures only status Status: Acute Assessment and plan: Patient was made comfort measures only status on yesterday. Case management was consulted to evaluate for hospice services. Current Visit: Yes Hospitalist: Subjective Interval history: Patient seen and examined; no significant overnight events reported per nursing staff. Family decided to make patient comfort measures alone yesterday. Case management was consulted for hospice evaluation. Exam - Constitutional Vitals: Period Temp Pulse Resp BP Sys/Alvarado Pulse Ox Last 24 Hr 95.5 F-97.4 F 92-132 20-26 129-150/58-105 90-99 General appearance: over weight - Head Head exam: Present: normal inspection, normocephalic, atraumatic - Eye Eye exam: Present: EOMI, conjunctival injection Pupils: Present: KRISTEN, normal accommodation - ENT ENT exam: Present: normal exam, normal external ear exam, normal oropharynx - Neck Neck exam: Present: normal inspection. Absent: lymphadenopathy, meningismus, tenderness, thyromegaly - Respiratory Respiratory exam: Present: rales. Absent: rhonchi, stridor, wheezes - Cardiovascular Cardiovascular exam: Present: regular rate and rhythm. Absent: carotid bruit, diastolic murmur, gallop, JVD, rubs, systolic murmur - GI/Abdominal GI/Abdominal exam: Present: normal bowel sounds, soft - Extremities Exam Extremities exam: Present: edema (Weeping noted) - Back Exam Back exam: Present: normal inspection - Neurological Exam Neurological exam: Present: alert, altered - Psychiatric Psychiatric exam: Present: normal affect - Skin Skin exam: Present: normal color, warm, dry Results - Labs CBC & BMP: 01/15/17 10:40 01/15/17 04:47 Lab Results: I have reviewed the past 24 hour labs <Denisse Paige - Last Filed: 01/16/17 13:09> Assessment and Plan (1) Dementia Status: Chronic Current Visit: No Qualifiers: Dementia type: Alzheimer's disease (2) Chronic renal insufficiency, stage III (moderate) Status: Chronic Current Visit: No (3) Diastolic dysfunction with chronic heart failure Status: Chronic Current Visit: No (4) Hypernatremia Status: Acute Current Visit: Yes (5) Hyperkalemia Status: Resolved Current Visit: Yes Hospitalist: Subjective Interval history: No acute events overnight. Patient resting comfortably in bed. Plan for discharge tomorrow. Exam - Constitutional Vitals: Period Temp Pulse Resp BP Sys/Alvarado Pulse Ox Last 24 Hr 95.5 F-97.2 F 97-132 20-26 127-150/70-105 90-100 Results - Labs CBC & BMP: 01/15/17 10:40 01/15/17 04:47
--- NOTE | 2017-01-16 11:17 | Pulmonology Progress Note ---
Pulmonary - PN: Subj Interval history: Suresh Mclean, [facility], acting as scribe for Dr. Stefan Wallace This 89-year-old white female longtime patient of Dr. Wallace who we saw in pulmonary consultation on 12/31/2016. At that time, our impressions were: 1. Acute congestive heart failure secondary to heart disease and valvular disease. 2. History of cardiomyopathy. 3. Mild to moderate mitral regurgitation with elevated pulmonary artery pressures and tricuspid regurgitation 4. Aortic valve insufficiency. 5. Chronic renal failure. Note that in November 2016 the patient's creatinine was 1.30. Today it is 2.40. 6. History of asthma. 7. Obstructive sleep apnea 8. Mild to moderate cognitive impairment 9. 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 Diabetes mellitus 11. Hyperlipidemia 12. High blood pressure 13. 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 History of colon polyps. 14. Past history of TIAs 15. Acute urinary tract infection with an unidentified gram-negative carmelo 01/01/2017. Patient chest x-ray is improved. She still has congestive heart failure but this is good bit better than it was one day ago. Creatinine is increased from 2.4 to 2.9. Several months ago her creatinine was 1.3. Typically in my office her creatinine has been 1.8. She is on salt poor albumin 25 g IV piggyback every 8 hours followed by Lasix 20 mg IV push every 8 hours. I am going to ask renal to see the patient. Her natruretic peptide is greater than 5000. She has underlying heart disease. Electrolytes are normal. Patient has blood culture drawn 12/30/2016 positive for gram-positive cocci which is yet to be identified. She also has a urine culture which is growing a gram-negative carmelo, gram-positive cocci and the micro Streptococcus. Patient received a huge dose of Levaquin at the time of admission. Today we will start Levaquin 250 mg every 48 hours. Ultrasounds of the kidneys have been ordered. Today the patient is a little more alert breathing is much easier. Her daughter is not present. 01/02/2017. Patient's daughter is not present. Patient sitting up in bed she is talkative. She says she feels better than before. Today's chest x-ray is the same as yesterday. There is still residual congestive heart failure but this is markedly improved. Urine cultures from 12/30/2016 grown E. coli and that is being treated based on sensitivities. Blood cultures from 12/30/2016 and 12/31/2016 growing a gram-positive cocci which is yet to be identified.. Dr. Chan is seeing the patient in renal consultation and I appreciate his help. Creatinine is 3.10 with a BUN of 86. Electrolytes are normal. Natruretic peptide remains greater than 5000. Thyroid function tests are normal. Overall the patient is better from a current congestive heart failure standpoint and a level of alertness standpoint. Kidneys continue to be a problem. 01/03/2017. Patient's daughter was present today and I went over the case with her. Patient has maintain the improvement in her level of alertness that I observed yesterday. Her chest x-ray looks worse today but is is grossly underpenetrated. She still has congestive heart failure but she appears much more comfortable with her breathing. Creatinine is dropped from 3.1-3.0 with a BUN of 89. Sodium is 147. Potassium is 3.4. Chloride is 108. Natruretic peptide is greater than 5000. Dr. Chan to see in her in renal consultation. Blood cultures have grown E. coli. Urine cultures have grown E. coli, staph hominis, staph hemolyticus. Patient is covered with present antibiotics. I think we should continue to treat reversible findings. This is a daughter's request. And I agree. 01/04/2017. Patient's daughter was not present today. Chest x-ray was not done. Patient is much less distress and she is being cared for by the nurses. She seems less short of breath. Sodium is 150, potassium is 3.2, creatinine is 3.10 and BUN is 91. Serum osmolality is 330. Random vancomycin level is 14.2 this is being monitored by pharmacology. Keppra level was 35.7. Most recent natruretic peptide is greater than 5000. 01/05/2017. Today's chest x-ray shows cardiomegaly and calcification of the aortic bulb no hilar adenopathy mediastinum is normal evidence of congestive heart failure is beginning to show some good improvement. Patient's breathing comfortably lying in a 30 angle. Creatinine is 3.10. BUN is 96. Sodium 149. Potassium 3.4. Natruretic peptide is greater than 5000. Dr. Becerra has increased her Lasix dose and I agree with this. No family is present. 01/06/2017. Chest x-ray today shows congestive heart failure. Overall this is better than we were a few days back but is still present. She is being diuresed. Her sodium is 153. Potassium is low at 3.2 and is being replaced. Her usual creatinine in my office is about 1.8-2.2. Presently creatinine is 3.10 with a BUN of 103. Natruretic peptide remains elevated greater than 5000. Random vancomycin level is 15.5 and is being monitored by pharmacology. Patient has had positive blood cultures for staph hemolyticus and staph hominis. She is a urine cultures positive for E. coli and Streptococcus mitis. The E. coli was covered with the cephalosporin. Patient is fairly comfortable lying flat in bed. No family is present. 01/08/2017. No family was present. Patient's chest x-ray shows improvement. She has mild residual compensated congestive heart failure. She is also salt poor albumin. She is on Lasix 120 mg once a day. Creatinine appears to have stabilized at 3.0 with a BUN of 110. Sodium is now 155. Potassium is 4.0. Nephrology is on the case per. Previous urine cultures have grown E. coli and Streptococcus middle. Blood cultures have grown staph hominis and staph hemolyticus. White blood cell count is 11,500 with 81 segs 9.5 lymphs and 8.5 monocytes. We will repeat urinalysis. Will also repeat urine cultures. The last recorded fever was 99 and this was on 01/03/2017. This patient may be a senior care candidate. I have not seen the daughter and a number of days but we should ask her. 01/09/2017. Patient's daughter was present today. She was seen along with Suresh Mclean nurse practitioner and Flako Becerra RN. Patient's a lot better and she is breathing comfortably. She occasionally has a cough. She has some significant problems with swallowing at times. I have asked for swallowing studies. I talked to the daughter about the fact that we need to decide if she is going to a swing bed or senior care or back to home. The daughter says she gets conflicted messages from people out in the community and people her veterans etc. I told her that we should go by what drug abuse social worker says. executive services administrator has already talked to the daughter but I have asked him to come back and go through things with her again and hopefully we can get all of her questions answered. Patient's urine shows her urinary tract infection is cleared up. She has a yeast and I will start Diflucan. She was septic and we can continue her antibiotics a few more days but she has had good treatment. Patient is comfortable lying flat in bed 01/10/2017. No family is present. Patient passed her swallowing test. Pured diet recommended. This patient had congestive heart failure. This is improved significantly by chest x-ray and clinical criteria. She is breathing comfortably lying flat in bed. She also has chronic renal failure and her creatinine has now dropped to 2.70. In the past she has typically run a creatinine of 1.8-2.4. Potassium was low at 3.1 in each replacement. Sodium is elevated 152. Renal is on the case. Bacterial urinary tract infection has resolved. Patient now has yeast and is being treated with Diflucan. She was previously septic.. She is also for some and Flagyl we can stop these in the next day or 2. executive services administrator is on the case. Her daughter has had the patient's options presented to her peer 01/13/2017. Patient's potassium was up to 6.1. I have stopped her potassium replacement will follow this. Creatinine is 3.10 with a BUN of 117. Patient is comfortable with no shortness of breath lying nearly flat in bed. No family is present. 01/14/2017. Today's chest x-ray shows mild compensated congestive heart failure which represents an improvement compared to previous chest x-rays per. Sodium is elevated at 155. Potassium is dropped to 4.1. Chloride is 113. Creatinine is 2.90 with a BUN of 118. Renal will review. No family was present 01/15/2017. Patient is lying in bed and is fairly comfortable with her breathing. She sleeps most of the time. Today's chest x-ray shows that she still has an element of congestive heart failure. I am not sure that we are going to be able to totally resolve this. I have reviewed Dr. Dawn's renal note and I agree with his plan. Patient's been turned down by [facility]. Sodium is 153. Potassium 3.4. Creatinine is 2.90 with a BUN of 124. Patient' s prognosis is poor. 01/16/2017. Dr. Paige's note from yesterday has been reviewed. Patient is now been made comfort measures only. They are pursuing outpatient hospice. Exam (Progress Note) - Constitutional Vitals: Period Temp Pulse Resp BP Sys/Alvarado Pulse Ox Last 24 Hr 95.5 F-97.4 F 92-132 20-26 129-150/58-105 90-99 Exam: The patient has now been made comfort measures only. We will sign off. Please reconsult as needed. Results - Labs CBC & BMP: 01/15/17 10:40 01/15/17 04:47
[2017-01-16] MEDS: POTASSIUM CHLORIDE 20 MEQ TABLET PO SCH (15:28)
--- NOTE | 2017-01-16 16:24 | Nephrology Progress Note ---
Nephrology - PN: Subj Interval history: The patient's condition is about the same. She is a comfort care only. Arrangements are being made for hospice care. Exam (PN)-Nephrology - Vital Signs Vital signs: Period Temp Pulse Resp BP Sys/Alvarado Pulse Ox Last 24 Hr 96.1 F-97.7 F 97-111 16-26 127-150/72-105 90-100 - General Appearance General appearance: fatigue, frail EENT: ATNC Neck: supple Respiratory: rales Cardiology: regular rate, regular rhythm Gastrointestinal: normoactive bowel sounds, no tenderness Integumentary: no rash - Lab 01/15/17 10:40 01/15/17 04:47 Most recent lab results Calcium 8.2 MG/DL (8.5-10.1) L 01/15/17 04:47 Magnesium 2.1 MG/DL (1.8-2.4) 01/15/17 04:47 Assessment and Plan (1) Dementia Status: Chronic Current Visit: No Qualifiers: Dementia type: Alzheimer's disease (2) Recent urinary tract infection Status: Chronic Assessment and plan: Currently patient on broad-spectrum antibiotics. Current Visit: No (3) Chronic renal insufficiency, stage III (moderate) Status: Chronic Assessment and plan: Process of acute on chronic renal failure. Avoid nephrotoxic agents. Lasix 100 mg p.o. twice daily. Continue metolazone 5 mg daily No other recommendations. Current Visit: No (4) Advanced age Status: Chronic Current Visit: No (5) Debility Status: Chronic Current Visit: No (6) CHF (congestive heart failure) Status: Acute Current Visit: No Qualifiers: Congestive heart failure type: combined (7) Hypernatremia Status: Acute Assessment and plan: Continue to do encourage free water. Current Visit: Yes
[2017-01-16] MEDS: DESITIN 4OZ/NYSTATIN 15 GRAM MIXTURE PASTE TOP SCH ×2 (17:03→21:40)
[2017-01-17] MEDS: ALBUTEROL/IPRATROPIUM 3 ML NEB RESP TX SCH (07:16)
--- NOTE | 2017-01-17 10:04 | Discharge Summary ---
<Latasha Ugaldeda - Last Filed: 01/17/17 10:00> Hospital Course - Hospital Course Hospital Course: This is a chronically ill 89-year-old female that presented to the ED at [facility] on December 30, 2016 for the evaluation of shortness of breath and increased congestion. 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 Patient has surgical history significant for: Cardiac catheterization, tonsillectomy, adenoidectomy, appendectomy, cholecystectomy, hysterectomy, abdominoplasty. The patient was previously residing at a local long-term care facility. The nursing staff noted that the patient had had an increase in coughing and a chest x-ray was ordered. The x-ray reported a questionable pneumonia. At the time of ED presentation, her daughter was present at bedside who reported that the patient has been experiencing gradual edema and development of a wet cough ever since she was discharged from the hospital. The daughter reported that the patient had not been continued on her diuretics at the time of the previous hospitalization.At the time of ED presentation, the patient was assessed. Labs were obtained and the patient was noted to be hyponatremic with a sodium noted at 146, hyperchloremic with a chloride level of 108, in acute renal failure with a BUN noted at 61 and creatinine at 2.50, and hyperglycemic with a glucose level noted at 237. Chest x-ray was significant for cardiomegaly with bilateral pleural effusions and moderate pulmonary edema. The patient was subsequently admitted to the hospitalist services for continuation of care. At the time of admission, the patient's CODE STATUS was discussed. The daughter requested that the patient be made a DO NOT RESUSCITATE. Pulmonary and nephrology consultations were requested to evaluate and assist during the clinical encounter. Empiric antibiotic coverage and inhaled bronchodilators were initiated was initiated. Niño cultures were obtained which were significant for Staphylococcus hemolytic, Staphylococcus hominis subspecialty hominis, E. coli, and Haritha tropicalis. The renal function continued to worsen during the clinical encounter despite aggressive interventions per nephrology. Despite aggressive medical treatment, the patient's condition failed to improve. She became more lethargic, would no longer take her medications or eat. On January 15, 2017, after a long discussion with her daughter the patient was made comfort measures only and a hospice evaluation was requested. Today, we feel that the patient is indeed appropriate for discharge home to the hosp[facility] services of [facility]. Diagnosis - Discharge Diagnosis (1) Hypernatremia Status: Acute (2) Hypokalemia Status: Acute (3) Chronic renal insufficiency, stage III (moderate) Status: Chronic (4) Comfort measures only status Status: Acute Discharge Plan - Discharge Data Disposition: Hospice - Home - Discharge Medications New Morphine Sulfate [Roxanol] 10 mg PO Q4H PRN #20 ml PRN Reason: Pain LORazepam [Lorazepam Intensol] 2 mg PO Q2H PRN #20 ml PRN Reason: Anxiety Continue Albuterol/Ipratropium Neb [Duoneb] 3 ml RESP TX RT Q6H Discontinued Carvedilol 6.25 mg PO BID W/MEALS PARoxetine HCl [Paroxetine HCl] 30 mg PO BID Ferrous Sulfate 325 mg PO DAILY Memantine HCl [Namenda] 20 mg PO DAILY Fenofibric Acid (Choline) [Trilipix] 135 mg PO DAILY sitaGLIPtin [Januvia] 100 mg PO BEDTIME Esomeprazole Magnesium [Nexium] 40 mg PO BEDTIME Cyanocobalamin Inj [Vitamin B12 Inj] 1,000 mcg IM Q30D clonazePAM [Klonopin] 1 mg PO BEDTIME Ubidecarenone [Coenzyme Q10] 400 mg PO QPM Selenium [Selenium Tab] 400 mcg PO DAILY Gluc Perez/Chondro Perez A/Vit C/Mn [Glucosamine Chondroitin Tab] 1 each PO BID Calcium (Carb)/Vit D 600-400 [Caltrate 600 + D] 1 tablet PO BID Ascorbic Acid [Vitamin C] 1,000 mg PO QPM Isosorbide Mononitrate [Isosorbide Mononitrate ER] 30 mg PO DAILY Aspirin 325 mg PO QAM Sulfameth/Trimeth 800-160 Tab [Bactrim DS Tab] 1 tablet PO BID Furosemide Tab [Lasix Tab] 20 mg PO BID Nitrofurantoin Macro/Tillman [Macrobid] 100 mg PO BID Loratadine [Claritin] 10 mg PO DAILY Potassium Chloride Cap/Tab [Micro K] 8 meq PO DAILY Donepezil [Aricept] 5 mg PO BEDTIME levETIRAcetam [Levetiracetam] 250 mg PO DAILY Diclofenac 1% Gel [Voltaren 1% Gel] 1 applic TOP BID PRN PRN Reason: Pain Levothyroxine Tab [Synthroid Tab] 50 mcg PO QAM Vitamin E Cap 1,000 unit PO DAILY Ergocalciferol (Vitamin D2) [Vitamin D2] 2,000 unit PO DAILY Multivit-Min/FA/Lycopen/Lutein [Centrum Silver Tablet] 1 each PO DAILY Temazepam [Restoril] 30 mg PO BEDTIME PRN #30 tablet PRN Reason: Sleep Megestrol Acetate [Megace] 5 ml PO BID Simvastatin 20 mg PO BEDTIME Polyethylene Glycol Powder [Miralax] 17 gm PO DAILY levETIRAcetam [Levetiracetam] 500 mg PO BEDTIME - Follow Up or Referral - Forms/Instructions Exam - Constitutional Vitals: Period Temp Pulse Resp BP Sys/Alvarado Pulse Ox Last 24 Hr 96.3 F-97.7 F 96-120 16-95 117-147/56-79 77-100 DS: Provider Date of admission: 12/30/16 20:18 Primary care physician: . No PCP Attending physician on admission: Asher Bell DO Consults: 12/30/16 21:26 Consult to Physician [CONS] Routine Comment: terminal chf Consulting Provider: Stefan Wallace Person Notified: edie Date Notified: 12/31/16 Time Notified: 08:46 01/01/17 09:27 Consult to Physician [CONS] Routine Comment: renal failure Consulting Provider: Jose Dawn Jr. Person Notified: paula 01/02/17 10:29 Consult to Wound Care - [place] [CONS] Routine Reason for Wound Care: Wound Care Management Consult Comment: bottom red Discharging clinician: Maggi Ugalde CNP <Denisse Paige - Last Filed: 01/17/17 10:25> Hospital Course - Time spent with patient Time with patient DS: Less than 30 minutes (25) Diagnosis - Discharge Diagnosis (1) Dementia Status: Chronic (2) Chronic renal insufficiency, stage III (moderate) Status: Chronic (3) Diastolic dysfunction with chronic heart failure Status: Chronic (4) Hypernatremia Status: Chronic (5) Hyperkalemia Status: Resolved Discharge Plan - Discharge Data Condition at Discharge: Guarded Discharge Diet: advance to your usual diet Exam - Constitutional General appearance: normal weight - Head Head exam: Present: normocephalic, atraumatic - Eye Eye exam: Present: EOMI Pupils: Present: KRISTEN - ENT ENT exam: Present: normal exam - Neck Neck exam: Present: normal inspection - Respiratory Respiratory exam: Present: clear to auscultation bilaterally - Cardiovascular Cardiovascular exam: Present: regular rate and rhythm - GI/Abdominal GI/Abdominal exam: Present: normal bowel sounds, soft - Extremities Exam Extremities exam: Present: edema - Back Exam Back exam: Present: normal inspection - Neurological Exam Neurological exam: Present: other (lethargic) - Psychiatric Psychiatric exam: Present: other (lethargic) - Skin Skin exam: Present: warm, intact
[2017-01-17 12:40] VITALS: BP 84/52
--- NOTE | 2017-01-31 15:55 | Discharge Summary ---
Hospital Course - Hospital Course Hospital Course: This is a chronically ill 89-year-old female that presented to the ED at [facility] on December 30, 2016 for the evaluation of shortness of breath and increased congestion. 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 Patient has surgical history significant for: Cardiac catheterization, tonsillectomy, adenoidectomy, appendectomy, cholecystectomy, hysterectomy, abdominoplasty. The patient was previously residing at a local long-term care facility. The nursing staff noted that the patient had had an increase in coughing and a chest x-ray was ordered. The x-ray reported a questionable pneumonia. At the time of ED presentation, her daughter was present at bedside who reported that the patient has been experiencing gradual edema and development of a wet cough ever since she was discharged from the hospital. The daughter reported that the patient had not been continued on her diuretics at the time of the previous hospitalization.At the time of ED presentation, the patient was assessed. Labs were obtained and the patient was noted to be hyponatremic with a sodium noted at 146, hyperchloremic with a chloride level of 108, in acute renal failure with a BUN noted at 61 and creatinine at 2.50, and hyperglycemic with a glucose level noted at 237. Chest x-ray was significant for cardiomegaly with bilateral pleural effusions and moderate pulmonary edema. The patient was subsequently admitted to the hospitalist services for continuation of care. At the time of admission, the patient's CODE STATUS was discussed. The daughter requested that the patient be made a DO NOT RESUSCITATE. Pulmonary and nephrology consultations were requested to evaluate and assist during the clinical encounter. Empiric antibiotic coverage and inhaled bronchodilators were initiated was initiated. Niño cultures were obtained which were significant for Staphylococcus hemolytic, Staphylococcus hominis subspecialty hominis, E. coli, and Haritha tropicalis. The renal function continued to worsen during the clinical encounter despite aggressive interventions per nephrology. Despite aggressive medical treatment, the patient's condition failed to improve. She became more lethargic, would no longer take her medications or eat. On January 15, 2017, after a long discussion with her daughter the patient was made comfort measures only and a hospice evaluation was requested. Patient was set up to go home with home hospice but before transport arrived. Diagnosis - Discharge Diagnosis (1) Dementia Status: Chronic (2) Chronic renal insufficiency, stage III (moderate) Status: Chronic (3) Diastolic dysfunction with chronic heart failure Status: Chronic (4) Hypernatremia Status: Chronic (5) Hyperkalemia Status: Resolved Discharge Plan - Discharge Data Disposition: - Discharge Medications New Morphine Sulfate [Roxanol] 10 mg PO Q4H PRN #20 ml PRN Reason: Pain LORazepam [Lorazepam Intensol] 2 mg PO Q2H PRN #20 ml PRN Reason: Anxiety Continue Albuterol/Ipratropium Neb [Duoneb] 3 ml RESP TX RT Q6H Discontinued Carvedilol 6.25 mg PO BID W/MEALS PARoxetine HCl [Paroxetine HCl] 30 mg PO BID Ferrous Sulfate 325 mg PO DAILY Memantine HCl [Namenda] 20 mg PO DAILY Fenofibric Acid (Choline) [Trilipix] 135 mg PO DAILY sitaGLIPtin [Januvia] 100 mg PO BEDTIME Esomeprazole Magnesium [Nexium] 40 mg PO BEDTIME Cyanocobalamin Inj [Vitamin B12 Inj] 1,000 mcg IM Q30D clonazePAM [Klonopin] 1 mg PO BEDTIME Ubidecarenone [Coenzyme Q10] 400 mg PO QPM Selenium [Selenium Tab] 400 mcg PO DAILY Gluc Perez/Chondro Perez A/Vit C/Mn [Glucosamine Chondroitin Tab] 1 each PO BID Calcium (Carb)/Vit D 600-400 [Caltrate 600 + D] 1 tablet PO BID Ascorbic Acid [Vitamin C] 1,000 mg PO QPM Isosorbide Mononitrate [Isosorbide Mononitrate ER] 30 mg PO DAILY Aspirin 325 mg PO QAM Sulfameth/Trimeth 800-160 Tab [Bactrim DS Tab] 1 tablet PO BID Furosemide Tab [Lasix Tab] 20 mg PO BID Nitrofurantoin Macro/Schuyler [Macrobid] 100 mg PO BID Loratadine [Claritin] 10 mg PO DAILY Potassium Chloride Cap/Tab [Micro K] 8 meq PO DAILY Donepezil [Aricept] 5 mg PO BEDTIME levETIRAcetam [Levetiracetam] 250 mg PO DAILY Diclofenac 1% Gel [Voltaren 1% Gel] 1 applic TOP BID PRN PRN Reason: Pain Levothyroxine Tab [Synthroid Tab] 50 mcg PO QAM Vitamin E Cap 1,000 unit PO DAILY Ergocalciferol (Vitamin D2) [Vitamin D2] 2,000 unit PO DAILY Multivit-Min/FA/Lycopen/Lutein [Centrum Silver Tablet] 1 each PO DAILY Temazepam [Restoril] 30 mg PO BEDTIME PRN #30 tablet PRN Reason: Sleep Megestrol Acetate [Megace] 5 ml PO BID Simvastatin 20 mg PO BEDTIME Polyethylene Glycol Powder [Miralax] 17 gm PO DAILY levETIRAcetam [Levetiracetam] 500 mg PO BEDTIME - Follow Up or Referral - Forms/Instructions DS: Provider Date of admission: 12/30/16 20:18 Primary care physician: . No PCP Attending physician on admission: Asher Bell DO Consults: 12/30/16 21:26 Consult to Physician [CONS] Routine Comment: terminal chf Consulting Provider: Stefan Wallace Person Notified: [email or web address] Date Notified: 12/31/16 Time Notified: 08:46 01/01/17 09:27 Consult to Physician [CONS] Routine Comment: renal failure Consulting Provider: Jose Dawn Jr. Person Notified: [email or web address] 01/02/17 10:29 Consult to Wound Care - [place] [CONS] Routine Reason for Wound Care: Wound Care Management Consult Comment: bottom red Discharging clinician: Denisse Paige MD
== END 2017-01-17 12:02 | disposition expired | DRG 291 ==
LOC: EDBD → EDUNIT# → N.ED 18:15 → N.EDINP 20:18 → SUATTDRO 20:18 → N.2E 20:35
PROVIDERS: ADMIT Internal Medicine; ATTEND Internal Medicine